=== PATIENT | female | born 1945 | race Caucasian/White ===

== ENCOUNTER 2020-02-29 10:33 | Outpatient (CLI) | payer MEDICARE, SELFPAY ==
--- NOTE | ~2020-02-29 | XR_ITS ---
EXAMINATION: XR knee RT min 4V DATE: 02/29/2020 11:02 INDICATION: Right knee injury. TECHNIQUE: 4 views of right knee were obtained. COMPARISON: None. FINDINGS: Bone alignment is normal. No fracture. There is severe tricompartmental osteoarthritis. The re is a moderate-sized knee joint effusion. A 10 mm focus of ossification posterior to the knee joint may be a loose body in a Bay's cyst. IMPRESSION: 1. Severe right knee osteoarthritis. 2. Moderate-sized right knee joint effusion. 3. Ossification posterior to the knee joint that may be a loose body in a Bay's cyst. Reviewed, dictated and finalized at location A. IMPRESSION: 1. Severe right knee osteoarthritis. 2. Moderate-sized right knee joint effusion. 3. Ossification posterior to the knee joint that may be a loose body in a Bay 's cyst.
== END 2020-02-29 10:34 | disposition home or self-care (01) ==
PROVIDERS: PCP Family Medicine; Visit Provider Physician Assistant
DX: S89.91XA Unspecified injury of right lower leg, initial encounter (principal); G89.29 Other chronic pain; M17.11 Unilateral primary osteoarthritis, right knee; X58.XXXA Exposure to other specified factors, initial encounter; M25.461 Effusion, right knee
CPT/HCPCS: 73564

== ENCOUNTER 2020-06-27 08:08 | Outpatient (RCR) | payer MEDICARE, SELFPAY ==
[2020-05-14 11:59] VITALS: BMI 42.0
== END 2020-07-30 09:51 | disposition home or self-care (01) ==
LOC: ANHWOC 08:08
PROVIDERS: PCP Family Medicine; Visit Provider Family Medicine
DX: E11.621 Type 2 diabetes mellitus with foot ulcer (principal); L97.529 Non-pressure chronic ulcer of other part of left foot with unspecified severity
CPT/HCPCS: 99212; G0463

== ENCOUNTER 2020-09-10 10:23 | Outpatient (RCR) | payer MEDICARE, SELFPAY ==
[2020-09-10 14:41] VITALS: BMI 42.0
== END 2020-11-28 12:41 | disposition home or self-care (01) ==
LOC: ANHWOC 10:23
PROVIDERS: PCP Family Medicine; Visit Provider Family Medicine
DX: E11.621 Type 2 diabetes mellitus with foot ulcer (principal); L97.521 Non-pressure chronic ulcer of other part of left foot limited to breakdown of skin
CPT/HCPCS: 99212; G0463

== ENCOUNTER → 2023-06-29 10:46 | Outpatient (CLI) | payer MEDICARE, SELFPAY ==
--- NOTE | ~2023-06-29 | XR_ITS ---
EXAMINATION: XR chest 2V 06/29/2023 11:06 INDICATION: Hoarseness. Reflux. PROCEDURE: 2 view chest COMPARISON: No prior studies for comparison. FINDINGS: The lungs are clear. The cardiomediastinal silhouette is within normal limits. There are no pleural effusions. There is no pneumothorax suspected. IMPRESSION: 1: NO ACUTE CARDIOPULMONARY DISEASE. Reviewed, dictated and finalized at location B.
== END ==
PROVIDERS: PCP Otolaryngology; Visit Provider Otolaryngology
DX: R49.0 Dysphonia (principal); J38.00 Paralysis of vocal cords and larynx, unspecified; T17.310A Gastric contents in larynx causing asphyxiation, initial encounter
CPT/HCPCS: 71046

== ENCOUNTER 2023-09-15 12:32 | Emergency (ER) | payer MEDICARE, SELFPAY ==
[2023-09-15 12:36] VITALS: BP 119/66; PULSE 86; RESP 16; TEMP 36.3; O2SAT 100
--- NOTE | 2023-09-15 14:18 | ED.SKABFB ---
HPI - Skin/Abscess/Foreign Bdy General Chief complaint: Skin/Abscess/Foreign Body Stated complaint: lump on vagina Time Seen by Provider: 09/15/23 14:08 History of Present Illness HPI narrative: Pt presents with tender swollen lump on left labia of vagina for two weeks. Pt says it is getting gradually worse. [facility]. Pt says has had some bloody drainage but no purulent drainage. Pt denies trauma or fever. Pt is on apixaban. Related Data Home Medications Medication Instructions Recorded Confirmed silver sulfadiazine 1 % topical 1 applic topical DAILY 08/24/19 03/05/23 cream (Silvadene) Allergies Allergy/AdvReac Type Severity Reaction Status Date / Time No Known Allergies Allergy Verified 09/15/23 12:40 Review of Systems Review of Systems: All systems reviewed & are unremarkable except as noted in HPI and below PMFSH Past Medical History Medical History (Updated 09/15/23 @ 15:15 by Leodan Reed III, DO) Acute bronchitis Acute CHF (09/29/22) 10/01/2022 chest x-ray with pulmonary vascular congestion and pleural effusion. CT angio of the chest with contrast was negative for pulmonary embolism with bilateral pleural effusions and nonspecific alveolar and interstitial lung changes suggesting pulmonary edema. Left heart is poorly enhanced in the ascending aorta possibly due to cardiac dysfunction. Calcification with in the LAD noted. Echo on 10/02/2022 with ejection fraction 55-60% with mild mitral regurgitation and trivial tricuspid regurgitation. stress Lexiscan study on 10/03/2022 revealed no apparent reversible ischemia with normal left ventricular systolic function. Acute non-recurrent maxillary sinusitis At high risk for falls Bilateral impacted cerumen Body mass index (BMI) 45.0-49.9, adult (02/15/19) Body mass index (BMI) of 40.1 to 44.9 in adult Breast cancer screening Chronic pain Chronic pain of right knee Diabetic ulcer of toe associated with type 2 diabetes mellitus (~06/2022) superficial ulceration extensor surface right 2nd toe Diabetic ulcer of toe of left foot associated with type 2 diabetes mellitus Diarrhea Grieving (~08/2021) 48-year-old son Hoarseness of voice Morbid obesity with BMI of 40.0-44.9, adult Non-pressure chronic ulcer of other part of left foot limited to breakdown of skin Osteoarthritis of right knee Renal insufficiency GFR 57 on 06/11/2021. GFR 56 on 08/22/2022. GFR 38 on 10/23/2022. BUN 18, creatinine 1.23 with GFR 46 on 03/02/2023. Screening for diabetic retinopathy (04/30/21) no diabetic retinopathy on 04/30/2021. mild diabetic retinopathy on the right 08/07/2023. UTI (urinary tract infection) Family History Family History Father Acute myocardial infarction, Onset Age: 50 Mother Family history of malignant neoplasm, Onset Age: 82 Social History Social History Social History: Caffeine-coffe/soda Smoking status: Never smoker Alcohol intake: never Substance use: never Substance use type: does not use Lack of Transportation: No Lack of Food: Never True Current Housing: I Have Housing Concerned About Future Housing: No Difficulty Paying Gas/Electric Bills: No Difficulty Paying for Meds: No Currently Unemployed: No Education: Bachelor's Degree Difficulty w/ Childcare or Family Care: No Living arrangements: with family Gender identity (if verbalized by the patient): Female Sexual Orientation (if Verbalized by the Patient): Straight or Heterosexual Exam Const: General: healthy appearing, no acute distress and alert Nutritional Appearance: well nourished Orientation/consciousness: patient oriented x3 Limitations: no limitations GI: GI Palp: Yes Soft to palpation Auscultation: normal bowel sounds : Other: abscess lower left labia Skin
[2023-09-15] MEDS: LIDOCAINE HCL 1% LOCAL INJ 10 ML VIAL (14:29)
[2023-09-15 14:52] VITALS: BP 121/73; PULSE 72; RESP 17; O2SAT 99
[2023-09-15 15:27] VITALS: BP 118/76; PULSE 68; RESP 16; O2SAT 100
== END 2023-09-15 15:30 | disposition home or self-care (01) ==
PROVIDERS: Emergency Provider Emergency Medicine; PCP Family Medicine
DX: N90.7 Vulvar cyst (principal); I50.9 Heart failure, unspecified; E11.9 Type 2 diabetes mellitus without complications; M19.90 Unspecified osteoarthritis, unspecified site; N28.9 Disorder of kidney and ureter, unspecified; Z87.440 Personal history of urinary (tract) infections; Z79.4 Long term (current) use of insulin
CPT/HCPCS: 56405; 99283

== ENCOUNTER 2024-06-08 08:42 | Outpatient (RCR) | payer MEDICARE, SELFPAY ==
[2024-04-01 10:49] VITALS: BMI 44.3
== END 2024-06-30 23:59 | disposition home or self-care (01) ==
LOC: ANHWOC 08:42
PROVIDERS: PCP Family Medicine; Visit Provider Family Medicine
DX: E08.621 Diabetes mellitus due to underlying condition with foot ulcer (principal); L97.529 Non-pressure chronic ulcer of other part of left foot with unspecified severity
CPT/HCPCS: 29581; 99213; 99214; A9270; G0463

== ENCOUNTER 2024-08-01 07:28 | Outpatient (RCR) | payer MEDICARE, SELFPAY ==
[2024-07-01 00:05] VITALS: BMI 44.3
--- NOTE | 2024-07-11 08:50 | VASCRN ---
Order received for: After review of the chart and the patient assessment, patient is not a candidate for the following reason(s): Provider notified:
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
== END 2024-09-26 08:46 | disposition home or self-care (01) ==
LOC: ANHWOC 07:28
PROVIDERS: PCP Family Medicine; Visit Provider Family Medicine
DX: L97.529 Non-pressure chronic ulcer of other part of left foot with unspecified severity (principal); E08.621 Diabetes mellitus due to underlying condition with foot ulcer
CPT/HCPCS: 29581; 99213; 99214; A9270; G0463

== ENCOUNTER 2025-03-14 07:24 | Emergency (ER) | payer MEDICARE, SELFPAY ==
[2025-03-14] VITALS (12 sets, daily range): BP systolic 176–196; BP diastolic 72–98; PULSE 61–88; RESP 11–20; TEMP 36.3; O2SAT 98–100
--- NOTE | ~2025-03-14 | XR_ITS ---
XR chest 2V 03/14/2025 09:00 Indication: Weakness Procedure: 2 view chest Comparison: 06/29/2023 Findings: Cardiomegaly. No focal air space disease, pulmonary edema, pleural effusion or suspected pn eumothorax. Impression: 1: No acute cardiopulmonary disease. 2: Cardiomegaly. Reviewed, dictated and finalized at location A. Impression: 1: No acute cardiopulmonary disease. 2: Cardiomegaly.
--- NOTE | ~2025-03-14 | CT_ITS ---
CT of the Abdomen and Pelvis: Indication: Abdominal pain Technique: 2.5 mm axial scans were obtained through the abdomen and pelvis following intravenous adm inistration of 100 cc of Omnipaque 350. Dose reduction technique was used on this scan by utilizing a utomated exposure control and iterative reconstruction technique. The dose-length product (DLP) was 1 568.82 mGy-cm. Findings: Scans through the lung bases demonstrate small bilateral pleural effusions. Probable diffuse hepatic steatosis. Cholecystectomy clips are present. The spleen, pancreas, adrenals and kidneys are within normal limits. No evidence of aortic aneurysm. No lymphadenopathy. No bowel obstruction or bowel wall thickening. There is no evidence to suggest acute appendicitis. Images through the pelvis were performed. Urinary bladder unremarkable. Small calcified fibroids are present. No ascites. There is extensive degenerative spondylosis of the spine with posterior fusion f rom L3 through L5. Impression: Small bilateral pleural effusions. Diffuse hepatic steatosis. Reviewed, dictated and finalized at [facility]. Impression: Small bilateral pleural effusions. Diffuse hepatic steatosis.
--- OUTSIDE RECORDS SUMMARY | 2025-03-14 07:27 | XMS_ITS | Clinical Summary ---
Author Organization [facility] Address [address] [place] [address] Care Team Providers Care Nocturnist Physician Name Role Phone Jasiel Person MD Primary Care Provider [phone] Allergies No known active allergies Medications LEVEMIR FLEXTOUCH U-100 INSULN 100 unit/mL (3 mL) insulin pen INJECT 60 UNITS QAM 11 8 Active NOVOFINE PLUS 32 gauge x 1/6 needle USE WITH INSULIN QID 11 8 Active levothyroxine (SYNTHROID) 175 mcg tablet Take 1 tablet (175 mcg total) by mouth burlap bag sewer before breakfast Active atorvastatin (LIPITOR) 40 mg tablet Take 1 tablet (40 mg total) by mouth daily Active gabapentin (NEURONTIN) 800 mg tablet Take 1 tablet (800 mg total) by mouth 3 (three) times a day Active esomeprazole DR (NexIUM) 40 mg capsule Take 1 capsule (40 mg total) by mouth daily before breakfast Active polyethylene glycol 3350 (MIRALAX ORAL) Take by mouth A ctive HYDROcodone-aceta minophen (NORCO) 10-325 mg per tablet Take 1 tablet by mouth every 6 (six) hours as needed Active apixaban (ELIQUIS) 5 mg tablet Take 2 tablets (10 mg total) by mouth daily Active furosemide (LASIX) 40 mg tablet Take 1 tablet (40 mg total) by mouth daily Active potassium chloride ER (KLOR-CON) 10 mEq CR tablet Take 1 tablet/capsule (10 mEq total) by mouth daily 30 tablet 11 3 Active sacubitriL-valsar contreras (Entresto) 24-26 mg tabletIndications :chronic heart failure Take 1 tablet by mouth 2 (two) times a day 28 tablet 3 Active Jardiance 25 mg tablet Take 1 tablet (25 mg total) by mouth every morning 3 Active metoprolol XL (TOPROL-XL) 100 mg 24 hr tablet Take 1.5 tablets (150 mg total) by mouth daily 45 tablet 11 4 Active flecainide (TAMBOCOR) 50 mg tabletIndications :Paroxysmal Atrial Fibrillation Take 1 tablet (50 mg total) by mouth 2 (two) times a day 60 tablet 11 4 Active Active Problems Problem Noted Date Diagnosed Date Medication side effects 12/08/2023 Paroxysmal atrial fibrillation 09/15/2023 Chronic anticoagulation 09/15/2023 Weakness of voice 06/18/2023 Coronary artery calcification seen on CT scan Chronic heart failure with preserved ejection fr action 02/17/2023 Morbid obesity with BMI of 40.0-44.9, adult 11/2022 Mixed diabetic hyperlipidemi a associated with type 2 diabetes mellitus 02/17/2023 Hypertension associated with diabetes 02/17/2023 Left asymmetrical SNHL 03/18/2019 Assessment & Plan (03/18/2019 12:40 PM CDT): MRI open at [facility] Oral steroids called into [facility] Recheck hearing test in 6 weeks Carotid doppler Centralized Scheduling: Dizziness and giddiness 03/18/2019 Assessment & Plan (03/18/2019 12:43 PM CDT): MRI open at [facility] Oral steroids called into [facility] Recheck hearing test in 6 weeks Carotid doppler Centralized Scheduling: If no improvement in 6 weeks, consider Katie-Hallpike versus CTA Hx of colonic polyps 07/06/2018 Overview (07/06/2018): Added automatically from request for surgery [id number] Immunizations Immunization Administration Dates Next Due Tdap 06/12/2022 Surgical History Surgery Date Site/Laterality Comments THYROIDECTOMY APPENDECTOMY TONSILLECTOMY CHOLECYSTECTOMY REPLACEMENT TOTAL KNEE Left BACK SURGERY TUBAL LIGATION COLONOSCOPY 08/05/2016 Medical History Medical History Date Comments Colon polyp Hypertension Hyperlipidemia Type 2 diabetes mellitus (HCC) Hypothyroidism Thyroid cancer (HCC) GERD (gastroesophageal reflux disease) CHF (congestive heart failure) (HCC) Family History Medical History Relation Name Comments Alcohol abuse Father Heart disease Father Back Pain Mother Cancer Mother Relation Name Status Comments Father Mother Social History Tobacco Use Types Packs/Day Years Used Date Smoking Tobacco: Never Smokeless Tobacco: Never Tobacco Cessation:Counseling Given: Not Answered Alcohol Use Standard Drinks/Week Comments Not Currently 0 (1 standard drink = 0.6 oz pur e alcohol) Personal Safety Answer Date Recorded Getting School Help Needed Not on file 09/29 Comments Unknown Sex and Gender Information Value Date Recorded Sex Assigned at Not on file 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 Gender Identity Not on file Sexual Orientation Not on file Obstetrics History Last Filed Vital Signs Vital Sign Reading Time Taken Comments Blood Pressure 105/56 02/09/2024 12:14 PM CDT Pulse 105 02/08/2024 1:30 PM CDT Temperature 36.7 C (98.1 F) 09/15/2023 11:48 AM CAR RENTAL AGENCY MANAGER Respiratory Rate 16 01/26/2024 11:36 AM CDT Oxygen Saturation 98% 02/08/2024 1:30 PM CDT Inhaled Oxygen Concentration - - Weight 122.5 kg (270 lb) 01/26/2024 11:36 AM CDT Height 167.6 cm (5' 6) 01/26/2024 11:36 AM CDT Body Mass Index 43.58 01/26/2024 11:36 AM CDT Plan of Treatment Health Maintenance Due Date Last Done Comments Albumin Creatinine Ratio, Urine 1945 Depression Screening 1945 Fall Risk Assessment 1945 Hemoglobin A1C 1945 Hepatitis C Screening 1945 Osteoporosis Screening-Bone Density Scan 1945 Dilated Eye Exam 1945 Foot Exam 1945 Hepatitis B Screening 1965 Pneumococcal vaccine 65+ (1 of 2 - PCV) 1966 Zoster Vaccine (1 of 2) 1997 Well Visit 65+ 2012 eGFR 04/14/2024 04/14/2023 Lipid Panel 06/18/2024 06/18/2023, 02/16, 02/17/2023 Covid-19 Vaccine (5 - 2023-2 5 season) 2024 03/27/2022, 08/04/2021, 01/06/2021, Additional history exists Influenza Vaccine (Season Ended) 2025 08/04/20 DTaP/Tdap/Td Vaccine (2 - Td or Tdap) 06/12/2032 06/12/2022 Colon Cancer Screening-CT Colonography Discontinued 08/12/2018, 08/05/2016, 08/05/2016, Additional history exists Colon Cancer Screening-Colonoscopy Discontinued 08/12/2018, 08/05/2016, 08/05/2016, Additional history exists Colon Cancer Screening-DNA Stool Discontinued 08/12/2018, 08/05/2016, 08/05/2016, Additional history exists Colon Cancer Screening-FIT Discontinued 08/12, 08/05/2016, 08/05/2016, Additional history exists Colon Cancer Screening-FOBT Discontinued 07/20, 08/05/2016, 08/05/2016, Additional history exists Colon Cancer Screening-Sigmoidoscopy Discontinued 08/12/2018, 08/05/2016, 08/05/2016, Additional history exists Colorectal Cancer Screening Discontinued Procedures Procedure Name Priority Date/Time Associated Diagnosis Comments POCT LIPID PANEL Routine 06/18/2023 12:3 5 PM CDT Mixed diabetic hyperlipidemia associated with type 2 diabetes mellitus (HCC) BASIC METABOLIC PANEL Routine 04/14/2023 7:39 AM CDT Chronic heart failure with preserved ejection fraction (HCC) COLONOSCOPY 08/12/2018 10:17 AM CDT from Last 3 Months or Most Recently Relevant to Health Maintenance Results * POCT lipid panel (06/18/2023 12:35 PM CDT) Cholesterol, POC 171 mg/dL Comment:GLU = 183 HDL, POC 21 mg/dL Triglycerides, POC 295 mg/dL LDL Cholesterol POC 90 mg/dL Chol/HDL Ratio, POC 4.3 Non-HDL Cholesterol, POC 149 mg/dL Cholesterol Total, POC 171 mg/dL Capillary blood 06/18/2023 1 2:35 PM CDT us Aldo Muse MD POINT OF CARE TEST ORDER GENTRY Final Result * (ABNORMAL) Basic metabolic panel (04/14/2023 7:39 AM CDT) Glucose 159(H) 65 - 99 mg/dL [facility] Comment: Fasting reference interval For someone without known diabetes, a glucose value >125 mg/dL indicates that they may have diabetes and this should be confirmed with a follow-up test. BUN 16 7 - 25 mg/dL [facility] Creatinine 1.11(H) 0.60 - 1.00 mg/dL [facility] eGFR 52(L) > OR = 60 mL/min/1.7 3m2 [facility] Comment: The eGFR is based on the CKD-EPI 2020 equation. To calculate the new eGFR from a previous Creatinine or Cystatin C result, go to https://www.kidney.org/professionals/ kdoqi/gfr%5Fcalculator BUN/creat ratio 14 6 - 22 (calc) [facility] Sodium 141 135 - 146 mmol/L [facility] Potassium, pl 4.3 3.5 - 5.3 mmol/L [facility] Chloride 105 98 - 110 mmol/L [facility] CO2 27 20 - 32 mmol/L [facility] Calcium 10.0 8.6 - 10.4 mg/dL [facility] Blood 04/14/2023 7:39 AM CDT 04/14/2023 7:39 AM CDT Narrative [facility] - 04/15/2023 3:01 AM CDT FASTING:YES FASTING: YES Radha Lester [employer]OUND [employer] LAB BLOOD ORDERABLES Ana l Result [facility] [id number] [place] [id number] * COLONOSCOPY (08/12/2018 10:17 AM CDT) Anatomical Region Laterality Modality Other Narrative Procedure Note Angel Guido MD - 08/12/2018 10:17 AM CDT [facility] Patient Name: Nona Sessions Procedure Date: 08/12/2018 10:17AM Date of : 1945 Admit Type: Outpatient Age: 72 Gender: Female Attending MD: Angel Guido M.D. Room: [facility] ENDOSCOPY ROOM 1 Note Status: Finalized Procedure: Colonoscopy Indications: High risk colon cancer surveillance: Personalhistory of colonic polyps, Last colonoscopy: July 2016 Referring MD: Jasiel Person MD Providers: Angel Guido M.D. Impression: - Hemorrhoids found on perianal exam. - Two 5 to 7 mm polyps in the descending colon andin the transverse colon, removed with a hot biopsy forceps. Resected and retrieved. Recommendation: - Discharge patient to home. - Resume previous diet. - Continue present medications. - Await pathology results. - Repeat colonoscopy in 5 years for surveillance. - Return to primary care physician as previously scheduled. Medicines: Propofol per Anesthesia Complications: No immediate complications. Estimated Blood Loss: Estimated blood loss: none. Procedure: The benefits, risks and alternatives of theprocedure and sedation were discussed and informed consent was obtained. All questions were answered. Please referto the signed informed consent document in the medical record. The scope was passed under direct vision.The Colonoscope [id number] was introducedthrough the anus and advanced to the the cecum, identifiedby appendiceal orifice and ileocecal valve. The colonoscopy was performed without difficulty. The patient tolerated the procedure well. The quality of the bowel preparation was good. Findings: Hemorrhoids were found on perianal exam. Two sessile polyps were found in the descending colon and transverse colon. The polyps were 5 to 7 mm in size. These polyps were removedwith a hot biopsy forceps. Resection and retrieval were complete. Verification of patient identification for the specimen was done bythe physician and nurse using the patient's name and date.Estimated blood loss was minimal. The exam was otherwise normal throughout the examined colon. Electronically signed by Angel Guido M.D. Angel Guido M.D. 08/12/2018 11:11:19 AM Number of Addenda: 0 Note Initiated On: 08/12/2018 10:17 AM Procedure Code(s): --- Professional --- 15933, Colonoscopy, flexible; with removal of tumor(s), polyp(s), or other lesion(s) by hot biopsy forceps Diagnosis Code(s): --- Professional --- D12.3, Benign neoplasm of transverse colon (hepatic flexure orsplenic flexure) D12.4, Benign neoplasm of descending colon K64.9, Unspecified hemorrhoids Z86.010, Personal history of colonic polyps CPT copyright 2017 [employer]. All rights reserved. The codes documented in this report are preliminary and upon inpatient coder reviewmay be revised to meet current compliance requirements. Recognized by the [employer] for promoting quality in endoscopy us Angel Guido MD ENDOSCOPY PROCEDURES Final Re sult from Last 3 Months or Most Recently Relevant to Health Maintenance Insurance [facility] MEDICARE T MEDICARE AET MEDICARE Advance Directives For more information, please contact: [phone] * Full Code (Latest Code Status on File) Date Activated Date Inactivated Comments 08/12/2018 8:57 AM 08/12/2018 1:55 PM * Full Code Date Activated Date Inactivated Comments 08/12/2018 8:57 AM 08/12/2018 8:57 AM Care Teams Nocturnist Physician Relationship Specialty Start Date End Date Jasiel Person MD [facility] [address] [address] PCP - General Family Medicine 07/02/18
--- OUTSIDE RECORDS SUMMARY | 2025-03-14 07:27 | XMS_ITS | Referral Summary ---
Author Organization [facility] Address [address] [place] [address] Care Team Providers Care Shot Peen Operator Name Role Phone Jasiel Person MD Primary Care Provider [phone] Allergies No known active allergies Medications LEVEMIR FLEXTOUCH U-100 INSULN 100 unit/mL (3 mL) insulin pen INJECT 60 UNITS QAM 11 8 Active NOVOFINE PLUS 32 gauge x 1/6 needle USE WITH INSULIN QID 11 8 Active levothyroxine (SYNTHROID) 175 mcg tablet Take 1 tablet (175 mcg total) by mouth rewriter before breakfast Active atorvastatin (LIPITOR) 40 mg [...] (03/18/2019 12:40 PM CDT): MRI open at [facility] Oral steroids called into [facility] Recheck hearing test in 6 weeks Carotid doppler Centralized Scheduling: Dizziness and giddiness 03/18/2019 Assessment & Plan (03/18/2019 12:43 PM CDT): MRI open at [facility] Oral steroids called into 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 Gender Identity Not on file Sexual Orientation Not on file Last Filed Vital Signs Vital Sign Reading Time Taken Comments Blood Pressure 105/56 02/09/2024 12:14 PM CDT Pulse 105 02/08/2024 1:30 PM CDT Temperature 36.7 C (98.1 F) 09/15/2023 11:48 AM VASCULAR NURSE Respiratory Rate 16 01/26/2024 11:36 AM CDT Oxygen Saturation 98% 02/08/2024 1:30 PM CDT Inhaled Oxygen Concentration - - Weight 122.5 kg (270 lb) 01/26/2024 11:36 AM CDT Height 167.6 cm (5' 6) 01/26/2024 11:36 AM CDT Body Mass Index 43.58 01/26/2024 11:36 AM CDT Plan of Treatment Not on file Procedures Procedure Name Priority Date/Time Associated Diagnosis [...] 04/15/2023 3:01 AM CDT FASTING:YES FASTING: YES us Radha Lester NP LAB BLOOD ORDERABLES Ana plummer Result [facility] [address] [id number] * COLONOSCOPY (08/12/2018 10:17 AM CDT) Anatomical Region Laterality Modality Other Narrative Procedure Note Angel Guido MD - 08/12/2018 10:[address] [facility] Patient Name: Nona Sessions Procedure Date: 08/12/2018 10:17AM Date of : 1945 Admit Type: Outpatient Age: 72 Gender: Female Attending MD: Angel Guido M.D. Room: [facility] ENDOSCOPY ROOM 1 Note Status: Finalized Procedure: [...] scope was passed under direct vision.The Colonoscope [id number] was introducedthrough the anus and advanced to [...] 10:17 AM Procedure Code(s): --- Professional --- 38117, Colonoscopy, flexible; with removal of tumor(s), polyp(s), or other lesion(s) by hot biopsy forceps Diagnosis Code(s): --- Professional --- D12.3, Benign neoplasm of transverse colon (hepatic flexure orsplenic flexure) D12.4, Benign neoplasm of descending colon K64.9, Unspecified hemorrhoids Z86.010, Personal history of colonic polyps CPT copyright 2017 [employer]. All rights reserved. The codes documented in this report are preliminary and upon physician coder reviewmay be revised to meet current compliance requirements. Recognized by the [employer] for promoting quality in endoscopy Angel Guido MD ENDOSCOPY PROCEDURES Final Re sult from Last 3 Months or Most Recently Relevant to Health Maintenance Insurance T MEDICARE T MEDICARE T MEDICARE Advance Directives For more information, please contact: [phone] * Full Code (Latest Code Status on File) Date Activated Date Inactivated Comments 08/12/2018 8:57 AM 08/12/2018 1:55 PM * Full Code Date Activated Date Inactivated Comments 08/12/2018 8:57 AM 08/12/2018 8:57 AM Care Teams Shot Peen Operator Relationship Specialty Start Date End Date Jasiel Person MD [address] [address] PCP - General Family Medicine 07/02/18
--- OUTSIDE RECORDS SUMMARY | 2025-03-14 07:27 | XMS_ITS | Continuity of Care Document ---
Author Organization [facility] Address [address] [place] [address] [place] [address] Phone Care Team Providers Care Loss Prevention Supervisor Name Role Phone Anthony Murphy MD Unavailable Unavailable Procedures Procedure Date Office/outpatient Visit, Est Eye Exam, New Patient Advance Directives Directive Yes / No Effective Date File Name No Information Encounters Encounter Description Practice Location Reason(s) For Visit Diagnoses Date Provider Providers Copied on Encounter Office/outpat ient Visit, Est [facility], [address] [place] [address] [address], [place], [place], [id number], tel:[phone] [address] Herbert AVILEZ Professional No Information [address] [facility] [place] [id number], . tel:[phone] [id number] [facility], [address] [place] [address] [address], [place], [place], [id number], tel:[phone] [address] Selby RAGHAV Professional No Information [address], [facility] [place], [place], [id number], . tel:[phone] Family History Family Member Type Diagnosis Age At Onset No Information Payers Payer name Insurance type Covered republican ID Authoriza tion(s) No Information Social History Type Description Quantity Date Captured Comments Sex Female Smoking Status No Information Chief Complaint And Reason For Visit No Information Reason For Referral Reason For Referral No Information History Of Present Illness Encounter Date Complaint History Of Prese nt Illness No Information Functional Status Date Functional Assessmen t No Information Instructions Date Instruction Additional Infor mation No Information Assessments Type Assessment Date No Information Patient Care Teams Name Effective Dates (start - stop) Status Members No Information
--- NOTE | 2025-03-14 07:33 | ECG_ITS ---
Test Date: 2025-03-14 07:39:02 Measurements Intervals Royal Rate: 65 P: 50 DC: 256 QRS: -78 QRSD: 124 T: 4 QT: 443 QTc: 462 Interpretive Statements SINUS RHYTHM WITH FIRST DEGREE AV BLOCK WITH OCCASIONAL VENTRICULAR PREMATURE COMPLEXES LEFT ANTERIOR FASCICULAR BLOCK [QRS AXIS <= -45, QR IN I, RS IN II] POSSIBLE ANTERIOR MYOCARDIAL INFARCTION , PROBABLY OLD [30 ms Q WAVE IN V3/V4, OR R < 0.2 mV IN V4] No previous ECG available for comparison Electronically Signed On 03-14-2025 14:06:17 CDT by Matti Miller M.D.
--- NOTE | 2025-03-14 07:51 | ED.GENADULT ---
HPI - General Adult General Chief complaint: Nausea/Vomiting/Diarrhea Stated complaint: vomiting Time Seen by Provider: 03/14/25 07:37 History of Present Illness HPI narrative: Patient 79-year-old female who presents emergency department with chief complaint of nausea and abdominal discomfort. Patient reports that about 2 weeks ago she was placed on iron by her primary care provider after she was more anemic. Patient does report that she is on blood thinners and reports that since then she has been feeling nauseated and reports she has discomfort throughout her abdomen. The patient reports that she has had no bright red blood in her stools reports that in the past she has had endoscopy that showed that she had a ulcer but did not have any bleeding at that time. Related Data Home Medications ?Medication ?Instructions ?Recorded ?Confirmed ?Last Taken ?Type metoprolol succinate 100 mg 100 mg PO DAILY 09/24/23 02/21/25 Unknown History tablet,extended release 24 hr amiodarone 200 mg tablet 200 mg PO DAILY 07/20/24 02/21/25 Unknown History spironolactone 25 mg tablet 25 mg PO DAILY 07/20/24 02/21/25 Unknown History Allergies Allergy/AdvReac Type Severity Reaction Status Date / Time No Known Allergies Allergy Verified 03/14/25 07:50 Review of Systems Review of Systems: A 10 system review of systems was completed on the patient and is negative except for what is stated in the HPI. Nursing and ancillary documentation was reviewed. [facility] Past Medical History Medical History Chronic acquired lymphedema treated with sequential pneumatic compression device 2 hours daily lower extremities Nausea and vomiting Renal insufficiency GFR 57 on 06/11/2021. GFR 56 on 08/22/2022. GFR 38 on 10/23/2022. BUN 18, creatinine 1.23 with GFR 46 on 03/02/2023. BUN 18 with creatinine 1.03 with GFR 57 on 09/22/2023. BUN 19, creatinine 1.43 with GFR 31 on 03/09/2024. BUN 15, creatinine 1.12 with GFR 51 on 07/18/2024. Screening for diabetic retinopathy (04/30/21) no diabetic retinopathy on 04/30/2021. mild diabetic retinopathy on the right 08/07/2023. Diabetic ulcer of toe of left foot associated with diabetes mellitus due to underlying condition left great toe, 3rd toe Acute CHF (09/29/22) 10/01/2022 chest x-ray with pulmonary vascular congestion and pleural effusion. CT angio of the chest with contrast was negative for pulmonary embolism with bilateral pleural effusions and nonspecific alveolar and interstitial lung changes suggesting pulmonary edema. Left heart is poorly enhanced in the ascending aorta possibly due to cardiac dysfunction. Calcification with in the LAD noted. Echo on 10/02/2022 with ejection fraction 55-60% with mild mitral regurgitation and trivial tricuspid regurgitation. stress Lexiscan study on 10/03/2022 revealed no apparent reversible ischemia with normal left ventricular systolic function. Chronic kidney disease (CKD) stage G3b/A1, moderately decreased glomerular filtration rate (GFR) between 30-44 mL/min/1.73 square meter and albuminuria creatinine ratio less than 30 mg/g GFR 57 on 06/11/2021. GFR 56 on 08/22/2022. GFR 38 on 10/23/2022. BUN 18, creatinine 1.23 with GFR 46 on 03/02/2023. BUN 18 with creatinine 1.03 with GFR 57 on 09/22/2023. BUN 19, creatinine 1.43 with GFR 31 on 03/09/2024. BUN 15, creatinine 1.12 with GFR 51 on 07/18/2024. BUN 20, creatinine 1.35 with GFR 40 on 02/17/2025. Polyp of colon (~03/11/24) 3 sessile polyps , tubular adenoma, less than 7 mm in the ascending colon on 03/11/2024. No follow-up needed. Gastric ulcer (~02/2024) EGD on 03/11/2024 with gastric ulcer nonbleeding. Iron deficiency anemia, unspecified (~03/09/24) hemoglobin 6.6, iron 43 with 10% saturation and ferritin 7 with vitamin B12 768, folic acid 8.0 on 03/09/2024. Hemoglobin 9.0 on 07/18/2024. hemoglobin 6.4 with iron 13 with 3% saturation and ferritin 4 on 02/17/2025. Diabetic retinopathy of right eye (08/07/23) mild retinopathy right eye 08/07/2023. Diastolic CHF with preserved left ventricular function, NYHA class 2 Echo with ejection fraction 52% with moderate diastolic dysfunction and [id number] tricuspid regurgitation, atrial fibrillation. Paroxysmal atrial fibrillation UTI (urinary tract infection) Hoarseness of voice Diarrhea Acute bronchitis At high risk for falls Diabetic ulcer of toe associated with type 2 diabetes mellitus (~06/2022) superficial ulceration extensor surface right 2nd toe Grieving (~08/2021) 48-year-old son Morbid obesity with BMI of 40.0-44.9, adult Acute non-recurrent maxillary sinusitis Breast cancer screening Body mass index (BMI) of 40.1 to 44.9 in adult Chronic pain Bilateral impacted cerumen Osteoarthritis of right knee Chronic pain of right knee Body mass index (BMI) 45.0-49.9, adult (02/15/19) Diabetic ulcer of toe of left foot associated with type 2 diabetes mellitus Non-pressure chronic ulcer of other part of left foot limited to breakdown of skin Surgical History Surgical History H/O cardiac radiofrequency ablation Family History Family History Father Acute myocardial infarction, Onset Age: 50 Mother Family history of malignant neoplasm, Onset Age: 82 Social History Social History Social History: Caffeine-coffe/soda Smoking status: Never smoker Alcohol intake: never Substance use: never Substance use type: does not use Lack of Transportation: No Lack of Food: Never True Current Housing: I Have Housing Concerned About Future Housing: No Difficulty Paying Gas/Electric Bills: No Difficulty Paying for Meds: No Currently Unemployed: No Education: Bachelor's Degree Difficulty w/ Childcare or Family Care: No Living arrangements: with family Gender identity (if verbalized by the patient): Female Sexual Orientation (if Verbalized by the Patient): Straight or Heterosexual Exam Narrative: GENERAL: Well-appearing, well-nourished, and in no acute distress. HEAD: Normocephalic, atraumatic. EYES: PERRLA and EOMI. ENT: Nares clear, no rhinorrhea or epistaxis. Mucous membranes moist. NECK: Supple. CHEST: Clear to auscultation. No respiratory distress. HEART: Regular rate and rhythm. No murmur heard. Normal peripheral pulses. ABDOMEN: Soft, nontender, nondistended, normal active bowel sounds. EXTREMITIES: Normal range of motion. No edema. SKIN: Warm, dry, no rash. NEURO: No focal deficits. Alert and oriented x3. PSYCH: Normal mood and affect. Course Vital Signs Vital signs: Vital Signs Temperature 36.3 C L 03/14/25 07:34 Pulse Rate 67 03/14/25 07:34 Respiratory Rate 18 03/14/25 07:34 Blood Pressure 195/86 H 03/14/25 07:34 Pulse Oximetry 100 03/14/25 07:34 Oxygen Delivery Room Air 03/14/25 07:34 Temperature 36.3 C L 03/14/25 07:34 Pulse Rate 69 03/14/25 11:16 Respiratory Rate 15 03/14/25 11:16 Blood Pressure 191/93 H 03/14/25 11:16 Pulse Oximetry 98 03/14/25 08:31 Oxygen Delivery Room Air 03/14/25 07:34 Medical Decision Making [facility] Narrative Medical decision making narrative: Diagnosis includes intra-abdominal infection, bowel obstruction, UTI Laboratory studies showed a white count of 6.2 electrolytes showed a creatinine of 1.32 CO2 was 31 liver enzymes are normal troponin was negative urinalysis showed 3+ glucose 1+ protein 6-10 red blood cells negative leukocyte esterase negative wbc's CT scan the abdomen pelvis showed no acute abnormality Vital Signs Vital Signs: Vital Signs Temperature 36.3 C L 03/14/25 07:34 Pulse Rate 67 03/14/25 07:34 Respiratory Rate 18 03/14/25 07:34 Blood Pressure 195/86 H 03/14/25 07:34 Pulse Oximetry 100 03/14/25 07:34 Oxygen Delivery Room Air 03/14/25 07:34 Temperature 36.3 C L 03/14/25 07:34 Pulse Rate 69 03/14/25 11:16 Respiratory Rate 15 03/14/25 11:16 Blood Pressure 191/93 H 03/14/25 11:16 Pulse Oximetry 98 03/14/25 08:31 Oxygen Delivery Room Air 03/14/25 07:34 Lab Data 03/14/25 07:53 03/14/25 07:53 Labs: Lab Results 03/14/25 03/14/25 03/14/25 Range/Units 07:53 07:53 07:53 WBC 6.2 (4.5-10.0) K/mm3 RBC 4.73 (4.2-5.4) M/mm3 Hgb 9.4 L (12.0-15.0) g/dL Hct 38.1 (37.0-47.0) % MCV 80.5 (80-100) fl MCH 19.9 L (26-34) pg MCHC 24.7 L (32-36) g/dl RDW TNP Plt Count 323 (150-375) k/mm3 MPV 8.9 (7.4-10.4) fl Immature Gran % (Auto) 0.5 (0-0.5) % Neut % (Auto) 79.2 H (45.5-73.1) % Lymph % (Auto) 13.0 L (18.3-44.2) % [place] % (Auto) 5.5 (2.6-8.5) % Eos % (Auto) 1.0 (0-4.4) % Baso % (Auto) 0.8 (0.2-1.2) % Lymph # (Auto) 0.80 L (0.9-3.2) K/mm3 [place] # (Auto) 0.3 (0.1-0.6) K/mm3 Eos # (Auto) 0.1 (0-0.3) K/mm3 Baso # (Auto) 0.1 (0.0-0.1) K/mm3 Abs Immat Gran (auto) 0.03 (0.00-0.031) K/mm3 Absolute Neuts (auto) 4.9 (1.3-6.7) K/mm3 Absolute Nucleated RBC 0.000 (0.0-0.012) K/mm3 Band Neutrophils % Not Reportable Nucleated RBC % 0.0 (0.0-0.2) % Platelet Estimate Adequate (Adequate) Hypochromasia 2+ Anisocytosis 2+ Tear Drop Cells 1+ Ovalocytes 1+ Schistocytes None seen Sodium 138 (137-145) mmol/L Potassium 3.8 (3.4-5.0) mmol/L Chloride 97 L (98-107) mmol/L Carbon Dioxide 31 H (22-30) mmol/L Anion Gap 10 (4-12) mmol/L BUN 15 (7-17) mg/dL Creatinine 1.32 H (0.7-1.0) mg/dL Estim Creat Clear Calc 44 ml/min Estimated GFR 39 L (59 - ) Glucose 109 (65-110) mg/dL Calcium 9.7 (8.4-10.2) mg/dL Magnesium 2.0 Cancelled (1.6-2.3) mg/dL Total Bilirubin 1.2 (0.2-1.3) mg/dL AST 35 (14-36) U/L ALT 13 (6-35) U/L Alkaline Phosphatase 68 (38-126) U/L Troponin I < 0.012 Cancelled (0.000-0.034) ng/mL Total Protein 8.0 (6.3-8.2) g/dL Albumin 4.3 (3.5-5.1) g/dL Lipase 53 (23-300) U/L Urine Color (Yellow) Urine Appearance (Clear) Urine pH (5.0-9.0) Ur Specific [place] (1.001-1.035) Urine Protein (Negative) mg/dL Urine Glucose (UA) (Negative) mg/dL Urine Ketones (Negative) mg/dL Ur Blood (Man) (Negative) Urine Nitrate (Negative) Urine Bilirubin (Negative) Urine Urobilinogen (<2.0) mg/dL Leukocyte Esterase Rfl (Negative) YANG/UL Urine RBC (0-2) /hpf Urine WBC (0-3) /hpf Ur Squamous Epith Cells (Few) /hpf Urine Bacteria /hpf Urine Casts 03/14/25 03/14/25 Range/Units 07:53 10:31 WBC (4.5-10.0) K/mm3 RBC (4.2-5.4) M/mm3 Hgb (12.0-15.0) g/dL Hct (37.0-47.0) % MCV (80-100) fl MCH (26-34) pg MCHC (32-36) g/dl RDW Plt Count (150-375) k/mm3 MPV (7.4-10.4) fl Immature Gran % (Auto) (0-0.5) % Neut % (Auto) (45.5-73.1) % Lymph % (Auto) (18.3-44.2) % [place] % (Auto) (2.6-8.5) % Eos % (Auto) (0-4.4) % Baso % (Auto) (0.2-1.2) % Lymph # (Auto) (0.9-3.2) K/mm3 [place] # (Auto) (0.1-0.6) K/mm3 Eos # (Auto) (0-0.3) K/mm3 Baso # (Auto) (0.0-0.1) K/mm3 Abs Immat Gran (auto) (0.00-0.031) K/mm3 Absolute Neuts (auto) (1.3-6.7) K/mm3 Absolute Nucleated RBC (0.0-0.012) K/mm3 Band Neutrophils % Nucleated RBC % (0.0-0.2) % Platelet Estimate (Adequate) Hypochromasia Anisocytosis Tear Drop Cells Ovalocytes Schistocytes Sodium (137-145) mmol/L Potassium (3.4-5.0) mmol/L Chloride (98-107) mmol/L Carbon Dioxide (22-30) mmol/L Anion Gap (4-12) mmol/L BUN (7-17) mg/dL Creatinine (0.7-1.0) mg/dL Estim Creat Clear Calc ml/min Estimated GFR (59 - ) Glucose (65-110) mg/dL Calcium (8.4-10.2) mg/dL Magnesium (1.6-2.3) mg/dL Total Bilirubin (0.2-1.3) mg/dL AST (14-36) U/L ALT (6-35) U/L Alkaline Phosphatase (38-126) U/L Troponin I (0.000-0.034) ng/mL Total Protein (6.3-8.2) g/dL Albumin (3.5-5.1) g/dL Lipase Cancelled (23-300) U/L Urine Color Yellow (Yellow) Urine Appearance Clear (Clear) Urine pH 8.0 (5.0-9.0) Ur Specific [place] 1.031 (1.001-1.035) Urine Protein 1+ H (Negative) mg/dL Urine Glucose (UA) 3+ H (Negative) mg/dL Urine Ketones Negative (Negative) mg/dL Ur Blood (Man) Trace (Negative) Urine Nitrate Negative (Negative) Urine Bilirubin Negative (Negative) Urine Urobilinogen 1.0 (<2.0) mg/dL Leukocyte Esterase Rfl Negative (Negative) YANG/UL Urine RBC 6-10 H (0-2) /hpf Urine WBC 0-5 (0-3) /hpf Ur Squamous Epith Cells None seen (Few) /hpf Urine Bacteria None seen /hpf Urine Casts 0-2 Discharge Plan Discharge Clinical Impression: Nausea Patient Disposition: Home Condition: Stable Instructions: Antibiotic Form, Acute Nausea and Vomiting (ED) Patient Language: [place] Korean Prescriptions: New ondansetron 4 mg tablet,disintegrating 4 mg PO Q8H PRN (Reason: nausea and vomiting) Qty: 10 0RF No Action metoprolol succinate 100 mg tablet extended release 24 hr 100 mg PO DAILY Patient Comments: prescribed by Cardiology spironolactone 25 mg tablet 25 mg PO DAILY amiodarone 200 mg tablet 200 mg PO DAILY levothyroxine [Synthroid] 200 mcg tablet 200 mcg PO . q.a.m. Qty: 90 3RF ferrous sulfate 325 mg (65 mg iron) tablet,delayed release (DR/EC) 325 mg PO DAILY Qty: 90 3RF Rx Instructions: take with supper ondansetron HCl 4 mg tablet 4 mg PO ONCE PRN (Reason: nausea and vomiting) Qty: 30 5RF (DME) pen needle, diabetic [BD Marisol 2nd Gen Pen Needle] 32 gauge x 5/32 needle See Rx Instructions .ROUTE .MEDSUPPLY Qty: 100 6RF Rx Instructions: As directed to test blood sugar BID insulin glargine [Lantus Solostar U-100 Insulin] 100 unit/mL (3 mL) insulin pen 50 unit subcut BID Qty: 75 3RF esomeprazole magnesium 40 mg capsule,delayed release(DR/EC) 40 mg PO DAILY Qty: 90 3RF potassium chloride 10 mEq capsule, extended release 10 meq PO DAILY Qty: 90 3RF Eliquis 5 mg tablet 5 mg PO BID Qty: 60 11RF Jardiance 25 mg tablet 25 mg PO QAM Qty: 90 3RF atorvastatin 40 mg tablet 40 mg PO DAILY Qty: 90 3RF gabapentin 800 mg tablet 800 mg PO TID Qty: 90 11RF furosemide 40 mg tablet 40 mg PO QAM Qty: 30 11RF Rx Instructions: started in hospital hydrocodone-acetaminophen 10-325 mg tablet 1 tablet PO Q6H PRN (Reason: pain) Qty: 120 0RF Follow-up/Referrals: Jasiel Person MD [Primary Care Provider] - Time of Disposition: 12:10
--- OUTSIDE RECORDS SUMMARY | 2025-03-14 07:56 | XMS_ITS | Referral Summary ---
Author Organization [facility] Address [address] [place] [address] Care Team Providers Care Overlock Sleeve Setter Name Role Phone Jasiel Person MD Primary Care Provider [phone] Allergies No known active allergies Medications LEVEMIR FLEXTOUCH U-100 INSULN 100 unit/mL (3 mL) insulin pen INJECT 60 UNITS QAM 11 8 Active NOVOFINE PLUS 32 gauge x 1/6 needle USE WITH INSULIN QID 11 8 Active levothyroxine (SYNTHROID) 175 mcg tablet Take 1 tablet (175 mcg total) by mouth wind technician before breakfast Active atorvastatin (LIPITOR) 40 mg [...] (03/18/2019 12:40 PM CDT): MRI open at [facility] Oral steroids called into [facility] Recheck hearing test in 6 weeks Carotid doppler Centralized Scheduling: Dizziness and giddiness 03/18/2019 Assessment & Plan (03/18/2019 12:43 PM CDT): MRI open at [facility] Oral steroids called into [facility] Recheck hearing test in 6 weeks Carotid doppler Centralized Scheduling: If no improvement in 6 weeks, consider Katie-Hallpike versus CTA Hx of colonic polyps 07/06/2018 Overview (07/06/2018): Added automatically from request for surgery [id number] Immunizations Immunization Administration Dates Next Due Tdap [...] on file Legal Sex Female 7:55 PM 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 Gender Identity Not on file Sexual Orientation Not on file Last Filed Vital Signs Vital Sign Reading Time Taken Comments Blood Pressure 105/56 02/09/2024 12:14 PM CDT Pulse 105 02/08/2024 1:30 PM CDT Temperature 36.7 C (98.1 F) 09/15/2023 11:48 AM 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 Respiratory Rate 16 01/26/2024 11:36 AM CDT [...] BLOOD ORDERABLES Ana plummer Result [facility] [address] [address] [id number] * COLONOSCOPY (08/12/2018 10:17 AM CDT) Anatomical Region Laterality Modality Other Narrative Procedure Note Angel Guido MD - 08/12/2018 10:17 AM CDT [facility] Patient Name: Nona Sessions Procedure Date: 08/12/2018 10:17AM Date of : 1945 Admit Type: Outpatient Age: 72 Gender: Female Attending MD: Angel Guido M.D. Room: [facility] ENDOSCOPY ROOM 1 Note Status: Finalized Procedure: [...] scope was passed under direct vision.The Colonoscope [id number] was introducedthrough the anus and advanced to [...] 10:17 AM Procedure Code(s): --- Professional --- 08374, Colonoscopy, flexible; with removal of tumor(s), polyp(s), or other lesion(s) by hot biopsy forceps Diagnosis Code(s): --- Professional --- D12.3, Benign neoplasm of transverse colon (hepatic flexure orsplenic flexure) D12.4, Benign neoplasm of descending colon K64.9, Unspecified hemorrhoids Z86.010, Personal history of colonic polyps CPT copyright 2017 [employer]. All rights reserved. The codes documented in this report are preliminary and upon support worker reviewmay be revised to meet current compliance requirements. Recognized by the [place] [employer] for promoting quality in endoscopy Angel Guido MD ENDOSCOPY PROCEDURES Final Re sult from Last 3 Months or Most Recently Relevant to Health Maintenance Insurance T MEDICARE T MEDICARE T MEDICARE Advance Directives For more information, please contact: [phone] * Full Code (Latest Code Status on File) Date Activated Date Inactivated Comments 08/12/2018 8:57 AM 08/12/2018 1:55 PM * Full Code Date Activated Date Inactivated Comments 08/12/2018 8:57 AM 08/12/2018 8:57 AM Care Teams Overlock Sleeve Setter Relationship Specialty Start Date End Date Jasiel Person MD [address] [address] PCP - General Family Medicine 07/02/18
--- OUTSIDE RECORDS SUMMARY | 2025-03-14 07:56 | XMS_ITS | Clinical Summary ---
Author Organization [facility] Address [address] [place] [address] Care Team Providers Care Outdoor Fitness Trainer Name Role Phone Jasiel Person MD Primary Care Provider [phone] Allergies No known active allergies Medications LEVEMIR FLEXTOUCH U-100 INSULN 100 unit/mL (3 mL) insulin pen INJECT 60 UNITS QAM 11 8 Active NOVOFINE PLUS 32 gauge x 1/6 needle USE WITH INSULIN QID 11 8 Active levothyroxine (SYNTHROID) 175 mcg tablet Take 1 tablet (175 mcg total) by mouth pigment presser before breakfast Active atorvastatin (LIPITOR) 40 mg [...] (03/18/2019 12:40 PM CDT): MRI open at [facility] Oral steroids called into [facility] Recheck hearing test in 6 weeks Carotid doppler Centralized Scheduling: Dizziness and giddiness 03/18/2019 Assessment & Plan (03/18/2019 12:43 PM CDT): MRI open at [facility] Oral steroids called into [facility] Recheck hearing test in 6 weeks Carotid doppler Centralized Scheduling: If no improvement in 6 weeks, consider Katie-Hallpike versus CTA Hx of colonic polyps 07/06/2018 Overview (07/06/2018): Added automatically from request for surgery [id number] Immunizations Immunization Administration Dates Next Due Tdap [...] on file Legal Sex Female 7:55 PM 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 Gender Identity Not on file Sexual Orientation Not on file Obstetrics History Last Filed Vital Signs Vital Sign Reading Time Taken Comments Blood Pressure 105/56 02/09/2024 12:14 PM CDT Pulse 105 02/08/2024 1:30 PM CDT Temperature 36.7 C (98.1 F) 09/15/2023 11:48 AM 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 Respiratory Rate 16 01/26/2024 11:36 AM CDT [...] AM CDT FASTING:YES FASTING: YES Radha Lester [facility] BLOOD ORDERABLES Ana l Result [facility] [address] [address] [place] [address] * COLONOSCOPY (08/12/2018 10:17 AM CDT) Anatomical Region Laterality Modality Other Narrative Procedure Note Angel Guido MD - 08/12/2018 10:17 AM CDT [facility] Patient Name: Nona Sessions Procedure Date: 08/12/2018 10:17AM Date of : 1945 Admit Type: Outpatient Age: 72 Gender: Female Attending MD: Angel Guido M.D. Room: [facility] ENDOSCOPY ROOM 1 Note Status: Finalized Procedure: [...] scope was passed under direct vision.The Colonoscope [id number] was introducedthrough the anus and advanced to [...] 10:17 AM Procedure Code(s): --- Professional --- 40036, Colonoscopy, flexible; with removal of tumor(s), polyp(s), or other lesion(s) by hot biopsy forceps Diagnosis Code(s): --- Professional --- D12.3, Benign neoplasm of transverse colon (hepatic flexure orsplenic flexure) D12.4, Benign neoplasm of descending colon K64.9, Unspecified hemorrhoids Z86.010, Personal history of colonic polyps CPT copyright 2017 [employer]. All rights reserved. The codes documented in this report are preliminary and upon clerk supervisor reviewmay be revised to meet current compliance requirements. Recognized by the [employer] for promoting quality in endoscopy us Angel Guido MD ENDOSCOPY PROCEDURES Final Re sult from Last 3 Months or Most Recently Relevant to Health Maintenance Insurance [facility] MEDICARE T MEDICARE AET MEDICARE Advance Directives For more information, please contact: [phone] * Full Code (Latest Code Status on File) Date Activated Date Inactivated Comments 08/12/2018 8:57 AM 08/12/2018 1:55 PM * Full Code Date Activated Date Inactivated Comments 08/12/2018 8:57 AM 08/12/2018 8:57 AM Care Teams Outdoor Fitness Trainer Relationship Specialty Start Date End Date Jasiel Person MD [facility] [address] [address] PCP - General Family Medicine 07/02/18
--- OUTSIDE RECORDS SUMMARY | 2025-03-14 07:56 | XMS_ITS | Continuity of Care Document ---
Author Organization [facility] Address [address] [place] [address] [place] [address] Phone Care Team Providers Care Fur Remodeler Name Role Phone Anthony Murphy MD Unavailable Unavailable Procedures Procedure Date Office/outpatient Visit, Est Eye Exam, New Patient Advance Directives Directive Yes / No Effective Date File Name No Information Encounters Encounter Description Practice Location Reason(s) For Visit Diagnoses Date Provider Providers Copied on Encounter Office/outpat ient Visit, Est [facility], [address] [place] [address] [address], [place], [place], [id number], tel:[phone] [address] AVILEZ Professional No Information [address] [facility] [place], [id number], . tel:[phone] [id number] [facility], [address] [place] [address] [address], [place], [place], [id number], tel:[phone] [address] [place] RAGHAV Professional No Information [address], [facility] [place], [id number], . tel:[phone] Family History Family Member Type Diagnosis Age At Onset No Information Payers Payer name Insurance type Covered libertarian ID Authoriza tion(s) No Information Social History [...]
[2025-03-14] MEDS: SODIUM CHLORIDE 0.9% IV 500 ML 999 ML IV CONT (08:03)
[2025-03-14] MEDS: ONDANSETRON INJ 4 MG/2 ML VIAL IV PUSH ×2 (08:03→11:23)
[2025-03-14 08:07] LABS: Basophils Absolute Auto 0.1 K/mm3 (0.0-0.1); Basophils Percent Auto 0.8 % (0.2-1.2); Eosinophils Absolute Auto 0.1 K/mm3 (0-0.3); Hematocrit 38.1 % (37.0-47.0); Hemoglobin 9.4 g/dL (12.0-15.0); Immature Granulocyte Absolute 0.03 K/mm3 (0.00-0.031); Immature Granulocyte Percent A 0.5 % (0-0.5); Mean Corpuscular HGB Conc 24.7 g/dl (32-36); Mean Corpuscular Hemoglobin 19.9 pg (26-34); Mean Corpuscular Volume 80.5 fl (80-100); Mean Platelet Volume 8.9 fl (7.4-10.4); Monocytes Absolute Auto 0.3 K/mm3 (0.1-0.6); Monocytes Percent Auto 5.5 % (2.6-8.5); Neutrophils Absolute Auto 4.9 K/mm3 (1.3-6.7); Neutrophils Percent Auto 79.2 % (45.5-73.1); Platelet Count Result 323 k/mm3 (150-375); Red Blood Count 4.73 M/mm3 (4.2-5.4); White Blood Count 6.2 K/mm3 (4.5-10.0)
[2025-03-14 08:13] LABS: Alanine Aminotransferase 13 U/L (6-35); Albumin Level 4.3 g/dL (3.5-5.1); Alkaline Phosphatase 68 U/L (38-126); Anion Gap 10 mmol/L (4-12); Aspartate Amino Transferase 35 U/L (14-36); Bilirubin,Total 1.2 mg/dL (0.2-1.3); Blood Urea Nitrogen 15 mg/dL (7-17); Calcium 9.7 mg/dL (8.4-10.2); Carbon Dioxide 31 mmol/L (22-30); Chloride 97 mmol/L (98-107); Estimated CRCL calculation 44 ml/min; Estimated Glomerular Filt Rate 39; Glucose 109 mg/dL (65-110); Lipase 53 U/L (23-300); Potassium 3.8 mmol/L (3.4-5.0); Sodium 138 mmol/L (137-145)
[2025-03-14 08:24] LABS: Troponin I < 0.012 ng/mL (0.000-0.034)
[2025-03-14 09:08] LABS: Anisocytosis 2+; Hypochromasia 2+; Ovalocytes 1+; Platelet Estimate Adequate (Adequate); Tear Drop Cells 1+
[2025-03-14 09:09] LABS: Schistocytes None Seen
--- NOTE | 2025-03-14 10:07 | PC.NURSE ---
attemtped to use a bedside toliet to obtain a urine sample. pt stood up and felt too dizzy to stand
[2025-03-14 10:46] LABS: Add Urine Microscopic? YES; Appearance Urine Clear (Clear); Bacteria Urine None Seen /hpf; Bilirubin Urine Negative (Negative); Blood Urine Trace (Negative); Color Urine Yellow (Yellow); Glucose Urine UA 3+ mg/dL (Negative); Ketones Urine Negative (Negative); Leukocyte Esterase Ur Negative LEU/UL (Negative); Nitrate Urine Negative (Negative); Non Pathogenic Casts 0-2; Protein Urine 1+ mg/dL (Negative); Specific Grav Ur 1.031 (1.001-1.035); Squamous Epithelial Cell Urine None Seen /hpf (Few); WBC Urine 0-5 /hpf (0-3)
== END 2025-03-14 12:32 | disposition home or self-care (01) ==
PROVIDERS: Emergency Provider Emergency Medicine; PCP Family Medicine
DX: R11.0 Nausea (principal); I48.0 Paroxysmal atrial fibrillation; I50.30 Unspecified diastolic (congestive) heart failure; I89.0 Lymphedema, not elsewhere classified; E11.22 Type 2 diabetes mellitus with diabetic chronic kidney disease; N18.32 Chronic kidney disease, stage 3b; E66.01 Morbid (severe) obesity due to excess calories; Z68.42 Body mass index [BMI] 45.0-49.9, adult; M17.11 Unilateral primary osteoarthritis, right knee; Z87.440 Personal history of urinary (tract) infections; Z79.4 Long term (current) use of insulin; Z79.01 Long term (current) use of anticoagulants; Z79.84 Long term (current) use of oral hypoglycemic drugs; Z79.899 Other long term (current) drug therapy; D64.9 Anemia, unspecified; I44.0 Atrioventricular block, first degree; I44.4 Left anterior fascicular block; R94.31 Abnormal electrocardiogram [ECG] [EKG]
CPT/HCPCS: 36415; 71046; 74177; 80053; 81001; 83690; 83735; 84484; 85025; 93005; 96374; 96376; 99284; J2405; J7040; Q9967

== ENCOUNTER 2025-05-24 11:41 | Emergency (ER) | payer MEDICARE, SELFPAY ==
--- NOTE | ~2025-05-24 | XR_ITS ---
XR foot RT min 3V 05/24/2025 14:12 Indication: Right heel blister. Neuropathy. Procedure: 3 views right foot Comparison: No prior studies for comparison. Findings: There is polyarticular osteoarthritis of the right foot and ankle. There are prominent dege nerative calcaneal enthesophytes. No acute fracture or traumatic malalignment. Impression: 1: No acute fracture. Reviewed, dictated and finalized at location A. Impression: 1: No acute fracture.
[2025-05-24 11:44] VITALS: BP 138/52; PULSE 66; RESP 16; TEMP 36.6; O2SAT 96
--- OUTSIDE RECORDS SUMMARY | 2025-05-24 12:17 | XMS_ITS | Clinical Summary ---
Author Organization [facility] Address [address] [place] [address] Care Team Providers Care Binder Lockstitch Name Role Phone Jasiel Person MD Primary Care Provider [phone] Allergies No known active allergies Medications LEVEMIR FLEXTOUCH U-100 INSULN 100 unit/mL (3 mL) insulin pen INJECT 60 UNITS QAM 11 8 Active NOVOFINE PLUS 32 gauge x 1/6 needle USE WITH INSULIN QID 11 8 Active levothyroxine (SYNTHROID) 175 mcg tablet Take 1 tablet (175 mcg total) by mouth class a regional drivers before breakfast Active atorvastatin (LIPITOR) 40 mg [...] (03/18/2019 12:40 PM CDT): MRI open at [facility] Oral steroids called into [facility] Recheck hearing test in 6 weeks Carotid doppler Centralized Scheduling: Dizziness and giddiness 03/18/2019 Assessment & Plan (03/18/2019 12:43 PM CDT): MRI open at [facility] Oral steroids called into [facility] Recheck hearing test in 6 weeks Carotid doppler Centralized Scheduling: If no improvement in 6 weeks, consider Reynolds-Hallpike versus CTA Hx of colonic polyps 07/06/2018 Overview (07/06/2018): Added automatically from request for surgery [id number] Immunizations Immunization Administration Dates Next Due Tdap 06/12/2022 Surgical History Surgery Date Site/Laterality Comments THYROIDECTOMY APPENDECTOMY TONSILLECTOMY CHOLECYSTECTOMY REPLACEMENT TOTAL KNEE Left BACK SURGERY TUBAL LIGATION COLONOSCOPY 08/05/2016 Medical History Medical History Date Comments Colon polyp Hypertension Hyperlipidemia Type 2 diabetes mellitus Hypothyroidism Thyroid cancer (HCC) GERD (gastroesophageal reflux [...] on file Legal 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 Gender Identity Not on file Sexual Orientation Not on file Obstetrics History Last Filed Vital Signs Vital Sign Reading Time Taken Comments Blood Pressure 105/56 02/09/2024 12:14 PM CDT Pulse 105 02/08/2024 1:30 PM CDT Temperature 36.7 C (98.1 F) 09/15/2023 11:48 AM POWER PLANT OPERATIONS MANAGER Respiratory Rate 16 01/26/2024 11:36 AM [...] eGFR 04/14/2024 04/14/2023 Lipid Panel 06/18/2024 06/18/2023, 0502/2023, 02/17/2023 Covid-19 Vaccine (5 - 2023-2 5 season) 2024 03/27/2022, 08/04/2021, 01/06/2021, Additional history exists Influenza Vaccine (#1) 2025 08/04/2021 DTaP/Tdap/Td Vaccine (2 - Td or Tdap) [...] Capillary blood 06/18/2023 1 2:35 PM CDT Aldo Muse MD POINT OF CARE TEST [...] AM CDT FASTING:YES FASTING: YES Radha Lester GRAPHICS INTERN LAB BLOOD ORDERABLES Ana l Result [facility] [id number] [id number] * COLONOSCOPY (08/12/2018 10:17 AM CDT) Anatomical Region Laterality Modality Other Narrative Procedure Note Angel Guido MD - 08/12/2018 10:17 AM CDT [facility] Patient Name: Nona Sessions Procedure Date: 08/12/2018 10:17AM Date of : 1945 Admit Type: Outpatient Age: 72 Gender: Female Attending MD: Angel Guido M.D. Room: [facility] ENDOSCOPY ROOM 1 Note Status: [...] scope was passed under direct vision.The Colonoscope [id number] was introducedthrough the anus and advanced to [...] 10:17 AM Procedure Code(s): --- Professional --- 81408, Colonoscopy, flexible; with removal of tumor(s), polyp(s), or other lesion(s) by hot biopsy forceps Diagnosis Code(s): --- Professional --- D12.3, Benign neoplasm of transverse colon (hepatic flexure orsplenic flexure) D12.4, Benign neoplasm of descending colon K64.9, Unspecified hemorrhoids Z86.010, Personal history of colonic polyps CPT copyright 2017 [employer]. All rights reserved. The codes documented in this report are preliminary and upon grinder carbon plant reviewmay be revised to meet current compliance requirements. Recognized by the [employer] for promoting quality in endoscopy Angel Guido MD ENDOSCOPY PROCEDURES Final Re sult from Last 3 Months or Most Recently Relevant to Health Maintenance Insurance AETNA MEDICARE AET MEDICARE AETNA MEDICARE Advance Directives For more information, please contact: [phone] * Full Code (Latest Code Status on File) Date Activated Date Inactivated Comments 08/12/2018 8:57 AM 08/12/2018 1:55 PM * Full Code Date Activated Date Inactivated Comments 08/12/2018 8:57 AM 08/12/2018 8:57 AM Care Teams Binder Lockstitch Relationship Specialty Start Date End Date Jasiel Person MD [address] [place] [id number] PCP - General Family Medicine 07/02/18
--- NOTE | 2025-05-24 13:53 | ED_ITS ---
HPI - General Adult General Chief complaint: Wound/Laceration Stated complaint: wound to right heel Time Seen by Provider: 05/24/25 13:32 History of Present Illness HPI narrative: This is a 79-year-old female with peripheral neuropathy and chronic venous stasis ulcers presenting for a heel wound. Patient noticed 4 days ago that she was developing a blood blister right heel. She had been wearing an old pair of tennis shoes around. She cannot feel her feet very well and is unclear if it was rubbing or what exactly happened. She does not have any systemic signs of illness such as fevers chills nausea vomiting diarrhea and feels well overall. The patient sees the wound care clinic frequently and instructed her to come to the ED. Related Data Home Medications ?Medication ?Instructions ?Recorded ?Confirmed ?Last Taken ?Type metoprolol succinate 100 mg 100 mg PO DAILY 09/24/23 02/21/25 Unknown History tablet,extended release 24 hr amiodarone 200 mg tablet 200 mg PO DAILY 07/20/24 02/21/25 Unknown History spironolactone 25 mg tablet 25 mg PO DAILY 07/20/24 02/21/25 Unknown History Allergies Allergy/AdvReac Type Severity Reaction Status Date / Time No Known Allergies Allergy Verified 05/24/25 12:40 [facility] Past Medical History Medical History BARRIOS (nonalcoholic steatohepatitis) Diffuse fatty liver changes on CT abdomen 03/14/2025. Chronic acquired lymphedema treated with sequential pneumatic compression device 2 hours daily lower extremities Nausea and vomiting Renal insufficiency GFR 57 on 06/11/2021. GFR 56 on 08/22/2022. GFR 38 on 10/23/2022. BUN 18, creatinine 1.23 with GFR 46 on 03/02/2023. BUN 18 with creatinine 1.03 with GFR 57 on 09/22/2023. BUN 19, creatinine 1.43 with GFR 31 on 03/09/2024. BUN 15, creatinine 1.12 with GFR 51 on 07/18/2024. Screening for diabetic retinopathy (04/30/21) no diabetic retinopathy on 04/30/2021. mild diabetic retinopathy on the right 08/07/2023. Diabetic ulcer of toe of left foot associated with diabetes mellitus due to underlying condition left great toe, 3rd toe Acute CHF (09/29/22) 10/01/2022 chest x-ray with pulmonary vascular congestion and pleural effusion. CT angio of the chest with contrast was negative for pulmonary embolism with bilateral pleural effusions and nonspecific alveolar and interstitial lung changes suggesting pulmonary edema. Left heart is poorly enhanced in the ascending aorta possibly due to cardiac dysfunction. Calcifi cation with in the LAD noted. Echo on 10/02/2022 with ejection fraction 55- 60% with mild mitral regurgitation and trivial tricuspid regurgitation. stress Lexiscan study on 10/03/2022 revealed no apparent reversible ischemia with normal left ventricular systolic function. Chronic kidney disease (CKD) stage G3b/A1, moderately decreased glomerular filtration rate (GFR) between 30-44 mL/min/1.73 square meter and albuminuria creatinine ratio less than 30 mg/g GFR 57 on 06/11/2021. GFR 56 on 08/22/2022. GFR 38 on 10/23/2022. BUN 18, creatinine 1.23 with GFR 46 on 03/02/2023. BUN 18 with creatinine 1.03 with GFR 57 on 09/22/2023. BUN 19, creatinine 1.43 with GFR 31 on 03/09/2024. BUN 15, creatinine 1.12 with GFR 51 on 07/18/2024. BUN 20, creatinine 1.35 with GFR 40 on 02/17/2025. Polyp of colon (~03/11/24) 3 sessile polyps , tubular adenoma, less than 7 mm in the ascending colon on 03/11/2024. No follow-up needed. Gastric ulcer (~02/2024) EGD on 03/11/2024 with gastric ulcer nonbleeding. Iron deficiency anemia, unspecified (~03/09/24) hemoglobin 6.6, iron 43 with 10% saturation and ferritin 7 with vitamin B12 768, folic acid 8.0 on 03/09/2024. Hemoglobin 9.0 on 07/18/2024. hemoglobin 6.4 with iron 13 with 3% saturation and ferritin 4 on 02/17/2025. Hemoglobin 9.5, iron 112 with 30% saturation on 03/30/2025. Diabetic retinopathy of right eye (08/07/23) mild retinopathy right eye 08/07/2023. Diastolic CHF with preserved left ventricular function, NYHA class 2 Echo 5/ 23/24 with ejection fraction 52% with moderate diastolic dysfunction and [id number] tricuspid regurgitation, atrial fibrillation. Paroxysmal atrial fibrillation UTI (urinary tract infection) Hoarseness of voice Diarrhea Acute bronchitis At high risk for falls Diabetic ulcer of toe associated with type 2 diabetes mellitus (~06/2022) superficial ulceration extensor surface right 2nd toe Grieving (~08/2021) 48-year-old son Morbid obesity with BMI of 40.0-44.9, adult Acute non-recurrent maxillary sinusitis Breast cancer screening Body mass index (BMI) of 40.1 to 44.9 in adult Chronic pain Bilateral impacted cerumen Osteoarthritis of right knee Chronic pain of right knee Body mass index (BMI) 45.0-49.9, adult (02/15/19) Diabetic ulcer of toe of left foot associated with type 2 diabetes mellitus Non-pressure chronic ulcer of other part of left foot limited to breakdown of skin Surgical History Surgical History H/O cardiac radiofrequency ablation Family History Family History Father Acute myocardial infarction, Onset Age: 50 Mother Family history of malignant neoplasm, Onset Age: 82 Social History Social History Social History: Caffeine-coffe/soda Smoking status: Never smoker Alcohol intake: never Substance use: never Substance use type: does not use Lack of Transportation: No Lack of Food: Never True Current Housing: I Have Housing Concerned About Future Housing: No Difficulty Paying Gas/Electric Bills: No Difficulty Paying for Meds: No Currently Unemployed: No Education: Bachelor's Degree Difficulty w/ Childcare or Family Care: No Living arrangements: with family Gender identity (if verbalized by the patient): Female Sexual Orientation (if Verbalized by the Patient): Straight or Heterosexual Exam Narrative: APPEARANCE: No apparent distress. Head: atraumatic. EYES: EOMI, NOSE: Atraumatic NECK: Trachea midline RESPIRATORY: No increased rate of breathing CARDIOVASCULAR: RRR, ABDOMINAL: Non-distended MUSCULOSKELETAl: No obvious deformities NEURO: Alert. Moving 4/4 extremities SKIN:: Large blood blister the patient's heel with minimal surrounding erythema. No significant cellulitic changes of the lower leg. PSYCHIATRIC: Normal affect Course Vital Signs Vital signs: Vital Signs Temperature 98 F 05/24/25 11:44 Pulse Rate 66 05/24/25 11:44 Respiratory Rate 16 05/24/25 11:44 Blood Pressure 138/52 L 05/24/25 11:44 Pulse Oximetry 96 05/24/25 11:44 Oxygen Delivery Room Air 05/24/25 11:44 Temperature 98 F 05/24/25 11:44 Pulse Rate 66 05/24/25 11:44 Respiratory Rate 16 05/24/25 11:44 Blood Pressure 138/52 L 05/24/25 11:44 Pulse Oximetry 96 05/24/25 11:44 Oxygen Delivery Room Air 05/24/25 11:44 Medical Decision Making MDM Narrative Medical decision making narrative: -Course: 79-year-old female with peripheral neuropathy presenting with blood blister to her heel. No other is symptoms. Wound care evaluated the patient bedside and deep roof the blister. After the group today appears to be a traumatic blister with bleeding due to her blood thinner use. No evidence of infection. No involvement of the deeper tissues of the foot. They have dressed the wound the patient will follow-up with the Wound Care Clinic. -DDX includes but is not limited to: Traumatic blister, infection Vital Signs Vital Signs: Vital Signs Temperature 98 F 05/24/25 11:44 Pulse Rate 66 05/24/25 11:44 Respiratory Rate 16 05/24/25 11:44 Blood Pressure 138/52 L 05/24/25 11:44 Pulse Oximetry 96 05/24/25 11:44 Oxygen Delivery Room Air 05/24/25 11:44 Temperature 98 F 05/24/25 11:44 Pulse Rate 66 05/24/25 11:44 Respiratory Rate 16 05/24/25 11:44 Blood Pressure 138/52 L 05/24/25 11:44 Pulse Oximetry 96 05/24/25 11:44 Oxygen Delivery Room Air 05/24/25 11:44 Discharge Plan Discharge Clinical Impression: Traumatic blister Patient Disposition: Home Condition: Stable Instructions: Antibiotic Form, Acute Wounds (DC) Additional Instructions: You were seen emergency depart for a blood pressure. Please follow-up at the wound care clinic. Return to ED if you develop signs of infection. Patient Language: Swedish Prescriptions: No Action metoprolol succinate 100 mg tablet extended release 24 hr 100 mg PO DAILY Patient Comments: prescribed by Cardiology spironolactone 25 mg tablet 25 mg PO DAILY amiodarone 200 mg tablet 200 mg PO DAILY levothyroxine [Synthroid] 200 mcg tablet 200 mcg PO . q.a.m. Qty: 90 3RF ferrous sulfate 325 mg (65 mg iron) tablet,delayed release (DR/EC) 325 mg PO DAILY Qty: 90 3RF Rx Instructions: take with supper ondansetron HCl 4 mg tablet 4 mg PO ONCE PRN (Reason: nausea and vomiting) Qty: 30 5RF ondansetron 4 mg tablet,disintegrating 4 mg PO Q8H PRN (Reason: nausea and vomiting) Qty: 10 0RF potassium chloride 10 mEq capsule, extended release 10 meq PO DAILY Qty: 90 3RF Eliquis 5 mg tablet 5 mg PO BID Qty: 60 11RF Jardiance 25 mg tablet 25 mg PO QAM Qty: 90 3RF atorvastatin 40 mg tablet 40 mg PO DAILY Qty: 90 3RF gabapentin 800 mg tablet 800 mg PO TID Qty: 90 11RF furosemide 40 mg tablet 40 mg PO QAM Qty: 30 11RF Rx Instructions: started in hospital esomeprazole magnesium 40 mg capsule,delayed release(DR/EC) 40 mg PO DAILY Qty: 90 3RF insulin glargine [Lantus Solostar U-100 Insulin] 100 unit/mL (3 mL) insulin pen 50 unit subcut BID Qty: 75 3RF (DME) pen needle, diabetic 32 gauge x 5/32 needle See Rx Instructions .ROUTE .MEDSUPPLY Qty: 100 6RF Rx Instructions: As directed to test blood sugar BID hydrocodone-acetaminophen 10-325 mg tablet 1 tablet PO Q6H PRN (Reason: pain) Qty: 120 0RF Follow-up/Referrals: Jasiel Person MD [Primary Care Provider] -
[2025-05-24 14:52] VITALS: BP 146/80; PULSE 60; RESP 15; O2SAT 97
--- NOTE | 2025-05-25 08:57 | ECG_ITS ---
Test Date: 2025-05-24 13:23:31 Measurements Intervals [place] Rate: 91 P: -60 NV: 161 QRS: 16 QRSD: 122 T: 72 QT: 372 QTc: 458 Interpretive Statements SINUS RHYTHM WITH FREQUENT SUPRAVENTRICULAR PREMATURE COMPLEXES INCOMPLETE LEFT BUNDLE BRANCH BLOCK DELAYED PRECORDIAL R/S TRANSITION NONSPECIFIC ST & T-WAVE ABNORMALITY- HIGHLATERAL LEADS ABNORMAL ECG Compared to ECG 03/14/2025 07:39:02 NO SIGNIFICANT CHANGE Electronically Signed On 05-25-2025 10:06:45 CDT by Zachariah Rincon D.O.
== END 2025-05-24 14:53 | disposition home or self-care (01) ==
PROVIDERS: Emergency Provider Emergency Medicine; PCP Family Medicine
DX: S90.821A Blister (nonthermal), right foot, initial encounter (principal); I48.0 Paroxysmal atrial fibrillation; I89.0 Lymphedema, not elsewhere classified; I50.30 Unspecified diastolic (congestive) heart failure; E11.22 Type 2 diabetes mellitus with diabetic chronic kidney disease; E11.319 Type 2 diabetes mellitus with unspecified diabetic retinopathy without macular edema; N18.32 Chronic kidney disease, stage 3b; E66.01 Morbid (severe) obesity due to excess calories; Z68.42 Body mass index [BMI] 45.0-49.9, adult; D50.9 Iron deficiency anemia, unspecified; M17.11 Unilateral primary osteoarthritis, right knee; K75.81 Nonalcoholic steatohepatitis (NASH); Z87.440 Personal history of urinary (tract) infections; Z86.0100 Personal history of colon polyps, unspecified; Z79.899 Other long term (current) drug therapy; Z79.4 Long term (current) use of insulin; Z79.01 Long term (current) use of anticoagulants; I49.1 Atrial premature depolarization; I44.7 Left bundle-branch block, unspecified; R94.31 Abnormal electrocardiogram [ECG] [EKG]; X58.XXXA Exposure to other specified factors, initial encounter
CPT/HCPCS: 73630; 93005; 99283

== ENCOUNTER 2025-05-31 07:12 | Outpatient (RCR) | payer MEDICARE, SELFPAY ==
--- NOTE | 2025-05-26 08:55 | WNDPHOTO ---
PHOTO ONLY - See Nursing Notes and/ or assessments for documentation.
[2025-05-26 09:05] VITALS: BMI 45.4
--- NOTE | 2025-06-14 06:59 | PCWOUND ---
WOCN NOTE Patient cancelled appointment, she is going to Dr. Sotelo for wound care.
== END 2025-08-14 12:56 | disposition home or self-care (01) ==
LOC: ANHWOC 07:12
PROVIDERS: PCP Family Medicine; Visit Provider Family Medicine
DX: S90.821D Blister (nonthermal), right foot, subsequent encounter (principal)
CPT/HCPCS: 99213; G0463

== ENCOUNTER 2025-07-11 08:38 | Outpatient (CLI) | payer MEDICARE, SELFPAY ==
--- NOTE | ~2025-07-11 | US_ITS ---
US art doppler w press LE BI INDICATION: Peripheral arterial disease TECHNIQUE: Segmental pressures and plethysmographic and Doppler waveforms of the brachial and lower extremity arteries were obtained. COMPARISON: None. FINDINGS: Right and left brachial artery pressures of 139 mm Hg and 141 mm Hg, respectively, are concordant (normal difference <= 30 mmHg). The right ankle-brachial index (FIDEL) is 0.87 (normal >= 0.9-1.0). The right great toe-brachial index (TBI) is 0.7 (normal >= 0.60). The left FIDEL could not be performed due to inability to occlude the vessels. The left TBI is 0.57. IMPRESSION: 1. Mildly decreased right ankle-brachial index consistent with peripheral arterial disease. 2: Pressures could not be obtained at the left ankle due to inability to occlude the vessels. Decreased left toe brachial index consistent with peripheral arterial disease. Reviewed, dictated and finalized at location O. IMPRESSION: 1. Mildly decreased right ankle-brachial index consistent with peripheral arter ial disease. 2: Pressures could not be obtained at the left ankle due to inability to occlud e the vessels. Decreased left toe brachial index consistent with peripheral art erial disease.
--- OUTSIDE RECORDS SUMMARY | 2025-07-11 09:02 | XMS_ITS | Clinical Summary ---
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 Active atorvastatin (LIPITOR) 40 mg [...] (03/18/2019 12:40 PM CDT): MRI open at [facility] Oral steroids called into [facility] Recheck hearing test in 6 weeks Carotid doppler Centralized Scheduling: Dizziness and giddiness 03/18/2019 Assessment & Plan (03/18/2019 12:43 PM CDT): MRI open at [facility] Oral steroids called into [facility] Recheck hearing test in 6 weeks Carotid doppler Centralized Scheduling: If no improvement in 6 weeks, consider Katie-Hallpike versus CTA Hx of colonic polyps 07/06/2018 Overview (07/06/2018): Added automatically from request for surgery [id number] Immunizations Immunization Administration Dates Next Due Tdap [...] on file Legal Sex Female 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 Gender Identity Not on file Sexual Orientation Not on file Obstetrics History Last Filed Vital Signs Vital Sign Reading Time Taken Comments Blood Pressure 105/56 02/09/2024 12:14 PM CDT Pulse 105 02/08/2024 1:30 PM CDT Temperature 36.7 C (98.1 F) 09/15/2023 11:48 AM HOST HOSTESS Respiratory Rate 16 01/26/2024 11:36 AM CDT [...] Panel 06/18/2024 06/18/2023, 0502/2023, 02/17/2023 Covid-19 Vaccine (2024-2 6 season) 2025 03/27/2022, 08/04/2021, 01/06/2021, Additional history exists Influenza [...] AM CDT FASTING:YES FASTING: YES Radha Lester BONE CHAR KILN OPERATOR LAB BLOOD ORDERABLES Ana l Result [facility] [id number] [id number] * COLONOSCOPY (08/12/2018 10:17 AM CDT) Anatomical Region Laterality Modality Other Narrative Procedure Note Angel Guido MD - 08/12/2018 10:17 AM CDT [facility] Patient Name: Nona Sessions Procedure Date: 08/12/2018 10:17AM Date of : 1945 Admit Type: Outpatient Age: 72 Gender: Female Attending MD: Angel Guido M.D. Room: [facility] ENDOSCOPY ROOM 1 Note Status: Finalized Procedure: [...] scope was passed under direct vision.The Colonoscope [id number] was introducedthrough the anus and advanced to [...] 10:17 AM Procedure Code(s): --- Professional --- 32983, Colonoscopy, flexible; with removal of tumor(s), polyp(s), or other lesion(s) by hot biopsy forceps Diagnosis Code(s): --- Professional --- D12.3, Benign neoplasm of transverse colon (hepatic flexure orsplenic flexure) D12.4, Benign neoplasm of descending colon K64.9, Unspecified hemorrhoids Z86.010, Personal history of colonic polyps CPT copyright 2017 [employer]. All rights reserved. The codes documented in this report are preliminary and upon storage consultant reviewmay be revised to meet current compliance requirements. Recognized by the [employer] for promoting quality in endoscopy Angel Guido MD ENDOSCOPY PROCEDURES Final Re sult from Last 3 Months or Most Recently Relevant to Health Maintenance Insurance AETNA MEDICARE AET MEDICARE AETNA MEDICARE Advance Directives For more information, please contact: [phone] * Full Code (Latest Code Status on File) Date Activated Date Inactivated Comments 08/12/2018 8:57 AM 08/12/2018 1:55 PM * Full Code Date Activated Date Inactivated Comments 08/12/2018 8:57 AM 08/12/2018 8:57 AM Care Teams Supervisor Cook House Relationship Specialty Start Date End Date Jasiel Person MD [address] [place] [id number] PCP - General Family Medicine 07/02/18
== END 2025-07-11 08:39 | disposition home or self-care (01) ==
PROVIDERS: PCP Family Medicine; Visit Provider Podiatrist Foot & Ankle Surgery
DX: I73.9 Peripheral vascular disease, unspecified (principal)
CPT/HCPCS: 93923

== ENCOUNTER 2025-09-16 12:52 | Inpatient (IN) | payer MEDICARE, SELFPAY ==
[2025-09-16] VITALS (15 sets, daily range): BP systolic 91–164; BP diastolic 49–90; PULSE 73–98; RESP 12–20; TEMP 36.7–36.8; O2SAT 92–97; BMI 43.7
--- NOTE | ~2025-09-16 | XR_ITS ---
EXAMINATION: XR chest 1V portable COMPARISON: No comparisons available. HISTORY: History of CHF FINDINGS: Mild pulmonary venous congestion. No pneumothorax. Mild cardiomegaly. Mediastinal and hilar contours are within normal limits. Bony thorax no acute abnormality. Miscellaneous: None Impression: Mild CHF. Reviewed, dictated and finalized at location P. [employer] MANAGER Impression: Mild CHF.
--- NOTE | ~2025-09-16 | XR_ITS ---
EXAMINATION: XR chest 1V portable 09/22/2025 13:55 INDICATION: CHF PROCEDURE: AP portable chest COMPARISON: 09/16/2025 FINDINGS: The lungs are clear. The cardiomediastinal silhouette is within normal limits. There are no pleural effusions. There is no pneumothorax suspected. IMPRESSION: 1: NO ACUTE CARDIOPULMONARY DISEASE. Reviewed, dictated and finalized at location I. [employer]
--- NOTE | 2025-09-16 12:54 | ECG_ITS ---
Test Date: 2025-09-16 13:16:01 Measurements Intervals [place] Rate: 75 P: 96 VA: 255 QRS: -65 QRSD: 116 T: -18 QT: 438 QTc: 491 Interpretive Statements SINUS RHYTHM WITH FIRST DEGREE AV BLOCK INCOMPLETE LEFT BUNDLE BRANCH BLOCK ABNORMAL ECG Compared to ECG 05/24/2025 13:23:31 First degree AV block now present Electronically Signed On 09-17-2025 09:13:38 CONTACT LENS FITTER by Kashif Aguilar M.D.
--- NOTE | 2025-09-16 12:54 | ED.GENADULT ---
HPI - General Adult General Chief complaint: Weakness Stated complaint: weakness Time Seen by Provider: 09/16/25 12:53 Source: patient and family Mode of arrival: wheelchair History of Present Illness HPI narrative: 29-year-old with a history of hypertension, diabetes here with complaints of generalized weakness for the past 3 days. Patient states that she has been sleeping a lot the, unable to walk. She denies any fever or chills. No history of headache or chest pain. No nausea or vomiting or diarrhea. Onset (ago): day(s) (3) Severity: moderate Relieving factors: none Exacerbating factors: none Related Data Home Medications ?Medication ?Instructions ?Recorded ?Confirmed ?Last Taken ?Type metoprolol succinate 100 mg 100 mg PO DAILY 09/24/23 05/26/25 05/26/25 History tablet,extended release 24 hr amiodarone 200 mg tablet 200 mg PO DAILY 07/20/24 05/26/25 05/26/25 History spironolactone 25 mg tablet 25 mg PO DAILY 07/20/24 05/26/25 05/26/25 History Allergies Allergy/AdvReac Type Severity Reaction Status Date / Time No Known Allergies Allergy Verified 05/26/25 09:24 Review of Systems Review of Systems: All systems reviewed & are unremarkable except as noted in HPI and below Constitutional: Constitutional: Reports no additional constitutional complaints Eyes: Eyes: Reports no additional eye complaints ENT: Reports system reviewed and no additional complaints, except as documented Cardiovascular: Cardiovascular: Reports no additional cardiovascular complaints Respiratory: Respiratory: Reports no additional respiratory complaints Gastrointestinal: Gastrointestinal: Reports no additional gastrointestinal complaints Musculoskeletal: Musculoskeletal: Reports no additional musculoskeletal complaints Neurologic: Reports system reviewed and no additional complaints, except as documented [facility] Past Medical History Medical History Peripheral arterial disease (~07/11/25) mildly decreased FIDEL right lower extremity 07/11/2025. FIDEL 0.87. Diabetic foot ulcer associated with type 2 diabetes mellitus (~04/2025) right heel medial aspect ulcer Cellulitis BARRIOS (nonalcoholic steatohepatitis) Diffuse fatty liver changes on CT abdomen 03/14/2025. Chronic acquired lymphedema treated with sequential pneumatic compression device 2 hours daily lower extremities Nausea and vomiting Renal insufficiency GFR 57 on 06/11/2021. GFR 56 on 08/22/2022. GFR 38 on 10/23/2022. BUN 18, creatinine 1.23 with GFR 46 on 03/02/2023. BUN 18 with creatinine 1.03 with GFR 57 on 09/22/2023. BUN 19, creatinine 1.43 with GFR 31 on 03/09/2024. BUN 15, creatinine 1.12 with GFR 51 on 07/18/2024. Screening for diabetic retinopathy (04/30/21) no diabetic retinopathy on 04/30/2021. mild diabetic retinopathy on the right 08/07/2023. Diabetic ulcer of toe of left foot associated with diabetes mellitus due to underlying condition left great toe, 3rd toe Acute CHF (09/29/22) 10/01/2022 chest x-ray with pulmonary vascular congestion and pleural effusion. CT angio of the chest with contrast was negative for pulmonary embolism with bilateral pleural effusions and nonspecific alveolar and interstitial lung changes suggesting pulmonary edema. Left heart is poorly enhanced in the ascending aorta possibly due to cardiac dysfunction. Calcification with in the LAD noted. Echo on 10/02/2022 with ejection fraction 55-60% with mild mitral regurgitation and trivial tricuspid regurgitation. stress Lexiscan study on 10/03/2022 revealed no apparent reversible ischemia with normal left ventricular systolic function. Chronic kidney disease (CKD) stage G3b/A1, moderately decreased glomerular filtration rate (GFR) between 30-44 mL/min/1.73 square meter and albuminuria creatinine ratio less than 30 mg/g GFR 57 on 06/11/2021. GFR 56 on 08/22/2022. GFR 38 on 10/23/2022. BUN 18, creatinine 1.23 with GFR 46 on 03/02/2023. BUN 18 with creatinine 1.03 with GFR 57 on 09/22/2023. BUN 19, creatinine 1.43 with GFR 31 on 03/09/2024. BUN 15, creatinine 1.12 with GFR 51 on 07/18/2024. BUN 20, creatinine 1.35 with GFR 40 on 02/17/2025. Polyp of colon (~03/11/24) 3 sessile polyps , tubular adenoma, less than 7 mm in the ascending colon on 03/11/2024. No follow-up needed. Gastric ulcer (~02/2024) EGD on 03/11/2024 with gastric ulcer nonbleeding. Iron deficiency anemia, unspecified (~03/09/24) hemoglobin 6.6, iron 43 with 10% saturation and ferritin 7 with vitamin B12 768, folic acid 8.0 on 03/09/2024. Hemoglobin 9.0 on 07/18/2024. hemoglobin 6.4 with iron 13 with 3% saturation and ferritin 4 on 02/17/2025. Hemoglobin 9.5, iron 112 with 30% saturation on 03/30/2025. Diabetic retinopathy of right eye (08/07/23) mild retinopathy right eye 08/07/2023. Diastolic CHF with preserved left ventricular function, NYHA class 2 Echo with ejection fraction 52% with moderate diastolic dysfunction and [id number] tricuspid regurgitation, atrial fibrillation. Paroxysmal atrial fibrillation UTI (urinary tract infection) Hoarseness of voice Diarrhea Acute bronchitis At high risk for falls Diabetic ulcer of toe associated with type 2 diabetes mellitus (~06/2022) superficial ulceration extensor surface right 2nd toe Grieving (~08/2021) 48-year-old son Morbid obesity with BMI of 40.0-44.9, adult Acute non-recurrent maxillary sinusitis Breast cancer screening Body mass index (BMI) of 40.1 to 44.9 in adult Chronic pain Bilateral impacted cerumen Osteoarthritis of right knee Chronic pain of right knee Body mass index (BMI) 45.0-49.9, adult (02/15/19) Diabetic ulcer of toe of left foot associated with type 2 diabetes mellitus Non-pressure chronic ulcer of other part of left foot limited to breakdown of skin Surgical History Surgical History H/O cardiac radiofrequency ablation Family History Family History Father Acute myocardial infarction, Onset Age: 50 Mother Family history of malignant neoplasm, Onset Age: 82 Social History Social History Social History: Caffeine-coffe/soda Smoking status: Never smoker Alcohol intake: never Substance use: never Substance use type: does not use Lack of Transportation: No Lack of Food: Never True Current Housing: I Have Housing Concerned About Future Housing: No Difficulty Paying Gas/Electric Bills: No Difficulty Paying for Meds: No Currently Unemployed: No Education: Bachelor's Degree Difficulty w/ Childcare or Family Care: No Living arrangements: with family Gender identity (if verbalized by the patient): Female Sexual Orientation (if Verbalized by the Patient): Straight or Heterosexual Exam Narrative: My GENERAL: Well-appearing, well-nourished, and in no acute distress. HEAD: Normocephalic, atraumatic. EYES: PERRLA and EOMI. ENT: Nares clear, no rhinorrhea or epistaxis. Mucous membranes moist. NECK: Supple. CHEST: Clear to auscultation. No respiratory distress. HEART: Regular rate and rhythm. No murmur heard. Normal peripheral pulses. ABDOMEN: Soft, nontender, nondistended, normal active bowel sounds. EXTREMITIES: Normal range of motion. No edema. SKIN: Warm, dry, no rash. NEURO: No focal deficits. Alert and oriented x3. PSYCH: Normal mood and affect. Course Course Emergency Course: His patient upon arrival was hypertensive after L of fluid her blood pressure is now 146/63. I did notify her and about her lab work. She still feels weak wants to be admitted. Notified her about the diagnosis will start antibiotic for a urinary tract infection. Discussed with the hospitalist will accept the patient. Medical Decision Making Medical Records Medical records reviewed: Yes I reviewed the external patient's medical records. Lab Data Lab results reviewed: Yes I reviewed the patient's lab results. Labs: l ECG Data EKG #1: ECG completion date: 09/16/25 ECG completion time: 13:16 EKG Interpretation: normal rate (75), sinus rhythm, no ectopy and non-specific ST changes Discharge Plan Discharge Clinical Impression: Weakness, Acute UTI Patient Disposition: Still a Patient Condition: Stable Patient Language: Khmer Prescriptions: No Action metoprolol succinate 100 mg tablet extended release 24 hr 100 mg PO DAILY Patient Comments: prescribed by Cardiology spironolactone 25 mg tablet 25 mg PO DAILY amiodarone 200 mg tablet 200 mg PO DAILY levothyroxine [Synthroid] 200 mcg tablet 200 mcg PO . q.a.m. Qty: 90 3RF ferrous sulfate 325 mg (65 mg iron) tablet,delayed release (DR/EC) 325 mg PO DAILY Qty: 90 3RF Rx Instructions: take with supper ondansetron HCl 4 mg tablet 4 mg PO ONCE PRN (Reason: nausea and vomiting) Qty: 30 5RF ondansetron 4 mg tablet,disintegrating 4 mg PO Q8H PRN (Reason: nausea and vomiting) Qty: 10 0RF Eliquis 5 mg tablet 5 mg PO BID Qty: 60 11RF Jardiance 25 mg tablet 25 mg PO QAM Qty: 90 3RF atorvastatin 40 mg tablet 40 mg PO DAILY Qty: 90 3RF gabapentin 800 mg tablet 800 mg PO TID Qty: 90 11RF furosemide 40 mg tablet 40 mg PO QAM Qty: 30 11RF Rx Instructions: started in hospital esomeprazole magnesium 40 mg capsule,delayed release(DR/EC) 40 mg PO DAILY Qty: 90 3RF insulin glargine [Lantus Solostar U-100 Insulin] 100 unit/mL (3 mL) insulin pen 50 unit subcut BID Qty: 75 3RF (DME) pen needle, diabetic 32 gauge x 5/32 needle See Rx Instructions .ROUTE .MEDSUPPLY Qty: 100 6RF Rx Instructions: As directed to test blood sugar BID doxycycline hyclate 100 mg tablet 100 mg PO BID Qty: 20 0RF potassium chloride 10 mEq capsule, extended release 10 meq PO DAILY Qty: 90 3RF hydrocodone-acetaminophen 10-325 mg tablet 1 tablet PO Q6H PRN (Reason: pain) Qty: 120 0RF Follow-up/Referrals: Jasiel Person MD [Primary Care Provider, Family Practice] Time of Disposition: 15:30
--- NOTE | 2025-09-16 13:19 | PC.NURSE ---
patient arrived with a sore to her buttocks; patient confirms that this has been there and the patient's stated that she has been treating this at home.
[2025-09-16 13:22] LABS: Hematocrit 35.1 % (37.0-47.0); Hemoglobin 11.3 g/dL (12.0-15.0); Immature Granulocyte Percent A 0.7 % (0-0.5); Lymphocytes Absolute Auto 1.06 K/mm3 (0.9-3.2); Mean Corpuscular HGB Conc 32.2 g/dl (32-36); Mean Corpuscular Hemoglobin 29.4 pg (26-34); Mean Corpuscular Volume 91.2 fl (80-100); Nucleated Red Blood Cells Absolute Auto 0.000 K/mm3 (0.0-0.012); Nucleated Red Blood Cells Perc 0.0 % (0.0-0.2); Platelet Count Result 224 k/mm3 (150-375); Red Blood Count 3.85 M/mm3 (4.2-5.4); White Blood Count 8.4 K/mm3 (4.5-10.0)
[2025-09-16 13:38] LABS: Alanine Aminotransferase 18 U/L (6-35); Albumin Level 3.6 g/dL (3.5-5.1); Alkaline Phosphatase 80 U/L (38-126); Anion Gap 8 mmol/L (4-12); Aspartate Amino Transferase 28 U/L (14-36); Bilirubin,Total 0.7 mg/dL (0.2-1.3); Blood Urea Nitrogen 37 mg/dL (7-17); Calcium 10.1 mg/dL (8.4-10.2); Carbon Dioxide 24 mmol/L (22-30); Chloride 99 mmol/L (98-107); Estimated CRCL calculation 27 ml/min; Estimated Glomerular Filt Rate 22; Glucose 253 mg/dL (65-110); Potassium 4.3 mmol/L (3.4-5.0); Sodium 131 mmol/L (137-145); Total Protein 7.2 g/dL (6.3-8.2)
[2025-09-16] MEDS: SODIUM CHLORIDE 0.9% IV 1,000 ML 999 ML IV CONT (13:44)
[2025-09-16 13:53] LABS: Add Urine Microscopic? YES; Appearance Urine Clear (Clear); Broad Cast Urine Present; Glucose Urine UA 3+ mg/dL (Negative); Leukocyte Esterase Ur Negative LEU/UL (Negative); Need Manual Microscopic Reviewed; Nitrate Urine Negative (Negative); Non Pathogenic Casts >20; Specific Grav Ur 1.025 (1.001-1.035)
--- NOTE | 2025-09-16 15:04 | P.HP_ITS ---
H&P: HPI History of Present Illness Date/Time: 09/16/25 15:04 Chief Complaint: Weakness Narrative: 79-year-old female past medical history of CHF, diabetes, Barrios, CKD, atrial fibrillation, and chronic pain presents the hospital with generalized weakness. She states that she has felt unwell for the last 2 days. Patient does complains of severe fatigue at bedside. She is unable to describe what is wrong. She states that she has not eaten in the last 2 days good she does not feel where all. Patient denies falls. Patient denies fevers chills nausea or vomiting. Lab work shows normal white count, hemoglobin of 11.3 which is higher than baseline, sodium of 131, creatinine of 2.14, with baseline being around 1.35, glucose 159, lactic acid 2.3, UA shows negative nitrates, 6-10 rbc's, 21-50 wbc's 4+ bacteria negative for leukocyte esterase no squamous cells found. Blood and urine cultures pending, patient has been started on Rocephin is being admitted for UTI. Review of Systems Review of Systems: 12 systems were reviewed and are negativ e except for as per HPI. [facility] Past Medical History Medical History Peripheral arterial disease (~07/11/25) mildly decreased FIDEL right lower extremity 07/11/2025. FIDEL 0.87. Diabetic foot ulcer associated with type 2 diabetes mellitus (~04/2025) right heel medial aspect ulcer Cellulitis BARRIOS (nonalcoholic steatohepatitis) Diffuse fatty liver changes on CT abdomen 03/14/2025. Chronic acquired lymphedema treated with sequential pneumatic compression device 2 hours daily lower extremities Nausea and vomiting Renal insufficiency GFR 57 on 06/11/2021. GFR 56 on 08/22/2022. GFR 38 on 10/23/2022. BUN 18, creatinine 1.23 with GFR 46 on 03/02/2023. BUN 18 with creatinine 1.03 with GFR 57 on 09/22/2023. BUN 19, creatinine 1.43 with GFR 31 on 03/09/2024. BUN 15, creatinine 1.12 with GFR 51 on 07/18/2024. Screening for diabetic retinopathy (04/30/21) no diabetic retinopathy on 04/30/2021. mild diabetic retinopathy on the right 08/07/2023. Diabetic ulcer of toe of left foot associated with diabetes mellitus due to underlying condition left great toe, 3rd toe Acute CHF (09/29/22) 10/01/2022 chest x-ray with pulmonary vascular congestion and pleural effusion. CT angio of the chest with contrast was negative for pulmonary embolism with bilateral pleural effusions and nonspecific alveolar and i nterstitial lung changes suggesting pulmonary edema. Left heart is poorly enhanced in the ascending aorta possibly due to cardiac dysfunction. Calcification with in the LAD noted. Echo on 10/02/2022 with ejection fraction 55-60% with mild mitral regurgitation and trivial tricuspid regurgitation. stress Lexiscan study on 10/03/2022 revealed no apparent reversible ischemia with normal left ventricular systolic function. Chronic kidney disease (CKD) stage G3b/A1, moderately decreased glomerular filtration rate (GFR) between 30-44 mL/min/1.73 square meter and albuminuria creatinine ratio less than 30 mg/g GFR 57 on 06/11/2021. GFR 56 on 08/22/2022. GFR 38 on 10/23/2022. BUN 18, creatinine 1.23 with GFR 46 on 03/02/2023. BUN 18 with creatinine 1.03 with GFR 57 on 09/22/2023. BUN 19, creatinine 1.43 with GFR 31 on 03/09/2024. BUN 15, creatinine 1.12 with GFR 51 on 07/18/2024. BUN 20, creatinine 1.35 with GFR 40 on 02/17/2025. Polyp of colon (~03/11/24) 3 sessile polyps , tubular adenoma, less than 7 mm in the ascending colon on 03/11/2024. No follow-up needed. Gastric ulcer (~02/2024) EGD on 03/11/2024 with gastric ulcer nonbleeding. Iron deficiency anemia, unspecified (~03/09/24) hemoglobin 6.6, iron 43 with 10% saturation and ferritin 7 with vitamin B12 768, folic acid 8.0 on 03/09/2024. Hemoglobin 9.0 on 07/18/2024. hemoglobin 6.4 with iron 13 with 3% saturation and ferritin 4 on 02/17/2025. Hemoglobin 9.5, iron 112 with 30% saturation on 03/30/2025. Diabetic retinopathy of right eye (08/07/23) mild retinopathy right eye 08/07/2023. Diastolic CHF with preserved left ventricular function, NYHA class 2 Echo with ejection fraction 52% with moderate diastolic dysfunction and [id number] tricuspid regurgitation, atrial fibrillation. Paroxysmal atrial fibrillation UTI (urinary tract infection) Hoarseness of voice Diarrhea Acute bronchitis At high risk for falls Diabetic ulcer of toe associated with type 2 diabetes mellitus (~06/2022) superficial ulceration extensor surface right 2nd toe Grieving (~08/2021) 48-year-old son Morbid obesity with BMI of 40.0-44.9, adult Acute non-recurrent maxillary sinusitis Breast cancer screening Body mass index (BMI) of 40.1 to 44.9 in adult Chronic pain Bilateral impacted cerumen Osteoarthritis of right knee Chronic pain of right knee Body mass index (BMI) 45.0-49.9, adult (02/15/19) Diabetic ulcer of toe of left foot associated with type 2 diabetes mellitus Non-pressure chronic ulcer of other part of left foot limited to breakdown of skin Surgical History Surgical History H/O cardiac radiofrequency ablation Family History Family History Father Acute myocardial infarction, Onset Age: 50 Mother Family history of malignant neoplasm, Onset Age: 82 Social History Social History Social History: Caffeine-coffe/soda Smoking status: Never smoker Alcohol intake: never Substance use: never Substance use type: does not use Lack of Transportation: No Lack of Food: Never True Current Housing: I Have Housing Concerned About Future Housing: No Difficulty Paying Gas/Electric Bills: No Difficulty Paying for Meds: No Currently Unemployed: No Education: Bachelor's Degree Difficulty w/ Childcare or Family Care: No Living arrangements: with family Gender identity (if verbalized by the patient): Female Sexual Orientation (if Verbalized by the Patient): Straight or Heterosexual Spiritual care concerns: No Meds Home Medications and Allergies Home Medications ?Medication ?Instructions ?Recorded ?Confirmed ?Type amiodarone 200 mg tablet 200 mg PO DAILY 07/20/24 History spironolactone 25 mg tablet 25 mg PO DAILY 07/20/24 History apixaban 5 mg tablet (Eliquis) 5 mg PO BID #60 tabs 09/16/25 Rx empagliflozin 25 mg tablet 25 mg PO QAM #90 tabs 11/3009/16/25 Rx (Jardiance) atorvastatin 40 mg tablet 40 mg PO DAILY #90 tabs 11/2009/16/25 Rx gabapentin 800 mg tablet 800 mg PO TID #90 tabs 12/2309/16/25 Rx furosemide 40 mg tablet 40 mg PO QAM #30 tabs 09/16/25 Rx Synthroid 200 mcg tablet 200 mcg PO . q.a.m. #90 tabs 02/21/25 09/16/25 Rx (levothyroxine) ferrous sulfate 325 mg (65 mg 325 mg PO DAILY #90 tabs 02/21/25 09/16/25 Rx iron) tablet,delayed release ondansetron HCl 4 mg tablet 4 mg PO ONCE PRN nausea an d 02/21/25 09/16/25 Rx vomiting #30 tabs ondansetron 4 mg disintegrating 4 mg PO Q8H PRN nausea and 03/14/25 09/16/25 Rx tablet vomiting #10 tabs esomeprazole magnesium 40 mg 40 mg PO DAILY #90 caps 0 04/04/25 09/16/25 Rx capsule,delayed release insulin glargine 100 unit/mL (3 50 unit (0.5 mL) subcu t BID #75 mL 04/06/25 09/16/25 Rx mL) subcutaneous pen (Lantus Solostar U-100 Insulin) pen needle, diabetic 32 gauge x #100 ea 04/17/2509/16 Rx 5/32 doxycycline hyclate 100 mg tablet 100 mg PO BID #20 ta bs 06/12/25 09/16/25 Rx potassium chloride 10 mEq 10 meq PO DAILY #90 caps 04/1209/16/25 Rx capsule,extended release hydrocodone 10 mg-acetaminophen 1 tablet PO Q6H PRN pa in #120 tabs 09/08/25 09/16/25 Rx 325 mg tablet carvedilol 12.5 mg tablet 12.5 mg PO Q12H 09/16/25 History collagenase clostridium histo. 250 1 applic topical DA ROSIO diabetic 09/16/25 09/16/25 History unit/gram topical ointment (Santyl) ulcer doxycycline hyclate 100 mg capsule 100 mg PO Q12H 08/2009/16/25 History losartan 25 mg tablet 25 mg PO DAILY 09/16/2508/20 History Allergies Allergy/AdvReac Type Severity Reaction Status Date / Time No Known Allergies Allergy Verified 09/16/25 17:59 Vital Signs Vital Signs - 24 hr 09/16/25 12:51 09/16/25 13:19 09/16/25 13:31 Temperature 98.0 F Pulse Rate 80 73 74 Respiratory Rate 20 12 15 Blood Pressure 116/81 91/50 L 92/50 L Pulse Oximetry 96 94 95 Oxygen Delivery Room Air 09/16/25 13:46 09/16/25 14:01 09/16/25 14:15 Temperature Pulse Rate 81 91 91 Respiratory Rate 17 20 13 Blood Pressure 116/82 157/74 H Pulse Oximetry 93 97 95 Oxygen Delivery 09/16/25 14:16 09/16/25 14:30 09/16/25 14:31 Temperature Pulse Rate 92 94 93 Respiratory Rate 20 19 18 Blood Pressure 164/90 H 144/84 H Pulse Oximetry 96 94 95 Oxygen Delivery 09/16/25 14:46 Temperature Pulse Rate 94 Respiratory Rate 20 Blood Pressure 146/63 H Pulse Oximetry 92 Oxygen Delivery Exam Narrative: General: Looks unwell, no acute distress HEENT: normocephalic, atraumatic. Mucous membranes moist. EOMI, PERRLA, bilateral sclera anicteric, no conjunctival injection. Neck supple without JVD, lymphadenopathy, or bruit. Respiratory: clear bilaterally. No rales/rhonic/wheezes. Cardiovascular: Regular rate and rhythm, normal S1-S2. No murmurs, rubs, or clicks. PMI is nondisplaced, capillary refill less than 3 second. Abdomen: Soft, round, no pulsatile masses, nondistended and nontender. No rebound, no guarding. Bowel sounds present to all four quadrants. No high pitch or tinkling sounds, resonant to percussion. Extremities: No cyanosis, clubbing, or edema present. Pulses are palpable 2/2. Active ROM to all four extremities. Neuro: Alert and orientated x 4. PERRLA. Cranial nerves 2-12 intact without focal deficit. Skin: Warm, dry, and intact, without rash, erythema, or lesion. Psych: pleasant, cooperative, normal speech, normal affect, no hallucinations, no dysarthia H&P: Results Labs Labs: Short CBC 09/16/25 Range/Units 13:10 WBC 8.4 (4.5-10.0) K/mm3 Hgb 11.3 L (12.0-15.0) g/dL Hct 35.1 L (37.0-47.0) % Plt Count 224 (150-375) k/mm3 BMP 09/16/25 13:10 Sodium 131 L Potassium 4.3 Chloride 99 Carbon Dioxide 24 BUN 37 H D Creatinine 2.14 H Glucose 253 H Calcium 10.1 Liver Function 09/16/25 Range/Units 13:10 Total Bilirubin 0.7 (0.2-1.3) mg/dL AST 28 (14-36) U/L ALT 18 (6-35) U/L Alkaline Phosphatase 80 (38-126) U/L Albumin 3.6 (3.5-5.1) g/dL Urine 09/16/25 Range/Units 13:12 Urine Color Yellow (Yellow) Urine Appearance Clear (Clear) Urine pH 7.5 (5.0-9.0) Ur Specific [place] 1.025 (1.001-1.035) Urine Protein 1+ H (Negative) mg/dL Urine Glucose (UA) 3+ H (Negative) mg/dL Assessment and Plan Assessment and plan (1) UTI (urinary tract infection): Code(s): N39.0 - Urinary tract infection, site not specified Status: Acute Assessment and Plan: IV Rocephin Culture and sensitivity pending IVF (2) Weakness: Code(s): R53.1 - Weakness Status: Acute Assessment and Plan: Weakness versus deconditioning versus other PT OT eval (3) Diastolic CHF with preserved left ventricular function, NYHA class 2: Code(s): I50.30 - Unspecified diastolic (congestive) heart failure Status: Acute Assessment and Plan: Patient appears to be dehydrated Gentle IV hydration Monitor for fluid overload Holding home Lasix (4) Paroxysmal atrial fibrillation: Code(s): I48.0 - Paroxysmal atrial fibrillation Status: Acute Assessment and Plan: Continue Coreg and amiodarone Continue Eliquis (5) Controlled type 2 diabetes mellitus with hyperglycemia, with long-term current use of insulin: Code(s): E11.65 - Type 2 diabetes mellitus with hyperglycemia; Z79.4 - MCC (current) use of insulin Status: Acute Assessment and Plan: Diabetic diet Patient takes 60 units of Lantus b.i.d., pharmacy to reduced by 20% adjust as needed SSI (6) BARRIOS (nonalcoholic steatohepatitis): Code(s): K75.81 - Nonalcoholic steatohepatitis (BARRIOS) Status: Acute Assessment and Plan: Patient states that a few months ago she did have to have blood transfusions if she had a GI bleed No complaints at this time (7) Essential (primary) hypertension: Code(s): I10 - Essential (primary) hypertension Status: Acute Assessment and Plan: Holding antihypertensives due to soft blood pressures Quality VTE Prophylaxis VTE prophylaxis: mechanical ordered and pharmacologic ordered Hospitalist MIPS Advance Care Plan I have confirmed that the patient's Advanced Care Plan is present, code status is documented, or surrogate decision maker is listed in patient medical record.: Yes Medication Reconciliation I have utilized all available resources to obtain, update and review the patients current medications (includes all prescriptions, OTC, herbals, cannabis, and nutritional supplements).: Yes
[2025-09-16] MEDS: cefTRIAXone 1 GM in SODIUM CHLORIDE 0.9% IV 50 ML 100 ML IVPB (15:19)
--- NOTE | 2025-09-16 16:21 | WPCEDHO ---
ED Hand Off Checklist All vitals saved:Y IV Site documented:Y All med administrations documented:Y Triage Note Triage Note brought in per [facility] with c/o 09/16/25 12:51 weakness and fatigue since . BG 301. Fall yesterday with no injuries. O2 95% RA. Allergies No Known Allergies Allergy (Verified 05/26/25 09:24) Family History (Last Reviewed 09/16/25 @ 15:24 by Elpidio Kumar MD) Father Acute myocardial infarction Mother Family history of malignant neoplasm Administered/Completed Medications Discontinued Medications Sodium Chloride (Normal Saline Iv) 1,000 mls @ 999 mls/hr IV CONT .Q1H1M STA Stop: 09/16/25 14:35 Last Infusion: 09/16/25 14:30 Dose: Infused Documented By: [facility] Admin: 09/16/25 13:44 Dose: 999 mls/hr Documented By: [facility] Ceftriaxone Sodium 1 gm/ (Sodium Chloride) 50 mls @ 100 mls/hr IVPB ONCE STA Stop: 09/16/25 15:06 Last Infusion: 09/16/25 15:50 Dose: Infused Documented By: P Admin: 09/16/25 15:19 Dose: 100 mls/hr Documented By: [facility] Notes 09/16/25 13:19 Nurse Note by Sia Covarrubias patient arrived with a sore to her buttocks; patient confirms that this has been there and the patient's stated that she has been treating this at home. Initialized on 09/16/25 13:19 - END OF NOTE Interventions/Assessments IV / Saline Lock, Insert Start: 09/16/25 12:38 Freq: Status: Active Protocol: Document 09/16/25 13:07 [facility] (Rec: 09/16/25 13:07 [facility] [id number]) IV Assessment Peripheral Access Left Forearm IV Catheter Access Initiated IV Insertion Date 09/16/25 IV Insertion Time 13:07 Catheter Gauge 18 IV Insertion 1 Attempts Ultrasound Used for No Placement IV Site Assessment WNL IV Care and WNL Maintenance PA: Cardiovascular Assessment Start: 09/16/25 12:38 Freq: Status: Complete Protocol: Document 09/16/25 13:05 P (Rec: 09/16/25 13:06 [facility] [id number]) Cardiovascular Assessment Cardiovascular Lightheadedness Symptoms Skin Description Normal Color PA: Neurological Assessment Start: 09/16/25 12:38 Freq: Status: Complete Protocol: Document 09/16/25 13:05 [facility] (Rec: 09/16/25 13:06 [facility] [id number]) Neurological Assessment Level of Alert Consciousness Arousable to Verbal Orientation Oriented to Person,Oriented to Place,Oriented to Time Neurological Dizziness Symptoms [place] Coma Scale Eyes Open Verbal Oriented and Alert Motor Follows Commands [place] Coma Total 15 Score Last Vital Signs Temperature 98.0 F 09/16/25 12:51 Pulse Rate 93 09/16/25 16:01 Respiratory Rate 17 09/16/25 16:01 Pulse Oximetry 93 09/16/25 16:01 Blood Pressure 107/58 L 09/16/25 16:01 Blood Pressure Mean 69 09/16/25 16:01 Oxygen Delivery Room Air 09/16/25 12:51 Weight 123 kg 09/16/25 12:51 Last Result - Abnormals Only RBC 3.85 M/mm3 (4.2-5.4) L 09/16/25 13:10 Hgb 11.3 g/dL (12.0-15.0) L 09/16/25 13:10 Hct 35.1 % (37.0-47.0) L 09/16/25 13:10 Immature Gran % (Auto) 0.7 % (0-0.5) H 09/16/25 13:10 Neut % (Auto) 75.9 % (45.5-73.1) H 09/16/25 13:10 Lymph % (Auto) 12.6 % (18.3-44.2) L 09/16/25 13:10 [place] % (Auto) 10.6 % (2.6-8.5) H 09/16/25 13:10 [place] # (Auto) 0.9 K/mm3 (0.1-0.6) H 09/16/25 13:10 Abs Immat Gran (auto) 0.06 K/mm3 (0.00-0.031) H 09/16/25 13:10 Sodium 131 mmol/L (137-145) L 09/16/25 13:10 BUN 37 mg/dL (7-17) H D 09/16/25 13:10 Creatinine 2.14 mg/dL (0.7-1.0) H 09/16/25 13:10 Estimated GFR 22 (59-) L 09/16/25 13:10 Glucose 253 mg/dL (65-110) H 09/16/25 13:10 POC Capillary Glucose 259 mg/dl (65-105) H 09/16/25 13:12 Lactic Acid 2.1 mmol/L (0.7-2.0) H 09/16/25 15:33 Urine Protein 1+ mg/dL (Negative) H 09/16/25 13:12 Urine Glucose (UA) 3+ mg/dL (Negative) H 09/16/25 13:12 Urine RBC 6-10 /hpf (0-2) H 09/16/25 13:12 Urine WBC 21-50 /hpf (0-3) H 09/16/25 13:12 Urine Bacteria 4+ /hpf H 09/16/25 13:12 Most Recent Suicide Severity Rating Suicide Severity Rating NO RISK INDICATED 09/16/25 12:51
--- NOTE | 2025-09-16 17:05 | ADMGEN ---
This patient, Nona Estrella, was admitted to Medical Room 346-. Patient/family oriented to hospital policies and general routines including ID bracelet, bed and alarms, visiting hours, pain management, procedures, bathroom and other care routines, personal items, smoking policy, room service/diet, and visiting hours. Information on how to activate the Rapid Response Team has been discussed. Patient/Family are encouraged to report perceived risks to care and to ask questions if they do not understand what they are told or what they should do.
[2025-09-16] MEDS: SODIUM CHLORIDE 0.9% IV 1,000 ML 125 ML IV CONT (18:09)
[2025-09-16] MEDS: INSULIN ASPART (*BKC) 100 UNITS/ML SUB-Q (18:23)
--- NOTE | 2025-09-17 01:25 | PC.NURSE ---
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 Bladder scanned pt retaining 307, straight cath and post void 50mL.
[2025-09-17] MEDS: SODIUM CHLORIDE 0.9% IV 1,000 ML 125 ML IV CONT (04:33)
[2025-09-17 05:24] VITALS: BP 130/53; PULSE 77; RESP 18; TEMP 36.6; O2SAT 92
[2025-09-17 05:44] LABS: Hematocrit 32.4 % (37.0-47.0); Hemoglobin 10.2 g/dL (12.0-15.0); Immature Granulocyte Percent A 0.4 % (0-0.5); Lymphocytes Absolute Auto 0.67 K/mm3 (0.9-3.2); Mean Corpuscular HGB Conc 31.5 g/dl (32-36); Mean Corpuscular Hemoglobin 29.4 pg (26-34); Mean Corpuscular Volume 93.4 fl (80-100); Nucleated Red Blood Cells Absolute Auto 0.000 K/mm3 (0.0-0.012); Nucleated Red Blood Cells Perc 0.0 % (0.0-0.2); Platelet Count Result 207 k/mm3 (150-375); Red Blood Count 3.47 M/mm3 (4.2-5.4); White Blood Count 9.0 K/mm3 (4.5-10.0)
[2025-09-17 06:02] LABS: Anion Gap 4 mmol/L (4-12); Blood Urea Nitrogen 40 mg/dL (7-17); Calcium 9.3 mg/dL (8.4-10.2); Carbon Dioxide 25 mmol/L (22-30); Chloride 103 mmol/L (98-107); Estimated CRCL calculation 31 ml/min; Estimated Glomerular Filt Rate 27; Glucose 170 mg/dL (65-110); Potassium 4.0 mmol/L (3.4-5.0); Sodium 132 mmol/L (137-145)
[2025-09-17] MEDS: LEVOTHYROXINE SODIUM 100 MCG TABLET 200 MCG PO (06:08)
--- NOTE | 2025-09-17 08:27 | P.PNIM_ITS ---
Progress Note: A&P Assessment and Plan (1) UTI (urinary tract infection): Code(s): N39.0 - Urinary tract infection, site not specified Status: Acute Assessment and Plan: IV Rocephin Culture and sensitivity pending IVF follow urine culture (2) Weakness: Code(s): R53.1 - Weakness Status: Acute Assessment and Plan: Weakness versus deconditioning versus other PT OT eval pt is fall/bleeding risk-continue fall precautions (3) Diastolic CHF with preserved left ventricular function, NYHA class 2: Code(s): I50.30 - Unspecified diastolic (congestive) heart failure Status: Acute Assessment and Plan: Patient appears to be dehydrated Gentle IV hydration Monitor for fluid overload Holding home Lasix gentle hydration today and possibly will resume spironolactone tomorrow cr/bun improving-monitor daily labs (4) Paroxysmal atrial fibrillation: Code(s): I48.0 - Paroxysmal atrial fibrillation Status: Acute Assessment and Plan: Continue Coreg and amiodarone Continue Eliquis (5) Controlled type 2 diabetes mellitus with hyperglycemia, with long-term current use of insulin: Code(s): E11.65 - Type 2 diabetes mellitus with hyperglycemia; Z79.4 - snf (current) use of insulin Status: Acute Assessment and Plan: Diabetic diet Patient takes 60 units of Lantus b.i.d., pharmacy to reduced by 20% adjust as needed SSI bs reviewed BS 170 this am -on low dose correction, lantus 40 units bid -monitor closely to avoid hypoglycemia (6) BARRIOS (nonalcoholic steatohepatitis): Code(s): K75.81 - Nonalcoholic steatohepatitis (BARRIOS) Status: Acute Assessment and Plan: Patient states that a few months ago she did have to have blood transfusions if she had a GI bleed No complaints at this time (7) Essential (primary) hypertension: Code(s): I10 - Essential (primary) hypertension Status: Acute Assessment and Plan: Holding antihypertensives due to soft blood pressures at home on losartan 25 mg, spironolactone 25 mg, coreg 12.5 mg bid holding losartan and spironolactone for now Plan decreased appetite- will add nutritional supplements Time Spent With Patient Time with patient: 25 - 35 minutes Subjective Date/time seen: 09/17/25 08:27 Interval history: 79-year-old female past medical history of CHF, diabetes, Barrios, CKD, atrial fibrillation, and chronic pain presents the hospital with generalized weakness. She states that she has felt unwell for the last 2 days. Patient does complains of severe fatigue at bedside. She is unable to describe what is wrong. She states that she has not eaten in the last 2 days good she does not feel where all. Patient denies falls. Patient denies fevers chills nausea or vomiting. Lab work shows normal white count, hemoglobin of 11.3 which is higher than baseline, sodium of 131, creatinine of 2.14, with baseline being around 1.35, glucose 159, lactic acid 2.3, UA shows negative nitrates, 6-10 rbc's, 21-50 wbc's 4+ bacteria negative for leukocyte esterase no squamous cells found. Blood and urine cultures pending, patient has been started on Rocephin is being admitted for UTI. Pt is seen and examined. Receiving Rocephin for UTI, PT/OT eval pending. She is up in a chair, at the bedside- both updates on plan of care. Review of Systems Review of Systems: 12 systems were reviewed and are negativ e except for as per HPI. Exam Narrative: General: Looks unwell, no acute distress, up in a chair HEENT: normocephalic, atraumatic. Mucous membranes moist. EOMI, PERRLA, bilateral sclera anicteric, no conjunctival injection. Neck supple without JVD, lymphadenopathy, or bruit. Respiratory: clear bilaterally. No rales/rhonic/wheezes. Cardiovascular: Regular rate and rhythm, normal S1-S2. No murmurs, rubs, or clicks. PMI is nondisplaced, capillary refill less than 3 second. Abdomen: Soft, round, no pulsatile masses, nondistended and nontender. No rebound, no guarding. Bowel sounds present to all four quadrants. No high pitch or tinkling sounds, resonant to percussion. Extremities: No cyanosis, clubbing, or edema present. Pulses are palpable 2/2. Active ROM to all four extremities. Neuro: Alert and orientated x 4. PERRLA. Cranial nerves 2-12 intact without focal deficit. Skin: Warm, dry, and intact, without rash, erythema, or lesion. Psych: pleasant, cooperative, normal speech, normal affect, no hallucinations, no dysarthia Const: General: comfortable Objective Data Vital Signs Vital Signs: Vital Signs - 24 hr 09/16/25 12:51 09/16/25 13:19 09/16/25 13:31 Temperature 98.0 F Pulse Rate 80 73 74 Respiratory Rate 20 12 15 Blood Pressure 116/81 91/50 L 92/50 L Pulse Oximetry 96 94 95 Oxygen Delivery Room Air 09/16/25 13:46 09/16/25 14:01 09/16/25 14:15 Temperature Pulse Rate 81 91 91 Respiratory Rate 17 20 13 Blood Pressure 116/82 157/74 H Pulse Oximetry 93 97 95 Oxygen Delivery 09/16/25 14:16 09/16/25 14:30 09/16/25 14:31 Temperature Pulse Rate 92 94 93 Respiratory Rate 20 19 18 Blood Pressure 164/90 H 144/84 H Pulse Oximetry 96 94 95 Oxygen Delivery 09/16/25 14:46 09/16/25 15:16 09/16/25 16:01 Temperature Pulse Rate 94 98 93 Respiratory Rate 20 20 17 Blood Pressure 146/63 H 115/62 107/58 L Pulse Oximetry 92 93 93 Oxygen Delivery 09/16/25 20:12 09/16/25 20:22 09/16/25 20:22 Temperature 98.2 F Pulse Rate 73 73 Respiratory Rate 18 Blood Pressure 104/49 L Pulse Oximetry 95 Oxygen Delivery Room Air 09/16/25 20:54 09/17/25 05:24 Temperature 97.8 F Pulse Rate 77 Respiratory Rate 18 Blood Pressure 130/53 L Pulse Oximetry 92 92 Oxygen Delivery Room Air Intake/Output Intake/Output: Intake & Output 09/14/25 09/15/25 09/16/25 09/17/25 23:59 23:59 23:59 23:59 Intake Total 1050 1250 Output Total 250 750 Balance 800 500 Meds/Results Medications: Active Medications Generic Name Dose Route Start Last Admin Trade Name Freq PRN Reason Stop Dose Admin Acetaminophen 650 mg 09/16/25 15:08 Acetaminophen 325 Mg Tablet PO Q4H PRN Mild Pain (1-3) or Fever Hydrocodone Bitart/Acetaminophen 1 tab 09/16/25 18:24 Hydrocodone/Acetaminophen (*Crx) 10-325 Mg Tablet PO Q6H PRN Pain Rated 6 or Greater Amiodarone HCl 200 mg 09/17/25 09:00 Amiodarone Hcl 200 Mg Tablet PO DAILY [facility] Apixaban 5 mg 09/17/25 09:00 Apixaban 5 Mg Tablet PO BID [facility] Atorvastatin Calcium 40 mg 09/17/25 09:00 Atorvastatin 40 Mg Tablet PO DAILY [facility] Carvedilol 12.5 mg 09/16/25 21:00 09/16/25 20:22 Carvedilol 12.5 Mg Tablet PO 12.5 mg Q12HR [facility] Administration Collagenase 1 applic 09/17/25 09:00 Collagenase Oint 30 Gm Tube TOPICAL DAILY [facility] Dextrose 12.5 gm 09/16/25 18:26 Dextrose 50% 25 Gm/50 Ml Syringe IV PUSH PRN PRN Hypoglycemia Protocol Docusate Sodium 100 mg 09/16/25 15:08 Docusate Sodium 100 Mg Capsule PO BID PRN Constipation Gabapentin 800 mg 09/17/25 09:00 Gabapentin 400 Mg Capsule PO TID [facility] Glucagon 1 mg 09/16/25 18:26 Glucagon For Inj 1 Mg Vial IM PRN PRN Hypoglycemia Protocol Glucose 15 gm 09/16/25 18:26 Glucose Oral Gel 15 Gm Of Glucse In 37.5 Gm Tube PO PRN PRN Hypoglycemia Protocol Ceftriaxone Sodium 1 gm/ 50 mls @ 100 mls/hr 09/17/25 16:00 Sodium Chloride IVPB Q24H [facility] Sodium Chloride 1,000 mls @ 75 mls/hr 09/16/25 15:35 09/17/25 04:33 Normal Saline Iv IV CONT 125 mls/hr .[id number] [facility] Administration Dextrose 1,000 mls @ 100 mls/hr 09/16/25 18:26 Dextrose 5% 1,000 Ml IVPB PRN PRN Hypoglycemia Protocol Insulin Aspart 2 - 5 units 09/16/25 18:00 09/17/25 06:12 Insulin Aspart (*Bkc) 100 Units/Ml SUB-Q Not Given Q6HR [facility] Protocol Insulin Glargine 40 units 09/17/25 09:00 Insulin Glargine (*Bkc) 100 Units/Ml SUB-Q BID [facility] Levothyroxine Sodium 200 mcg 09/17/25 06:30 09/17/25 06:08 Levothyroxine Sodium 100 Mcg Tablet PO 200 mcg DAILY@0630 [facility] Administration Ondansetron HCl 4 mg 09/16/25 15:31 Ondansetron Inj 4 Mg/2 Ml Vial IV PUSH Q4H PRN Nausea Pantoprazole Sodium 40 mg 09/17/25 09:00 Pantoprazole 40 Mg Tablet PO Q12HR [facility] Radiology Results: ITS Impressions Chest X-Ray 09/16/25 15:28 Impression: Mild CHF. Labs Labs: Laboratory Results - last 24 hr 09/16/25 09/16/25 09/16/25 13:10 13:12 13:46 WBC 8.4 RBC 3.85 L Hgb 11.3 L Hct 35.1 L MCV 91.2 MCH 29.4 MCHC 32.2 RDW 12.9 Plt Count 224 MPV 9.2 Immature Gran % (Auto) 0.7 H Neut % (Auto) 75.9 H Lymph % (Auto) 12.6 L [place] % (Auto) 10.6 H Eos % (Auto) 0.0 Baso % (Auto) 0.2 Lymph # (Auto) 1.06 [place] # (Auto) 0.9 H Eos # (Auto) 0.0 Baso # (Auto) 0.0 Abs Immat Gran (auto) 0.06 H Absolute Neuts (auto) 6.4 Absolute Nucleated RBC 0.000 Nucleated RBC % 0.0 Sodium 131 L Potassium 4.3 Chloride 99 Carbon Dioxide 24 Anion Gap 8 BUN 37 H D Creatinine 2.14 H Estim Creat Clear Calc 27 Estimated GFR 22 L Glucose 253 H POC Capillary Glucose 259 H Lactic Acid Cancelled Calcium 10.1 Total Bilirubin 0.7 AST 28 ALT 18 Alkaline Phosphatase 80 Total Protein 7.2 Albumin 3.6 Urine Color Yellow Urine Appearance Clear Urine pH 7.5 Ur Specific [place] 1.025 Urine Protein 1+ H Urine Glucose (UA) 3+ H Urine Ketones Negative Ur Blood (Man) Negative Urine Nitrate Negative Urine Bilirubin Negative Urine Urobilinogen 1.0 Add Ur Microanalysis Reviewed Leukocyte Esterase Rfl Negative Urine RBC 6-10 H Urine WBC 21-50 H Ur Squamous Epith Cells None seen Urine Bacteria 4+ H Urine Casts >20 Hyaline Casts Present Broad Casts Present 09/16/25 09/16/25 09/16/25 13:46 15:33 16:22 WBC RBC Hgb Hct MCV MCH MCHC RDW Plt Count MPV Immature Gran % (Auto) Neut % (Auto) Lymph % (Auto) [place] % (Auto) Eos % (Auto) Baso % (Auto) Lymph # (Auto) [place] # (Auto) Eos # (Auto) Baso # (Auto) Abs Immat Gran (auto) Absolute Neuts (auto) Absolute Nucleated RBC Nucleated RBC % Sodium Potassium Chloride Carbon Dioxide Anion Gap BUN Creatinine Estim Creat Clear Calc Estimated GFR Glucose POC Capillary Glucose 239 H Lactic Acid 2.3 H 2.1 H Calcium Total Bilirubin AST ALT Alkaline Phosphatase Total Protein Albumin Urine Color Urine Appearance Urine pH Ur Specific [place] Urine Protein Urine Glucose (UA) Urine Ketones Ur Blood (Man) Urine Nitrate Urine Bilirubin Urine Urobilinogen Add Ur Microanalysis Leukocyte Esterase Rfl Urine RBC Urine WBC Ur Squamous Epith Cells Urine Bacteria Urine Casts Hyaline Casts Broad Casts 09/16/25 09/16/25 09/17/25 18:19 23:59 05:21 WBC 9.0 RBC 3.47 L Hgb 10.2 L Hct 32.4 L MCV 93.4 MCH 29.4 MCHC 31.5 L RDW 12.7 Plt Count 207 MPV 9.7 Immature Gran % (Auto) 0.4 Neut % (Auto) 81.9 H Lymph % (Auto) 7.4 L [place] % (Auto) 10.2 H Eos % (Auto) 0.0 Baso % (Auto) 0.1 L Lymph # (Auto) 0.67 L [place] # (Auto) 0.9 H Eos # (Auto) 0.0 Baso # (Auto) 0.0 Abs Immat Gran (auto) 0.04 H Absolute Neuts (auto) 7.4 H Absolute Nucleated RBC 0.000 Nucleated RBC % 0.0 Sodium 132 L Potassium 4.0 Chloride 103 Carbon Dioxide 25 Anion Gap 4 BUN 40 H Creatinine 1.84 H Estim Creat Clear Calc 31 Estimated GFR 27 L Glucose 170 H POC Capillary Glucose 226 H 193 H Lactic Acid Calcium 9.3 Total Bilirubin AST ALT Alkaline Phosphatase Total Protein Albumin Urine Color Urine Appearance Urine pH Ur Specific [place] Urine Protein Urine Glucose (UA) Urine Ketones Ur Blood (Man) Urine Nitrate Urine Bilirubin Urine Urobilinogen Add Ur Microanalysis Leukocyte Esterase Rfl Urine RBC Urine WBC Ur Squamous Epith Cells Urine Bacteria Urine Casts Hyaline Casts Broad Casts 09/17/25 06:07 WBC RBC Hgb Hct MCV MCH MCHC RDW Plt Count MPV Immature Gran % (Auto) Neut % (Auto) Lymph % (Auto) [place] % (Auto) Eos % (Auto) Baso % (Auto) Lymph # (Auto) [place] # (Auto) Eos # (Auto) Baso # (Auto) Abs Immat Gran (auto) Absolute Neuts (auto) Absolute Nucleated RBC Nucleated RBC % Sodium Potassium Chloride Carbon Dioxide Anion Gap BUN Creatinine Estim Creat Clear Calc Estimated GFR Glucose POC Capillary Glucose 147 H Lactic Acid Calcium Total Bilirubin AST ALT Alkaline Phosphatase Total Protein Albumin Urine Color Urine Appearance Urine pH Ur Specific [place] Urine Protein Urine Glucose (UA) Urine Ketones Ur Blood (Man) Urine Nitrate Urine Bilirubin Urine Urobilinogen Add Ur Microanalysis Leukocyte Esterase Rfl Urine RBC Urine WBC Ur Squamous Epith Cells Urine Bacteria Urine Casts Hyaline Casts Broad Casts Quality VTE Prophylaxis VTE prophylaxis: mechanical ordered and pharmacologic ordered
[2025-09-17 08:35] VITALS: PULSE 83
[2025-09-17] MEDS: APIXABAN 5 MG TABLET PO ×2 (08:35→17:48)
[2025-09-17] MEDS: ATORVASTATIN 40 MG TABLET PO (08:35)
[2025-09-17] MEDS: PANTOPRAZOLE 40 MG TABLET PO ×2 (08:35→22:03)
[2025-09-17 08:36] VITALS: PULSE 83
[2025-09-17] MEDS: AMIODARONE HCL 200 MG TABLET PO (08:36)
[2025-09-17] MEDS: GABAPENTIN 400 MG CAPSULE 800 MG PO ×3 (08:36→17:48)
[2025-09-17] MEDS: INSULIN GLARGINE (*BKC) 100 UNITS/ML 40 UNITS SUB-Q ×2 (08:38→18:01)
[2025-09-17] MEDS: COLLAGENASE OINT 30 GM TUBE 1 APPLIC TOPICAL (08:38)
[2025-09-17 08:47] VITALS: O2SAT 92
--- NOTE | 2025-09-17 10:36 | PCPTNOTE ---
attempted PT eval, pt working with OT and pt is too fatigued at the time to participate, will follow later
[2025-09-17 14:00] VITALS: BP 126/57; PULSE 68; RESP 18; TEMP 35.7; O2SAT 97
[2025-09-17] MEDS: cefTRIAXone 1 GM in SODIUM CHLORIDE 0.9% IV 50 ML 100 ML IVPB (16:47)
[2025-09-17 21:08] VITALS: BP 129/46; PULSE 65; RESP 16; TEMP 36.4; O2SAT 99
[2025-09-18] MEDS: ONDANSETRON INJ 4 MG/2 ML VIAL IV PUSH (01:26)
[2025-09-18] MEDS: ACETAMINOPHEN 325 MG TABLET 650 MG PO ×2 (01:27→20:52)
[2025-09-18] MEDS: LEVOTHYROXINE SODIUM 100 MCG TABLET 200 MCG PO (05:48)
[2025-09-18 06:00] VITALS: BP 123/52; PULSE 62; RESP 18; TEMP 36.5; O2SAT 96
[2025-09-18 06:03] LABS: Hematocrit 29.7 % (37.0-47.0); Hemoglobin 9.6 g/dL (12.0-15.0); Mean Corpuscular HGB Conc 32.3 g/dl (32-36); Mean Corpuscular Hemoglobin 29.0 pg (26-34); Mean Corpuscular Volume 89.7 fl (80-100); Platelet Count Result 206 k/mm3 (150-375); Red Blood Count 3.31 M/mm3 (4.2-5.4); White Blood Count 7.3 K/mm3 (4.5-10.0)
[2025-09-18 06:39] LABS: Alanine Aminotransferase 13 U/L (6-35); Albumin Level 3.0 g/dL (3.5-5.1); Alkaline Phosphatase 76 U/L (38-126); Anion Gap 4 mmol/L (4-12); Aspartate Amino Transferase 26 U/L (14-36); Bilirubin,Total 0.5 mg/dL (0.2-1.3); Blood Urea Nitrogen 34 mg/dL (7-17); Calcium 9.2 mg/dL (8.4-10.2); Carbon Dioxide 25 mmol/L (22-30); Chloride 104 mmol/L (98-107); Estimated CRCL calculation 42 ml/min; Estimated Glomerular Filt Rate 38; Glucose 103 mg/dL (65-110); Potassium 3.7 mmol/L (3.4-5.0); Sodium 133 mmol/L (137-145); Total Protein 6.4 g/dL (6.3-8.2)
[2025-09-18 09:35] VITALS: PULSE 96; O2SAT 96
[2025-09-18] MEDS: APIXABAN 5 MG TABLET PO ×2 (09:35→17:30)
[2025-09-18] MEDS: PANTOPRAZOLE 40 MG TABLET PO ×2 (09:35→20:52)
[2025-09-18] MEDS: GABAPENTIN 400 MG CAPSULE 800 MG PO ×3 (09:35→17:30)
[2025-09-18] MEDS: ATORVASTATIN 40 MG TABLET PO (09:35)
[2025-09-18 09:37] VITALS: PULSE 96
[2025-09-18] MEDS: COLLAGENASE OINT 30 GM TUBE 1 APPLIC TOPICAL (09:37)
[2025-09-18] MEDS: AMIODARONE HCL 200 MG TABLET PO (09:37)
[2025-09-18] MEDS: INSULIN GLARGINE (*BKC) 100 UNITS/ML 40 UNITS SUB-Q ×2 (09:38→17:31)
--- NOTE | 2025-09-18 13:20 | PM.IMPN2 ---
Subjective Date/time seen: 09/18/25 13:20 Interval history: Patient complaining of little bit of dizziness and nausea. She did not have any the symptoms yesterday. She had the symptoms prior to going to bed today. She says they are worsened by standing up and bending to the chair. Differential includes worsening infection verses hypotension. Her blood cultures did come back with growth. Likely symptoms due to her current infection. Continue IV antibiotics. If she continues to worsen or develops fever consider antibiotic with broader coverage. Exam Narrative: GENERAL: Comfortable, no acute distress HENMT: moist mucous membranes EYES: EOM intact b/l RESPIRATORY: clear to auscultation, no increased respiratory effort CARDIO: Regular rate and rhythm SKIN/EXTREMITIES: no rashes, no edema, no redness or tenderness : Urine output with thick yellow urine. Objective Data Vital Signs Vital Signs: Vital Signs - 24 hr 09/17/25 14:00 09/17/25 14:18 09/17/25 20:00 Temperature 96.3 F L Pulse Rate 68 Respiratory Rate 18 Blood Pressure 126/57 L Pulse Oximetry 97 Oxygen Delivery Room Air Room Air 09/17/25 21:08 09/18/25 06:00 09/18/25 09:35 Temperature 97.5 F L 97.7 F Pulse Rate 65 62 96 Respiratory Rate 16 18 Blood Pressure 129/46 L 123/52 L Pulse Oximetry 99 96 Oxygen Delivery 09/18/25 09:37 Temperature Pulse Rate 96 Respiratory Rate Blood Pressure Pulse Oximetry Oxygen Delivery Intake/Output Intake/Output: Intake & Output 09/15/25 09/16/25 09/17/25 09/18/25 23:59 23:59 23:59 23:59 Intake Total 1050 1970 240 Output Total 250 750 800 Balance 800 1220 -560 Meds/Results Medications: Active Medications Generic Name Dose Route Start Last Admin Trade Name Freq PRN Reason Stop Dose Admin Acetaminophen 650 mg 09/16/25 15:08 09/18/25 01:27 Acetaminophen 325 Mg Tablet PO 650 mg Q4H PRN Administration Mild Pain (1-3) or Fever Hydrocodone Bitart/Acetaminophen 1 tab 09/16/25 18:24 Hydrocodone/Acetaminophen (*Crx) 10-325 Mg Tablet PO Q6H PRN Pain Rated 6 or Greater Amiodarone HCl 200 mg 09/17/25 09:00 09/18/25 09:37 Amiodarone Hcl 200 Mg Tablet PO 200 mg DAILY KENYON Administration Apixaban 5 mg 09/17/25 09:00 09/18/25 09:35 Apixaban 5 Mg Tablet PO 5 mg BID KENYON Administration Atorvastatin Calcium 40 mg 09/17/25 09:00 09/18/25 09:35 Atorvastatin 40 Mg Tablet PO 40 mg DAILY KENYON Administration Carvedilol 12.5 mg 09/16/25 21:00 09/18/25 09:35 Carvedilol 12.5 Mg Tablet PO 12.5 mg Q12HR KENYON Administration Collagenase 1 applic 09/17/25 09:00 09/18/25 09:37 Collagenase Oint 30 Gm Tube TOPICAL 1 applic DAILY KENYON Administration Dextrose 12.5 gm 09/16/25 18:26 Dextrose 50% 25 Gm/50 Ml Syringe IV PUSH PRN PRN Hypoglycemia Protocol Docusate Sodium 100 mg 09/16/25 15:08 Docusate Sodium 100 Mg Capsule PO BID PRN Constipation Gabapentin 800 mg 09/17/25 09:00 09/18/25 12:27 Gabapentin 400 Mg Capsule PO 800 mg TID KENYON Administration Glucagon 1 mg 09/16/25 18:26 Glucagon For Inj 1 Mg Vial IM PRN PRN Hypoglycemia Protocol Glucose 15 gm 09/16/25 18:26 Glucose Oral Gel 15 Gm Of Glucse In 37.5 Gm Tube PO PRN PRN Hypoglycemia Protocol Ceftriaxone Sodium 1 gm/ 50 mls @ 100 mls/hr 09/17/25 16:00 09/17/25 16:47 Sodium Chloride IVPB 100 mls/hr Q24H KENYON Administration Dextrose 1,000 mls @ 100 mls/hr 09/16/25 18:26 Dextrose 5% 1,000 Ml IVPB PRN PRN Hypoglycemia Protocol Insulin Aspart 2 - 5 units 09/17/25 17:00 09/18/25 11:59 Insulin Aspart (*Bkc) 100 Units/Ml SUB-Q Not Given TIDWM [facility] Protocol Insulin Glargine 40 units 09/17/25 09:00 09/18/25 09:38 Insulin Glargine (*Bkc) 100 Units/Ml SUB-Q 40 units BID KENYON Administration Levothyroxine Sodium 200 mcg 09/17/25 06:30 09/18/25 05:48 Levothyroxine Sodium 100 Mcg Tablet PO 200 mcg DAILY@0630 KENYON Administration Ondansetron HCl 4 mg 09/16/25 15:31 09/18/25 01:26 Ondansetron Inj 4 Mg/2 Ml Vial IV PUSH 4 mg Q4H PRN Administration Nausea Pantoprazole Sodium 40 mg 09/17/25 09:00 09/18/25 09:35 Pantoprazole 40 Mg Tablet PO 40 mg Q12HR KENYON Administration Radiology Results: ITS Impressions Chest X-Ray 09/16/25 15:28 Impression: Mild CHF. Labs Labs: Laboratory Results - last 24 hr 09/17/25 09/17/25 09/18/25 16:45 19:40 05:35 WBC 7.3 RBC 3.31 L Hgb 9.6 L Hct 29.7 L MCV 89.7 MCH 29.0 MCHC 32.3 RDW 12.3 Plt Count 206 MPV 9.6 Sodium 133 L Potassium 3.7 Chloride 104 Carbon Dioxide 25 Anion Gap 4 BUN 34 H Creatinine 1.35 H Estim Creat Clear Calc 42 Estimated GFR 38 L Glucose 103 POC Capillary Glucose 187 H 216 H Calcium 9.2 Total Bilirubin 0.5 AST 26 ALT 13 Alkaline Phosphatase 76 Total Protein 6.4 Albumin 3.0 L 09/18/25 09/18/25 07:47 11:38 WBC RBC Hgb Hct MCV MCH MCHC RDW Plt Count MPV Sodium Potassium Chloride Carbon Dioxide Anion Gap BUN Creatinine Estim Creat Clear Calc Estimated GFR Glucose POC Capillary Glucose 93 137 H Calcium Total Bilirubin AST ALT Alkaline Phosphatase Total Protein Albumin Assessment and Plan Assessment and Plan (1) UTI (urinary tract infection): Code(s): N39.0 - Urinary tract infection, site not specified Status: Acute Assessment and Plan: -IV Rocephin -Urine culture and sensitivity pending -Blood culture growing gram negative bacilli (2) Weakness: Code(s): R53.1 - Weakness Status: Acute Assessment and Plan: -Weakness versus deconditioning versus other -PT OT evaluation -Pt is fall/bleeding risk-continue fall precautions (3) Diastolic CHF with preserved left ventricular function, NYHA class 2: Code(s): I50.30 - Unspecified diastolic (congestive) heart failure Status: Acute Assessment and Plan: -Patient appears to be dehydrated -Gentle IV hydration for 24 hours, then discontinue -Holding home Lasix -gentle hydration and possibly will resume spironolactone tomorrow -cr/bun improving-monitor daily labs (4) Paroxysmal atrial fibrillation: Code(s): I48.0 - Paroxysmal atrial fibrillation Status: Acute Assessment and Plan: -Continue Coreg and amiodarone -Continue Eliquis (5) Controlled type 2 diabetes mellitus with hyperglycemia, with long-term current use of insulin: Code(s): E11.65 - Type 2 diabetes mellitus with hyperglycemia; Z79.4 - alf (current) use of insulin Status: Acute Assessment and Plan: -Diabetic diet -Patient takes 60 units of Lantus b.i.d., pharmacy to reduced by 20% adjust as needed -SSI -bs reviewed -BS 170 this am -on low dose correction, lantus 40 units bid -monitor closely to avoid hypoglycemia (6) BARRIOS (nonalcoholic steatohepatitis): Code(s): K75.81 - Nonalcoholic steatohepatitis (BARRIOS) Status: Acute Assessment and Plan: -Patient states that a few months ago she did have to have blood transfusions if she had a GI bleed -No complaints at this time (7) Essential (primary) hypertension: Code(s): I10 - Essential (primary) hypertension Status: Acute Assessment and Plan: -Holding antihypertensives due to soft blood pressures -at home on losartan 25 mg, spironolactone 25 mg, coreg 12.5 mg bid -holding losartan and spironolactone for now
[2025-09-18] MEDS: cefTRIAXone 2 GM in SODIUM CHLORIDE 0.9% IV 100 ML 200 ML IVPB (14:14)
[2025-09-18 15:25] VITALS: BP 122/82; PULSE 62; RESP 17; TEMP 36.4; O2SAT 98
[2025-09-18 21:12] VITALS: BP 149/63; PULSE 76; RESP 16; TEMP 36.1; O2SAT 98
[2025-09-18] MEDS: HYDROcodone/acetaminophen (*CRX) 10-325 MG TABLET 1 TAB PO (23:42)
[2025-09-19 04:27] VITALS: BP 124/49; PULSE 68; RESP 18; TEMP 36.2; O2SAT 95
[2025-09-19 05:22] LABS: Hematocrit 29.4 % (37.0-47.0); Hemoglobin 9.5 g/dL (12.0-15.0); Mean Corpuscular HGB Conc 32.3 g/dl (32-36); Mean Corpuscular Hemoglobin 29.2 pg (26-34); Mean Corpuscular Volume 90.5 fl (80-100); Platelet Count Result 205 k/mm3 (150-375); Red Blood Count 3.25 M/mm3 (4.2-5.4); White Blood Count 6.6 K/mm3 (4.5-10.0)
[2025-09-19 05:49] LABS: Alanine Aminotransferase 13 U/L (6-35); Albumin Level 3.0 g/dL (3.5-5.1); Alkaline Phosphatase 73 U/L (38-126); Anion Gap 1 mmol/L (4-12); Aspartate Amino Transferase 21 U/L (14-36); Bilirubin,Total 0.4 mg/dL (0.2-1.3); Blood Urea Nitrogen 27 mg/dL (7-17); Calcium 8.9 mg/dL (8.4-10.2); Carbon Dioxide 27 mmol/L (22-30); Chloride 104 mmol/L (98-107); Estimated CRCL calculation 45 ml/min; Estimated Glomerular Filt Rate 41; Glucose 101 mg/dL (65-110); Potassium 3.7 mmol/L (3.4-5.0); Sodium 132 mmol/L (137-145); Total Protein 6.3 g/dL (6.3-8.2)
[2025-09-19] MEDS: LEVOTHYROXINE SODIUM 100 MCG TABLET 200 MCG PO (06:11)
--- NOTE | 2025-09-19 08:07 | P.PN_ITS ---
Progress Note: A&P Assessment and Plan (1) Bacteremia: Code(s): R78.81 - Bacteremia Status: Acute Assessment and Plan: Blood culture obtained on 09/16: ecoli with sensitivities pending Likely related to UTI, urine culture pending Started on Rocephin 09/17, dose increased to 2 g q24h on 09/18 for bacteremia coverage (2) UTI (urinary tract infection): Code(s): N39.0 - Urinary tract infection, site not specified Status: Acute Assessment and Plan: - UA: 1+ protein, 3+ glucose, 6-10 RBC, 21-50 WBC, 4+ bacteria - UC obtained on 09/16: pending - No previous micro to be reviewed - started on Rocephin 09/17, dose increased to 2 g q24h on 09/18 for bacteremia coverage (3) Weakness: Code(s): R53.1 - Weakness Status: Acute Assessment and Plan: Weakness versus deconditioning versus other -PT OT evaluation, recommending SNF placement. Care coordination following. -Pt is fall/bleeding risk-continue fall precautions (4) Paroxysmal atrial fibrillation: Code(s): I48.0 - Paroxysmal atrial fibrillation Status: Acute Assessment and Plan: Currently in sinus rhythm -Continue Coreg 12.5 mg q12h and amiodarone 200mg daily -Continue Eliquis (5) Diastolic CHF with preserved left ventricular function, NYHA class 2: Code(s): I50.30 - Unspecified diastolic (congestive) heart failure Status: Acute Assessment and Plan: -Patient appeared to be dehydrated on admission, has since been rehydrated -Holding home Lasix and spironolactone, resume as appropriate -cr/bun improving-monitor daily labs (6) Essential (primary) hypertension: Code(s): I10 - Essential (primary) hypertension Status: Acute Assessment and Plan: Patient was having soft blood pressures on admission - Continue coreg 12.5 mg bid and losartan 25 mg daily, currently holding spironolactone (resume as appropriate) - Blood pressures reviewed and remain stable, continue to monitor (7) Controlled type 2 diabetes mellitus with hyperglycemia, with long-term current use of insulin: Code(s): E11.65 - Type 2 diabetes mellitus with hyperglycemia; 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 Continue to monitor. (8) BARRIOS (nonalcoholic steatohepatitis): Code(s): K75.81 - Nonalcoholic steatohepatitis (BARRIOS) Status: Acute Assessment and Plan: -Patient states that a few months ago she did have to have blood transfusions if she had a GI bleed -No complaints at this time Time Spent With Patient Time with patient: 25 - 35 minutes Subjective Date/time seen: 09/19/25 08:07 Interval history: 79-year-old female past medical history of CHF, diabetes, Barrios, CKD, atrial fibrillation, and chronic pain presents the hospital with generalized weakness. Patient is pleasant sitting up comfortably in her chair with at bedside. She continues to endorse dysuria but otherwise has no complaints denying chest pain, palpitations, shortness of breath, nausea/vomiting and abdominal pain. All questions and concerns answered during assessment. Review of Systems Review of Systems: All systems reviewed & are unremarkable except as noted in HPI and below Exam Narrative: AF HR 68 RR 18 SpO2 95 BP 124/49 General: female in no acute respiratory distress who is nontoxic appearing, sitting up in chair HEENT: Normocephalic. Atraumatic. Extraocular movement intact. Sclera clear and anicteric.No facial asymmetry. Chest: Lungs are clear to auscultation bilaterally. No wheezes or crackles. CV: Heart was regular rate and rhythm. Abd: Abdomen was soft. Nontender. Nondistended. Positive bowel sounds. Neuro: Patient is alert and oriented x4. Speech is clear. Objective Data Vital Signs Vital Signs: Vital Signs - 24 hr 09/18/25 09:35 09/18/25 09:35 09/18/25 09:37 Temperature Pulse Rate 96 96 Respiratory Rate Blood Pressure Pulse Oximetry 96 Oxygen Delivery Room Air 09/18/25 15:25 09/18/25 20:00 09/18/25 21:12 Temperature 97.5 F L 97.0 F L Pulse Rate 62 76 Respiratory Rate 17 16 Blood Pressure 122/82 149/63 H Pulse Oximetry 98 98 Oxygen Delivery Room Air 09/19/25 04:27 Temperature 97.2 F L Pulse Rate 68 Respiratory Rate 18 Blood Pressure 124/49 L Pulse Oximetry 95 Oxygen Delivery Intake/Output Intake/Output: Intake & Output 09/16/25 09/17/25 09/18/25 09/19/25 23:59 23:59 23:59 23:59 Intake Total 1050 1970 1070 400 Output Total 297 351 1154 600 Balance 800 1220 -480 -200 Meds/Results Medications: Active Medications Generic Name Dose Route Start Last Admin Trade Name Freq PRN Reason Stop Dose Admin Acetaminophen 650 mg 09/16/25 15:08 09/18/25 20:52 Acetaminophen 325 Mg Tablet PO 650 mg Q4H PRN Administration Mild Pain (1-3) or Fever Hydrocodone Bitart/Acetaminophen 1 tab 09/16/25 18:24 09/18/25 23:42 Hydrocodone/Acetaminophen (*Crx) 10-325 Mg Tablet PO 1 tab Q6H PRN Administration Pain Rated 6 or Greater Amiodarone HCl 200 mg 09/17/25 09:00 09/18/25 09:37 Amiodarone Hcl 200 Mg Tablet PO 200 mg DAILY KENYON Administration Apixaban 5 mg 09/17/25 09:00 09/18/25 17:30 Apixaban 5 Mg Tablet PO 5 mg BID KENYON Administration Atorvastatin Calcium 40 mg 09/17/25 09:00 09/18/25 09:35 Atorvastatin 40 Mg Tablet PO 40 mg DAILY KENYON Administration Carvedilol 12.5 mg 09/16/25 21:00 09/18/25 20:52 Carvedilol 12.5 Mg Tablet PO 12.5 mg Q12HR KENYON Administration Collagenase 1 applic 09/17/25 09:00 09/18/25 09:37 Collagenase Oint 30 Gm Tube TOPICAL 1 applic DAILY KENYON Administration Dextrose 12.5 gm 09/16/25 18:26 Dextrose 50% 25 Gm/50 Ml Syringe IV PUSH PRN PRN Hypoglycemia Protocol Docusate Sodium 100 mg 09/16/25 15:08 Docusate Sodium 100 Mg Capsule PO BID PRN Constipation Gabapentin 800 mg 09/17/25 09:00 09/18/25 17:30 Gabapentin 400 Mg Capsule PO 800 mg TID KENYON Administration Glucagon 1 mg 09/16/25 18:26 Glucagon For Inj 1 Mg Vial IM PRN PRN Hypoglycemia Protocol Glucose 15 gm 09/16/25 18:26 Glucose Oral Gel 15 Gm Of Glucse In 37.5 Gm Tube PO PRN PRN Hypoglycemia Protocol Dextrose 1,000 mls @ 100 mls/hr 09/16/25 18:26 Dextrose 5% 1,000 Ml IVPB PRN PRN Hypoglycemia Protocol Ceftriaxone Sodium 2 gm/ 100 mls @ 200 mls/hr 09/18/25 14:00 09/18/25 14:14 Sodium Chloride IVPB 200 mls/hr Q24H KENYON Administration Insulin Aspart 2 - 5 units 09/17/25 17:00 09/18/25 17:29 Insulin Aspart (*Bkc) 100 Units/Ml SUB-Q Not Given TIDWM [facility] Protocol Insulin Glargine 40 units 09/17/25 09:00 09/18/25 17:31 Insulin Glargine (*Bkc) 100 Units/Ml SUB-Q 40 units BID KENYON Administration Levothyroxine Sodium 200 mcg 09/17/25 06:30 09/19/25 06:11 Levothyroxine Sodium 100 Mcg Tablet PO 200 mcg DAILY@0630 KENYON Administration Ondansetron HCl 4 mg 09/16/25 15:31 09/18/25 01:26 Ondansetron Inj 4 Mg/2 Ml Vial IV PUSH 4 mg Q4H PRN Administration Nausea IF NPO Ondansetron HCl 4 mg 09/18/25 13:36 Ondansetron Hcl Odt 4 Mg Tablet PO Q8H PRN Nausea And Vomiting Pantoprazole Sodium 40 mg 09/17/25 09:00 09/18/25 20:52 Pantoprazole 40 Mg Tablet PO 40 mg Q12HR KENYON Administration Radiology Results: ITS Impressions Chest X-Ray 09/16/25 15:28 Impression: Mild CHF. Labs Labs: Laboratory Results - last 24 hr 09/18/25 09/18/25 09/18/25 11:38 17:16 21:10 WBC RBC Hgb Hct MCV MCH MCHC RDW Plt Count MPV Sodium Potassium Chloride Carbon Dioxide Anion Gap BUN Creatinine Estim Creat Clear Calc Estimated GFR Glucose POC Capillary Glucose 137 H 140 H 219 H Calcium Total Bilirubin AST ALT Alkaline Phosphatase Total Protein Albumin 09/19/25 09/19/25 05:03 07:48 WBC 6.6 RBC 3.25 L Hgb 9.5 L Hct 29.4 L MCV 90.5 MCH 29.2 MCHC 32.3 RDW 12.4 Plt Count 205 MPV 9.5 Sodium 132 L Potassium 3.7 Chloride 104 Carbon Dioxide 27 Anion Gap 1 L BUN 27 H Creatinine 1.26 H Estim Creat Clear Calc 45 Estimated GFR 41 L Glucose 101 POC Capillary Glucose 83 Calcium 8.9 Total Bilirubin 0.4 AST 21 ALT 13 Alkaline Phosphatase 73 Total Protein 6.3 Albumin 3.0 L Quality VTE Prophylaxis VTE prophylaxis: mechanical ordered and pharmacologic ordered
[2025-09-19 09:37] VITALS: PULSE 72
[2025-09-19] MEDS: AMIODARONE HCL 200 MG TABLET PO (09:37)
[2025-09-19] MEDS: GABAPENTIN 400 MG CAPSULE 800 MG PO ×3 (09:37→17:51)
[2025-09-19 09:38] VITALS: PULSE 72
[2025-09-19] MEDS: PANTOPRAZOLE 40 MG TABLET PO ×2 (09:38→22:08)
[2025-09-19] MEDS: ATORVASTATIN 40 MG TABLET PO (09:38)
[2025-09-19] MEDS: APIXABAN 5 MG TABLET PO ×2 (09:38→17:51)
[2025-09-19] MEDS: COLLAGENASE OINT 30 GM TUBE 1 APPLIC TOPICAL (09:39)
[2025-09-19 09:40] VITALS: O2SAT 95
[2025-09-19] MEDS: INSULIN GLARGINE (*BKC) 100 UNITS/ML 40 UNITS SUB-Q ×2 (09:40→17:52)
[2025-09-19 13:38] VITALS: BMI 43.7
[2025-09-19] MEDS: cefTRIAXone 2 GM in SODIUM CHLORIDE 0.9% IV 100 ML 200 ML IVPB (13:46)
[2025-09-19 14:00] VITALS: BP 139/87; PULSE 70; RESP 12; TEMP 36.1; O2SAT 96
[2025-09-19 21:07] VITALS: BP 115/58; PULSE 59; RESP 14; TEMP 36.1; O2SAT 98
[2025-09-19] MEDS: HYDROcodone/acetaminophen (*CRX) 10-325 MG TABLET 1 TAB PO (22:08)
[2025-09-20 04:56] VITALS: BP 130/58; PULSE 68; RESP 16; TEMP 36.6; O2SAT 94
[2025-09-20] MEDS: LEVOTHYROXINE SODIUM 100 MCG TABLET 200 MCG PO (05:32)
[2025-09-20] MEDS: PANTOPRAZOLE 40 MG TABLET PO ×2 (09:09→21:01)
[2025-09-20] MEDS: GABAPENTIN 400 MG CAPSULE 800 MG PO ×3 (09:09→17:33)
[2025-09-20 09:10] VITALS: PULSE 67
[2025-09-20] MEDS: ATORVASTATIN 40 MG TABLET PO (09:10)
[2025-09-20] MEDS: APIXABAN 5 MG TABLET PO ×2 (09:10→17:33)
[2025-09-20] MEDS: AMIODARONE HCL 200 MG TABLET PO (09:10)
[2025-09-20] MEDS: LOSARTAN POTASSIUM 25 MG TABLET PO (09:10)
[2025-09-20] MEDS: INSULIN GLARGINE (*BKC) 100 UNITS/ML 40 UNITS SUB-Q ×2 (12:32→17:41)
[2025-09-20 14:00] VITALS: BP 141/49; PULSE 60; RESP 18; TEMP 36.5; O2SAT 99
--- NOTE | 2025-09-20 14:27 | P.PNIM_ITS ---
Assessment and Plan Assessment and Plan (1) Bacteremia: Code(s): R78.81 - Bacteremia Status: Acute Assessment and Plan: Blood culture obtained on 09/16: ecoli with sensitivities pending Likely related to UTI, urine culture pending Started on Rocephin 09/17, dose increased to 2 g q24h on 09/18 for bacteremia coverage continue for now urine sensitivities pending (2) UTI (urinary tract infection): Code(s): N39.0 - Urinary tract infection, site not specified Status: Acute Assessment and Plan: - UA: 1+ protein, 3+ glucose, 6-10 RBC, 21-50 WBC, 4+ bacteria - UC obtained on 09/16: pending - No previous micro to be reviewed - started on Rocephin 09/17, dose increased to 2 g q24h on 09/18 for bacteremia coverage urine culture sensitivities pending- once available, will downgrade to po and anticiptae discharge (3) Weakness: Code(s): R53.1 - Weakness Status: Acute Assessment and Plan: Weakness versus deconditioning versus other -PT OT evaluation, recommending SNF placement. Care coordination following. -Pt is fall/bleeding risk-continue fall precautions (4) Paroxysmal atrial fibrillation: Code(s): I48.0 - Paroxysmal atrial fibrillation Status: Acute Assessment and Plan: Currently in sinus rhythm -Continue Coreg 12.5 mg q12h and amiodarone 200mg daily -Continue Eliquis - pt is fall/bleeding risk (5) Diastolic CHF with preserved left ventricular function, NYHA class 2: Code(s): I50.30 - Unspecified diastolic (congestive) heart failure Status: Acute Assessment and Plan: -Patient appeared to be dehydrated on admission, has since been rehydrated -Holding home Lasix and spironolactone, resume as appropriate -cr/bun improving-monitor daily labs (6) Essential (primary) hypertension: Code(s): I10 - Essential (primary) hypertension Status: Acute Assessment and Plan: Patient was having soft blood pressures on admission - Continue coreg 12.5 mg bid and losartan 25 mg daily, currently holding spironolactone (resume as appropriate) - Blood pressures reviewed and remain stable, continue to monitor (7) Controlled type 2 diabetes mellitus with hyperglycemia, with long-term current use of insulin: Code(s): E11.65 - Type 2 diabetes mellitus with hyperglycemia; 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 Continue to monitor. (8) BARRIOS (nonalcoholic steatohepatitis): Code(s): K75.81 - Nonalcoholic steatohepatitis (BARRIOS) Status: Acute Assessment and Plan: -Patient states that a few months ago she did have to have blood transfusions if she had a GI bleed -No complaints at this time Medical Record Review I have reviewed the following patient records and this information was taken into consideration when formulating the assessment and plan.: previous labs and previous hospitalizations Time Spent With Patient Time with patient: 25 - 35 minutes Subjective Date/time seen: 09/20/25 1000 Interval history: 79-year-old female past medical history of CHF, diabetes, Barrios, CKD, atrial fibrillation, and chronic pain presents the hospital with generalized weakness. Patient is pleasant sitting up comfortably in her chair with at bedside. She continues to endorse dysuria but otherwise has no complaints denying chest pain, palpitations, shortness of breath, nausea/vomiting and abdominal pain. All questions and concerns answered during assessment. 09/20- pt is seen and examined. She is doing better today, swelling better to ble. working with pt/ot Review of Systems Review of Systems: 12 systems were reviewed and are negativ e except for as per HPI. All systems reviewed & are unremarkable except as noted in HPI and below Exam Narrative: General: female in no acute respiratory distress who is nontoxic appearing, sitting up in chair HEENT: Normocephalic. Atraumatic. Extraocular movement intact. Sclera clear and anicteric.No facial asymmetry. Chest: Lungs are clear to auscultation bilaterally. No wheezes or crackles. CV: Heart was regular rate and rhythm. Abd: Abdomen was soft. Nontender. Nondistended. Positive bowel sounds. Neuro: Patient is alert and oriented x4. Speech is clear. Const: General: comfortable Objective Data Vital Signs Vital Signs: Vital Signs - 24 hr 09/19/25 20:00 09/19/25 21:07 09/20/25 04:56 Temperature 97.0 F L 97.8 F Pulse Rate 59 L 68 Respiratory Rate 14 16 Blood Pressure 115/58 L 130/58 L Pulse Oximetry 98 94 Oxygen Delivery Room Air 09/20/25 08:00 09/20/25 09:10 09/20/25 09:10 Temperature Pulse Rate 67 67 Respiratory Rate Blood Pressure Pulse Oximetry Oxygen Delivery Room Air Intake/Output Intake/Output: Intake & Output 09/17/25 09/18/25 09/19/25 09/20/25 23:59 23:59 23:59 23:59 Intake Total 1970 1170 1120 430 Output Total 750 1550 1025 925 Balance 1220 -380 95 -495 Meds/Results Medications: Active Medications Generic Name Dose Route Start Last Admin Trade Name Freq PRN Reason Stop Dose Admin Acetaminophen 650 mg 09/16/25 15:08 09/18/25 20:52 Acetaminophen 325 Mg Tablet PO 650 mg Q4H PRN Administration Mild Pain (1-3) or Fever Hydrocodone Bitart/Acetaminophen 1 tab 09/16/25 18:24 09/19/25 22:08 Hydrocodone/Acetaminophen (*Crx) 10-325 Mg Tablet PO 1 tab Q6H PRN Administration Pain Rated 6 or Greater Amiodarone HCl 200 mg 09/17/25 09:00 09/20/25 09:10 Amiodarone Hcl 200 Mg Tablet PO 200 mg DAILY KENYON Administration Amoxicillin/Clavulanate Potassium 1 tablet 09/20/25 14:00 09/20/25 14:10 Amoxicillin/Clavulanate K 875-125 Mg Tab PO 09/24/25 22:01 1 tablet Q8HR KENYON Administration Apixaban 5 mg 09/17/25 09:00 09/20/25 09:10 Apixaban 5 Mg Tablet PO 5 mg BID KENYON Administration Atorvastatin Calcium 40 mg 09/17/25 09:00 09/20/25 09:10 Atorvastatin 40 Mg Tablet PO 40 mg DAILY KENYON Administration Carvedilol 12.5 mg 09/16/25 21:00 09/20/25 09:10 Carvedilol 12.5 Mg Tablet PO 12.5 mg Q12HR KENYON Administration Collagenase 1 applic 09/17/25 09:00 09/19/25 09:39 Collagenase Oint 30 Gm Tube TOPICAL 1 applic DAILY KENYON Administration Dextrose 12.5 gm 09/16/25 18:26 Dextrose 50% 25 Gm/50 Ml Syringe IV PUSH PRN PRN Hypoglycemia Protocol Docusate Sodium 100 mg 09/16/25 15:08 Docusate Sodium 100 Mg Capsule PO BID PRN Constipation Gabapentin 800 mg 09/17/25 09:00 09/20/25 12:32 Gabapentin 400 Mg Capsule PO 800 mg TID KENYON Administration Glucagon 1 mg 09/16/25 18:26 Glucagon For Inj 1 Mg Vial IM PRN PRN Hypoglycemia Protocol Glucose 15 gm 09/16/25 18:26 Glucose Oral Gel 15 Gm Of Glucse In 37.5 Gm Tube PO PRN PRN Hypoglycemia Protocol Dextrose 1,000 mls @ 100 mls/hr 09/16/25 18:26 Dextrose 5% 1,000 Ml IVPB PRN PRN Hypoglycemia Protocol Insulin Aspart 2 - 5 units 09/17/25 17:00 09/20/25 11:41 Insulin Aspart (*Bkc) 100 Units/Ml SUB-Q Not Given TIDWM [facility] Protocol Insulin Glargine 40 units 09/17/25 09:00 09/20/25 12:32 Insulin Glargine (*Bkc) 100 Units/Ml SUB-Q 40 units BID KENYON Administration Levothyroxine Sodium 200 mcg 09/17/25 06:30 09/20/25 05:32 Levothyroxine Sodium 100 Mcg Tablet PO 200 mcg DAILY@0630 KENYON Administration Losartan Potassium 25 mg 09/20/25 09:00 09/20/25 09:10 Losartan Potassium 25 Mg Tablet PO 25 mg DAILY KENYON Administration Ondansetron HCl 4 mg 09/16/25 15:31 09/18/25 01:26 Ondansetron Inj 4 Mg/2 Ml Vial IV PUSH 4 mg Q4H PRN Administration Nausea IF NPO Ondansetron HCl 4 mg 09/18/25 13:36 Ondansetron Hcl Odt 4 Mg Tablet PO Q8H PRN Nausea And Vomiting Pantoprazole Sodium 40 mg 09/17/25 09:00 09/20/25 09:09 Pantoprazole 40 Mg Tablet PO 40 mg Q12HR KENYON Administration Radiology Results: ITS Impressions Chest X-Ray 09/16/25 15:28 Impression: Mild CHF. Labs Labs: Laboratory Results - last 24 hr 09/19/25 09/19/25 09/20/25 16:38 21:06 07:15 POC Capillary Glucose 102 147 H 67 09/20/25 09/20/25 08:16 11:33 POC Capillary Glucose 87 130 H Quality VTE Prophylaxis VTE prophylaxis: mechanical ordered and pharmacologic ordered
[2025-09-20] MEDS: COLLAGENASE OINT 30 GM TUBE 1 APPLIC TOPICAL (17:42)
[2025-09-20 20:44] VITALS: BP 138/59; PULSE 57; RESP 17; TEMP 36.5; O2SAT 98
[2025-09-20 21:01] VITALS: PULSE 68
[2025-09-20] MEDS: HYDROcodone/acetaminophen (*CRX) 10-325 MG TABLET 1 TAB PO (23:25)
[2025-09-21 05:05] VITALS: BP 132/53; PULSE 64; RESP 12; TEMP 36.3; O2SAT 93
[2025-09-21] MEDS: LEVOTHYROXINE SODIUM 100 MCG TABLET 200 MCG PO (05:46)
[2025-09-21] MEDS: LOSARTAN POTASSIUM 25 MG TABLET PO (08:51)
[2025-09-21] MEDS: APIXABAN 5 MG TABLET PO ×2 (08:51→16:07)
[2025-09-21] MEDS: GABAPENTIN 400 MG CAPSULE 800 MG PO ×3 (08:51→16:07)
[2025-09-21] MEDS: PANTOPRAZOLE 40 MG TABLET PO ×2 (08:51→21:04)
[2025-09-21] MEDS: ATORVASTATIN 40 MG TABLET PO (08:51)
[2025-09-21 08:52] VITALS: PULSE 73
[2025-09-21] MEDS: AMIODARONE HCL 200 MG TABLET PO (08:52)
--- NOTE | 2025-09-21 09:44 | PM.DS ---
DS: Admitting Diagnosis Discharge Date 09/21 Admitting Diagnosis weakness, UTI DS: Summary Hospital Course Hospital Course: 79-year-old female past medical history of CHF, diabetes, Ashley, CKD, atrial fibrillation, and chronic pain presents the hospital with generalized weakness. Time Spent with Patient Time attestation: Total time spent providing and/or coordinating discharge services: DS: Data Data Completed and Pending Labs on day of discharge: Labs from last 24 hours 09/21/25 09/21/25 09/20/25 08:26 07:24 20:53 POC Capillary Glucose 95 66 144 H 09/20/25 09/20/25 16:06 11:33 POC Capillary Glucose 122 H 130 H Preliminary micro results at discharge 09/16/25 13:12 - Preliminary Urine Catheterized Discharge Plan Discharge Consulting providers: Manuela Baez Discharge Instructions: Care Coordination: Patient to have [facility] for PT/OT eval and treat, and longterm. Their phone number is [phone], if you have any questions. They will contact you to schedule their visits. Patient Instructions: Apixaban (By mouth) Patient Language: [place] Leone[place] Discharge Medications: No Action spironolactone 25 mg tablet 25 mg PO DAILY amiodarone 200 mg tablet 200 mg PO DAILY levothyroxine [Synthroid] 200 mcg tablet 200 mcg PO . q.a.m. Qty: 90 3RF ferrous sulfate 325 mg (65 mg iron) tablet,delayed release (DR/EC) 325 mg PO DAILY Qty: 90 3RF Rx Instructions: take with supper ondansetron HCl 4 mg tablet 4 mg PO ONCE PRN (Reason: nausea and vomiting) Qty: 30 5RF ondansetron 4 mg tablet,disintegrating 4 mg PO Q8H PRN (Reason: nausea and vomiting) Qty: 10 0RF carvedilol 12.5 mg tablet 12.5 mg PO Q12H Santyl 250 unit/gram ointment 1 applic TOPICAL DAILY Patient Comments: apply to heel of right foot doxycycline hyclate 100 mg capsule 100 mg PO Q12H losartan 25 mg tablet 25 mg PO DAILY Eliquis 5 mg tablet 5 mg PO BID Qty: 60 11RF Jardiance 25 mg tablet 25 mg PO QAM Qty: 90 3RF atorvastatin 40 mg tablet 40 mg PO DAILY Qty: 90 3RF gabapentin 800 mg tablet 800 mg PO TID Qty: 90 11RF furosemide 40 mg tablet 40 mg PO QAM Qty: 30 11RF Rx Instructions: started in hospital esomeprazole magnesium 40 mg capsule,delayed release(DR/EC) 40 mg PO DAILY Qty: 90 3RF insulin glargine [Lantus Solostar U-100 Insulin] 100 unit/mL (3 mL) insulin pen 50 unit subcut BID Qty: 75 3RF (DME) pen needle, diabetic 32 gauge x 5/32 needle See Rx Instructions .ROUTE .MEDSUPPLY Qty: 100 6RF Rx Instructions: As directed to test blood sugar BID doxycycline hyclate 100 mg tablet 100 mg PO BID Qty: 20 0RF potassium chloride 10 mEq capsule, extended release 10 meq PO DAILY Qty: 90 3RF hydrocodone-acetaminophen 10-325 mg tablet 1 tablet PO Q6H PRN (Reason: pain) Qty: 120 0RF Date of admission: 09/17/25 13:17 Primary Care Provider: Jasiel Person Admitting Provider: Anatoly Marion Oca Attending physician on admission: Anatoly Marion Oca Condition: Stable
--- NOTE | 2025-09-21 11:23 | PM.IMPN2 ---
Assessment and Plan Assessment and Plan (1) Bacteremia: Code(s): R78.81 - Bacteremia Status: Acute Assessment and Plan: Blood culture obtained on 09/16: ecoli with sensitivities pending Likely related to UTI, urine culture pending Started on Rocephin 09/17, dose increased to 2 g q24h on 09/18 for bacteremia coverage continue for now downgraded to augmentin - last day09/24 pm dose (2) UTI (urinary tract infection): Code(s): N39.0 - Urinary tract infection, site not specified Status: Acute Assessment and Plan: - UA: 1+ protein, 3+ glucose, 6-10 RBC, 21-50 WBC, 4+ bacteria - UC obtained on 09/16: pending - No previous micro to be reviewed - started on Rocephin 09/17, dose increased to 2 g q24h on 09/18 for bacteremia coverage urine culture sensitivities pending- once available, will downgrade to po and anticipate discharge downgraded to augmentin 09/20- last day09/24 pm dose (3) Weakness: Code(s): R53.1 - Weakness Status: Acute Assessment and Plan: Weakness versus deconditioning versus other -PT OT evaluation, recommending SNF placement. Care coordination following. -Pt is fall/bleeding risk-continue fall precautions (4) Paroxysmal atrial fibrillation: Code(s): I48.0 - Paroxysmal atrial fibrillation Status: Acute Assessment and Plan: Currently in sinus rhythm -Continue Coreg 12.5 mg q12h and amiodarone 200mg daily -Continue Eliquis - pt is fall/bleeding risk (5) Diastolic CHF with preserved left ventricular function, NYHA class 2: Code(s): I50.30 - Unspecified diastolic (congestive) heart failure Status: Acute Assessment and Plan: -Patient appeared to be dehydrated on admission, has since been rehydrated -Holding home Lasix and spironolactone, resume as appropriate -cr/bun improving-monitor daily labs (6) Essential (primary) hypertension: Code(s): I10 - Essential (primary) hypertension Status: Acute Assessment and Plan: Patient was having soft blood pressures on admission - Continue coreg 12.5 mg bid and losartan 25 mg daily, currently holding spironolactone (resume as appropriate) - Blood pressures reviewed and remain stable, continue to monitor (7) Controlled type 2 diabetes mellitus with hyperglycemia, with long-term current use of insulin: Code(s): E11.65 - Type 2 diabetes mellitus with hyperglycemia; 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 Continue to monitor. (8) BARRIOS (nonalcoholic steatohepatitis): Code(s): K75.81 - Nonalcoholic steatohepatitis (BARRIOS) Status: Acute Assessment and Plan: -Patient states that a few months ago she did have to have blood transfusions if she had a GI bleed -No complaints at this time Time Spent With Patient Time with patient: 25 - 35 minutes Subjective Date/time seen: 09/21/25 11:23 Interval history: 79-year-old female past medical history of CHF, diabetes, Barrios, CKD, atrial fibrillation, and chronic pain presents the hospital with generalized weakness. Patient is pleasant sitting up comfortably in her chair with at bedside. She continues to endorse dysuria but otherwise has no complaints denying chest pain, palpitations, shortness of breath, nausea/vomiting and abdominal pain. All questions and concerns answered during assessment. 09/20- pt is seen and examined. She is doing better today, swelling better to ble. 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 She is doing well otherwise. no worsening of leg swelling, no chest pain Review of Systems Review of Systems: 12 systems were reviewed and are negative except for as per HPI. All systems reviewed & are unremarkable except as noted in HPI and below Exam Narrative: General: female in no acute respiratory distress who is nontoxic appearing, sitting up in chair HEENT: Normocephalic. Atraumatic. Extraocular movement intact. Sclera clear and anicteric.No facial asymmetry. Chest: Lungs are clear to auscultation bilaterally. No wheezes or crackles. CV: Heart was regular rate and rhythm. Abd: Abdomen was soft. Nontender. Nondistended. Positive bowel sounds. Neuro: Patient is alert and oriented x4. Speech is clear. Const: General: comfortable Objective Data Vital Signs Vital Signs: Vital Signs - 24 hr 09/20/25 14:00 09/20/25 20:44 09/20/25 21:01 Temperature 97.7 F 97.7 F Pulse Rate 60 57 L 68 Respiratory Rate 18 17 Blood Pressure 141/49 H 138/59 L Pulse Oximetry 99 98 Oxygen Delivery 09/21/25 05:05 09/21/25 08:00 09/21/25 08:52 Temperature 97.4 F L Pulse Rate 64 73 Respiratory Rate 12 Blood Pressure 132/53 L Pulse Oximetry 93 Oxygen Delivery Room Air 09/21/25 08:52 Temperature Pulse Rate 73 Respiratory Rate Blood Pressure Pulse Oximetry Oxygen Delivery Intake/Output Intake/Output: Intake & Output 09/18/25 09/19/25 09/20/25 09/21/25 23:59 23:59 23:59 23:59 Intake Total 1170 1120 1220 240 Output Total 1550 1025 926 200 Balance -380 95 294 40 Meds/Results Medications: Active Medications Generic Name Dose Route Start Last Admin Trade Name Freq PRN Reason Stop Dose Admin Acetaminophen 650 mg 09/16/25 15:08 09/18/25 20:52 Acetaminophen 325 Mg Tablet PO 650 mg Q4H PRN Administration Mild Pain (1-3) or Fever Hydrocodone Bitart/Acetaminophen 1 tab 09/16/25 18:24 09/20/25 23:25 Hydrocodone/Acetaminophen (*Crx) 10-325 Mg Tablet PO 1 tab Q6H PRN Administration Pain Rated 6 or Greater Amiodarone HCl 200 mg 09/17/25 09:00 09/21/25 08:52 Amiodarone Hcl 200 Mg Tablet PO 200 mg DAILY KENYON Administration Amoxicillin/Clavulanate Potassium 1 tablet 09/20/25 14:00 09/21/25 05:45 Amoxicillin/Clavulanate K 875-125 Mg Tab PO 09/24/25 22:01 1 tablet Q8HR KENYON Administration Apixaban 5 mg 09/17/25 09:00 09/21/25 08:51 Apixaban 5 Mg Tablet PO 5 mg BID KENYON Administration Atorvastatin Calcium 40 mg 09/17/25 09:00 09/21/25 08:51 Atorvastatin 40 Mg Tablet PO 40 mg DAILY KENYON Administration Carvedilol 12.5 mg 09/16/25 21:00 09/21/25 08:52 Carvedilol 12.5 Mg Tablet PO 12.5 mg Q12HR KENYON Administration Collagenase 1 applic 09/17/25 09:00 09/20/25 17:42 Collagenase Oint 30 Gm Tube TOPICAL 1 applic DAILY KENYON Administration Dextrose 12.5 gm 09/16/25 18:26 Dextrose 50% 25 Gm/50 Ml Syringe IV PUSH PRN PRN Hypoglycemia Protocol Docusate Sodium 100 mg 09/16/25 15:08 Docusate Sodium 100 Mg Capsule PO BID PRN Constipation Gabapentin 800 mg 09/17/25 09:00 09/21/25 08:51 Gabapentin 400 Mg Capsule PO 800 mg TID KENYON Administration Glucagon 1 mg 09/16/25 18:26 Glucagon For Inj 1 Mg Vial IM PRN PRN Hypoglycemia Protocol Glucose 15 gm 09/16/25 18:26 Glucose Oral Gel 15 Gm Of Glucse In 37.5 Gm Tube PO PRN PRN Hypoglycemia Protocol Dextrose 1,000 mls @ 100 mls/hr 09/16/25 18:26 Dextrose 5% 1,000 Ml IVPB PRN PRN Hypoglycemia Protocol Insulin Aspart 2 - 5 units 09/17/25 17:00 09/21/25 11:09 Insulin Aspart (*Bkc) 100 Units/Ml SUB-Q Not Given TIDWM [facility] Protocol Insulin Glargine 40 units 09/17/25 09:00 09/20/25 17:41 Insulin Glargine (*Bkc) 100 Units/Ml SUB-Q 40 units BID KENYON Administration Levothyroxine Sodium 200 mcg 09/17/25 06:30 09/21/25 05:46 Levothyroxine Sodium 100 Mcg Tablet PO 200 mcg DAILY@0630 KENYON Administration Losartan Potassium 25 mg 09/20/25 09:00 09/21/25 08:51 Losartan Potassium 25 Mg Tablet PO 25 mg DAILY KENYON Administration Ondansetron HCl 4 mg 09/16/25 15:31 09/18/25 01:26 Ondansetron Inj 4 Mg/2 Ml Vial IV PUSH 4 mg Q4H PRN Administration Nausea IF NPO Ondansetron HCl 4 mg 09/18/25 13:36 Ondansetron Hcl Odt 4 Mg Tablet PO Q8H PRN Nausea And Vomiting Pantoprazole Sodium 40 mg 09/17/25 09:00 09/21/25 08:51 Pantoprazole 40 Mg Tablet PO 40 mg Q12HR KENYON Administration Radiology Results: ITS Impressions Chest X-Ray 09/16/25 15:28 Impression: Mild CHF. Labs Labs: Laboratory Results - last 24 hr 09/20/25 09/20/25 09/20/25 11:33 16:06 20:53 POC Capillary Glucose 130 H 122 H 144 H 09/21/25 09/21/25 07:24 08:26 POC Capillary Glucose 66 95 Quality VTE Prophylaxis VTE prophylaxis: mechanical ordered and pharmacologic ordered
[2025-09-21 12:02] VITALS: BP 114/54
[2025-09-21] MEDS: COLLAGENASE OINT 30 GM TUBE 1 APPLIC TOPICAL (13:23)
[2025-09-21 13:51] VITALS: BP 144/48; PULSE 71; RESP 16; TEMP 36.3; O2SAT 95
[2025-09-21 21:05] VITALS: PULSE 59
[2025-09-21 22:00] VITALS: BP 115/56; PULSE 59; RESP 16; TEMP 36.5; O2SAT 94
[2025-09-22] MEDS: LEVOTHYROXINE SODIUM 100 MCG TABLET 200 MCG PO (05:14)
[2025-09-22 06:00] VITALS: BP 120/48; PULSE 53; RESP 18; TEMP 36.6; O2SAT 94
[2025-09-22 07:25] LABS: Hematocrit 29.2 % (37.0-47.0); Hemoglobin 9.5 g/dL (12.0-15.0); Mean Corpuscular HGB Conc 32.5 g/dl (32-36); Mean Corpuscular Hemoglobin 29.2 pg (26-34); Mean Corpuscular Volume 89.8 fl (80-100); Platelet Count Result 251 k/mm3 (150-375); Red Blood Count 3.25 M/mm3 (4.2-5.4); White Blood Count 9.2 K/mm3 (4.5-10.0)
[2025-09-22 07:47] LABS: Anion Gap 1 mmol/L (4-12); Blood Urea Nitrogen 29 mg/dL (7-17); Calcium 9.0 mg/dL (8.4-10.2); Carbon Dioxide 25 mmol/L (22-30); Chloride 102 mmol/L (98-107); Estimated CRCL calculation 45 ml/min; Estimated Glomerular Filt Rate 42; Glucose 82 mg/dL (65-110); Potassium 3.7 mmol/L (3.4-5.0); Sodium 128 mmol/L (137-145)
--- NOTE | 2025-09-22 08:02 | PM.IMPN2 ---
Assessment and Plan Assessment and Plan (1) Bacteremia: Code(s): R78.81 - Bacteremia Status: Acute Assessment and Plan: Blood culture obtained on 09/16: ecoli with sensitivities pending Likely related to UTI, urine culture pending Started on Rocephin 09/17, dose increased to 2 g q24h on 09/18 for bacteremia coverage continue for now downgraded to augmentin - last day09/24 pm dose (2) UTI (urinary tract infection): Code(s): N39.0 - Urinary tract infection, site not specified Status: Acute Assessment and Plan: - UA: 1+ protein, 3+ glucose, 6-10 RBC, 21-50 WBC, 4+ bacteria - UC obtained on 09/16: pending - No previous micro to be reviewed - started on Rocephin 09/17, dose increased to 2 g q24h on 09/18 for bacteremia coverage urine culture sensitivities pending- once available, will downgrade to po and anticipate discharge downgraded to augmentin 09/20- last day09/24 pm dose (3) Weakness: Code(s): R53.1 - Weakness Status: Acute Assessment and Plan: Weakness versus deconditioning versus other -PT OT evaluation, recommending SNF placement. Care coordination following. -Pt is fall/bleeding risk-continue fall precautions 09/22 last night felt a bit more weak. a bit better this am. care coordination working on placement (4) Paroxysmal atrial fibrillation: Code(s): I48.0 - Paroxysmal atrial fibrillation Status: Acute Assessment and Plan: Currently in sinus rhythm -Continue Coreg 12.5 mg q12h and amiodarone 200mg daily -Continue Eliquis - pt is fall/bleeding risk (5) Diastolic CHF with preserved left ventricular function, NYHA class 2: Code(s): I50.30 - Unspecified diastolic (congestive) heart failure Status: Acute Assessment and Plan: -Patient appeared to be dehydrated on admission, has since been rehydrated -Holding home Lasix and spironolactone, resume as appropriate -cr/bun improving-monitor daily labs 09/22- will restart lasix monitor i/o (6) Essential (primary) hypertension: Code(s): I10 - Essential (primary) hypertension Status: Acute Assessment and Plan: Patient was having soft blood pressures on admission - Continue coreg 12.5 mg bid and losartan 25 mg daily, currently holding spironolactone (resume as appropriate) - Blood pressures reviewed and remain stable, continue to monitor (7) Controlled type 2 diabetes mellitus with hyperglycemia, with long-term current use of insulin: Code(s): E11.65 - Type 2 diabetes mellitus with hyperglycemia; Z79.4 - residential (current) use of insulin Status: Acute Assessment and Plan: - hypoglycemia protocol - POC blood glucose ACHS - home medication - lantus 50 units BID and jardiance 25 mg daily - correct regimen ordered - lantus 40 units BID and low dose TIDWM and HS - A1C7.3 on 02/17/25 Glucose well controlled on the current regimen. Continue to monitor. (8) BARRIOS (nonalcoholic steatohepatitis): Code(s): K75.81 - Nonalcoholic steatohepatitis (BARRIOS) Status: Acute Assessment and Plan: -Patient states that a few months ago she did have to have blood transfusions if she had a GI bleed -No complaints at this time (9) Hyponatremia: Code(s): E87.1 - Hypo-osmolality and hyponatremia Status: Acute Assessment and Plan: na 128 today will add urine osmo and urine sodium and order nephrology consult Medical Record Review I have reviewed the following patient records and this information was taken into consideration when formulating the assessment and plan.: previous labs and previous hospitalizations Time Spent With Patient Time with patient: Greater than 35 minutes Subjective Date/time seen: 09/22/25 08:02 Interval history: 79-year-old female past medical history of CHF, diabetes, Barrios, CKD, atrial fibrillation, and chronic pain presents the hospital with generalized weakness. Patient is pleasant sitting up comfortably in her chair with at bedside. She continues to endorse dysuria but otherwise has no complaints denying chest pain, palpitations, shortness of breath, nausea/vomiting and abdominal pain. All questions and concerns answered during assessment. 09/20- pt is seen and examined. She is doing better today, swelling better to ble. 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 She is doing well otherwise. no worsening of leg swelling, no chest pain 09/22 last night, felt a bit weak and bs was on a lower side. Decreased lantus yesterday. Today feeling better. BLE swelling is about the same, not worse, no chest pain, no sob. Review of Systems Review of Systems: 12 systems were reviewed and are negative except for as per HPI. All systems reviewed & are unremarkable except as noted in HPI and below Exam Narrative: General: female in no acute respiratory distress who is nontoxic appearing, resting in bed HEENT: Normocephalic. Atraumatic. Extraocular movement intact. Sclera clear and anicteric.No facial asymmetry. Chest: Lungs are clear to auscultation bilaterally. No wheezes or crackles. CV: Heart was regular rate and rhythm. Abd: Abdomen was soft. Nontender. Nondistended. Positive bowel sounds. Neuro: Patient is alert and oriented x4. Speech is clear. Const: General: comfortable Objective Data Vital Signs Vital Signs: Vital Signs - 24 hr 09/21/25 08:52 09/21/25 08:52 09/21/25 12:02 Temperature Pulse Rate 73 73 Respiratory Rate Blood Pressure 114/54 L Pulse Oximetry 09/21/25 13:51 09/21/25 21:05 09/21/25 22:00 Temperature 97.4 F L 97.7 F Pulse Rate 71 59 L 59 L Respiratory Rate 16 16 Blood Pressure 144/48 H 115/56 L Pulse Oximetry 95 94 09/22/25 06:00 Temperature 97.8 F Pulse Rate 53 L Respiratory Rate 18 Blood Pressure 120/48 L Pulse Oximetry 94 Intake/Output Intake/Output: Intake & Output 09/19/25 09/20/25 09/21/25 09/22/25 23:59 23:59 23:59 23:59 Intake Total 1120 1220 500 260 Output Total 1025 797 939 3913 Balance 95 294 100 -1440 Meds/Results Medications: Active Medications Generic Name Dose Route Start Last Admin Trade Name Freq PRN Reason Stop Dose Admin Acetaminophen 650 mg 09/16/25 15:08 09/18/25 20:52 Acetaminophen 325 Mg Tablet PO 650 mg Q4H PRN Administration Mild Pain (1-3) or Fever Hydrocodone Bitart/Acetaminophen 1 tab 09/16/25 18:24 09/20/25 23:25 Hydrocodone/Acetaminophen (*Crx) 10-325 Mg Tablet PO 1 tab Q6H PRN Administration Pain Rated 6 or Greater Amiodarone HCl 200 mg 09/17/25 09:00 09/21/25 08:52 Amiodarone Hcl 200 Mg Tablet PO 200 mg DAILY KENYON Administration Amoxicillin/Clavulanate Potassium 1 tablet 09/20/25 14:00 09/22/25 05:15 Amoxicillin/Clavulanate K 875-125 Mg Tab PO 09/24/25 22:01 1 tablet Q8HR KENYON Administration Apixaban 5 mg 09/17/25 09:00 09/21/25 16:07 Apixaban 5 Mg Tablet PO 5 mg BID KENYON Administration Atorvastatin Calcium 40 mg 09/17/25 09:00 09/21/25 08:51 Atorvastatin 40 Mg Tablet PO 40 mg DAILY KENYON Administration Carvedilol 12.5 mg 09/16/25 21:00 09/21/25 21:05 Carvedilol 12.5 Mg Tablet PO 12.5 mg Q12HR KENYON Administration Collagenase 1 applic 09/17/25 09:00 09/21/25 13:23 Collagenase Oint 30 Gm Tube TOPICAL 1 applic DAILY KENYON Administration Dextrose 12.5 gm 09/16/25 18:26 Dextrose 50% 25 Gm/50 Ml Syringe IV PUSH PRN PRN Hypoglycemia Protocol Docusate Sodium 100 mg 09/16/25 15:08 Docusate Sodium 100 Mg Capsule PO BID PRN Constipation Gabapentin 800 mg 09/17/25 09:00 09/21/25 16:07 Gabapentin 400 Mg Capsule PO 800 mg TID KENYON Administration Glucagon 1 mg 09/16/25 18:26 Glucagon For Inj 1 Mg Vial IM PRN PRN Hypoglycemia Protocol Glucose 15 gm 09/16/25 18:26 Glucose Oral Gel 15 Gm Of Glucse In 37.5 Gm Tube PO PRN PRN Hypoglycemia Protocol Dextrose 1,000 mls @ 100 mls/hr 09/16/25 18:26 Dextrose 5% 1,000 Ml IVPB PRN PRN Hypoglycemia Protocol Insulin Aspart 2 - 5 units 09/17/25 17:00 09/21/25 16:50 Insulin Aspart (*Bkc) 100 Units/Ml SUB-Q Not Given TIDWM KENYON Protocol Insulin Glargine 30 units 09/21/25 17:00 09/21/25 18:19 Insulin Glargine (*Bkc) 100 Units/Ml SUB-Q Not Given BID [facility] Levothyroxine Sodium 200 mcg 09/17/25 06:30 09/22/25 05:14 Levothyroxine Sodium 100 Mcg Tablet PO 200 mcg DAILY@0630 KENYON Administration Losartan Potassium 25 mg 09/20/25 09:00 09/21/25 08:51 Losartan Potassium 25 Mg Tablet PO 25 mg DAILY KENYON Administration Ondansetron HCl 4 mg 09/16/25 15:31 09/18/25 01:26 Ondansetron Inj 4 Mg/2 Ml Vial IV PUSH 4 mg Q4H PRN Administration Nausea IF NPO Ondansetron HCl 4 mg 09/18/25 13:36 Ondansetron Hcl Odt 4 Mg Tablet PO Q8H PRN Nausea And Vomiting Pantoprazole Sodium 40 mg 09/17/25 09:00 09/21/25 21:04 Pantoprazole 40 Mg Tablet PO 40 mg Q12HR KENYON Administration Radiology Results: ITS Impressions Chest X-Ray 09/16/25 15:28 Impression: Mild CHF. Labs Labs: Laboratory Results - last 24 hr 09/21/25 09/21/25 09/21/25 08:26 11:59 13:21 WBC RBC Hgb Hct MCV MCH MCHC RDW Plt Count MPV Sodium Potassium Chloride Carbon Dioxide Anion Gap BUN Creatinine Estim Creat Clear Calc Estimated GFR Glucose POC Capillary Glucose 95 142 H 133 H Calcium 09/21/25 09/21/25 09/22/25 16:08 20:41 07:13 WBC RBC Hgb Hct MCV MCH MCHC RDW Plt Count MPV Sodium Potassium Chloride Carbon Dioxide Anion Gap BUN Creatinine Estim Creat Clear Calc Estimated GFR Glucose POC Capillary Glucose 105 158 H 88 Calcium 09/22/25 07:16 WBC 9.2 RBC 3.25 L Hgb 9.5 L Hct 29.2 L MCV 89.8 MCH 29.2 MCHC 32.5 RDW 12.7 Plt Count 251 MPV 9.0 Sodium 128 L Potassium 3.7 Chloride 102 Carbon Dioxide 25 Anion Gap 1 L BUN 29 H Creatinine 1.25 H Estim Creat Clear Calc 45 Estimated GFR 42 L Glucose 82 POC Capillary Glucose Calcium 9.0 Quality VTE Prophylaxis VTE prophylaxis: mechanical ordered and pharmacologic ordered
[2025-09-22] MEDS: LOSARTAN POTASSIUM 25 MG TABLET PO (09:45)
[2025-09-22] MEDS: ATORVASTATIN 40 MG TABLET PO (09:46)
[2025-09-22] MEDS: GABAPENTIN 400 MG CAPSULE 800 MG PO ×3 (09:47→17:27)
[2025-09-22] MEDS: APIXABAN 5 MG TABLET PO ×2 (09:47→17:27)
[2025-09-22] MEDS: PANTOPRAZOLE 40 MG TABLET PO ×2 (09:47→21:49)
[2025-09-22 10:01] VITALS: BP 108/42
[2025-09-22 10:08] VITALS: PULSE 64
[2025-09-22] MEDS: AMIODARONE HCL 200 MG TABLET PO (10:08)
--- NOTE | 2025-09-22 13:00 | PM.CNNEP ---
History of Present Illness Reason for Consult Consult date: 09/22/25 Reason for consult: hyponatremia Chief Complaint Chief complaint: Weakness, UTI PMFSH Past Medical History Medical History Peripheral arterial disease (~07/11/25) mildly decreased FIDEL right lower extremity 07/11/2025. FIDEL 0.87. Diabetic foot ulcer associated with type 2 diabetes mellitus (~04/2025) right heel medial aspect ulcer Cellulitis BARRIOS (nonalcoholic steatohepatitis) Diffuse fatty liver changes on CT abdomen 03/14/2025. Chronic acquired lymphedema treated with sequential pneumatic compression device 2 hours daily lower extremities Nausea and vomiting Renal insufficiency GFR 57 on 06/11/2021. GFR 56 on 08/22/2022. GFR 38 on 10/23/2022. BUN 18, creatinine 1.23 with GFR 46 on 03/02/2023. BUN 18 with creatinine 1.03 with GFR 57 on 09/22/2023. BUN 19, creatinine 1.43 with GFR 31 on 03/09/2024. BUN 15, creatinine 1.12 with GFR 51 on 07/18/2024. Screening for diabetic retinopathy (04/30/21) no diabetic retinopathy on 04/30/2021. mild diabetic retinopathy on the right 08/07/2023. Diabetic ulcer of toe of left foot associated with diabetes mellitus due to underlying condition left great toe, 3rd toe Acute CHF (09/29/22) 10/01/2022 chest x-ray with pulmonary vascular congestion and pleural effusion. CT angio of the chest with contrast was negative for pulmonary embolism with bilateral pleural effusions and nonspecific alveolar and interstitial lung changes suggesting pulmonary edema. Left heart is poorly enhanced in the ascending aorta possibly due to cardiac dysfunction. Calcification with in the LAD noted. Echo on 10/02/2022 with ejection fraction 55-60% with mild mitral regurgitation and trivial tricuspid regurgitation. stress Lexiscan study on 10/03/2022 revealed no apparent reversible ischemia with normal left ventricular systolic function. Chronic kidney disease (CKD) stage G3b/A1, moderately decreased glomerular filtration rate (GFR) between 30-44 mL/min/1.73 square meter and albuminuria creatinine ratio less than 30 mg/g GFR 57 on 06/11/2021. GFR 56 on 08/22/2022. GFR 38 on 10/23/2022. BUN 18, creatinine 1.23 with GFR 46 on 03/02/2023. BUN 18 with creatinine 1.03 with GFR 57 on 09/22/2023. BUN 19, creatinine 1.43 with GFR 31 on 03/09/2024. BUN 15, creatinine 1.12 with GFR 51 on 07/18/2024. BUN 20, creatinine 1.35 with GFR 40 on 02/17/2025. Polyp of colon (~03/11/24) 3 sessile polyps , tubular adenoma, less than 7 mm in the ascending colon on 03/11/2024. No follow-up needed. Gastric ulcer (~02/2024) EGD on 03/11/2024 with gastric ulcer nonbleeding. Iron deficiency anemia, unspecified (~03/09/24) hemoglobin 6.6, iron 43 with 10% saturation and ferritin 7 with vitamin B12 768, folic acid 8.0 on 03/09/2024. Hemoglobin 9.0 on 07/18/2024. hemoglobin 6.4 with iron 13 with 3% saturation and ferritin 4 on 02/17/2025. Hemoglobin 9.5, iron 112 with 30% saturation on 03/30/2025. Diabetic retinopathy of right eye (08/07/23) mild retinopathy right eye 08/07/2023. Diastolic CHF with preserved left ventricular function, NYHA class 2 Echo with ejection fraction 52% with moderate diastolic dysfunction and [id number] tricuspid regurgitation, atrial fibrillation. Paroxysmal atrial fibrillation UTI (urinary tract infection) Hoarseness of voice Diarrhea Acute bronchitis At high risk for falls Diabetic ulcer of toe associated with type 2 diabetes mellitus (~06/2022) superficial ulceration extensor surface right 2nd toe Grieving (~08/2021) 48-year-old son Morbid obesity with BMI of 40.0-44.9, adult Acute non-recurrent maxillary sinusitis Breast cancer screening Body mass index (BMI) of 40.1 to 44.9 in adult Chronic pain Bilateral impacted cerumen Osteoarthritis of right knee Chronic pain of right knee Body mass index (BMI) 45.0-49.9, adult (02/15/19) Diabetic ulcer of toe of left foot associated with type 2 diabetes mellitus Non-pressure chronic ulcer of other part of left foot limited to breakdown of skin Surgical History Surgical History H/O cardiac radiofrequency ablation Family History Family History Father Acute myocardial infarction, Onset Age: 50 Mother Family history of malignant neoplasm, Onset Age: 82 Social History Social History Social History: Caffeine-coffe/soda Smoking status: Never smoker Alcohol intake: never Substance use: never Substance use type: does not use Lack of Transportation: No Lack of Food: Never True Current Housing: I Have Housing Concerned About Future Housing: No Difficulty Paying Gas/Electric Bills: No Difficulty Paying for Meds: No Currently Unemployed: No Education: Bachelor's Degree Difficulty w/ Childcare or Family Care: No Living arrangements: with family Gender identity (if verbalized by the patient): Female Sexual Orientation (if Verbalized by the Patient): Straight or Heterosexual Spiritual care concerns: No Meds Home Medications and Allergies Home Medications ?Medication ?Instructions ?Recorded ?Confirmed ?Type amiodarone 200 mg tablet 200 mg PO DAILY 07/20/24 09/16/25 History spironolactone 25 mg tablet 25 mg PO DAILY 07/20/24 09/16/25 History apixaban 5 mg tablet (Eliquis) 5 mg PO BID #60 tabs 10/21/24 09/16/25 Rx empagliflozin 25 mg tablet 25 mg PO QAM #90 tabs 11/30/24 09/16/25 Rx (Jardiance) atorvastatin 40 mg tablet 40 mg PO DAILY #90 tabs 12/12/24 09/16/25 Rx gabapentin 800 mg tablet 800 mg PO TID #90 tabs 12/23/24 09/16/25 Rx furosemide 40 mg tablet 40 mg PO QAM #30 tabs 02/09/25 09/16/25 Rx Synthroid 200 mcg tablet 200 mcg PO . q.a.m. #90 tabs 02/21/25 09/16/25 Rx (levothyroxine) ferrous sulfate 325 mg (65 mg 325 mg PO DAILY #90 tabs 02/21/25 09/16/25 Rx iron) tablet,delayed release ondansetron HCl 4 mg tablet 4 mg PO ONCE PRN nausea and 02/21/25 09/16/25 Rx vomiting #30 tabs ondansetron 4 mg disintegrating 4 mg PO Q8H PRN nausea and 03/14/25 09/16/25 Rx tablet vomiting #10 tabs esomeprazole magnesium 40 mg 40 mg PO DAILY #90 caps 04/04/25 09/16/25 Rx capsule,delayed release insulin glargine 100 unit/mL (3 50 unit (0.5 mL) subcut BID #75 mL 04/06/25 09/16/25 Rx mL) subcutaneous pen (Lantus Solostar U-100 Insulin) pen needle, diabetic 32 gauge x #100 ea 04/17/25 09/16/25 Rx /32 doxycycline hyclate 100 mg tablet 100 mg PO BID #20 tabs 06/12/25 09/16/25 Rx potassium chloride 10 mEq 10 meq PO DAILY #90 caps 07/24/25 09/16/25 Rx capsule,extended release hydrocodone 10 mg-acetaminophen 1 tablet PO Q6H PRN pain #120 tabs 09/08/25 09/16/25 Rx 325 mg tablet carvedilol 12.5 mg tablet 12.5 mg PO Q12H 09/16/25 09/16/25 History collagenase clostridium histo. 250 1 applic topical DAILY diabetic 09/16/25 09/16/25 History unit/gram topical ointment (Santyl) ulcer doxycycline hyclate 100 mg capsule 100 mg PO Q12H 09/16/25 09/16/25 History losartan 25 mg tablet 25 mg PO DAILY 09/16/25 09/16/25 History Allergies Allergy/AdvReac Type Severity Reaction Status Date / Time No Known Allergies Allergy Verified 09/16/25 17:59 Vital Signs Vital Signs Temp Pulse Resp BP Pulse Ox O2 Del Method 09/22/25 13:00 97.0 F L 59 L 14 138/59 L 94 09/22/25 10:08 64 09/22/25 10:08 64 09/22/25 10:01 108/42 L 09/22/25 08:00 Room Air 09/22/25 06:00 97.8 F 53 L 18 120/48 L 94 09/21/25 22:00 97.7 F 59 L 16 115/56 L 94 09/21/25 21:05 59 L Results Lab Results 09/22/25 07:16 09/22/25 15:59 Lab results: Most recent lab results Calcium 9.0 mg/dL (8.4-10.2) 09/22/25 07:16 Urine Creatinine 56.6 mg/dL 09/22/25 13:14
[2025-09-22 13:35] VITALS: BP 138/59; PULSE 59; RESP 14; TEMP 36.1; O2SAT 94
[2025-09-22 14:38] LABS: Total Protein Urine Random 14 mg/dL; Ur Ttl Prot Creatinine Ratio 0.25 mg/mg (0-0.20)
[2025-09-22 14:41] LABS: Urea Random Urine 350 MG/DL
[2025-09-22 16:22] LABS: Sodium 129 mmol/L (137-145)
[2025-09-22 17:19] LABS: Thyroid Stimulating Hormone Reflex 0.122 uIU/mL (0.465-4.68)
[2025-09-22] MEDS: TAMSULOSIN HCL 0.4 MG CAPSULE PO (17:27)
[2025-09-22] MEDS: COLLAGENASE OINT 30 GM TUBE 1 APPLIC TOPICAL (17:27)
[2025-09-22] MEDS: INSULIN GLARGINE (*BKC) 100 UNITS/ML 30 UNITS SUB-Q (17:28)
[2025-09-22 19:50] LABS: Free T4 Free Thyroxine Reflex 2.60 ng/dL (0.78-2.19)
[2025-09-22 20:29] VITALS: BP 125/43; PULSE 58; RESP 16; TEMP 36.5; O2SAT 97
[2025-09-22 21:53] VITALS: PULSE 58
[2025-09-22] MEDS: HYDROcodone/acetaminophen (*CRX) 10-325 MG TABLET 1 TAB PO (21:54)
[2025-09-23 05:14] VITALS: BP 117/47; PULSE 62; RESP 15; TEMP 35.9; O2SAT 99
[2025-09-23] MEDS: ACETAMINOPHEN 325 MG TABLET 650 MG PO (05:27)
[2025-09-23] MEDS: LEVOTHYROXINE SODIUM 100 MCG TABLET 200 MCG PO (05:30)
[2025-09-23 08:11] LABS: Hematocrit 28.1 % (37.0-47.0); Hemoglobin 9.1 g/dL (12.0-15.0); Immature Granulocyte Percent A 3.8 % (0-0.5); Lymphocytes Absolute Auto 1.11 K/mm3 (0.9-3.2); Mean Corpuscular HGB Conc 32.4 g/dl (32-36); Mean Corpuscular Hemoglobin 29.3 pg (26-34); Mean Corpuscular Volume 90.4 fl (80-100); Nucleated Red Blood Cells Absolute Auto 0.000 K/mm3 (0.0-0.012); Nucleated Red Blood Cells Perc 0.0 % (0.0-0.2); Platelet Count Result 295 k/mm3 (150-375); Red Blood Count 3.11 M/mm3 (4.2-5.4); White Blood Count 8.2 K/mm3 (4.5-10.0)
[2025-09-23 08:24] LABS: Albumin Level 2.8 g/dL (3.5-5.1); Anion Gap 3 mmol/L (4-12); Blood Urea Nitrogen 23 mg/dL (7-17); Calcium 8.9 mg/dL (8.4-10.2); Carbon Dioxide 23 mmol/L (22-30); Chloride 104 mmol/L (98-107); Estimated CRCL calculation 52 ml/min; Estimated Glomerular Filt Rate 50; Glucose 136 mg/dL (65-110); Potassium 3.9 mmol/L (3.4-5.0); Sodium 130 mmol/L (137-145)
[2025-09-23 09:03] VITALS: PULSE 64
[2025-09-23] MEDS: TAMSULOSIN HCL 0.4 MG CAPSULE PO (09:03)
[2025-09-23] MEDS: GABAPENTIN 400 MG CAPSULE 800 MG PO ×3 (09:03→16:49)
[2025-09-23] MEDS: ATORVASTATIN 40 MG TABLET PO (09:03)
[2025-09-23] MEDS: APIXABAN 5 MG TABLET PO ×2 (09:03→16:49)
[2025-09-23] MEDS: AMIODARONE HCL 200 MG TABLET PO (09:03)
[2025-09-23] MEDS: PANTOPRAZOLE 40 MG TABLET PO ×2 (09:03→21:12)
[2025-09-23] MEDS: LOSARTAN POTASSIUM 25 MG TABLET PO (09:04)
[2025-09-23] MEDS: FUROSEMIDE 40 MG TABLET PO (09:04)
[2025-09-23] MEDS: COLLAGENASE OINT 30 GM TUBE 1 APPLIC TOPICAL (09:04)
[2025-09-23] MEDS: INSULIN GLARGINE (*BKC) 100 UNITS/ML 30 UNITS SUB-Q ×2 (09:04→17:27)
--- NOTE | 2025-09-23 10:27 | P.PNNP_ITS ---
Subjective Date/time seen: 09/23/25 10:27 Interval history: Follow-up for acute hyponatremia. Objective Data Vital Signs Vital Signs: Vital Signs Temp Pulse Resp BP Pulse Ox O2 Del Method 09/23/25 10:03 97.9 F 58 L 16 142/61 H 93 09/23/25 08:00 Room Air 09/23/25 05:14 96.7 F L 62 15 117/47 L 99 09/22/25 21:53 58 L 09/22/25 20:29 97.7 F 58 L 16 125/43 L 97 Intake/Output Intake/Output: Intake & Output 09/20/25 09/21/25 09/22/25 09/23/25 23:59 23:59 23:59 23:59 Intake Total 1220 037 554 0729 Output Total 349 363 1789 1050 Balance 294 100 -1820 1090 Meds/Results Medications: Active Medications Generic Name Dose Route Start Last Admin Trade Name Freq PRN Reason Stop Dose Admin Acetaminophen 650 mg 09/16/25 15:08 09/23/25 05:27 Acetaminophen 325 Mg Tablet PO 650 mg Q4H PRN Administration Mild Pain (1-3) or Fever Hydrocodone Bitart/Acetaminophen 1 tab 09/16/25 18:24 09/22/25 21:54 Hydrocodone/Acetaminophen (*Crx) 10-325 Mg Tablet PO 1 tab Q6H PRN Administration Pain Rated 6 or Greater Amiodarone HCl 200 mg 09/17/25 09:00 09/23/25 09:03 Amiodarone Hcl 200 Mg Tablet PO 200 mg DAILY KENYON Administration Amoxicillin/Clavulanate Potassium 1 tablet 09/20/25 14:00 09/23/25 13:03 Amoxicillin/Clavulanate K 875-125 Mg Tab PO 09/24/25 22:01 1 tablet Q8HR KENYON Administration Apixaban 5 mg 09/17/25 09:00 09/23/25 16:49 Apixaban 5 Mg Tablet PO 5 mg BID KENYON Administration Atorvastatin Calcium 40 mg 09/17/25 09:00 09/23/25 09:03 Atorvastatin 40 Mg Tablet PO 40 mg DAILY KENYON Administration Carvedilol 12.5 mg 09/16/25 21:00 09/23/25 09:03 Carvedilol 12.5 Mg Tablet PO 12.5 mg Q12HR KENYON Administration Collagenase 1 applic 09/17/25 09:00 09/23/25 09:04 Collagenase Oint 30 Gm Tube TOPICAL 1 applic DAILY KENYON Administration Dextrose 12.5 gm 09/16/25 18:26 Dextrose 50% 25 Gm/50 Ml Syringe IV PUSH PRN PRN Hypoglycemia Protocol Docusate Sodium 100 mg 09/16/25 15:08 Docusate Sodium 100 Mg Capsule PO BID PRN Constipation Furosemide 40 mg 09/22/25 09:00 09/23/25 09:04 Furosemide 40 Mg Tablet PO 40 mg QAM KENYON Administration Gabapentin 800 mg 09/17/25 09:00 09/23/25 16:49 Gabapentin 400 Mg Capsule PO 800 mg TID KENYON Administration Glucagon 1 mg 09/16/25 18:26 Glucagon For Inj 1 Mg Vial IM PRN PRN Hypoglycemia Protocol Glucose 15 gm 09/16/25 18:26 Glucose Oral Gel 15 Gm Of Glucse In 37.5 Gm Tube PO PRN PRN Hypoglycemia Protocol Dextrose 1,000 mls @ 100 mls/hr 09/16/25 18:26 Dextrose 5% 1,000 Ml IVPB PRN PRN Hypoglycemia Protocol Insulin Aspart 2 - 5 units 09/17/25 17:00 09/23/25 17:05 Insulin Aspart (*Bkc) 100 Units/Ml SUB-Q Not Given TIDWM [facility] Protocol Insulin Glargine 30 units 09/21/25 17:00 09/23/25 17:27 Insulin Glargine (*Bkc) 100 Units/Ml SUB-Q 30 units BID KENYON Administration Levothyroxine Sodium 200 mcg 09/17/25 06:30 09/23/25 05:30 Levothyroxine Sodium 100 Mcg Tablet PO 200 mcg DAILY@0630 KENYON Administration Losartan Potassium 25 mg 09/20/25 09:00 09/23/25 09:04 Losartan Potassium 25 Mg Tablet PO 25 mg DAILY KENYON Administration Ondansetron HCl 4 mg 09/16/25 15:31 09/18/25 01:26 Ondansetron Inj 4 Mg/2 Ml Vial IV PUSH 4 mg Q4H PRN Administration Nausea IF NPO Ondansetron HCl 4 mg 09/18/25 13:36 Ondansetron Hcl Odt 4 Mg Tablet PO Q8H PRN Nausea And Vomiting Pantoprazole Sodium 40 mg 09/17/25 09:00 09/23/25 09:03 Pantoprazole 40 Mg Tablet PO 40 mg Q12HR KENYON Administration Tamsulosin HCl 0.4 mg 09/22/25 14:30 09/23/25 09:03 Tamsulosin Hcl 0.4 Mg Capsule PO 10/06/25 14:29 0.4 mg QAM KENYON Administration Radiology Results: ITS Impressions Chest X-Ray 09/22/25 14:11 IMPRESSION: 1: NO ACUTE CARDIOPULMONARY DISEASE. Labs Labs: Laboratory Tests 09/23/25 07:30 09/23/25 07:30 Calcium 8.9 Phosphorus 2.9 Albumin 2.8 L
--- NOTE | 2025-09-23 12:24 | PM.IMPN2 ---
Assessment and Plan Assessment and Plan (1) Bacteremia: Code(s): R78.81 - Bacteremia Status: Acute Assessment and Plan: Blood culture obtained on 09/16: ecoli with sensitivities pending Likely related to UTI, urine culture pending Started on Rocephin 09/17, dose increased to 2 g q24h on 09/18 for bacteremia coverage continue for now downgraded to augmentin - last day09/24 pm dose (2) UTI (urinary tract infection): Code(s): N39.0 - Urinary tract infection, site not specified Status: Acute Assessment and Plan: - UA: 1+ protein, 3+ glucose, 6-10 RBC, 21-50 WBC, 4+ bacteria - UC obtained on 09/16: pending - No previous micro to be reviewed - started on Rocephin 09/17, dose increased to 2 g q24h on 09/18 for bacteremia coverage urine culture sensitivities pending- once available, will downgrade to po and anticipate discharge downgraded to augmentin 09/20- last day09/24 pm dose (3) Weakness: Code(s): R53.1 - Weakness Status: Acute Assessment and Plan: Weakness versus deconditioning versus other -PT OT evaluation, recommending SNF placement. Care coordination following. -Pt is fall/bleeding risk-continue fall precautions 09/22 last night felt a bit more weak. a bit better this am. care coordination working on placement --------- doing much better today (4) Paroxysmal atrial fibrillation: Code(s): I48.0 - Paroxysmal atrial fibrillation Status: Acute Assessment and Plan: Currently in sinus rhythm -Continue Coreg 12.5 mg q12h and amiodarone 200mg daily -Continue Eliquis - pt is fall/bleeding risk (5) Diastolic CHF with preserved left ventricular function, NYHA class 2: Code(s): I50.30 - Unspecified diastolic (congestive) heart failure Status: Acute Assessment and Plan: -Patient appeared to be dehydrated on admission, has since been rehydrated -Holding home Lasix and spironolactone, resume as appropriate -cr/bun improving-monitor daily labs 09/22- will restart lasix monitor i/o still BLE edema but stable, lasix restarted as kideny function better and na improved (6) Essential (primary) hypertension: Code(s): I10 - Essential (primary) hypertension Status: Acute Assessment and Plan: Patient was having soft blood pressures on admission - Continue coreg 12.5 mg bid and losartan 25 mg daily, currently holding spironolactone (resume as appropriate) - Blood pressures reviewed and remain stable, continue to monitor (7) Controlled type 2 diabetes mellitus with hyperglycemia, with long-term current use of insulin: Code(s): E11.65 - Type 2 diabetes mellitus with hyperglycemia; Z79.4 - intermediate accountant (current) use of insulin Status: Acute Assessment and Plan: - hypoglycemia protocol - POC blood glucose ACHS - home medication - lantus 50 units BID and jardiance 25 mg daily - correct regimen ordered - lantus 40 units BID and low dose TIDWM and HS - A1C7.3 on 02/17/25 Glucose well controlled on the current regimen. Continue to monitor. (8) BARRIOS (nonalcoholic steatohepatitis): Code(s): K75.81 - Nonalcoholic steatohepatitis (BARRIOS) Status: Acute Assessment and Plan: -Patient states that a few months ago she did have to have blood transfusions if she had a GI bleed -No complaints at this time (9) Hyponatremia: Code(s): E87.1 - Hypo-osmolality and hyponatremia Status: Acute Assessment and Plan: na 128 today will add urine osmo and urine sodium and order nephrology consult Medical Record Review I have reviewed the following patient records and this information was taken into consideration when formulating the assessment and plan.: previous labs Time Spent With Patient Time with patient: 25 - 35 minutes Subjective Date/time seen: 09/23/25 12:24 Interval history: 79-year-old female past medical history of CHF, diabetes, Barrios, CKD, atrial fibrillation, and chronic pain presents the hospital with generalized weakness. Patient is pleasant sitting up comfortably in her chair with at bedside. She continues to endorse dysuria but otherwise has no complaints denying chest pain, palpitations, shortness of breath, nausea/vomiting and abdominal pain. All questions and concerns answered during assessment. 09/20- pt is seen and examined. She is doing better today, swelling better to ble. 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 She is doing well otherwise. no worsening of leg swelling, no chest pain 09/22 last night, felt a bit weak and bs was on a lower side. Decreased lantus yesterday. Today feeling better. BLE swelling is about the same, not worse, no chest pain, no sob. 09/23 pt is feeling a lot better. Na is improved. Care coordination following for discharge needs, pt is ready to go but auth is still pending. Review of Systems Review of Systems: 12 systems were reviewed and are negative except for as per HPI. All systems reviewed & are unremarkable except as noted in HPI and below Exam Narrative: General: female in no acute respiratory distress who is nontoxic appearing, up in a chair HEENT: Normocephalic. Atraumatic. Extraocular movement intact. Sclera clear and anicteric.No facial asymmetry. Chest: Lungs are clear to auscultation bilaterally. No wheezes or crackles. CV: Heart was regular rate and rhythm. Abd: Abdomen was soft. Nontender. Nondistended. Positive bowel sounds. Neuro: Patient is alert and oriented x4. Speech is clear. Const: General: comfortable Objective Data Vital Signs Vital Signs: Vital Signs - 24 hr 09/22/25 13:35 09/22/25 20:29 09/22/25 21:53 Temperature 97.0 F L 97.7 F Pulse Rate 59 L 58 L 58 L Respiratory Rate 14 16 Blood Pressure 138/59 L 125/43 L Pulse Oximetry 94 97 Oxygen Delivery 09/23/25 05:14 09/23/25 08:00 09/23/25 09:03 Temperature 96.7 F L Pulse Rate 62 64 Respiratory Rate 15 Blood Pressure 117/47 L Pulse Oximetry 99 Oxygen Delivery Room Air 09/23/25 09:03 Temperature Pulse Rate 64 Respiratory Rate Blood Pressure Pulse Oximetry Oxygen Delivery Intake/Output Intake/Output: Intake & Output 09/20/25 09/21/25 09/22/25 09/23/25 23:59 23:59 23:59 23:59 Intake Total 1220 500 830 540 Output Total 315 839 1418 750 Balance 294 100 -5060 -210 Meds/Results Medications: Active Medications Generic Name Dose Route Start Last Admin Trade Name Freq PRN Reason Stop Dose Admin Acetaminophen 650 mg 09/16/25 15:08 09/23/25 05:27 Acetaminophen 325 Mg Tablet PO 650 mg Q4H PRN Administration Mild Pain (1-3) or Fever Hydrocodone Bitart/Acetaminophen 1 tab 09/16/25 18:24 09/22/25 21:54 Hydrocodone/Acetaminophen (*Crx) 10-325 Mg Tablet PO 1 tab Q6H PRN Administration Pain Rated 6 or Greater Amiodarone HCl 200 mg 09/17/25 09:00 09/23/25 09:03 Amiodarone Hcl 200 Mg Tablet PO 200 mg DAILY KENYON Administration Amoxicillin/Clavulanate Potassium 1 tablet 09/20/25 14:00 09/23/25 05:28 Amoxicillin/Clavulanate K 875-125 Mg Tab PO 09/24/25 22:01 1 tablet Q8HR KENYON Administration Apixaban 5 mg 09/17/25 09:00 09/23/25 09:03 Apixaban 5 Mg Tablet PO 5 mg BID KENYON Administration Atorvastatin Calcium 40 mg 09/17/25 09:00 09/23/25 09:03 Atorvastatin 40 Mg Tablet PO 40 mg DAILY KENYON Administration Carvedilol 12.5 mg 09/16/25 21:00 09/23/25 09:03 Carvedilol 12.5 Mg Tablet PO 12.5 mg Q12HR KENYON Administration Collagenase 1 applic 09/17/25 09:00 09/23/25 09:04 Collagenase Oint 30 Gm Tube TOPICAL 1 applic DAILY KENYON Administration Dextrose 12.5 gm 09/16/25 18:26 Dextrose 50% 25 Gm/50 Ml Syringe IV PUSH PRN PRN Hypoglycemia Protocol Docusate Sodium 100 mg 09/16/25 15:08 Docusate Sodium 100 Mg Capsule PO BID PRN Constipation Furosemide 40 mg 09/22/25 09:00 09/23/25 09:04 Furosemide 40 Mg Tablet PO 40 mg QAM KENYON Administration Gabapentin 800 mg 09/17/25 09:00 09/23/25 09:03 Gabapentin 400 Mg Capsule PO 800 mg TID KENYON Administration Glucagon 1 mg 09/16/25 18:26 Glucagon For Inj 1 Mg Vial IM PRN PRN Hypoglycemia Protocol Glucose 15 gm 09/16/25 18:26 Glucose Oral Gel 15 Gm Of Glucse In 37.5 Gm Tube PO PRN PRN Hypoglycemia Protocol Dextrose 1,000 mls @ 100 mls/hr 09/16/25 18:26 Dextrose 5% 1,000 Ml IVPB PRN PRN Hypoglycemia Protocol Insulin Aspart 2 - 5 units 09/17/25 17:00 09/23/25 08:13 Insulin Aspart (*Bkc) 100 Units/Ml SUB-Q Not Given TIDWM KENYON Protocol Insulin Glargine 30 units 09/21/25 17:00 09/23/25 09:04 Insulin Glargine (*Bkc) 100 Units/Ml SUB-Q 30 units BID KENYON Administration Levothyroxine Sodium 200 mcg 09/17/25 06:30 09/23/25 05:30 Levothyroxine Sodium 100 Mcg Tablet PO 200 mcg DAILY@0630 KENYON Administration Losartan Potassium 25 mg 09/20/25 09:00 09/23/25 09:04 Losartan Potassium 25 Mg Tablet PO 25 mg DAILY KENYON Administration Ondansetron HCl 4 mg 09/16/25 15:31 09/18/25 01:26 Ondansetron Inj 4 Mg/2 Ml Vial IV PUSH 4 mg Q4H PRN Administration Nausea IF NPO Ondansetron HCl 4 mg 09/18/25 13:36 Ondansetron Hcl Odt 4 Mg Tablet PO Q8H PRN Nausea And Vomiting Pantoprazole Sodium 40 mg 09/17/25 09:00 09/23/25 09:03 Pantoprazole 40 Mg Tablet PO 40 mg Q12HR KENYON Administration Tamsulosin HCl 0.4 mg 09/22/25 14:30 09/23/25 09:03 Tamsulosin Hcl 0.4 Mg Capsule PO 10/06/25 14:29 0.4 mg QAM KENYON Administration Radiology Results: ITS Impressions Chest X-Ray 09/22/25 14:11 IMPRESSION: 1: NO ACUTE CARDIOPULMONARY DISEASE. Labs Labs: Laboratory Results - last 24 hr 09/22/25 09/22/25 09/22/25 13:14 15:59 17:05 WBC RBC Hgb Hct MCV MCH MCHC RDW Plt Count MPV Immature Gran % (Auto) Neut % (Auto) Lymph % (Auto) [place] % (Auto) Eos % (Auto) Baso % (Auto) Lymph # (Auto) [place] # (Auto) Eos # (Auto) Baso # (Auto) Abs Immat Gran (auto) Absolute Neuts (auto) Absolute Nucleated RBC Nucleated RBC % Sodium 129 L Potassium Chloride Carbon Dioxide Anion Gap BUN Creatinine Estim Creat Clear Calc Estimated GFR Glucose POC Capillary Glucose 178 H Calcium Phosphorus Albumin TSH (Reflex) 0.122 L Free T4 2.60 H Random Cortisol 8.53 U Random Total Protein 14 Ur Random Sodium 9 Ur Random Urea 350 Urine Creatinine 56.6 Protein/Creat Ratio 2 0.25 H 09/22/25 09/23/25 09/23/25 21:08 07:22 07:30 WBC 8.2 RBC 3.11 L Hgb 9.1 L Hct 28.1 L MCV 90.4 MCH 29.3 MCHC 32.4 RDW 12.8 Plt Count 295 MPV 9.1 Immature Gran % (Auto) 3.8 H Neut % (Auto) 70.7 Lymph % (Auto) 13.6 L [place] % (Auto) 9.7 H Eos % (Auto) 1.8 Baso % (Auto) 0.4 Lymph # (Auto) 1.11 [place] # (Auto) 0.8 H Eos # (Auto) 0.2 Baso # (Auto) 0.0 Abs Immat Gran (auto) 0.31 H Absolute Neuts (auto) 5.8 Absolute Nucleated RBC 0.000 Nucleated RBC % 0.0 Sodium 130 L Potassium 3.9 Chloride 104 Carbon Dioxide 23 Anion Gap 3 L BUN 23 H Creatinine 1.07 H Estim Creat Clear Calc 52 Estimated GFR 50 L Glucose 136 H POC Capillary Glucose 214 H 157 H Calcium 8.9 Phosphorus 2.9 Albumin 2.8 L TSH (Reflex) Free T4 Random Cortisol U Random Total Protein Ur Random Sodium Ur Random Urea Urine Creatinine Protein/Creat Ratio 2 09/23/25 11:35 WBC RBC Hgb Hct MCV MCH MCHC RDW Plt Count MPV Immature Gran % (Auto) Neut % (Auto) Lymph % (Auto) [place] % (Auto) Eos % (Auto) Baso % (Auto) Lymph # (Auto) [place] # (Auto) Eos # (Auto) Baso # (Auto) Abs Immat Gran (auto) Absolute Neuts (auto) Absolute Nucleated RBC Nucleated RBC % Sodium Potassium Chloride Carbon Dioxide Anion Gap BUN Creatinine Estim Creat Clear Calc Estimated GFR Glucose POC Capillary Glucose 151 H Calcium Phosphorus Albumin TSH (Reflex) Free T4 Random Cortisol U Random Total Protein Ur Random Sodium Ur Random Urea Urine Creatinine Protein/Creat Ratio 2 Quality VTE Prophylaxis VTE prophylaxis: mechanical ordered and pharmacologic ordered
[2025-09-23 13:33] VITALS: BP 142/61; PULSE 58; RESP 16; TEMP 36.6; O2SAT 93
[2025-09-23 21:12] VITALS: PULSE 61
[2025-09-23 21:56] VITALS: BP 117/63; PULSE 60; RESP 16; TEMP 36.5; O2SAT 100
[2025-09-24] MEDS: LEVOTHYROXINE SODIUM 100 MCG TABLET 200 MCG PO (05:30)
[2025-09-24 06:00] VITALS: BP 131/51; PULSE 70; RESP 18; TEMP 37.1; O2SAT 99
[2025-09-24 08:42] LABS: Hematocrit 32.0 % (37.0-47.0); Hemoglobin 10.2 g/dL (12.0-15.0); Mean Corpuscular HGB Conc 31.9 g/dl (32-36); Mean Corpuscular Hemoglobin 28.8 pg (26-34); Mean Corpuscular Volume 90.4 fl (80-100); Platelet Count Result 338 k/mm3 (150-375); Red Blood Count 3.54 M/mm3 (4.2-5.4); White Blood Count 8.7 K/mm3 (4.5-10.0)
[2025-09-24 09:06] LABS: Anion Gap 5 mmol/L (4-12); Blood Urea Nitrogen 20 mg/dL (7-17); Calcium 9.4 mg/dL (8.4-10.2); Carbon Dioxide 23 mmol/L (22-30); Chloride 104 mmol/L (98-107); Estimated CRCL calculation 47 ml/min; Estimated Glomerular Filt Rate 44; Glucose 79 mg/dL (65-110); Potassium 4.3 mmol/L (3.4-5.0); Sodium 132 mmol/L (137-145)
[2025-09-24] MEDS: APIXABAN 5 MG TABLET PO ×2 (09:12→17:25)
[2025-09-24] MEDS: LOSARTAN POTASSIUM 25 MG TABLET PO (09:12)
[2025-09-24 09:13] VITALS: PULSE 72
[2025-09-24] MEDS: PANTOPRAZOLE 40 MG TABLET PO ×2 (09:13→21:37)
[2025-09-24] MEDS: AMIODARONE HCL 200 MG TABLET PO (09:13)
[2025-09-24] MEDS: ATORVASTATIN 40 MG TABLET PO (09:13)
[2025-09-24] MEDS: GABAPENTIN 400 MG CAPSULE 800 MG PO ×3 (09:13→17:24)
[2025-09-24] MEDS: TAMSULOSIN HCL 0.4 MG CAPSULE PO (09:13)
[2025-09-24] MEDS: FUROSEMIDE 40 MG TABLET PO (09:13)
[2025-09-24] MEDS: INSULIN GLARGINE (*BKC) 100 UNITS/ML 10 UNITS SUB-Q (09:46)
[2025-09-24] MEDS: COLLAGENASE OINT 30 GM TUBE 1 APPLIC TOPICAL (09:48)
[2025-09-24] MEDS: NEOMYCIN/POLYMYXIN/BACITRACIN OINTMENT 15 GM TUBE 1 APPLIC TOPICAL (11:21)
[2025-09-24 14:00] VITALS: BP 110/60; PULSE 60; RESP 14; TEMP 36.9; O2SAT 92
--- NOTE | 2025-09-24 15:23 | PM.PNNEP ---
Subjective Date/time seen: 09/24/25 15:00 Objective Data Vital Signs Vital Signs: Vital Signs Temp Pulse Resp BP Pulse Ox O2 Del Method 09/24/25 09:13 Room Air 09/24/25 09:13 72 09/24/25 06:00 98.8 F 70 18 131/51 L 99 09/23/25 21:56 97.7 F 60 16 117/63 100 09/23/25 21:12 61 Intake/Output Intake/Output: Intake & Output 09/21/25 09/22/25 09/23/25 09/24/25 23:59 23:59 23:59 23:59 Intake Total 184 844 5747 360 Output Total 400 2650 1050 450 Balance 100 -1820 1330 -90 Meds/Results Medications: Active Medications Generic Name Dose Route Start Last Admin Trade Name Freq PRN Reason Stop Dose Admin Acetaminophen 650 mg 09/16/25 15:08 09/23/25 05:27 Acetaminophen 325 Mg Tablet PO 650 mg Q4H PRN Administration Mild Pain (1-3) or Fever Hydrocodone Bitart/Acetaminophen 1 tab 09/16/25 18:24 09/22/25 21:54 Hydrocodone/Acetaminophen (*Crx) 10-325 Mg Tablet PO 1 tab Q6H PRN Administration Pain Rated 6 or Greater Amiodarone HCl 200 mg 09/17/25 09:00 09/24/25 09:13 Amiodarone Hcl 200 Mg Tablet PO 200 mg DAILY KENYON Administration Amoxicillin/Clavulanate Potassium 1 tablet 09/20/25 14:00 09/24/25 13:40 Amoxicillin/Clavulanate K 875-125 Mg Tab PO 09/24/25 22:01 1 tablet Q8HR KENYON Administration Apixaban 5 mg 09/17/25 09:00 09/24/25 09:12 Apixaban 5 Mg Tablet PO 5 mg BID KENYON Administration Atorvastatin Calcium 40 mg 09/17/25 09:00 09/24/25 09:13 Atorvastatin 40 Mg Tablet PO 40 mg DAILY KENYON Administration Carvedilol 12.5 mg 09/16/25 21:00 09/24/25 09:14 Carvedilol 12.5 Mg Tablet PO 12.5 mg Q12HR KENYON Administration Collagenase 1 applic 09/17/25 09:00 09/24/25 09:48 Collagenase Oint 30 Gm Tube TOPICAL 1 applic DAILY KENYON Administration Dextrose 12.5 gm 09/16/25 18:26 Dextrose 50% 25 Gm/50 Ml Syringe IV PUSH PRN PRN Hypoglycemia Protocol Docusate Sodium 100 mg 09/16/25 15:08 Docusate Sodium 100 Mg Capsule PO BID PRN Constipation Furosemide 40 mg 09/22/25 09:00 12 09:13 Furosemide 40 Mg Tablet PO 40 mg QAM KENYON Administration Gabapentin 800 mg 09/17/25 09:00 09/24/25 13:40 Gabapentin 400 Mg Capsule PO 800 mg TID KENYON Administration Glucagon 1 mg 09/16/25 18:26 Glucagon For Inj 1 Mg Vial IM PRN PRN Hypoglycemia Protocol Glucose 15 gm 09/16/25 18:26 Glucose Oral Gel 15 Gm Of Glucse In 37.5 Gm Tube PO PRN PRN Hypoglycemia Protocol Dextrose 1,000 mls @ 100 mls/hr 09/16/25 18:26 Dextrose 5% 1,000 Ml IVPB PRN PRN Hypoglycemia Protocol Insulin Aspart 2 - 5 units 09/17/25 17:00 09/24/25 13:20 Insulin Aspart (*Bkc) 100 Units/Ml SUB-Q Not Given TIDWM [facility] Protocol Insulin Glargine 25 units 09/24/25 21:00 Insulin Glargine (*Bkc) 100 Units/Ml SUB-Q Q12HR [facility] Levothyroxine Sodium 200 mcg 09/17/25 06:30 09/24/25 05:30 Levothyroxine Sodium 100 Mcg Tablet PO 200 mcg DAILY@0630 KENYON Administration Losartan Potassium 25 mg 09/20/25 09:00 09/24/25 09:12 Losartan Potassium 25 Mg Tablet PO 25 mg DAILY KENYON Administration Neomycin/Polymyxin/Bacitracin 1 applic 09/24/25 09:00 09/24/25 11:21 Neomycin/Polymyxin/Bacitracin Ointment 15 Gm Tube TOPICAL 1 applic QAM KENYON Administration Ondansetron HCl 4 mg 09/16/25 15:31 09/18/25 01:26 Ondansetron Inj 4 Mg/2 Ml Vial IV PUSH 4 mg Q4H PRN Administration Nausea IF NPO Ondansetron HCl 4 mg 09/18/25 13:36 Ondansetron Hcl Odt 4 Mg Tablet PO Q8H PRN Nausea And Vomiting Pantoprazole Sodium 40 mg 09/17/25 09:00 09/24/25 09:13 Pantoprazole 40 Mg Tablet PO 40 mg Q12HR KEN[facility]ON Administration Tamsulosin HCl 0.4 mg 09/22/25 14:30 09/24/25 09:13 Tamsulosin Hcl 0.4 Mg Capsule PO 10/06/25 14:29 0.4 mg QAM KENYON Administration Radiology Results: ITS Impressions Chest X-Ray 09/22/25 14:11 IMPRESSION: 1: NO ACUTE CARDIOPULMONARY DISEASE. Labs Labs: Laboratory Tests 09/24/25 08:38 09/24/25 08:38 Calcium 9.4
--- NOTE | 2025-09-24 15:48 | P.PNIM_ITS ---
Assessment and Plan Assessment and Plan (1) Bacteremia: Code(s): R78.81 - Bacteremia Status: Acute Assessment and Plan: Blood culture obtained on 09/16: ecoli with sensitivities pending Likely related to UTI, urine culture pending Started on Rocephin 09/17, dose increased to 2 g q24h on 09/18 for bacteremia coverage continue for now downgraded to augmentin - last day09/24 pm dose completed course of antibiotics (2) UTI (urinary tract infection): Code(s): N39.0 - Urinary tract infection, site not specified Status: Acute Assessment and Plan: - UA: 1+ protein, 3+ glucose, 6-10 RBC, 21-50 WBC, 4+ bacteria - UC obtained on 09/16: pending - No previous micro to be reviewed - started on Rocephin 09/17, dose increased to 2 g q24h on 09/18 for bacteremia coverage urine culture sensitivities pending- once available, will downgrade to po and anticipate discharge downgraded to augmentin 09/20- last day09/24 pm dose completed (3) Weakness: Code(s): R53.1 - Weakness Status: Acute Assessment and Plan: Weakness versus deconditioning versus other -PT OT evaluation, recommending SNF placement. Care coordination following. -Pt is fall/bleeding risk-continue fall precautions 09/22 last night felt a bit more weak. a bit better this am. care coordination working on placement --------- doing much better today (4) Paroxysmal atrial fibrillation: Code(s): I48.0 - Paroxysmal atrial fibrillation Status: Acute Assessment and Plan: Currently in sinus rhythm -Continue Coreg 12.5 mg q12h and amiodarone 200mg daily -Continue Eliquis - pt is fall/bleeding risk (5) Diastolic CHF with preserved left ventricular function, NYHA class 2: Code(s): I50.30 - Unspecified diastolic (congestive) heart failure Status: Acute Assessment and Plan: -Patient appeared to be dehydrated on admission, has since been rehydrated -Holding home Lasix and spironolactone, resume as appropriate -cr/bun improving-monitor daily labs 09/22- will restart lasix monitor i/o still BLE edema but stable, lasix restarted as kideny function better and na improved (6) Essential (primary) hypertension: Code(s): I10 - Essential (primary) hypertension Status: Acute Assessment and Plan: Patient was having soft blood pressures on admission - Continue coreg 12.5 mg bid and losartan 25 mg daily, currently holding spironolactone (resume as appropriate) - Blood pressures reviewed and remain stable, continue to monitor (7) Controlled type 2 diabetes mellitus with hyperglycemia, with long-term current use of insulin: Code(s): E11.65 - Type 2 diabetes mellitus with hyperglycemia; Z79.4 - intermediate card tender (current) use of insulin Status: Acute Assessment and Plan: - hypoglycemia protocol - POC blood glucose ACHS - home medication - lantus 50 units BID and jardiance 25 mg daily - correct regimen ordered - lantus 40 units BID and low dose TIDWM and HS - A1C7.3 on 02/17/25 Glucose well controlled on the current regimen. Continue to monitor. (8) BARRIOS (nonalcoholic steatohepatitis): Code(s): K75.81 - Nonalcoholic steatohepatitis (BARRIOS) Status: Acute Assessment and Plan: -Patient states that a few months ago she did have to have blood transfusions if she had a GI bleed -No complaints at this time (9) Hyponatremia: Code(s): E87.1 - Hypo-osmolality and hyponatremia Status: Acute Assessment and Plan: na 128 today will add urine osmo and urine sodium and order nephrology consult Medical Record Review I have reviewed the following patient records and this information was taken into consideration when formulating the assessment and plan.: previous labs Time Spent With Patient Time with patient: 25 - 35 minutes Subjective Date/time seen: 09/24/25 15:48 Interval history: pt was seen and examined. she is doing well, legs still a bit swollen but better overall. Care coordination is following for placement. at a bedside, both updated on plan of care. Review of Systems Review of Systems: 12 systems were reviewed and are negativ e except for as per HPI. All systems reviewed & are unremarkable except as noted in HPI and below Exam Narrative: General: female in no acute respiratory distress who is nontoxic appearing, up in a chair HEENT: Normocephalic. Atraumatic. Extraocular movement intact. Sclera clear and anicteric.No facial asymmetry. Chest: Lungs are clear to auscultation bilaterally. No wheezes or crackles. CV: Heart was regular rate and rhythm. Abd: Abdomen was soft. Nontender. Nondistended. Positive bowel sounds. Neuro: Patient is alert and oriented x4. Speech is clear. Const: General: comfortable Objective Data Vital Signs Vital Signs: Vital Signs - 24 hr 09/23/25 21:12 09/23/25 21:56 09/24/25 06:00 Temperature 97.7 F 98.8 F Pulse Rate 61 60 70 Respiratory Rate 16 18 Blood Pressure 117/63 131/51 L Pulse Oximetry 100 99 Oxygen Delivery 09/24/25 09:13 09/24/25 09:13 09/24/25 14:00 Temperature 98.4 F Pulse Rate 72 60 Respiratory Rate 14 Blood Pressure 110/60 Pulse Oximetry 92 Oxygen Delivery Room Air Intake/Output Intake/Output: Intake & Output 09/21/25 09/22/25 09/23/25 09/24/25 23:59 23:59 23:59 23:59 Intake Total 091 696 7720 360 Output Total 400 2650 1050 450 Balance 100 -1820 1330 -90 Meds/Results Medications: Active Medications Generic Name Dose Route Start Last Admin Trade Name Freq PRN Reason Stop Dose Admin Acetaminophen 650 mg 09/16/25 15:08 09/23/25 05:27 Acetaminophen 325 Mg Tablet PO 650 mg Q4H PRN Administration Mild Pain (1-3) or Fever Hydrocodone Bitart/Acetaminophen 1 tab 09/16/25 18:24 09/22/25 21:54 Hydrocodone/Acetaminophen (*Crx) 10-325 Mg Tablet PO 1 tab Q6H PRN Administration Pain Rated 6 or Greater Amiodarone HCl 200 mg 09/17/25 09:00 09/24/25 09:13 Amiodarone Hcl 200 Mg Tablet PO 200 mg DAILY KENYON Administration Amoxicillin/Clavulanate Potassium 1 tablet 09/20/25 14:00 09/24/25 13:40 Amoxicillin/Clavulanate K 875-125 Mg Tab PO 09/24/25 22:01 1 tablet Q8HR KEN[facility]ON Administration Apixaban 5 mg 09/17/25 09:00 09/24/25 09:12 Apixaban 5 Mg Tablet PO 5 mg BID KENYON Administration Atorvastatin Calcium 40 mg 09/17/25 09:00 09/24/25 09:13 Atorvastatin 40 Mg Tablet PO 40 mg DAILY KENYON Administration Carvedilol 12.5 mg 09/16/25 21:00 09/24/25 09:14 Carvedilol 12.5 Mg Tablet PO 12.5 mg Q12HR K[facility]ON Administration Collagenase 1 applic 09/17/25 09:00 09/24/25 09:48 Collagenase Oint 30 Gm Tube TOPICAL 1 applic DAILY KENYON Administration Dextrose 12.5 gm 09/16/25 18:26 Dextrose 50% 25 Gm/50 Ml Syringe IV PUSH PRN PRN Hypoglycemia Protocol Docusate Sodium 100 mg 09/16/25 15:08 Docusate Sodium 100 Mg Capsule PO BID PRN Constipation Furosemide 40 mg 09/22/25 09:00 09/24/25 09:13 Furosemide 40 Mg Tablet PO 40 mg QAM KENYON Administration Gabapentin 800 mg 09/17/25 09:00 09/24/25 13:40 Gabapentin 400 Mg Capsule PO 800 mg TID KENYON Administration Glucagon 1 mg 09/16/25 18:26 Glucagon For Inj 1 Mg Vial IM PRN PRN Hypoglycemia Protocol Glucose 15 gm 09/16/25 18:26 Glucose Oral Gel 15 Gm Of Glucse In 37.5 Gm Tube PO PRN PRN Hypoglycemia Protocol Dextrose 1,000 mls @ 100 mls/hr 09/16/25 18:26 Dextrose 5% 1,000 Ml IVPB PRN PRN Hypoglycemia Protocol Insulin Aspart 2 - 5 units 09/17/25 17:00 09/24/25 13:20 Insulin Aspart (*Bkc) 100 Units/Ml SUB-Q Not Given TIDWM [facility] Protocol Insulin Glargine 25 units 09/24/25 21:00 Insulin Glargine (*Bkc) 100 Units/Ml SUB-Q Q12HR [facility] Levothyroxine Sodium 200 mcg 09/17/25 06:30 09/24/25 05:30 Levothyroxine Sodium 100 Mcg Tablet PO 200 mcg DAILY@0630 KENYON Administration Losartan Potassium 25 mg 09/20/25 09:00 09/24/25 09:12 Losartan Potassium 25 Mg Tablet PO 25 mg DAILY KENYON Administration Neomycin/Polymyxin/Bacitracin 1 applic 09/24/25 09:00 09/24/25 11:21 Neomycin/Polymyxin/Bacitracin Ointment 15 Gm Tube TOPICAL 1 applic QAM KENYON Administration Ondansetron HCl 4 mg 09/16/25 15:31 09/18/25 01:26 Ondansetron Inj 4 Mg/2 Ml Vial IV PUSH 4 mg Q4H PRN Administration Nausea IF NPO Ondansetron HCl 4 mg 09/18/25 13:36 Ondansetron Hcl Odt 4 Mg Tablet PO Q8H PRN Nausea And Vomiting Pantoprazole Sodium 40 mg 09/17/25 09:00 09/24/25 09:13 Pantoprazole 40 Mg Tablet PO 40 mg Q12HR [facility]EN[facility]ON Administration Tamsulosin HCl 0.4 mg 09/22/25 14:30 09/24/25 09:13 Tamsulosin Hcl 0.4 Mg Capsule PO 10/06/25 14:29 0.4 mg QAM KENYON Administration Radiology Results: ITS Impressions Chest X-Ray 09/22/25 14:11 IMPRESSION: 1: NO ACUTE CARDIOPULMONARY DISEASE. Labs Labs: Laboratory Results - last 24 hr 09/23/25 09/23/25 09/24/25 16:54 20:02 07:57 WBC RBC Hgb Hct MCV MCH MCHC RDW Plt Count MPV Sodium Potassium Chloride Carbon Dioxide Anion Gap BUN Creatinine Estim Creat Clear Calc Estimated GFR Glucose POC Capillary Glucose 132 H 178 H 79 Calcium 09/24/25 09/24/25 08:38 11:51 WBC 8.7 RBC 3.54 L Hgb 10.2 L Hct 32.0 L MCV 90.4 MCH 28.8 MCHC 31.9 L RDW 12.8 Plt Count 338 MPV 8.6 Sodium 132 L Potassium 4.3 Chloride 104 Carbon Dioxide 23 Anion Gap 5 BUN 20 H Creatinine 1.20 H Estim Creat Clear Calc 47 Estimated GFR 44 L Glucose 79 POC Capillary Glucose 165 H Calcium 9.4 Quality VTE Prophylaxis VTE prophylaxis: mechanical ordered and pharmacologic ordered
[2025-09-24 21:38] VITALS: PULSE 60
[2025-09-24] MEDS: INSULIN GLARGINE (*BKC) 100 UNITS/ML 25 UNITS SUB-Q (21:38)
[2025-09-24 22:00] VITALS: BP 125/51; PULSE 57; RESP 18; TEMP 36.1; O2SAT 98
[2025-09-25 00:07] LABS: Osmolality, Urine 220 mOsmol/kg (.)
[2025-09-25] MEDS: HYDROcodone/acetaminophen (*CRX) 10-325 MG TABLET 1 TAB PO (02:56)
[2025-09-25] MEDS: LEVOTHYROXINE SODIUM 100 MCG TABLET 200 MCG PO (05:35)
[2025-09-25 06:00] VITALS: BP 129/81; PULSE 101; RESP 16; TEMP 36.7; O2SAT 93
[2025-09-25 06:14] LABS: Hematocrit 28.5 % (37.0-47.0); Hemoglobin 9.0 g/dL (12.0-15.0); Mean Corpuscular HGB Conc 31.6 g/dl (32-36); Mean Corpuscular Hemoglobin 29.1 pg (26-34); Mean Corpuscular Volume 92.2 fl (80-100); Platelet Count Result 284 k/mm3 (150-375); Red Blood Count 3.09 M/mm3 (4.2-5.4); White Blood Count 7.7 K/mm3 (4.5-10.0)
[2025-09-25 07:18] LABS: Anion Gap 4 mmol/L (4-12); Blood Urea Nitrogen 22 mg/dL (7-17); Calcium 8.8 mg/dL (8.4-10.2); Carbon Dioxide 24 mmol/L (22-30); Chloride 104 mmol/L (98-107); Estimated CRCL calculation 46 ml/min; Estimated Glomerular Filt Rate 42; Glucose 72 mg/dL (65-110); Potassium 4.1 mmol/L (3.4-5.0); Sodium 132 mmol/L (137-145)
--- NOTE | 2025-09-25 07:25 | PCWOUND ---
WOCN NOTE Received referral to see right heel wound from 09/24/25. Patient is being followed by Dr. Corina Sotelo DPM for the wound. Wound care not to be involved.
[2025-09-25 08:53] VITALS: PULSE 63
[2025-09-25] MEDS: ATORVASTATIN 40 MG TABLET PO (08:53)
[2025-09-25] MEDS: LOSARTAN POTASSIUM 25 MG TABLET PO (08:53)
[2025-09-25 08:54] VITALS: PULSE 64
[2025-09-25] MEDS: TAMSULOSIN HCL 0.4 MG CAPSULE PO (08:54)
[2025-09-25] MEDS: AMIODARONE HCL 200 MG TABLET PO (08:54)
[2025-09-25] MEDS: GABAPENTIN 400 MG CAPSULE 800 MG PO ×3 (08:54→16:30)
[2025-09-25] MEDS: APIXABAN 5 MG TABLET PO ×2 (08:54→16:30)
[2025-09-25] MEDS: PANTOPRAZOLE 40 MG TABLET PO ×2 (08:54→20:55)
[2025-09-25] MEDS: FUROSEMIDE 40 MG TABLET PO (08:54)
[2025-09-25] MEDS: COLLAGENASE OINT 30 GM TUBE 1 APPLIC TOPICAL (08:56)
[2025-09-25] MEDS: NEOMYCIN/POLYMYXIN/BACITRACIN OINTMENT 15 GM TUBE 1 APPLIC TOPICAL (08:57)
[2025-09-25] MEDS: INSULIN GLARGINE (*BKC) 100 UNITS/ML 25 UNITS SUB-Q ×2 (09:20→21:03)
[2025-09-25 12:08] LABS: Albumin 2.3 g/dL (2.9-4.4); Alpha-1-Globulin 0.4 g/dL (0.0-0.4); Alpha-2-Globulin 1.1 g/dL (0.4-1.0); Gamma Globulin 1.0 g/dL (0.4-1.8)
--- NOTE | 2025-09-25 13:04 | PCNFU ---
Nutrition Follow-Up Complete: Increased protein energy needs related to wound healing as evidenced by deep tissue injury to sacrum Goal:Intakes >75% Pt meeting goal. continue with same goal Pt current nutrition is Diabetic, 1800ml Fluid restriction. RAUL BID. Nutrition recommendation: continue with current plan of care Last recorded weight is 123 kg. Bowel Motility: +BM 09/24 Labs Reviewed: Hgb:9.0, HCT:28.5, Na:132, GFR:42, BUN:22, Cr:1.2 Meds Noted: eliquis, protonix, novolog, lantus, lasix Skin: DTPI to sacrum Additional Notes: Pt continues on a diabetic diet, 1800ml fluid restriction. Intake 50-100%. RAUL in place BID for wounds. Agree with orders. Monitoring intakes, weights, labs, supplement tolerance, plan of care Follow up in 7 days
[2025-09-25 14:00] VITALS: BP 118/52; PULSE 62; RESP 14; TEMP 36.6; O2SAT 96
--- NOTE | 2025-09-25 14:33 | P.PNIM_ITS ---
Assessment and Plan Assessment and Plan (1) Bacteremia: Code(s): R78.81 - Bacteremia Status: Acute Assessment and Plan: Blood culture obtained on 09/16: ecoli with sensitivities pending Likely related to UTI, urine culture pending Started on Rocephin 09/17, dose increased to 2 g q24h on 09/18 for bacteremia coverage continue for now downgraded to augmentin - last day09/24 pm dose completed course of antibiotics (2) UTI (urinary tract infection): Code(s): N39.0 - Urinary tract infection, site not specified Status: Acute Assessment and Plan: - UA: 1+ protein, 3+ glucose, 6-10 RBC, 21-50 WBC, 4+ bacteria - UC obtained on 09/16: pending - No previous micro to be reviewed - started on Rocephin 09/17, dose increased to 2 g q24h on 09/18 for bacteremia coverage urine culture sensitivities pending- once available, will downgrade to po and anticipate discharge downgraded to augmentin 09/20- last day09/24 pm dose completed (3) Weakness: Code(s): R53.1 - Weakness Status: Acute Assessment and Plan: Weakness versus deconditioning versus other -PT OT evaluation, recommending SNF placement. Care coordination following. -Pt is fall/bleeding risk-continue fall precautions 09/22 last night felt a bit more weak. a bit better this am. care coordination working on placement --------- doing much better today (4) Paroxysmal atrial fibrillation: Code(s): I48.0 - Paroxysmal atrial fibrillation Status: Acute Assessment and Plan: Currently in sinus rhythm -Continue Coreg 12.5 mg q12h and amiodarone 200mg daily -Continue Eliquis - pt is fall/bleeding risk (5) Diastolic CHF with preserved left ventricular function, NYHA class 2: Code(s): I50.30 - Unspecified diastolic (congestive) heart failure Status: Acute Assessment and Plan: -Patient appeared to be dehydrated on admission, has since been rehydrated -Holding home Lasix and spironolactone, resume as appropriate -cr/bun improving-monitor daily labs 09/22- will restart lasix monitor i/o still BLE edema but stable, lasix restarted as kideny function better and na improved (6) Essential (primary) hypertension: Code(s): I10 - Essential (primary) hypertension Status: Acute Assessment and Plan: Patient was having soft blood pressures on admission - Continue coreg 12.5 mg bid and losartan 25 mg daily, currently holding spironolactone (resume as appropriate) - Blood pressures reviewed and remain stable, continue to monitor (7) Controlled type 2 diabetes mellitus with hyperglycemia, with long-term current use of insulin: Code(s): E11.65 - Type 2 diabetes mellitus with hyperglycemia; Z79.4 - terminal block assembler (current) use of insulin Status: Acute Assessment and Plan: - hypoglycemia protocol - POC blood glucose ACHS - home medication - lantus 50 units BID and jardiance 25 mg daily - correct regimen ordered - lantus 40 units BID and low dose TIDWM and HS - A1C7.3 on 02/17/25 Glucose well controlled on the current regimen. Continue to monitor. (8) BARRIOS (nonalcoholic steatohepatitis): Code(s): K75.81 - Nonalcoholic steatohepatitis (BARRIOS) Status: Acute Assessment and Plan: -Patient states that a few months ago she did have to have blood transfusions if she had a GI bleed -No complaints at this time (9) Hyponatremia: Code(s): E87.1 - Hypo-osmolality and hyponatremia Status: Acute Assessment and Plan: na 128 today will add urine osmo and urine sodium and order nephrology consult Plan The only thing keeping her int hospital is acceptance to snf. Subjective Date/time seen: 09/25/25 14:33 Interval history: pt was seen and examined. she is doing well, legs still a bit swollen worse to the rt but better overall. Care coordination is following for placement. at a bedside, both updated on plan of care. wound is re assessed and no changes- stable. Review of Systems Review of Systems: 12 systems were reviewed and are negativ e except for as per HPI. All systems reviewed & are unremarkable except as noted in HPI and below Exam Narrative: General: female in no acute respiratory distress who is nontoxic appearing, up in a chair HEENT: Normocephalic. Atraumatic. Extraocular movement intact. Sclera clear and anicteric.No facial asymmetry. Chest: Lungs are clear to auscultation bilaterally. No wheezes or crackles. CV: Heart was regular rate and rhythm. Abd: Abdomen was soft. Nontender. Nondistended. Positive bowel sounds. Neuro: Patient is alert and oriented x4. Speech is clear. Const: General: comfortable Objective Data Vital Signs Vital Signs: Vital Signs - 24 hr 09/24/25 21:30 09/24/25 21:38 09/24/25 22:00 Temperature 97.0 F L Pulse Rate 60 57 L Respiratory Rate 18 Blood Pressure 125/51 L Pulse Oximetry 98 Oxygen Delivery Room Air 09/25/25 06:00 09/25/25 08:00 09/25/25 08:53 Temperature 98.0 F Pulse Rate 101 H 63 Respiratory Rate 16 Blood Pressure 129/81 Pulse Oximetry 93 Oxygen Delivery Room Air 09/25/25 08:54 Temperature Pulse Rate 64 Respiratory Rate Blood Pressure Pulse Oximetry Oxygen Delivery Intake/Output Intake/Output: Intake & Output 09/22/25 09/23/25 09/24/25 09/25/25 23:59 23:59 23:59 23:59 Intake Total 830 2380 860 1100 Output Total 2650 3499 395 4422 Balance -1820 1330 110 -200 Meds/Results Medications: Active Medications Generic Name Dose Route Start Last Admin Trade Name Freq PRN Reason Stop Dose Admin Acetaminophen 650 mg 09/16/25 15:08 09/23/25 05:27 Acetaminophen 325 Mg Tablet PO 650 mg Q4H PRN Administration Mild Pain (1-3) or Fever Hydrocodone Bitart/Acetaminophen 1 tab 09/16/25 18:24 09/25/25 02:56 Hydrocodone/Acetaminophen (*Crx) 10-325 Mg Tablet PO 1 tab Q6H PRN Administration Pain Rated 6 or Greater Amiodarone HCl 200 mg 09/17/25 09:00 09/25/25 08:54 Amiodarone Hcl 200 Mg Tablet PO 200 mg DAILY KENYON Administration Apixaban 5 mg 09/17/25 09:00 09/25/25 08:54 Apixaban 5 Mg Tablet PO 5 mg BID KENYON Administration Atorvastatin Calcium 40 mg 09/17/25 09:00 09/25/25 08:53 Atorvastatin 40 Mg Tablet PO 40 mg DAILY KENYON Administration Carvedilol 12.5 mg 09/16/25 21:00 09/25/25 08:53 Carvedilol 12.5 Mg Tablet PO 12.5 mg Q12HR KEN[facility]ON Administration Collagenase 1 applic 09/17/25 09:00 09/25/25 08:56 Collagenase Oint 30 Gm Tube TOPICAL 1 applic DAILY KENYON Administration Dextrose 12.5 gm 09/16/25 18:26 Dextrose 50% 25 Gm/50 Ml Syringe IV PUSH PRN PRN Hypoglycemia Protocol Docusate Sodium 100 mg 09/16/25 15:08 Docusate Sodium 100 Mg Capsule PO BID PRN Constipation Furosemide 40 mg 09/22/25 09:00 09/25/25 08:54 Furosemide 40 Mg Tablet PO 40 mg QAM KENYON Administration Gabapentin 800 mg 09/17/25 09:00 09/25/25 12:52 Gabapentin 400 Mg Capsule PO 800 mg TID KENYON Administration Glucagon 1 mg 09/16/25 18:26 Glucagon For Inj 1 Mg Vial IM PRN PRN Hypoglycemia Protocol Glucose 15 gm 09/16/25 18:26 Glucose Oral Gel 15 Gm Of Glucse In 37.5 Gm Tube PO PRN PRN Hypoglycemia Protocol Dextrose 1,000 mls @ 100 mls/hr 09/16/25 18:26 Dextrose 5% 1,000 Ml IVPB PRN PRN Hypoglycemia Protocol Insulin Aspart 2 - 5 units 09/17/25 17:00 09/25/25 12:34 Insulin Aspart (*Bkc) 100 Units/Ml SUB-Q Not Given TIDWM [facility] Protocol Insulin Glargine 25 units 09/24/25 21:00 09/25/25 09:20 Insulin Glargine (*Bkc) 100 Units/Ml SUB-Q 25 units Q12HR [facility] Administration Levothyroxine Sodium 200 mcg 09/17/25 06:30 09/25/25 05:35 Levothyroxine Sodium 100 Mcg Tablet PO 200 mcg DAILY@0630 KENYON Administration Losartan Potassium 25 mg 09/20/25 09:00 09/25/25 08:53 Losartan Potassium 25 Mg Tablet PO 25 mg DAILY KENYON Administration Neomycin/Polymyxin/Bacitracin 1 applic 09/24/25 09:00 09/25/25 08:57 Neomycin/Polymyxin/Bacitracin Ointment 15 Gm Tube TOPICAL 1 applic QAM KENYON Administration Ondansetron HCl 4 mg 09/16/25 15:31 09/18/25 01:26 Ondansetron Inj 4 Mg/2 Ml Vial IV PUSH 4 mg Q4H PRN Administration Nausea IF NPO Ondansetron HCl 4 mg 09/18/25 13:36 Ondansetron Hcl Odt 4 Mg Tablet PO Q8H PRN Nausea And Vomiting Pantoprazole Sodium 40 mg 09/17/25 09:00 09/25/25 08:54 Pantoprazole 40 Mg Tablet PO 40 mg Q12HR [facility]ON Administration Tamsulosin HCl 0.4 mg 09/22/25 14:30 09/25/25 08:54 Tamsulosin Hcl 0.4 Mg Capsule PO 10/06/25 14:29 0.4 mg QAM KENYON Administration Radiology Results: ITS Impressions Chest X-Ray 09/22/25 14:11 IMPRESSION: 1: NO ACUTE CARDIOPULMONARY DISEASE. Labs Labs: Laboratory Results - last 24 hr 09/22/25 09/22/25 09/24/25 13:14 15:59 16:59 WBC RBC Hgb Hct MCV MCH MCHC RDW Plt Count MPV Sodium Potassium Chloride Carbon Dioxide Anion Gap BUN Creatinine Estim Creat Clear Calc Estimated GFR Glucose POC Capillary Glucose 129 H Calcium Total Protein (PEP) 5.7 L Albumin (PEP) 2.3 L Globulin (PEP) 3.4 Albumin/Globulin Ratio 0.7 Tmjqf-0-Bwyjezmeo 0.4 Hcthi-2-Pycuxbzih 1.1 H Beta Globulins 0.9 Gamma Globulins 1.0 PEP Comment Comment Urine Osmolality 220 Pr Electrophoresis MSpike Not observed 09/24/25 09/25/25 09/25/25 21:28 05:44 07:51 WBC 7.7 RBC 3.09 L Hgb 9.0 L Hct 28.5 L MCV 92.2 MCH 29.1 MCHC 31.6 L RDW 12.8 Plt Count 284 MPV 8.7 Sodium 132 L Potassium 4.1 Chloride 104 Carbon Dioxide 24 Anion Gap 4 BUN 22 H Creatinine 1.23 H Estim Creat Clear Calc 46 Estimated GFR 42 L Glucose 72 POC Capillary Glucose 144 H 77 Calcium 8.8 Total Protein (PEP) Albumin (PEP) Globulin (PEP) Albumin/Globulin Ratio Mcpzh-7-Aeyupcfjd Qzbbn-8-Gopsyavcc Beta Globulins Gamma Globulins PEP Comment Urine Osmolality Pr Electrophoresis MSpike 09/25/25 09/25/25 09:19 12:12 WBC RBC Hgb Hct MCV MCH MCHC RDW Plt Count MPV Sodium Potassium Chloride Carbon Dioxide Anion Gap BUN Creatinine Estim Creat Clear Calc Estimated GFR Glucose POC Capillary Glucose 130 H 103 Calcium Total Protein (PEP) Albumin (PEP) Globulin (PEP) Albumin/Globulin Ratio Bcqfj-1-Coiqmwtst Pouvt-8-Bhtabzvru Beta Globulins Gamma Globulins PEP Comment Urine Osmolality Pr Electrophoresis MSpike Quality VTE Prophylaxis VTE prophylaxis: mechanical ordered and pharmacologic ordered
[2025-09-25 20:07] LABS: Osmolality, Serum 283 mOsmol/kg (280-301)
[2025-09-25 20:55] VITALS: PULSE 58
[2025-09-25 22:00] VITALS: BP 104/62; PULSE 61; RESP 16; TEMP 36.2; O2SAT 98
[2025-09-26 06:00] VITALS: BP 130/54; PULSE 60; RESP 18; TEMP 36.1; O2SAT 98
[2025-09-26] MEDS: LEVOTHYROXINE SODIUM 100 MCG TABLET 200 MCG PO (06:24)
[2025-09-26 06:56] LABS: Anion Gap 3 mmol/L (4-12); Blood Urea Nitrogen 22 mg/dL (7-17); Calcium 9.3 mg/dL (8.4-10.2); Carbon Dioxide 26 mmol/L (22-30); Chloride 103 mmol/L (98-107); Estimated CRCL calculation 46 ml/min; Estimated Glomerular Filt Rate 42; Glucose 106 mg/dL (65-110); Potassium 4.5 mmol/L (3.4-5.0); Sodium 132 mmol/L (137-145)
[2025-09-26] MEDS: ATORVASTATIN 40 MG TABLET PO (08:34)
[2025-09-26] MEDS: TAMSULOSIN HCL 0.4 MG CAPSULE PO (08:34)
[2025-09-26] MEDS: GABAPENTIN 400 MG CAPSULE 800 MG PO ×3 (08:34→16:56)
[2025-09-26] MEDS: APIXABAN 5 MG TABLET PO ×2 (08:34→16:56)
[2025-09-26] MEDS: LOSARTAN POTASSIUM 25 MG TABLET PO (08:35)
[2025-09-26] MEDS: PANTOPRAZOLE 40 MG TABLET PO (08:35)
[2025-09-26 08:36] VITALS: PULSE 61
[2025-09-26] MEDS: COLLAGENASE OINT 30 GM TUBE 1 APPLIC TOPICAL (08:36)
[2025-09-26 08:37] VITALS: PULSE 61
[2025-09-26] MEDS: AMIODARONE HCL 200 MG TABLET PO (08:37)
[2025-09-26] MEDS: FUROSEMIDE 40 MG TABLET PO (08:37)
[2025-09-26] MEDS: NEOMYCIN/POLYMYXIN/BACITRACIN OINTMENT 15 GM TUBE 1 APPLIC TOPICAL (08:48)
[2025-09-26] MEDS: INSULIN GLARGINE (*BKC) 100 UNITS/ML 25 UNITS SUB-Q (08:48)
[2025-09-26 14:00] VITALS: BP 111/51; PULSE 58; RESP 18; TEMP 36.6; O2SAT 95
[2025-09-26 15:09] LABS: Albumin, U 23.5 % (.); Alpha-1-Globulin, U 3.8 % (.); Alpha-2-Globulin, U 12.8 % (.); Beta Globulin, U 24.3 % (.); Gamma Globulin, U 35.6 % (.)
--- NOTE | 2025-09-26 15:58 | PM.DS ---
DS: Admitting Diagnosis Discharge Date 09/26 Admitting Diagnosis uti DS: Discharge Diagnosis Discharge Diagnosis (1) Bacteremia: Code(s): R78.81 - Bacteremia Status: Acute (2) UTI (urinary tract infection): Code(s): N39.0 - Urinary tract infection, site not specified Status: Acute (3) Weakness: Code(s): R53.1 - Weakness Status: Acute (4) Paroxysmal atrial fibrillation: Code(s): I48.0 - Paroxysmal atrial fibrillation Status: Acute (5) Diastolic CHF with preserved left ventricular function, NYHA class 2: Code(s): I50.30 - Unspecified diastolic (congestive) heart failure Status: Acute (6) Essential (primary) hypertension: Code(s): I10 - Essential (primary) hypertension Status: Acute (7) Controlled type 2 diabetes mellitus with hyperglycemia, with long-term current use of insulin: Code(s): E11.65 - Type 2 diabetes mellitus with hyperglycemia; Z79.4 - senior living (current) use of insulin Status: Acute (8) ASHLEY (nonalcoholic steatohepatitis): Code(s): K75.81 - Nonalcoholic steatohepatitis (ASHLEY) Status: Acute (9) Hyponatremia: Code(s): E87.1 - Hypo-osmolality and hyponatremia Status: Acute DS: Summary Hospital Course Hospital Course: 79-year-old female past medical history of CHF, diabetes, Ashley, CKD, atrial fibrillation, and chronic pain presents the hospital with generalized weakness. Pt spend quite a bit of days in the hospital as her mobility was quite bad and the plan was for her to go to SNF but her insurance paperwork was not approved for quite some time and now she feels like she should be able to go home with home health. At some point during the stay, her NA drop to 129 and nephrology was consulted. Her Na stabilized and kidney function improved. # bacteremia Blood culture obtained on 09/16: ecoli with sensitivities pending Likely related to UTI, urine culture pending Started on Rocephin 09/17, dose increased to 2 g q24h on 09/18 for bacteremia coverage continue for now downgraded to augmentin - last day09/24 pm dose Completed #UTI (urinary tract infection): - UA: 1+ protein, 3+ glucose, 6-10 RBC, 21-50 WBC, 4+ bacteria - UC obtained on 09/16: pending - No previous micro to be reviewed - started on Rocephin 09/17, dose increased to 2 g q24h on 09/18 for bacteremia coverage urine culture sensitivities pending- once available, will downgrade to po and anticipate discharge downgraded to augmentin 09/20- last day09/24 pm dose completed # Paroxysmal atrial fibrillation: Currently in sinus rhythm -Continue Coreg 12.5 mg q12h and amiodarone 200mg daily -Continue Eliquis - pt is fall/bleeding risk # Diastolic CHF with preserved left ventricular function, NYHA class 2: -Patient appeared to be dehydrated on admission, has since been rehydrated -Holding home Lasix and spironolactone, resume as appropriate -cr/bun improving-monitor daily labs 09/22- will restart lasix resume at home # Essential (primary) hypertension: Patient was having soft blood pressures on admission - Continue coreg 12.5 mg bid and losartan 25 mg daily, currently holding spironolactone (resume as appropriate) - Blood pressures reviewed and remain stable, continue to monitor # Controlled type 2 diabetes mellitus with hyperglycemia, with long-term current use of insulin: - hypoglycemia protocol - POC blood glucose ACHS - home medication - lantus 50 units BID and jardiance 25 mg daily - correct regimen ordered - lantus 40 units BID and low dose TIDWM and HS - A1C7.3 on 02/17/25 Glucose well controlled on the current regimen. Continue to monitor. There were could of reading around 70's so lantus dose was adjusted. discharge regimen: pt is to take 25 units of lantus bid, jardiance 25 mg. She wants to discuss semaglutide with her PCP and i think it is a great idea. # ASHLEY (nonalcoholic steatohepatitis): -Patient states that a few months ago she did have to have blood transfusions if she had a GI bleed -No complaints at this time Status at Discharge Functional status at discharge: uses cane/walker Time Spent with Patient Time attestation: Total time spent providing and/or coordinating discharge services: Time spent: Greater than 30 minutes Exam Narrative: General: female in no acute respiratory distress who is nontoxic appearing, up in a chair HEENT: Normocephalic. Atraumatic. Extraocular movement intact. Sclera clear and anicteric.No facial asymmetry. Chest: Lungs are clear to auscultation bilaterally. No wheezes or crackles. CV: Heart was regular rate and rhythm. Abd: Abdomen was soft. Nontender. Nondistended. Positive bowel sounds. Neuro: Patient is alert and oriented x4. Speech is clear. Const: General: comfortable DS: Data Data Completed and Pending Labs on day of discharge: Labs from last 24 hours 09/26/25 09/26/25 09/26/25 11:43 07:32 06:25 Sodium 132 L Potassium 4.5 Chloride 103 Carbon Dioxide 26 Anion Gap 3 L BUN 22 H Creatinine 1.23 H Estim Creat Clear Calc 46 Estimated GFR 42 L Glucose 106 POC Capillary Glucose 155 H 91 Serum Osmolality Calcium 9.3 Urine Total Protein Urine Albumin (PEP) U Izaaj-8-Ksztjgzv U Szweu-7-Kfzwhgnz U Beta Globulin U Gamma Globulin U Random M-Hollis (%) Urine PEP Note 09/25/25 09/25/25 09/22/25 21:01 16:52 15:59 Sodium Potassium Chloride Carbon Dioxide Anion Gap BUN Creatinine Estim Creat Clear Calc Estimated GFR Glucose POC Capillary Glucose 150 H 147 H Serum Osmolality 283 Calcium Urine Total Protein Urine Albumin (PEP) U Vmger-0-Ivjiioym U Rgpsi-4-Hmeuedfp U Beta Globulin U Gamma Globulin U Random M-Hollis (%) Urine PEP Note 09/22/25 13:14 Sodium Potassium Chloride Carbon Dioxide Anion Gap BUN Creatinine Estim Creat Clear Calc Estimated GFR Glucose POC Capillary Glucose Serum Osmolality Calcium Urine Total Protein 6.4 Urine Albumin (PEP) 23.5 U Qjoao-3-Mbupuqji 3.8 U Eikjv-0-Adwgslzy 12.8 U Beta Globulin 24.3 U Gamma Globulin 35.6 U Random M-Hollis (%) Not observed Urine PEP Note Comment Discharge Plan Discharge Attending physician on discharge: Clementine Ash Consulting providers: Manuela Baez; Levon Strange Discharging Clinician: Tara Fountain Patient Disposition: Home with Home Health Service Activity: february shower Diet: diabetic Discharge Instructions: You were admitted for uti and weakness. You completed a treatment with antibiotics. PT/OT worked with you and initially, the goal was for you to go to rehab but due to insurance issues, you were not approved. Since you feel stronger and think you would do fin at home with home health, care coordination helped us set it up. As for your diabetes: please continue 25 units of lantus twice a day, am and pm. Monitor your blood sugars in am- your goal is 80-130. If you consistently on a lower side, please let your PCP know as the dose may need to be decreased. Let PCP know if blood sugars are elevated as well. Discuss GLP-1 (like ozempic) with your pcp Please return to ER if you have any chest pain, shortness of breath, and/or any other symptoms. of note, there is Potassium on your medication list- as well as spironolactone. Spironolactone is a potassium sparing diuretic, so your level of potassium in blood can be too kalen. As of right now, it is right in the middle, so good. Please make sure you follow up with you PCP for lab recheck. Care Coordination: Patient to have [facility] for PT/OT eval and treat, and snf. Their phone number is [phone], if you have any questions. They will contact you to schedule their visits. Patient Instructions: Antibiotic Form, Apixaban (By mouth) Patient Language: Welsh Stand Alone Forms: General Discharge Information Follow-up/Referrals: Jasiel Person MD [Primary Care Provider, [facility]] - 2 Weeks Discharge Medications: Continued spironolactone 25 mg tablet 25 mg PO DAILY amiodarone 200 mg tablet 200 mg PO DAILY levothyroxine [Synthroid] 200 mcg tablet 200 mcg PO . q.a.m. Qty: 90 3RF ferrous sulfate 325 mg (65 mg iron) tablet,delayed release (DR/EC) 325 mg PO DAILY Qty: 90 3RF Rx Instructions: take with supper ondansetron HCl 4 mg tablet 4 mg PO ONCE PRN (Reason: nausea and vomiting) Qty: 30 5RF ondansetron 4 mg tablet,disintegrating 4 mg PO Q8H PRN (Reason: nausea and vomiting) Qty: 10 0RF carvedilol 12.5 mg tablet 12.5 mg PO Q12H Santyl 250 unit/gram ointment 1 applic TOPICAL DAILY Patient Comments: apply to heel of right foot losartan 25 mg tablet 25 mg PO DAILY Eliquis 5 mg tablet 5 mg PO BID Qty: 60 11RF Jardiance 25 mg tablet 25 mg PO QAM Qty: 90 3RF atorvastatin 40 mg tablet 40 mg PO DAILY Qty: 90 3RF gabapentin 800 mg tablet 800 mg PO TID Qty: 90 11RF furosemide 40 mg tablet 40 mg PO QAM Qty: 30 11RF Rx Instructions: started in hospital esomeprazole magnesium 40 mg capsule,delayed release(DR/EC) 40 mg PO DAILY Qty: 90 3RF (DME) pen needle, diabetic 32 gauge x /32 needle See Rx Instructions .ROUTE .MEDSUPPLY Qty: 100 6RF Rx Instructions: As directed to test blood sugar BID potassium chloride 10 mEq capsule, extended release 10 meq PO DAILY Qty: 90 3RF hydrocodone-acetaminophen 10-325 mg tablet 1 tablet PO Q6H PRN (Reason: pain) Qty: 120 0RF Changed insulin glargine [Lantus Solostar U-100 Insulin] 100 unit/mL (3 mL) insulin pen 25 unit subcut BID Qty: 75 3RF Discontinued doxycycline hyclate 100 mg capsule 100 mg PO Q12H doxycycline hyclate 100 mg tablet 100 mg PO BID Qty: 20 0RF Other Ambulatory Orders: Comprehensive Metabolic Panel (Routine) Timeframe: 1 Week Location: Determined by Patient Ordered By: Tara Fountain Date of admission: 09/17/25 13:17 Primary Care Provider: Jasiel Person Admitting Provider: Anatoly Marion Oca Attending physician on admission: Anatoly Marion Oca Condition: Stable Quality VTE Prophylaxis VTE prophylaxis: mechanical ordered and pharmacologic ordered Hospitalist MIPS Heart Failure (Exclusion) Patient has history of Heart Transplant or Left Ventricular Assistive Device?: No IF YES, STOP HERE Heart Failure (Qualifier) Patient has current or prior documentation of LVEF less than or equal to 40%, or mod/servere depressed LVSF?: No IF NO, STOP HERE
== END 2025-09-26 18:15 | disposition home health service (06) | DRG 690 ==
LOC: ANHED 15:30 → ANH3MED 16:21
PROVIDERS: Internal Medicine Critical Care Medicine; Internal Medicine Nephrology; Nurse Practitioner Gerontology; Admitting Provider Student in an Organized Health Care Education/Training Program; Emergency Provider Family Medicine; PCP Family Medicine; Visit Provider Nurse Practitioner
DX: N39.0 Urinary tract infection, site not specified (principal); R78.81 Bacteremia; E87.1 Hypo-osmolality and hyponatremia; I13.0 Hypertensive heart and chronic kidney disease with heart failure and stage 1 through stage 4 chronic kidney disease, or unspecified chronic kidney disease; I50.32 Chronic diastolic (congestive) heart failure; B96.20 Unspecified Escherichia coli [E. coli] as the cause of diseases classified elsewhere; N18.9 Chronic kidney disease, unspecified; E11.22 Type 2 diabetes mellitus with diabetic chronic kidney disease; I48.0 Paroxysmal atrial fibrillation; K75.81 Nonalcoholic steatohepatitis (NASH); E11.65 Type 2 diabetes mellitus with hyperglycemia; E86.0 Dehydration; E11.319 Type 2 diabetes mellitus with unspecified diabetic retinopathy without macular edema; E66.01 Morbid (severe) obesity due to excess calories; I89.0 Lymphedema, not elsewhere classified; I73.9 Peripheral vascular disease, unspecified; Z79.4 Long term (current) use of insulin
CPT/HCPCS: 36415; 71045; 80048; 80053; 80069; 81001; 82533; 82570; 82948; 83605; 83930; 83935; 84155; 84156; 84165; 84166; 84295; 84300; 84439; 84443; 84540; 85025; 85027; 87040; 87086; 87186; 93005; 96361; 96365; 96376; 97110; 97162; 97166; 97530; 97535; 99285; A9270; G0378; J0696; J1815; J2405; J7030

== ENCOUNTER 2025-10-03 10:51 | Outpatient (NON) | payer MEDICARE, SELFPAY ==
[2025-10-03 12:01] LABS: Alanine Aminotransferase 8 U/L (6-35); Albumin Level 3.0 g/dL (3.5-5.1); Alkaline Phosphatase 89 U/L (38-126); Anion Gap 3 mmol/L (4-12); Aspartate Amino Transferase 14 U/L (14-36); Bilirubin,Total 0.5 mg/dL (0.2-1.3); Blood Urea Nitrogen 18 mg/dL (7-17); Calcium 9.2 mg/dL (8.4-10.2); Carbon Dioxide 30 mmol/L (22-30); Chloride 104 mmol/L (98-107); Estimated Glomerular Filt Rate 47; Glucose 89 mg/dL (65-110); Potassium 4.0 mmol/L (3.4-5.0); Sodium 137 mmol/L (137-145); Total Protein 6.6 g/dL (6.3-8.2)
--- OUTSIDE RECORDS SUMMARY | 2025-10-03 13:11 | XMS_ITS | Clinical Summary ---
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 Active atorvastatin (LIPITOR) 40 mg [...] (03/18/2019 12:40 PM CDT): MRI open at [facility] Oral steroids called into [facility] Recheck hearing test in 6 weeks Carotid doppler Centralized Scheduling: Dizziness and giddiness 03/18/2019 Assessment & Plan (03/18/2019 12:43 PM CDT): MRI open at [facility] Oral steroids called into [facility] Recheck hearing test in 6 weeks Carotid doppler Centralized Scheduling: If no improvement in 6 weeks, consider [place]-Hallpike versus CTA Hx of colonic polyps 07/06/2018 Overview (07/06/2018): Added automatically from request for surgery [id number] Encounters Date Type Department Care Team Description 09/16/2025 12:23 PM OFFSHORING MANAGER - 09/16/2025 11:59 PM OFFSHORING MANAGER Hospital Encounter [facility] BILL[facility] Emergency, Room R Discharge Disposition: Discharge to home or self care from Last 3 Months Immunizations Immunization Administration Dates Next Due Tdap [...] drink = 0.6 oz pur e alcohol) Comments Unknown Sex and Gender Information Value Date Recorded Sex Assigned at Not on file Legal Sex Female 7:55 PM OFFSHORING MANAGER Gender Identity Not on file Sexual Orientation Not on file Last Filed Vital Signs Vital Sign Reading Time Taken Comments Blood Pressure 105/56 02/09/2024 12:14 PM CDT Pulse 105 02/08/2024 1:30 PM CDT Temperature 36.7 C (98.1 F) 09/15/2023 11:48 AM OFFSHORING MANAGER Respiratory Rate 16 01/26/2024 11:36 AM [...] Panel 06/18/2024 06/18/2023, 0502/2023, 02/17/2023 Covid-19 Vaccine (2024-11 6 season) 2025 03/27/2022, 08/04/2021, 01/06/2021, Additional [...] AM CDT FASTING:YES FASTING: YES Radha Lester NP LAB BLOOD ORDERABLES Ana elian Result [facility] [address] [id number] * COLONOSCOPY (08/12/2018 10:17 AM CDT) Anatomical Region Laterality Modality Other Narrative Procedure Note Angel Guido MD - 08/12/2018 10:17 AM CDT [facility] Patient Name: Nona Estrella Procedure Date: 08/12/2018 10:17AM Date of : 1945 Admit Type: Outpatient Age: 72 Gender: Female Attending MD: Angel Guido M.D. Room: [facility] ENDOSCOPY ROOM 1 Note Status: Finalized [...] scope was passed under direct vision.The Colonoscope [id number] was introducedthrough the anus and advanced to [...] 10:17 AM Procedure Code(s): --- Professional --- 16368, Colonoscopy, flexible; with removal of tumor(s), polyp(s), or other lesion(s) by hot biopsy forceps Diagnosis Code(s): --- Professional --- D12.3, Benign neoplasm of transverse colon (hepatic flexure orsplenic flexure) D12.4, Benign neoplasm of descending colon K64.9, Unspecified hemorrhoids Z86.010, Personal history of colonic polyps CPT copyright 2017 [employer]. All rights reserved. The codes documented in this report are preliminary and upon logistics and planning manager reviewmay be revised to meet current compliance requirements. Recognized by the [employer] for promoting quality in endoscopy us Angel Guido MD ENDOSCOPY PROCEDURES Final Re sult from Last 3 Months or Most Recently Relevant to Health Maintenance Insurance T MEDICARE T MEDICARE AET MEDICARE Advance Directives For more information, please contact: [phone] * Full Code (Latest Code Status on File) Date Activated Date Inactivated Comments 08/12/2018 8:57 AM 08/12/2018 1:55 PM * Full Code Date Activated Date Inactivated Comments 08/12/2018 8:57 AM 08/12/2018 8:57 AM Care Teams Parcel Post Delivery Relationship Specialty Start Date End Date Jasiel Person MD [id number] [id number] PCP - General Family Medicine 07/02/18
== END 2025-10-03 10:52 | disposition home or self-care (01) ==
PROVIDERS: PCP Family Medicine; Visit Provider Family Medicine
DX: I10 Essential (primary) hypertension (principal); E11.65 Type 2 diabetes mellitus with hyperglycemia; Z79.4 Long term (current) use of insulin; N39.0 Urinary tract infection, site not specified; I48.0 Paroxysmal atrial fibrillation
CPT/HCPCS: 36415; 80053

== ENCOUNTER 2025-10-05 00:21 | Inpatient (IN) | payer MEDICARE, SELFPAY ==
[2025-10-05] VITALS (21 sets, daily range): BP systolic 88–146; BP diastolic 38–70; PULSE 62–93; RESP 14–22; TEMP 36.2–37.4; O2SAT 84–100; BMI 40.9
--- NOTE | ~2025-10-05 | CT_ITS ---
CT HEAD NON-CONTRAST Clinical History: falls on eliqus Comparison: None Technique: Unenhanced axial images skull base to vertex Coronal, sagittal reformats CT images acquired with automatic exposure control for dose reduction DLP: 681 mGy-cm Findings: Sulci, ventricles: Unremarkable. No intracerebral hemorrhage. No evidence acute territorial infarct. No mass effect, midline shift. Bony calvarium intact. Visualized paranasal sinuses: Clear. Mastoid air cells: Clear. IMPRESSION: 1. No acute intracranial findings. Reviewed, dictated and finalized at location R. [employer] LO[employer]ER
--- NOTE | ~2025-10-05 | XR_ITS ---
EXAMINATION: XR heel RT min 2V DATE: 10/05/2025 01:13 INDICATION: Injury TECHNIQUE: Right calcaneal x-ray were obtained. COMPARISON: None. FINDINGS: Comminuted displaced fracture through the body of the calcaneus, with possible destruction along the plantar and posterior aspects of calcaneus. Overlying soft tissue defect in the heel. IMPRESSION: 1. Comminuted mid body fracture of the calcaneus with possible erosive changes soft tissue swelling and open wound defect. Pathologic fracture and possible osteomyelitis is not excluded. Reviewed, dictated and finalized at location A. [employer] IMPRESSION: 1. Comminuted mid body fracture of the calcaneus with possible erosive changes soft tissue swelling and open wound defect. Pathologic fracture and possible os teomyelitis is not excluded.
--- NOTE | ~2025-10-05 | MR_ITS ---
EXAM/PROCEDURE: MR foot RT wo/w con HISTORY: right heel wound COMPARISON: None available. TECHNIQUE: Pre and postcontrast MRI of the right ankle and hind foot performed FINDINGS: Oblique longitudinal fracture through the mid body of the calcaneus is somewhat corticated appearance and may be subacute or chronic. The fracture extends from the plantar margin along the posterior calcaneal body and extends cephalad into the subtalar joint. The fracture fragments are approximately 1.4 cm along the plantar surface and converge to nondisplaced in the subtalar portion. Fluid fills the fracture defect. Erosive changes are present along the plantar aspect of the posterior calcaneus and there is diffuse increased T2-weighted signal throughout the posterior fragment with abnormal signal also extending into the anterior segment as well, although no clear cortical erosion seen in the anterior fragment.. Mild hyperintense T2-weighted signal in the talus adjacent to the subtalar joint but no clear cortical erosion. No drainable fluid collection or abscess seen, although fluid within the fracture line could potentially be infected.. Moderate to severe degenerative changes present in the midfoot region but no compelling erosion or osteomyelitis in the midfoot region. Mild extensive soft tissue infiltrative changes in the plantar soft tissues of the calcaneus especially posteriorly. In the ankle, small joint effusion is present. The talofibular and deltoid ligaments appear intact. The sinus tarsus fat trace amount of fluid but otherwise appears normal. The tarsal tunnel also appears normal. No acute or aggressive changes in the ankle joint itself. Moderately extensive edematous changes in the subcutaneous soft tissues about the ankle. The peroneal longus tendon appears somewhat thickened with fluid within the tendon sheath. The peroneal brevis tendon appears normal. Flexor and extensor tendons as well as visualized portion of the Achilles tendon appear normal. IMPRESSION: 1. Oblique longitudinally oriented fracture through the body of the calcaneus extending from the plantar surface into the subtalar joint with features suggesting possible subacute injury. Correlate with clinical presentation and history. 2. Extensive soft tissue changes along the posterior margin of the calcaneal body with erosive and bone marrow changes consistent with osteomyelitis. Bone marrow changes involve both the posterior and anterior calcaneal body fragments, although no clear cortical erosion in the anterior fragment is seen. Osteomyelitis is more convincingly present in the posterior calcaneal body and not as clearly present in the anterior fragment. However with bone marrow changes throughout the anterior calcaneus, osteomyelitis could be there is well. 3. Fluid within the fracture defect could be infected, though no discrete abscess is seen. Reviewed, dictated and finalized at location A. OPERATOR IMPRESSION: 1. Oblique longitudinally oriented fracture through the body of the calcaneus e xtending from the plantar surface into the subtalar joint with features suggest ing possible subacute injury. Correlate with clinical presentation and history. 2. Extensive soft tissue changes along the posterior margin of the calcaneal [place] with erosive and bone marrow changes consistent with osteomyelitis. Bone mar row changes involve both the posterior and anterior calcaneal body fragments, a lthough no clear cortical erosion in the anterior fragment is seen. Osteomyelit is is more convincingly present in the posterior calcaneal body and not as cliff rly present in the anterior fragment. However with bone marrow changes througho ut the anterior calcaneus, osteomyelitis could be there is well. 3. Fluid within the fracture defect could be infected, though no discrete absce ss is seen.
--- NOTE | ~2025-10-05 | US_ITS ---
EXAMINATION: US venous doppler [facility], 10/05/2025 14:27 NUCLEAR WASTE PROCESS OPERATOR HISTORY: Edema COMPARISON: None Technique: Smith-scale and color Doppler images were attempted of the lower saphenofemoral junction, common femoral vein,superficial femoral vein, proximal deep femoral vein, proximal deep femoral vein, popliteal vein and posterior tibial veins. Findings: Deep Venous System:Normal flow, augmentation and compressibility. No echogenic thrombus identified. Superficial Venous SystemNo superficial thrombophlebitis. Soft tissues: Soft tissues are unremarkable. Impression: Negative for DVT. Reviewed, dictated and finalized at location P. EAR WASTE PROCESS OPERATOR Impression: Negative for DVT.
--- NOTE | ~2025-10-05 | XR_ITS ---
Examination: XR chest 1V portable Clinical History: Weakness, hypoxic Comparison: 09/22/2025 Technique: Portable AP Findings: Heart size prominent. Lungs clear. No acute bony abnormality. IMPRESSION: 1. No acute cardiopulmonary findings given portable technique. Reviewed, dictated and finalized at location R. GE DOOR OPENER INSTALLER
--- NOTE | 2025-10-05 00:27 | ECG_ITS ---
Test Date: 2025-10-05 00:29:22 Measurements Intervals [place] Rate: 80 P: 0 IA: 0 QRS: -58 QRSD: 113 T: 21 QT: 402 QTc: 464 Interpretive Statements SINUS RHYTHM BORDERLINE AV CONDUCTION DELAY INCOMPLETE RIGHT BUNDLE BRANCH BLOCK LOW QRS VOLTAGE IN PRECORDIAL LEADS LEFT ANTERIOR FASCICULAR BLOCK BASELINE ARTIFACT- I, II, III, AVR, AVL, AVF, V1-V6 ABNORMAL ECG Compared to ECG 09/16/2025 13:16:01 NO SIGNIFICANT CHANGE Electronically Signed On 10-05-2025 06:18:49 CASTING TRUCKER by Zachariah Rincon D.O.
--- NOTE | 2025-10-05 00:49 | ED.WEAKNESS ---
HPI - Weakness General Chief complaint: Weakness Stated complaint: GEN WEAKNESS, FALL Time Seen by Provider: 10/05/25 00:39 History of Present Illness HPI Narrative: 79-year-old female with a past medical history including diabetes, peripheral neuropathy, chronic kidney disease, heart failure. She has a history of paroxysmal atrial fibrillation on metoprolol. Patient was recently admitted to the hospital for bacteremia requiring IV antibiotics. She was discharged home with home health care. Patient has a history of chronic wound to her right heel that has been there for months and followed with Podiatry here at [facility]. She has had multiple visits with home health care for this but over the last weeks noted that it has been bleeding more. Denies any injuries to the heel but states as she has been falling frequently and feeling weak. She was barely able to get a bed today and she slid to the ground did not strike her head. Called an ambulance for assistance in the noted that she was hypotensive, 80 systolic, hypoxic 88% on room air requiring oxygen. She does not wear oxygen at home. Patient's vital signs improved with fluid interventions and 2 L nasal cannula. Current blood pressure 122/60 after fluids by EMS. Patient is compliant with her medications and states she is not have any urinary issues, nausea, vomiting, abdominal pain, chest pain, shortness a breath, back pain, headache or vision changes. No sick contacts but was hospitalized for several days last month. Related Data Home Medications ?Medication ?Instructions ?Recorded ?Confirmed ?Last Taken ?Type amiodarone 200 mg tablet 200 mg PO DAILY 07/20/24 10/05/25 05/26/25 History spironolactone 25 mg tablet 25 mg PO DAILY 07/20/24 10/05/25 05/26/25 History carvedilol 12.5 mg tablet 12.5 mg PO Q12H 09/16/25 10/05/25 Unknown History collagenase clostridium histo. 250 1 applic topical DAILY diabetic 09/16/25 10/05/25 Unknown History unit/gram topical ointment (Santyl) ulcer losartan 25 mg tablet 25 mg PO DAILY 09/16/25 10/05/25 Unknown History insulin glargine 100 unit/mL (3 40 unit subcut DAILY 10/05/25 10/05/25 Unknown History mL) subcutaneous pen (Lantus Solostar U-100 Insulin) Allergies Allergy/AdvReac Type Severity Reaction Status Date / Time No Known Allergies Allergy Verified 10/05/25 03:37 Review of Systems Review of Systems: As reviewed above in HPI All systems reviewed & are unremarkable except as noted in HPI and below [facility] Past Medical History Medical History Peripheral arterial disease (~07/11/25) mildly decreased FIDEL right lower extremity 07/11/2025. FIDEL 0.87. Diabetic foot ulcer associated with type 2 diabetes mellitus (~04/2025) right heel medial aspect ulcer Cellulitis BARRIOS (nonalcoholic steatohepatitis) Diffuse fatty liver changes on CT abdomen 03/14/2025. Chronic acquired lymphedema treated with sequential pneumatic compression device 2 hours daily lower extremities Nausea and vomiting Renal insufficiency GFR 57 on 06/11/2021. GFR 56 on 08/22/2022. GFR 38 on 10/23/2022. BUN 18, creatinine 1.23 with GFR 46 on 03/02/2023. BUN 18 with creatinine 1.03 with GFR 57 on 09/22/2023. BUN 19, creatinine 1.43 with GFR 31 on 03/09/2024. BUN 15, creatinine 1.12 with GFR 51 on 07/18/2024. Screening for diabetic retinopathy (04/30/21) no diabetic retinopathy on 04/30/2021. mild diabetic retinopathy on the right 08/07/2023. Diabetic ulcer of toe of left foot associated with diabetes mellitus due to underlying condition left great toe, 3rd toe Acute CHF (09/29/22) 10/01/2022 chest x-ray with pulmonary vascular congestion and pleural effusion. CT angio of the chest with contrast was negative for pulmonary embolism with bilateral pleural effusions and nonspecific alveolar and interstitial lung changes suggesting pulmonary edema. Left heart is poorly enhanced in the ascending aorta possibly due to cardiac dysfunction. Calcification with in the LAD noted. Echo on 10/02/2022 with ejection fraction 55-60% with mild mitral regurgitation and trivial tricuspid regurgitation. stress Lexiscan study on 10/03/2022 revealed no apparent reversible ischemia with normal left ventricular systolic function. Chronic kidney disease (CKD) stage G3b/A1, moderately decreased glomerular filtration rate (GFR) between 30-44 mL/min/1.73 square meter and albuminuria creatinine ratio less than 30 mg/g GFR 57 on 06/11/2021. GFR 56 on 08/22/2022. GFR 38 on 10/23/2022. BUN 18, creatinine 1.23 with GFR 46 on 03/02/2023. BUN 18 with creatinine 1.03 with GFR 57 on 09/22/2023. BUN 19, creatinine 1.43 with GFR 31 on 03/09/2024. BUN 15, creatinine 1.12 with GFR 51 on 07/18/2024. BUN 20, creatinine 1.35 with GFR 40 on 02/17/2025. Polyp of colon (~03/11/24) 3 sessile polyps , tubular adenoma, less than 7 mm in the ascending colon on 03/11/2024. No follow-up needed. Gastric ulcer (~02/2024) EGD on 03/11/2024 with gastric ulcer nonbleeding. Iron deficiency anemia, unspecified (~03/09/24) hemoglobin 6.6, iron 43 with 10% saturation and ferritin 7 with vitamin B12 768, folic acid 8.0 on 03/09/2024. Hemoglobin 9.0 on 07/18/2024. hemoglobin 6.4 with iron 13 with 3% saturation and ferritin 4 on 02/17/2025. Hemoglobin 9.5, iron 112 with 30% saturation on 03/30/2025. Diabetic retinopathy of right eye (08/07/23) mild retinopathy right eye 08/07/2023. Diastolic CHF with preserved left ventricular function, NYHA class 2 Echo with ejection fraction 52% with moderate diastolic dysfunction and [id number] tricuspid regurgitation, atrial fibrillation. Paroxysmal atrial fibrillation UTI (urinary tract infection) Hoarseness of voice Diarrhea Acute bronchitis At high risk for falls Diabetic ulcer of toe associated with type 2 diabetes mellitus (~06/2022) superficial ulceration extensor surface right 2nd toe Grieving (~08/2021) 48-year-old son Morbid obesity with BMI of 40.0-44.9, adult Acute non-recurrent maxillary sinusitis Breast cancer screening Body mass index (BMI) of 40.1 to 44.9 in adult Chronic pain Bilateral impacted cerumen Osteoarthritis of right knee Chronic pain of right knee Body mass index (BMI) 45.0-49.9, adult (02/15/19) Diabetic ulcer of toe of left foot associated with type 2 diabetes mellitus Non-pressure chronic ulcer of other part of left foot limited to breakdown of skin Surgical History Surgical History (Updated 10/05/25 @ 06:09 by Shauna Saldana APRN) History of tonsillectomy and adenoidectomy H/O tubal ligation Hx of total knee arthroplasty History of appendectomy Hx of cholecystectomy H/O cataract extraction H/O cardiac radiofrequency ablation Family History Family History Father Acute myocardial infarction, Onset Age: 50 Mother Family history of malignant neoplasm, Onset Age: 82 Social History Social History (Updated 10/05/25 @ 06:10 by Shauna Saldana APRN) Social History: Caffeine-coffe/soda. The patient lives with her . She had 2 children but her son has . She does receive home health. Code status: Full code Smoking status: Never smoker Second hand tobacco smoke exposure: No Alcohol intake: never Substance use: never Substance use type: does not use Lack of Transportation: No Lack of Food: Never True Current Housing: I Have Housing Concerned About Future Housing: No Difficulty Paying Gas/Electric Bills: No Difficulty Paying for Meds: No Currently Unemployed: No Education: Bachelor's Degree Difficulty w/ Childcare or Family Care: No Living arrangements: with family Gender identity (if verbalized by the patient): Female Sexual Orientation (if Verbalized by the Patient): Straight or Heterosexual Spiritual care concerns: No Exam Narrative: GENERAL: Ill-appearing, dyspneic, and lethargic HEAD: Normocephalic, atraumatic EYES: PERRLA ENT: Nares clear, no rhinorrhea or epistaxis. Mucous membranes moist. NECK: Supple. CHEST: Coarse basilar breath sounds, visibly dyspneic but not any acute distress, able to converse. No wheezing or prolonged expiratory phase HEART: Regular rate and rhythm. No murmur heard. Warm extremities ABDOMEN: Soft, nondistended, nontender, no rigidity or guarding EXTREMITIES: Normal range of motion. 1+ edema bilaterally. She has a right heel ulcer that is black with some bleeding tissue surrounding it but no tenderness to palpation or any purulent drainage. Appears very chronic in nature with new bleeding around the margins. No surrounding cellulitis. Warm extremities. SKIN: Warm, dry, no rash. NEURO: No deficits. Alert and oriented [x3.] PSYCH: Normal Course Vital Signs Vital signs: Vital Signs Temperature 37.4 C 10/05/25 00:17 Pulse Rate 82 10/05/25 00:17 Respiratory Rate 14 10/05/25 00:17 Blood Pressure 122/60 10/05/25 00:17 Pulse Oximetry 97 10/05/25 00:17 Oxygen Delivery Nasal Cannula 10/05/25 00:17 Oxygen Flow Rate 2 10/05/25 00:17 Temperature 36.8 C 10/05/25 03:46 Pulse Rate 86 10/05/25 04:00 Respiratory Rate 16 10/05/25 04:00 Blood Pressure 132/66 10/05/25 03:46 Pulse Oximetry 96 10/05/25 04:00 Oxygen Delivery Nasal Cannula 10/05/25 04:00 Oxygen Flow Rate 2 10/05/25 04:00 MDM MDM Narrative Medical decision making narrative: 79-year-old female with a past medical history including diabetes, peripheral neuropathy, chronic kidney disease, heart failure. She has a history of paroxysmal atrial fibrillation on metoprolol. Patient was recently admitted to the hospital for bacteremia requiring IV antibiotics. She was discharged home with home health care. Patient has a history of chronic wound to her right heel that has been there for months and followed with Podiatry here at [place]. She has had multiple visits with home health care for this but over the last weeks noted that it has been bleeding more. Denies any injuries to the heel but states as she has been falling frequently and feeling weak. She was barely able to get a bed today and she slid to the ground did not strike her head. Called an ambulance for assistance in the noted that she was hypotensive, 80 systolic, hypoxic 88% on room air requiring oxygen. She does not wear oxygen at home. Patient's vital signs improved with fluid interventions and 2 L nasal cannula. Current blood pressure 122/60 after fluids by EMS. Patient is compliant with her medications and states she is not have any urinary issues, nausea, vomiting, abdominal pain, chest pain, shortness of breath, back pain, headache or vision changes. No sick contacts but was hospitalized for several days last month. Patient is ill, weak and lethargic appearing but is able to converse. She appears visibly dyspneic and requires 2 L nasal cannula to maintain oxygen saturations. She is not tachycardic. Blood pressure improved after fluid bolus by EMS. She is edematous and has a history of heart failure so we will have to be judicious with fluid resuscitation. Her diastolics are low indicating most likely volume depletion rather than vaso plegia but she was bacteremic with E coli in her blood cultures 2 weeks ago. We will be judicious with fluid boluses 1 L at a time given her CHF. Additional fluids provided. Will start her on vancomycin and cefepime empirically while workup underway with septic bundle. Lactic acid blood cultures and basic labs were obtained. Given her frequent falls on blood thinners a CT of the head was ordered as well as a chest x-ray and a heel x-ray of the right foot although it appears chronic with no acute evidence of cellulitis or overlying skin infection at this time. Patient responded well to 1 L additional fluid bolus at this time. Vital signs remained stable. Heart rate 70, 98% on 2 L nasal cannula. Blood pressure 122/60. Remains afebrile at this time. He will x-ray independently reviewed and also interpreted by radiology with calcaneal fracture with osteomyelitis suspicious for pathologic fracture secondary to the infection. Podiatry consult placed to Dr. Sotelo. CT of the head prelim read shows no intracranial hemorrhage and on my review also does not appear to have any incidental findings. Chest x-ray has no overt pneumonia, some atelectasis is seen. She is on appropriate antibiotics at this time and will be admitted to the IMU. Discussed the case with the hospitalist mid-level provider Shauna who accepted the patient to the hospital at this time. Differential Diagnosis Differential Diagnosis: Sepsis, bacteremia, osteomyelitis, calcaneal fracture, pneumonia, dehydration, kidney injury, UTI Lab Data MDM Lab Attestation statement: I personally reviewed the patient's lab results. 10/05/25 00:46 10/05/25 00:46 Labs: Lab Results 10/05/25 10/05/25 10/05/25 Range/Units 00:46 00:52 01:44 WBC 9.5 (4.5-10.0) K/mm3 RBC 3.02 L (4.2-5.4) M/mm3 Hgb 8.6 L (12.0-15.0) g/dL Hct 27.9 L (37.0-47.0) % MCV 92.4 (80-100) fl MCH 28.5 (26-34) pg MCHC 30.8 L (32-36) g/dl RDW 13.6 (11.5-14.5) % Plt Count 266 (150-375) k/mm3 MPV 8.8 (7.4-10.4) fl Immature Gran % (Auto) 0.6 H (0-0.5) % Neut % (Auto) 87.1 H (45.5-73.1) % Lymph % (Auto) 5.6 L (18.3-44.2) % [place] % (Auto) 6.3 (2.6-8.5) % Eos % (Auto) 0.1 (0-4.4) % Baso % (Auto) 0.3 (0.2-1.2) % Lymph # (Auto) 0.53 L (0.9-3.2) K/mm3 [place] # (Auto) 0.6 (0.1-0.6) K/mm3 Eos # (Auto) 0.0 (0-0.3) K/mm3 Baso # (Auto) 0.0 (0.0-0.1) K/mm3 Abs Immat Gran (auto) 0.06 H (0.00-0.031) K/mm3 Absolute Neuts (auto) 8.3 H (1.3-6.7) K/mm3 Absolute Nucleated RBC 0.000 (0.0-0.012) K/mm3 Nucleated RBC % 0.0 (0.0-0.2) % PT 25.2 H (11.1-14.7) Seconds INR 2.3 APTT 54.2 H (22.3-36.8) Seconds Sodium 133 L (137-145) mmol/L Potassium 4.2 (3.4-5.0) mmol/L Chloride 100 (98-107) mmol/L Carbon Dioxide 28 (22-30) mmol/L Anion Gap 5 (4-12) mmol/L BUN 21 H (7-17) mg/dL Creatinine 1.50 H (0.7-1.0) mg/dL Estim Creat Clear Calc 37 ml/min Estimated GFR 34 L (59 - ) Glucose 176 H (65-110) mg/dL Lactic Acid 1.1 (0.7-2.0) mmol/L Calcium 8.9 (8.4-10.2) mg/dL Total Bilirubin 0.7 (0.2-1.3) mg/dL AST 17 (14-36) U/L ALT 10 (6-35) U/L Alkaline Phosphatase 84 (38-126) U/L C-Reactive Protein 16.5 H (<1.0) mg/dL Total Protein 6.8 (6.3-8.2) g/dL Albumin 3.0 L (3.5-5.1) g/dL Urine Color Yellow (Yellow) Urine Appearance Cloudy H (Clear) Urine pH 5.5 (5.0-9.0) Ur Specific [place] 1.019 (1.001-1.035) Urine Protein Negative (Negative) mg/dL Urine Glucose (UA) 3+ H (Negative) mg/dL Urine Ketones Negative (Negative) mg/dL Ur Blood (Man) Negative (Negative) Urine Nitrate Negative (Negative) Urine Bilirubin Negative (Negative) Urine Urobilinogen 1.0 (<2.0) mg/dL Leukocyte Esterase Rfl Negative (Negative) YANG/UL Urine RBC 0-2 (0-2) /hpf Urine WBC 0-5 (0-3) /hpf Ur Squamous Epith Cells None seen (Few) /hpf Urine Bacteria None seen /hpf Urine Casts 3-5 Influenza A (RT-PCR) Negative (Negative) Influenza B (RT-PCR) Negative (Negative) RSV (RT-PCR) Negative (Negative) SARS-CoV-2 RNA (RT-PCR) Negative (Negative) Imaging Data Attestation: I personally reviewed and interpreted this imaging study as follows: My impression: 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 No acute intracranial findings. Chest X-Ray 10/05/25 06:09 IMPRESSION: 1. No acute cardiopulmonary findings given portable technique. Critical Care Time Critical Care Time Critical Care Time: Yes Time Type: Intermittent Initial evaluation, discuss w/ involved parties, attempting to gather old records: 10 minutes Documenting medical record: 15 minutes Review of results (EKG's, labs, imaging): 10 minutes Serial repeat bedside evaluation: 10 minutes Discussing case with multiple memebers of the care team and consultants: 5 minutes Total Critical Care Time: 50 Discharge Plan Discharge Clinical Impression: Osteomyelitis, Pathologic calcaneal fracture, History of bacteremia, Generalized weakness Patient Disposition: Still a Patient Condition: Stable Time of Disposition: 02:20
[2025-10-05 01:05] LABS: Hematocrit 27.9 % (37.0-47.0); Hemoglobin 8.6 g/dL (12.0-15.0); Immature Granulocyte Percent A 0.6 % (0-0.5); Lymphocytes Absolute Auto 0.53 K/mm3 (0.9-3.2); Mean Corpuscular HGB Conc 30.8 g/dl (32-36); Mean Corpuscular Hemoglobin 28.5 pg (26-34); Mean Corpuscular Volume 92.4 fl (80-100); Nucleated Red Blood Cells Absolute Auto 0.000 K/mm3 (0.0-0.012); Nucleated Red Blood Cells Perc 0.0 % (0.0-0.2); Platelet Count Result 266 k/mm3 (150-375); Red Blood Count 3.02 M/mm3 (4.2-5.4); White Blood Count 9.5 K/mm3 (4.5-10.0)
[2025-10-05 01:13] LABS: INR 2.3; Prothrombin Time 25.2 Seconds (11.1-14.7)
[2025-10-05 01:15] LABS: Alanine Aminotransferase 10 U/L (6-35); Albumin Level 3.0 g/dL (3.5-5.1); Alkaline Phosphatase 84 U/L (38-126); Anion Gap 5 mmol/L (4-12); Aspartate Amino Transferase 17 U/L (14-36); Bilirubin,Total 0.7 mg/dL (0.2-1.3); Blood Urea Nitrogen 21 mg/dL (7-17); Calcium 8.9 mg/dL (8.4-10.2); Carbon Dioxide 28 mmol/L (22-30); Chloride 100 mmol/L (98-107); Estimated CRCL calculation 37 ml/min; Estimated Glomerular Filt Rate 34; Glucose 176 mg/dL (65-110); Potassium 4.2 mmol/L (3.4-5.0); Sodium 133 mmol/L (137-145); Total Protein 6.8 g/dL (6.3-8.2)
[2025-10-05 01:17] LABS: Partial Thromboplastin Time 54.2 Seconds (22.3-36.8)
[2025-10-05] MEDS: LACTATED RINGERS 1,000 ML 999 ML IV CONT (01:17)
[2025-10-05] MEDS: CEFEPIME 2 GM in SODIUM CHLORIDE 0.9% IV 50 ML 100 ML IVPB (01:17)
--- OUTSIDE RECORDS SUMMARY | 2025-10-05 01:19 | XMS_ITS | Clinical Summary ---
Author Organization [facility] Address [address] [place] [address] Care Team Providers Care Air Carrier Maintenance Inspector Name Role Phone Jasiel Person MD Primary Care Provider [phone] Allergies No known active allergies Medications LEVEMIR FLEXTOUCH U-100 INSULN 100 unit/mL (3 mL) insulin pen INJECT 60 UNITS QAM 11 8 Active NOVOFINE PLUS 32 gauge x 1/6 needle USE WITH INSULIN QID 11 8 Active levothyroxine (SYNTHROID) 175 mcg tablet Take 1 tablet (175 mcg total) by mouth control area operator before breakfast Active atorvastatin (LIPITOR) 40 mg [...] PM CDT): MRI open at [facility] Oral steroids called into [facility] Recheck hearing test in 6 weeks Carotid doppler Centralized Scheduling: Dizziness and giddiness 03/18/2019 Assessment & Plan (03/18/2019 12:43 PM CDT): MRI open at [facility] Oral steroids called into [facility] Recheck hearing test in 6 weeks Carotid doppler Centralized Scheduling: If no improvement in 6 weeks, consider [place] versus CTA Hx of colonic polyps 07/06/2018 Overview (07/06/2018): Added automatically from request for surgery [id number] Encounters Date Type Department Care Team Description 09/16/2025 12:23 PM MANAGER AUDIO - 09/16/2025 11:59 PM MANAGER AUDIO Hospital Encounter [facility] AMBULANCE BILLING Emergency, Room R Discharge Disposition: [...] on file Legal Sex Female 7:55 PM MANAGER AUDIO Gender Identity Not on file Sexual Orientation Not on file Last Filed Vital Signs Vital Sign Reading Time Taken Comments Blood Pressure 105/56 02/09/2024 12:14 PM CDT Pulse 105 02/08/2024 1:30 PM CDT Temperature 36.7 C (98.1 F) 09/15/2023 11:48 AM MANAGER AUDIO Respiratory Rate 16 01/26/2024 11:36 AM CDT [...] BLOOD ORDERABLES Ana elian Result [facility] [id number] [address] [id number] * COLONOSCOPY (08/12/2018 10:17 AM CDT) Anatomical Region Laterality Modality Other Narrative Procedure Note Angel Guido MD - 08/12/2018 10:17 AM CDT [facility] Patient Name: Nona Estrella Procedure Date: 08/12/2018 10:17AM Date of : 1945 Admit Type: Outpatient Age: 72 Gender: Female Attending MD: Angel Guido M.D. Room: [facility] ENDOSCOPY ROOM 1 Note Status: [...] scope was passed under direct vision.The Colonoscope [id number] was introducedthrough the anus and advanced to [...] 10:17 AM Procedure Code(s): --- Professional --- 54144, Colonoscopy, flexible; with removal of tumor(s), polyp(s), or other lesion(s) by hot biopsy forceps Diagnosis Code(s): --- Professional --- D12.3, Benign neoplasm of transverse colon (hepatic flexure orsplenic flexure) D12.4, Benign neoplasm of descending colon K64.9, Unspecified hemorrhoids Z86.010, Personal history of colonic polyps CPT copyright 2017 [employer]. All rights reserved. The codes documented in this report are preliminary and upon health information coder reviewmay be revised to meet current compliance requirements. Recognized by the [employer] for promoting quality in endoscopy us Angel Guido MD ENDOSCOPY PROCEDURES Final Re sult from Last 3 Months or Most Recently Relevant to Health Maintenance Insurance T MEDICARE T MEDICARE AET MEDICARE Advance Directives For more information, please contact: [phone] * Full Code (Latest Code Status on File) Date Activated Date Inactivated Comments 08/12/2018 8:57 AM 08/12/2018 1:55 PM * Full Code Date Activated Date Inactivated Comments 08/12/2018 8:57 AM 08/12/2018 8:57 AM Care Teams Air Carrier Maintenance Inspector Relationship Specialty Start Date End Date Jasiel Person MD [address] - Financial Reconciliation[address] [address] PCP - General Family Medicine 07/02/18
[2025-10-05 01:31] LABS: CRP 16.5 mg/dL (<1.0)
[2025-10-05 01:33] LABS: Influenza A QL RT-PCR Negative (Negative); Influenza B QL RT-PCR Negative (Negative); RSV RNA, RT-PCR Negative (Negative); SARS-CoV-2 RNA PCR Negative (Negative)
[2025-10-05] MEDS: VANCOMYCIN 1,250 MG/NS 250 ML 1,250 MG/250 ML BAG 166.67 MG IVPB ×2 (01:46→04:13)
[2025-10-05 01:55] LABS: Add Urine Microscopic? YES; Appearance Urine Cloudy (Clear); Glucose Urine UA 3+ mg/dL (Negative); Leukocyte Esterase Ur Negative LEU/UL (Negative); Nitrate Urine Negative (Negative); Specific Grav Ur 1.019 (1.001-1.035)
--- NOTE | 2025-10-05 02:42 | WPCEDHO ---
ED Hand Off Checklist All vitals saved: Y IV Site documented: Y All med administrations documented: Y Triage Note Triage Note Pt arrives from home via EMS w/ c 10/05/25 00:17 /o generalized weakness, increased falls, hypoxia and increased bleeding to R heel ulcer. Bleeding noted to R heel, pt states that she is seeing wound care for it, but it just started bleeding last week. Pt hypoxic in the mid 80s and hypotensive for EMS. Pt w/ hx DM and CHF. Pt received 300mL LR from EMS with improvement in BP. Allergies No Known Allergies Allergy (Verified 09/16/25 17:59) Family History (Last Reviewed 10/05/25 @ 00:51 by Ike Wilson MD) Father Acute myocardial infarction Mother Family history of malignant neoplasm Active Medications including assessments/comments Vancomycin HCl (Vancomycin 1,250 Mg/Ns 250 Ml) 1,250 mg in 250 mls @ 166.667 mls/hr IVPB ONCE ONE Stop: 10/05/25 03:29 Last Admin: 10/05/25 01:46 Dose: 166.67 mls/hr Documented By: TRAE Infusion/Titration Document 10/05/25 01:46 TRAE (Rec: 10/05/25 01:46 TRAE [id number]) Intake IV Site Peripheral Access Left Antecubital Container Volume 250 Waste Amount 0 Dosing Infusion Rate 166.67 Increase/Decrease Started Elapsed Time Elapsed Time ( 0m minutes) Administered/Completed Medications Discontinued Medications Cefepime HCl 2 gm/ Sodium (Chloride) 50 mls @ 100 mls/hr IVPB ONCE STA Stop: 10/05/25 01:10 Last Infusion: 10/05/25 01:47 Dose: Infused Documented By: Admin: 10/05/25 01:17 Dose: 100 mls/hr Documented By: TRAE Lactated Ringer's (Lr - Lactated Ringers Iv) 1,000 mls @ 999 mls/hr IV CONT .Q1H1M STA Stop: 10/05/25 01:56 Last Admin: 10/05/25 01:17 Dose: 999 mls/hr Documented By: TRAE Interventions/Assessments IV / Saline Lock, Insert Start: 10/05/25 00:17 Freq: Status: Active Protocol: Document 10/05/25 01:45 TRAE (Rec: 10/05/25 01:45 HNK [id number]) IV Assessment Peripheral Access Left Antecubital IV Catheter Access Initiated Before Arrival Catheter Gauge 20 PA: Cardiovascular Assessment Start: 10/05/25 00:17 Freq: Status: Active Protocol: Document 10/05/25 00:17 HNK (Rec: 10/05/25 00:34 HNK [id number]) Cardiovascular Assessment Cardiovascular None Symptoms Skin Description Normal Color Heart Sounds Normal Jugular Vein None Distention PA: Neurological Assessment Start: 10/05/25 00:17 Freq: Status: Active Protocol: Document 10/05/25 00:17 HNK (Rec: 10/05/25 00:34 HNK [id number]) [place] Coma Scale Eyes Open Verbal Oriented and Alert Motor Follows Commands [place] Coma Total 15 Score Neurological Assessment Level of Alert,Awake Consciousness Arousable to Verbal Orientation Oriented to Person,Oriented to Place,Oriented to Time Neurological Weakness, General Symptoms Hallucination Type None Unable to Redirect No Behavior Behavior Cooperative Patient Able to Comprehend Comprehension Memory Description Intact Ability to Maintain Normal Balance Facial Symmetry Symmetrical Speech Pattern Clear Ability to Swallow Normal Tongue Position Midline Finger to Nose Test Normal Performance Heel to Bernal Test Normal Performance Last Vital Signs Temperature 99.3 F 10/05/25 00:17 Pulse Rate 70 10/05/25 02:41 Respiratory Rate 16 10/05/25 02:41 Pulse Oximetry 100 10/05/25 02:41 Blood Pressure 117/49 L 10/05/25 02:41 Blood Pressure Mean 71 10/05/25 02:41 Blood Pressure Position Supine 10/05/25 00:17 Oxygen Delivery Nasal Cannula 10/05/25 00:17 Oxygen Flow Rate 2 10/05/25 00:17 Weight 119 kg 10/05/25 00:17 Last Result - Abnormals Only RBC 3.02 M/mm3 (4.2-5.4) L 10/05/25 00:46 Hgb 8.6 g/dL (12.0-15.0) L 10/05/25 00:46 Hct 27.9 % (37.0-47.0) L 10/05/25 00:46 MCHC 30.8 g/dl (32-36) L 10/05/25 00:46 Immature Gran % (Auto) 0.6 % (0-0.5) H 10/05/25 00:46 Neut % (Auto) 87.1 % (45.5-73.1) H 10/05/25 00:46 Lymph % (Auto) 5.6 % (18.3-44.2) L 10/05/25 00:46 Lymph # (Auto) 0.53 K/mm3 (0.9-3.2) L 10/05/25 00:46 Abs Immat Gran (auto) 0.06 K/mm3 (0.00-0.031) H 10/05/25 00:46 Absolute Neuts (auto) 8.3 K/mm3 (1.3-6.7) H 10/05/25 00:46 PT 25.2 Seconds (11.1-14.7) H 10/05/25 00:46 APTT 54.2 Seconds (22.3-36.8) H 10/05/25 00:46 Sodium 133 mmol/L (137-145) L 10/05/25 00:46 BUN 21 mg/dL (7-17) H 10/05/25 00:46 Creatinine 1.50 mg/dL (0.7-1.0) H 10/05/25 00:46 Estimated GFR 34 (59-) L 10/05/25 00:46 Glucose 176 mg/dL (65-110) H 10/05/25 00:46 C-Reactive Protein 16.5 mg/dL (<1.0) H 10/05/25 00:46 Albumin 3.0 g/dL (3.5-5.1) L 10/05/25 00:46 Urine Appearance Cloudy (Clear) H 10/05/25 01:44 Urine Glucose (UA) 3+ mg/dL (Negative) H 10/05/25 01:44 Most Recent Suicide Severity Rating Suicide Severity Rating NO RISK INDICATED 10/05/25 00:17
--- NOTE | 2025-10-05 03:31 | ADMGEN ---
This patient, Nona Estrella, was admitted to IMU Room 206-02. Patient/family oriented to hospital policies and general routines including ID bracelet, bed and alarms, visiting hours, pain management, procedures, bathroom and other care routines, personal items, smoking policy, room service/diet, and visiting hours. Information on how to activate the Rapid Response Team has been discussed. Patient/Family are encouraged to report perceived risks to care and to ask questions if they do not understand what they are told or what they should do.
--- NOTE | 2025-10-05 05:45 | PM.IMHP2 ---
H&P: HPI History of Present Illness Date/Time: 10/05/25 05:45 Chief Complaint: Weakness Narrative: This is a 79-year-old female patient who has a history of diabetes, peripheral neuropathy, chronic kidney disease, diabetes, and heart failure. ( The patient was discharged from the hospital here on 09/26/2025 with bacteremia. She was treated with Rocephin and then transitioned to Augmentin p.o..) The patient has been receiving home health. She also has a chronic sacral ulcer as well as a chronic diabetic foot ulcer on her right heel. Podiatry has been following her progression of the diabetic foot ulcer on her heel. Today the patient called an ambulance because she had increased swelling to her right foot and increased generalized weakness. The patient was having difficulty getting out of bed and slid to the ground. She denied hitting her head. Patient was found to be hypotensive with her systolic blood pressure in the 80s. She was also hypoxic on room air with 88% O2 saturation. The patient endorses that she has been compliant with her antibiotics as well as the rest of her medication. The patient was placed on oxygen at 2 L per nasal cannula. The patient received 1 L of IV fluids for sepsis however she was only given 1 bag due to her history of CHF and her edema. Dr. Sotelo was consulted from ER. As per ER note CT of the head prelim read shows no intracranial hemorrhage and on my review also does not appear to have any incidental findings. Chest x-ray has no overt pneumonia, some atelectasis is seen. Right a foot x-ray was interpreted as calcaneal fracture with osteomyelitis suspicious for pathological fracture secondary to the infection.The patient was started on cefepime and vancomycin. Her white count is normal and her H&H is 8.6 and 27.9. The patient was reported to have bloody drainage coming from right heel. Creatinine 1.5 which is slightly above her baseline. Her baseline is somewhere between 1.07 and 1.26. Her GFR is 34 with a baseline somewhere around 41-47. BUN is 21 with a baseline somewhere between 18 and 22. Her blood sugar was noted to be 176. C reactive protein 16.5. 3+ glucose in the urine. Serology negative for influenza a, B, RSV, and COVID. The patient is being admitted to observation status on the date of service 09/25/2025 Review of Systems Constitutional: Constitutional: Reports as per HPI and Reports no additional constitutional complaints Eyes: Eyes: Reports as per HPI and Reports no additional eye complaints ENT: Reports system reviewed and no additional complaints, except as documented and Reports Normal hearing present Cardiovascular: Cardiovascular: Reports no additional cardiovascular complaints Respiratory: Respiratory: Reports as per HPI and Reports no additional respiratory complaints Gastrointestinal: Gastrointestinal: Reports as per HPI and Reports no additional gastrointestinal complaints Genitourinary: Genitourinary: Reports no additional female genitourinary complaints Musculoskeletal: Musculoskeletal: Reports no additional musculoskeletal complaints Integumentary/Breasts: Skin/Breast: Reports system reviewed and no additional complaints, except as docu Neurologic: Reports system reviewed and no additional complaints, except as documented and Reports Normal hearing present Psychiatric: Psychiatric: Reports no additional psychiatric complaints and Reports as per HPI Hematologic/Lymphatic: Hematologic/Lymphatic: Reports no additional hematologic/lymphatic complaints Allergic/Immunologic: Allergic/Immunologic: Reports no additional allergic/immunologic complaints [facility] Past Medical History Medical History Peripheral arterial disease (~07/11/25) mildly decreased FIDEL right lower extremity 07/11/2025. FIDEL 0.87. Diabetic foot ulcer associated with type 2 diabetes mellitus (~04/2025) right heel medial aspect ulcer Cellulitis BARRIOS (nonalcoholic steatohepatitis) Diffuse fatty liver changes on CT abdomen 03/14/2025. Chronic acquired lymphedema treated with sequential pneumatic compression device 2 hours daily lower extremities Nausea and vomiting Renal insufficiency GFR 57 on 06/11/2021. GFR 56 on 08/22/2022. GFR 38 on 10/23/2022. BUN 18, creatinine 1.23 with GFR 46 on 03/02/2023. BUN 18 with creatinine 1.03 with GFR 57 on 09/22/2023. BUN 19, creatinine 1.43 with GFR 31 on 03/09/2024. BUN 15, creatinine 1.12 with GFR 51 on 07/18/2024. Screening for diabetic retinopathy (04/30/21) no diabetic retinopathy on 04/30/2021. mild diabetic retinopathy on the right 08/07/2023. Diabetic ulcer of toe of left foot associated with diabetes mellitus due to underlying condition left great toe, 3rd toe Acute CHF (09/29/22) 10/01/2022 chest x-ray with pulmonary vascular congestion and pleural effusion. CT angio of the chest with contrast was negative for pulmonary embolism with bilateral pleural effusions and nonspecific alveolar and interstitial lung changes suggesting pulmonary edema. Left heart is poorly enhanced in the ascending aorta possibly due to cardiac dysfunction. Calcification with in the LAD noted. Echo on 10/02/2022 with ejection fraction 55-60% with mild mitral regurgitation and trivial tricuspid regurgitation. stress Lexiscan study on 10/03/2022 revealed no apparent reversible ischemia with normal left ventricular systolic function. Chronic kidney disease (CKD) stage G3b/A1, moderately decreased glomerular filtration rate (GFR) between 30-44 mL/min/1.73 square meter and albuminuria creatinine ratio less than 30 mg/g GFR 57 on 06/11/2021. GFR 56 on 08/22/2022. GFR 38 on 10/23/2022. BUN 18, creatinine 1.23 with GFR 46 on 03/02/2023. BUN 18 with creatinine 1.03 with GFR 57 on 09/22/2023. BUN 19, creatinine 1.43 with GFR 31 on 03/09/2024. BUN 15, creatinine 1.12 with GFR 51 on 07/18/2024. BUN 20, creatinine 1.35 with GFR 40 on 02/17/2025. Polyp of colon (~03/11/24) 3 sessile polyps , tubular adenoma, less than 7 mm in the ascending colon on 03/11/2024. No follow-up needed. Gastric ulcer (~02/2024) EGD on 03/11/2024 with gastric ulcer nonbleeding. Iron deficiency anemia, unspecified (~03/09/24) hemoglobin 6.6, iron 43 with 10% saturation and ferritin 7 with vitamin B12 768, folic acid 8.0 on 03/09/2024. Hemoglobin 9.0 on 07/18/2024. hemoglobin 6.4 with iron 13 with 3% saturation and ferritin 4 on 02/17/2025. Hemoglobin 9.5, iron 112 with 30% saturation on 03/30/2025. Diabetic retinopathy of right eye (08/07/23) mild retinopathy right eye 08/07/2023. Diastolic CHF with preserved left ventricular function, NYHA class 2 Echo with ejection fraction 52% with moderate diastolic dysfunction and [id number] tricuspid regurgitation, atrial fibrillation. Paroxysmal atrial fibrillation UTI (urinary tract infection) Hoarseness of voice Diarrhea Acute bronchitis At high risk for falls Diabetic ulcer of toe associated with type 2 diabetes mellitus (~06/2022) superficial ulceration extensor surface right 2nd toe Grieving (~08/2021) 48-year-old son Morbid obesity with BMI of 40.0-44.9, adult Acute non-recurrent maxillary sinusitis Breast cancer screening Body mass index (BMI) of 40.1 to 44.9 in adult Chronic pain Bilateral impacted cerumen Osteoarthritis of right knee Chronic pain of right knee Body mass index (BMI) 45.0-49.9, adult (02/15/19) Diabetic ulcer of toe of left foot associated with type 2 diabetes mellitus Non-pressure chronic ulcer of other part of left foot limited to breakdown of skin Surgical History Surgical History (Updated 10/05/25 @ 06:09 by Shauna Saldana APRN) History of tonsillectomy and adenoidectomy H/O tubal ligation Hx of total knee arthroplasty History of appendectomy Hx of cholecystectomy H/O cataract extraction H/O cardiac radiofrequency ablation Family History Family History Father Acute myocardial infarction, Onset Age: 50 Mother Family history of malignant neoplasm, Onset Age: 82 Social History Social History (Updated 10/05/25 @ 06:10 by Shauna Saldana APRN) Social History: Caffeine-coffe/soda. The patient lives with her . She had 2 children but her son has . She does receive home health. Code status: Full code Smoking status: Never smoker Second hand tobacco smoke exposure: No Alcohol intake: never Substance use: never Substance use type: does not use Lack of Transportation: No Lack of Food: Never True Current Housing: I Have Housing Concerned About Future Housing: No Difficulty Paying Gas/Electric Bills: No Difficulty Paying for Meds: No Currently Unemployed: No Education: Bachelor's Degree Difficulty w/ Childcare or Family Care: No Living arrangements: with family Gender identity (if verbalized by the patient): Female Sexual Orientation (if Verbalized by the Patient): Straight or Heterosexual Spiritual care concerns: No Meds Home Medications and Allergies Home Medications ?Medication ?Instructions ?Recorded ?Confirmed ?Type amiodarone 200 mg tablet 200 mg PO DAILY 07/20/24 10/05/25 History spironolactone 25 mg tablet 25 mg PO DAILY 07/20/24 10/05/25 History apixaban 5 mg tablet (Eliquis) 5 mg PO BID #60 tabs 10/21/24 10/05/25 Rx empagliflozin 25 mg tablet 25 mg PO QAM #90 tabs 11/30/24 10/05/25 Rx (Jardiance) atorvastatin 40 mg tablet 40 mg PO DAILY #90 tabs 12/12/24 10/05/25 Rx gabapentin 800 mg tablet 800 mg PO TID #90 tabs 12/23/24 10/05/25 Rx furosemide 40 mg tablet 40 mg PO QAM #30 tabs 02/09/25 10/05/25 Rx Synthroid 200 mcg tablet 200 mcg PO . q.a.m. #90 tabs 02/21/25 10/05/25 Rx (levothyroxine) ferrous sulfate 325 mg (65 mg 325 mg PO DAILY #90 tabs 02/21/25 10/05/25 Rx iron) tablet,delayed release ondansetron 4 mg disintegrating 4 mg PO Q8H PRN nausea and 03/14/25 10/05/25 Rx tablet vomiting #10 tabs esomeprazole magnesium 40 mg 40 mg PO DAILY #90 caps 04/04/25 10/05/25 Rx capsule,delayed release pen needle, diabetic 32 gauge x #100 ea 04/17/25 10/05/25 Rx /32 potassium chloride 10 mEq 10 meq PO DAILY #90 caps 07/24/25 10/05/25 Rx capsule,extended release hydrocodone 10 mg-acetaminophen 1 tablet PO Q6H PRN pain #120 tabs 09/08/25 10/05/25 Rx 325 mg tablet carvedilol 12.5 mg tablet 12.5 mg PO Q12H 09/16/25 10/05/25 History collagenase clostridium histo. 250 1 applic topical DAILY diabetic 09/16/25 10/05/25 History unit/gram topical ointment (Santyl) ulcer losartan 25 mg tablet 25 mg PO DAILY 09/16/25 10/05/25 History insulin glargine 100 unit/mL (3 40 unit subcut DAILY 12/18/25 12/18/25 History mL) subcutaneous pen (Lantus Solostar U-100 Insulin) Allergies Allergy/AdvReac Type Severity Reaction Status Date / Time No Known Allergies Allergy Verified 10/05/25 03:37 Vital Signs Vital Signs - 24 hr 10/05/25 00:17 10/05/25 02:41 10/05/25 03:46 Temperature 99.3 F 98.2 F Pulse Rate 82 70 77 Respiratory Rate 14 16 18 Blood Pressure 122/60 117/49 L 132/66 Pulse Oximetry 97 100 96 Oxygen Delivery Nasal Cannula Oxygen Flow Rate 2 10/05/25 04:00 10/05/25 04:00 Temperature Pulse Rate 76 86 Respiratory Rate 16 Blood Pressure Pulse Oximetry 96 Oxygen Delivery Nasal Cannula Oxygen Flow Rate 2 Exam Const: General: cooperative, comfortable, no acute distress, well developed, awake, Physically active, average body habitus and well nourished Nutritional Appearance: average body habitus and well nourished Orientation/consciousness: oriented to person, oriented to place, oriented to time and patient oriented x3 Limitations: no limitations HENMT: Head: normal to inspection, No palpable skull fracture present, normocephalic, atraumatic and abrasion Ears: hearing grossly normal bilaterally and external ears normal Face/Nose/Sinus: Normal external nose present, Normal nares present and No nasal polyps present Eyes: General: appearance normal, both eyes and all related structures Alignment and Position: alignment normal Periorbital: periorbital findings normal Eyelids: eyelids normal Neck: Neck: normal visual inspection and full ROM Chest: Chest palpation & inspection: normal inspection of the chest Resp: Effort & Inspection: normal respiratory effort Auscultation: clear to auscultation bilaterally Cardio: Palpation: normal PMI Rate: regular rate Rhythm: regular rhythm Heart sounds: S1 normal heart sound present GI: Inspection: normal to inspection Percussion: Yes normal to percussion Auscultation: normal bowel sounds Rectal Exam: deferred : General: Yes no CVA tenderness Back/Spine/Pelvis: Back: no CVA tenderness Cervical Spine: cervical ROM normal Skin: General skin exam: normal color Lesions: lesion noted (Entire right heel covered with eschar tissue. Bloody drainage noted. ) Rashes: no rashes Trauma: no lacerations or abrasions Hair: normal Nails: normal Other: Please see wound pictures from nursing staff. Eschar tissue covers the entire surface of the right heel. Bloody drainage noted from right heel. Unstageable sacral ulcer. Neuro: General: oriented to person, oriented to place, oriented to time and patient oriented x3 Cranial nerves: Yes Equal, round and reactive pupils present and Yes Normal hearing present Cognition (Neuro): normal cognition Speech: normal speech Extrem: General: normal to inspection Right upper extremity: normal to inspection and shoulder/upper arm Left upper extremity: normal to inspection and shoulder/upper arm Right lower extremity: normal to inspection Left lower extremity: normal to inspection Other: 2+ pitting edema right worse than the left to lower extremities. Psych: Appearance: grossly normal Mental Status: mental status grossly normal Speech and movement: Normal speech and movement present Affect: normal affect Attitude: cooperative Thought process: Normal thought process present Thought content: Yes Normal thought content present Insight: Good insight present (Psych) Judgement: Good judgement present (Psych) Results Labs Labs: Short CBC 10/05/25 Range/Units 00:46 WBC 9.5 (4.5-10.0) K/mm3 Hgb 8.6 L (12.0-15.0) g/dL Hct 27.9 L (37.0-47.0) % Plt Count 266 (150-375) k/mm3 BMP 10/05/25 00:46 Sodium 133 L Potassium 4.2 Chloride 100 Carbon Dioxide 28 BUN 21 H Creatinine 1.50 H Glucose 176 H Calcium 8.9 Liver Function 10/05/25 Range/Units 00:46 Total Bilirubin 0.7 (0.2-1.3) mg/dL AST 17 (14-36) U/L ALT 10 (6-35) U/L Alkaline Phosphatase 84 (38-126) U/L Albumin 3.0 L (3.5-5.1) g/dL Urine 10/05/25 Range/Units 01:44 Urine Color Yellow (Yellow) Urine Appearance Cloudy H (Clear) Urine pH 5.5 (5.0-9.0) Ur Specific [place] 1.019 (1.001-1.035) Urine Protein Negative (Negative) mg/dL Urine Glucose (UA) 3+ H (Negative) mg/dL Imaging CT scan - head: Radiologist's impression: ITS Impressions Head CT 10/05/25 06:07 IMPRESSION: 1. No acute intracranial findings. Chest X-Ray 10/05/25 06:09 IMPRESSION: 1. No acute cardiopulmonary findings given portable technique. Quality VTE Prophylaxis VTE prophylaxis: pharmacologic ordered Assessment and Plan Assessment and plan (1) Diabetic foot ulcer associated with type 2 diabetes mellitus: Onset Date: ~04/2025 Code(s): E11.621 - Type 2 diabetes mellitus with foot ulcer; L97.509 - Non-pressure chronic ulcer of other part of unspecified foot with unspecified severity Status: Acute Assessment and Plan: -Dr. Sotelo has been consulted for the diabetic right heel wound.(wound care was consulted for sacral ulcer.) -the patient has had this decubitus ulcer for several months. -please see nursing wound pictures. -patient has a large patch of eschar tissue to the entire right heel. She also has a sacral wound. -the patient stated that she has been using Santyl as prescribed for the diabetic foot ulcer. -she is on cefepime and vancomycin -her blood pressure is stable at 132/66 and her heart rate is less than 90. At this point she is afebrile. -check lactic (2) Diastolic CHF with preserved left ventricular function, NYHA class 2: Code(s): I50.30 - Unspecified diastolic (congestive) heart failure Status: Acute Assessment and Plan: -no recent echo seen. -continue with Coreg -continue Jardiance -I did continue with her Lasix IV for now but may consider stopping if she becomes septic. She is also on a potassium supplement from home. -continue with losartan -continue with spironolactone. -monitor electrolytes due to her medications. -patient was only given 1 L bolus of IV fluids in the emergency room. At this time I have not restarted any IV fluids. (3) Paroxysmal atrial fibrillation: Code(s): I48.0 - Paroxysmal atrial fibrillation Status: Acute Assessment and Plan: -the patient is in sinus rhythm at this time. -she has had a history of a cardiac radiofrequency ablation in the past. -continue with Coreg -continue with apixaban -continue with amiodarone if blood pressure allows. (4) Essential (primary) hypertension: Code(s): I10 - Essential (primary) hypertension Status: Acute Assessment and Plan: --currently her blood pressure is 132/66. -continue with Coreg if blood pressure allows -continue with losartan if blood pressure allows -continue with spironolactone and Lasix if blood pressure allows (5) Mixed hyperlipidemia: Code(s): E78.2 - Mixed hyperlipidemia Status: Acute Assessment and Plan: -continue with atorvastatin (6) Controlled type 2 diabetes mellitus with hyperglycemia, with long-term current use of insulin: Code(s): E11.65 - Type 2 diabetes mellitus with hyperglycemia; Z79.4 - termination clerk (current) use of insulin Status: Acute Assessment and Plan: -Accu-Cheks with a seen HS and sliding scale insulin with hypoglycemic protocol. -check A1c -pharmacy to decrease home long-acting insulin by 20%. -continue with Jardiance (7) Hypothyroidism, unspecified: Qualifiers: Hypothyroidism type: unspecified Qualified Code(s): E03.9 - Hypothyroidism, unspecified Code(s): E03.9 - Hypothyroidism, unspecified Status: Acute Assessment and Plan: -continue with Synthroid (8) Iron deficiency anemia, unspecified: Onset Date: ~03/09/24 Qualifiers: Iron deficiency anemia type: chronic blood loss Qualified Code(s): D50.0 - Iron deficiency anemia secondary to blood loss (chronic) Code(s): D50.9 - Iron deficiency anemia, unspecified Status: Acute Assessment and Plan: -her H&H is currently 8.6 and 27.9. Her past H&H was 9.0 in 28.5 on 09/25/2025. -monitor CBCs and H&H -anemia of chronic disease with a history of chronic renal failure -continue with ferrous sulfate (9) Chronic kidney disease (CKD) stage G3b/A1, moderately decreased glomerular filtration rate (GFR) between 30-44 mL/min/1.73 square meter and albuminuria creatinine ratio less than 30 mg/g: Code(s): N18.32 - Chronic kidney disease, stage 3b Status: Acute Assessment and Plan: -her creatinine is 1.5 with a baseline of 1.2 - 1.30. BUN is 21 with a baseline of 18 - 27. And GFR is 34 the baseline anywhere from 27-47. -nephrology has seen her here in the past.
[2025-10-05 07:04] LABS: Hematocrit 28.3 % (37.0-47.0); Hemoglobin 8.7 g/dL (12.0-15.0)
[2025-10-05 07:26] LABS: Hemoglobin A1C 7.0 % (<5.7)
--- NOTE | 2025-10-05 07:37 | PM.IMPN2 ---
Assessment and Plan Assessment and Plan (1) Diabetic foot ulcer associated with type 2 diabetes mellitus: Onset Date: ~04/2025 Code(s): E11.621 - Type 2 diabetes mellitus with foot ulcer; L97.509 - Non-pressure chronic ulcer of other part of unspecified foot with unspecified severity Status: Acute Assessment and Plan: -Dr. Sotelo has been consulted for the diabetic right heel wound.(wound care was consulted for sacral ulcer.) -the patient has had this decubitus ulcer for several months. -please see nursing wound pictures. -patient has a large patch of eschar tissue to the entire right heel. She also has a sacral wound. -the patient stated that she has been using Santyl as prescribed for the diabetic foot ulcer. -she is on cefepime and vancomycin -her blood pressure is stable at 132/66 and her heart rate is less than 90. At this point she is afebrile. -check lactic (2) Diastolic CHF with preserved left ventricular function, NYHA class 2: Code(s): I50.30 - Unspecified diastolic (congestive) heart failure Status: Acute Assessment and Plan: -no recent echo seen. -continue with Coreg -continue Jardiance and Lasix -hold losartan due to BAYLEE -continue with spironolactone. -monitor electrolytes due to her medications. -patient was only given 1 L bolus of IV fluids in the emergency room. At this time I have not restarted any IV fluids. (3) Paroxysmal atrial fibrillation: Code(s): I48.0 - Paroxysmal atrial fibrillation Status: Acute Assessment and Plan: -the patient is in sinus rhythm at this time. -she has had a history of a cardiac radiofrequency ablation in the past. -continue with Coreg -continue with apixaban -continue with amiodarone if blood pressure allows. (4) Essential (primary) hypertension: Code(s): I10 - Essential (primary) hypertension Status: Acute Assessment and Plan: --currently her blood pressure is 132/66. 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 -check A1c -pharmacy to decrease home long-acting insulin by 20%. -continue with Jardiance (7) Hypothyroidism, unspecified: Qualifiers: Hypothyroidism type: unspecified Qualified Code(s): E03.9 - Hypothyroidism, unspecified Code(s): E03.9 - Hypothyroidism, unspecified Status: Acute Assessment and Plan: -continue with Synthroid (8) Iron deficiency anemia, unspecified: Onset Date: ~03/09/24 Qualifiers: Iron deficiency anemia type: chronic blood loss Qualified Code(s): D50.0 - Iron deficiency anemia secondary to blood loss (chronic) Code(s): D50.9 - Iron deficiency anemia, unspecified Status: Acute Assessment and Plan: -her H&H is currently 8.6 and 27.9. Her past H&H was 9.0 in 28.5 on 09/25/2025. -monitor CBCs and H&H -anemia of chronic disease with a history of chronic renal failure -continue with ferrous sulfate (9) Chronic kidney disease (CKD) stage G3b/A1, moderately decreased glomerular filtration rate (GFR) between 30-44 mL/min/1.73 square meter and albuminuria creatinine ratio less than 30 mg/g: Code(s): N18.32 - Chronic kidney disease, stage 3b Status: Acute Assessment and Plan: -her creatinine is 1.5 with a baseline of 1.2 - 1.30. BUN is 21 with a baseline of 18 - 27. And GFR is 34 the baseline anywhere from 27-47. -nephrology has seen her here in the past. -Hold losartan and sprinolactone Subjective Date/time seen: 10/05/25 07:37 Interval history: Patient will undergo necrotic tissue debridement by the reaming machine operator for plastic. Do holding losartan due to BAYLEE. Patient has hx of HF, a.fib and DM type 2. Review of Systems Constitutional: Constitutional: Reports as per HPI and Reports no additional constitutional complaints Eyes: Eyes: Reports as per HPI and Reports no additional eye complaints ENT: Reports system reviewed and no additional complaints, except as documented and Reports Normal hearing present Cardiovascular: Cardiovascular: Reports no additional cardiovascular complaints Respiratory: Respiratory: Reports as per HPI and Reports no additional respiratory complaints Gastrointestinal: Gastrointestinal: Reports as per HPI and Reports no additional gastrointestinal complaints Genitourinary: Genitourinary: Reports no additional female genitourinary complaints Musculoskeletal: Musculoskeletal: Reports no additional musculoskeletal complaints Integumentary/Breasts: Skin/Breast: Reports system reviewed and no additional complaints, except as docu Neurologic: Reports system reviewed and no additional complaints, except as documented and Reports Normal hearing present Psychiatric: Psychiatric: Reports no additional psychiatric complaints and Reports as per HPI Hematologic/Lymphatic: Hematologic/Lymphatic: Reports no additional hematologic/lymphatic complaints Allergic/Immunologic: Allergic/Immunologic: Reports no additional allergic/immunologic complaints Exam Const: General: cooperative, comfortable, no acute distress, well developed, awake, Physically active, average body habitus and well nourished Nutritional Appearance: average body habitus and well nourished Orientation/consciousness: oriented to person, oriented to place, oriented to time and patient oriented x3 Limitations: no limitations HENMT: Head: normal to inspection, No palpable skull fracture present, normocephalic, atraumatic and abrasion Ears: hearing grossly normal bilaterally and external ears normal Face/Nose/Sinus: Normal external nose present, Normal nares present and No nasal polyps present Eyes: General: appearance normal, both eyes and all related structures Alignment and Position: alignment normal Periorbital: periorbital findings normal Eyelids: eyelids normal Pupils: Equal, round and reactive pupils present Neck: Neck: normal visual inspection and full ROM Chest: Chest palpation & inspection: normal inspection of the chest Resp: Effort & Inspection: normal respiratory effort Auscultation: clear to auscultation bilaterally Cardio: Palpation: normal PMI Rate: regular rate Rhythm: regular rhythm Heart sounds: S1 normal heart sound present GI: Inspection: normal to inspection Auscultation: normal bowel sounds Rectal Exam: deferred : General: Yes no CVA tenderness Back/Spine/Pelvis: Back: no CVA tenderness Cervical Spine: cervical ROM normal Skin: General skin exam: normal color and lesion (Entire right heel covered with eschar tissue. Bloody drainage noted. ) Lesions: lesion noted (Entire right heel covered with eschar tissue. Bloody drainage noted. ) Rashes: no rashes Trauma: no lacerations or abrasions Hair: normal Nails: normal Other: Please see wound pictures from nursing staff. Eschar tissue covers the entire surface of the right heel. Bloody drainage noted from right heel. Unstageable sacral ulcer. Neuro: General: oriented to person, oriented to place, oriented to time and patient oriented x3 Cranial nerves: Yes Equal, round and reactive pupils present and Yes Normal hearing present Cognition (Neuro): normal cognition Speech: normal speech Extrem: General: normal to inspection Right upper extremity: normal to inspection and shoulder/upper arm Left upper extremity: normal to inspection and shoulder/upper arm Right lower extremity: normal to inspection Left lower extremity: normal to inspection Other: 2+ pitting edema right worse than the left to lower extremities. Psych: Appearance: grossly normal Mental Status: mental status grossly normal Speech and movement: Normal speech and movement present Affect: normal affect Attitude: cooperative Thought process: Normal thought process present Insight: Good insight present (Psych) Judgement: Good judgement present (Psych) Objective Data Vital Signs Vital Signs: Vital Signs - 24 hr 10/05/25 00:17 10/05/25 02:41 10/05/25 03:46 Temperature 99.3 F 98.2 F Pulse Rate 82 70 77 Respiratory Rate 14 16 18 Blood Pressure 122/60 117/49 L 132/66 Pulse Oximetry 97 100 96 Oxygen Delivery Nasal Cannula Oxygen Flow Rate 2 10/05/25 04:00 10/05/25 04:00 10/05/25 06:00 Temperature Pulse Rate 76 86 79 Respiratory Rate 16 Blood Pressure Pulse Oximetry 96 Oxygen Delivery Nasal Cannula Oxygen Flow Rate 2 10/05/25 07:35 Temperature 98.4 F Pulse Rate 86 Respiratory Rate 22 H Blood Pressure 146/70 H Pulse Oximetry 99 Oxygen Delivery Oxygen Flow Rate Intake/Output Intake/Output: Intake & Output 10/02/25 10/03/25 10/04/25 10/05/25 23:59 23:59 23:59 23:59 Intake Total 1050 Output Total 500 Balance 550 Meds/Results Medications: Active Medications Generic Name Dose Route Start Last Admin Trade Name Freq PRN Reason Stop Dose Admin Acetaminophen 650 mg 10/05/25 02:15 Acetaminophen 325 Mg Tablet PO Q4H PRN Mild Pain (1-3) or Fever Hydrocodone Bitart/Acetaminophen 1 tab 10/05/25 06:21 Hydrocodone/Acetaminophen (*Crx) 10-325 Mg Tablet PO Q6H PRN Pain 7-10 Amiodarone HCl 200 mg 10/05/25 09:00 Amiodarone Hcl 200 Mg Tablet PO DAILY [facility] Apixaban 5 mg 10/05/25 09:00 Apixaban 5 Mg Tablet PO Q12HR [facility] Atorvastatin Calcium 40 mg 10/05/25 09:00 Atorvastatin 40 Mg Tablet PO DAILY [facility] Carvedilol 12.5 mg 10/05/25 09:00 Carvedilol 12.5 Mg Tablet PO Q12HR [facility] Dextrose 12.5 gm 10/05/25 06:10 Dextrose 50% 25 Gm/50 Ml Syringe IV PUSH PRN PRN Hypoglycemia Protocol Empagliflozin 25 mg 10/05/25 09:00 Empagliflozin 25 Mg Tablet PO QAM [facility] Ferrous Sulfate 325 mg 10/05/25 09:00 Ferrous Sulfate 325 Mg Tablet PO DAILY [facility] Furosemide 40 mg 10/05/25 09:00 Furosemide 40 Mg Tablet PO QAM [facility] Gabapentin 800 mg 10/05/25 09:00 Gabapentin 400 Mg Capsule PO TID [facility] Glucagon 1 mg 10/05/25 06:10 Glucagon For Inj 1 Mg Vial IM PRN PRN Hypoglycemia Protocol Glucose 15 gm 10/05/25 06:10 Glucose Oral Gel 15 Gm Of Glucse In 37.5 Gm Tube PO PRN PRN Hypoglycemia Protocol Vancomycin HCl 1,500 mg in 500 mls @ 250 mls/hr 10/06/25 14:00 Vancomycin 1,500 Mg/Ns 500 Ml IVPB Q36H [facility] Dextrose 1,000 mls @ 100 mls/hr 10/05/25 06:10 Dextrose 5% 1,000 Ml IVPB PRN PRN Hypoglycemia Protocol Cefepime HCl 1 gm/ Sodium 50 mls @ 100 mls/hr 10/05/25 12:00 Chloride IVPB Q12H [facility] Insulin Aspart 2 - 5 units 10/05/25 08:00 Insulin Aspart (*Bkc) 100 Units/Ml SUB-Q TIDWM [facility] Protocol Insulin Glargine 32 units 10/05/25 09:00 Insulin Glargine (*Bkc) 100 Units/Ml SUB-Q DAILY [facility] Levothyroxine Sodium 200 mcg 10/05/25 06:30 10/05/25 06:38 Levothyroxine Sodium 100 Mcg Tablet PO Not Given DAILY@0630 [facility] Losartan Potassium 25 mg 10/05/25 09:00 Losartan Potassium 25 Mg Tablet PO DAILY [facility] Morphine Sulfate 2 mg 10/05/25 02:15 Morphine Sulfate (*Crx) 4 Mg/Ml Inj IV PUSH Q2H PRN Pain Rated 7-10 Ondansetron HCl 4 mg 10/05/25 02:15 Ondansetron Inj 4 Mg/2 Ml Vial IV PUSH Q4H PRN Nausea Pantoprazole Sodium 40 mg 10/05/25 09:00 Pantoprazole 40 Mg Tablet PO QAM [facility] Potassium Chloride 10 meq 10/05/25 09:00 Potassium Chloride 10 Meq Er Tablet PO DAILY [facility] Spironolactone 25 mg 10/05/25 09:00 Spironolactone 25 Mg Tablet PO DAILY [facility] Radiology Results: ITS Impressions Head CT 10/05/25 06:07 IMPRESSION: 1. No acute intracranial findings. Chest X-Ray 10/05/25 06:09 IMPRESSION: 1. No acute cardiopulmonary findings given portable technique. Labs Labs: Laboratory Results - last 24 hr 10/05/25 10/05/25 10/05/25 00:46 00:52 01:44 WBC 9.5 RBC 3.02 L Hgb 8.6 L Hct 27.9 L MCV 92.4 MCH 28.5 MCHC 30.8 L RDW 13.6 Plt Count 266 MPV 8.8 Immature Gran % (Auto) 0.6 H Neut % (Auto) 87.1 H Lymph % (Auto) 5.6 L [place] % (Auto) 6.3 Eos % (Auto) 0.1 Baso % (Auto) 0.3 Lymph # (Auto) 0.53 L [place] # (Auto) 0.6 Eos # (Auto) 0.0 Baso # (Auto) 0.0 Abs Immat Gran (auto) 0.06 H Absolute Neuts (auto) 8.3 H Absolute Nucleated RBC 0.000 Nucleated RBC % 0.0 PT 25.2 H INR 2.3 APTT 54.2 H Sodium 133 L Potassium 4.2 Chloride 100 Carbon Dioxide 28 Anion Gap 5 BUN 21 H Creatinine 1.50 H Estim Creat Clear Calc 37 Estimated GFR 34 L Glucose 176 H Hemoglobin A1c Lactic Acid 1.1 Calcium 8.9 Total Bilirubin 0.7 AST 17 ALT 10 Alkaline Phosphatase 84 C-Reactive Protein 16.5 H Total Protein 6.8 Albumin 3.0 L Urine Color Yellow Urine Appearance Cloudy H Urine pH 5.5 Ur Specific [place] 1.019 Urine Protein Negative Urine Glucose (UA) 3+ H Urine Ketones Negative Ur Blood (Man) Negative Urine Nitrate Negative Urine Bilirubin Negative Urine Urobilinogen 1.0 Leukocyte Esterase Rfl Negative Urine RBC 0-2 Urine WBC 0-5 Ur Squamous Epith Cells None seen Urine Bacteria None seen Urine Casts 3-5 Influenza A (RT-PCR) Negative Influenza B (RT-PCR) Negative RSV (RT-PCR) Negative SARS-CoV-2 RNA (RT-PCR) Negative 10/05/25 06:40 WBC RBC Hgb 8.7 L Hct 28.3 L MCV MCH MCHC RDW Plt Count MPV Immature Gran % (Auto) Neut % (Auto) Lymph % (Auto) [place] % (Auto) Eos % (Auto) Baso % (Auto) Lymph # (Auto) [place] # (Auto) Eos # (Auto) Baso # (Auto) Abs Immat Gran (auto) Absolute Neuts (auto) Absolute Nucleated RBC Nucleated RBC % PT INR APTT Sodium Potassium Chloride Carbon Dioxide Anion Gap BUN Creatinine Estim Creat Clear Calc Estimated GFR Glucose Hemoglobin A1c 7.0 H Lactic Acid 0.8 Calcium Total Bilirubin AST ALT Alkaline Phosphatase C-Reactive Protein Total Protein Albumin Urine Color Urine Appearance Urine pH Ur Specific [place] Urine Protein Urine Glucose (UA) Urine Ketones Ur Blood (Man) Urine Nitrate Urine Bilirubin Urine Urobilinogen Leukocyte Esterase Rfl Urine RBC Urine WBC Ur Squamous Epith Cells Urine Bacteria Urine Casts Influenza A (RT-PCR) Influenza B (RT-PCR) RSV (RT-PCR) SARS-CoV-2 RNA (RT-PCR) Quality VTE Prophylaxis VTE prophylaxis: pharmacologic ordered Hospitalist MIPS Advance Care Plan I have confirmed that the patient's Advanced Care Plan is present, code status is documented, or surrogate decision maker is listed in patient medical record.: Yes Medication Reconciliation I have utilized all available resources to obtain, update and review the patients current medications (includes all prescriptions, OTC, herbals, cannabis, and nutritional supplements).: Yes
[2025-10-05] MEDS: GABAPENTIN 400 MG CAPSULE 800 MG PO ×3 (10:50→18:04)
[2025-10-05] MEDS: AMIODARONE HCL 200 MG TABLET PO (10:50)
[2025-10-05] MEDS: FERROUS SULFATE 325 MG TABLET PO (10:51)
[2025-10-05] MEDS: ATORVASTATIN 40 MG TABLET PO (10:51)
[2025-10-05] MEDS: APIXABAN 5 MG TABLET PO ×2 (10:51→21:02)
[2025-10-05] MEDS: PANTOPRAZOLE 40 MG TABLET PO (10:51)
[2025-10-05] MEDS: FUROSEMIDE 40 MG TABLET PO (10:52)
[2025-10-05] MEDS: EMPAGLIFLOZIN 25 MG TABLET PO (10:52)
[2025-10-05] MEDS: POTASSIUM CHLORIDE 10 MEQ ER TABLET PO (10:52)
[2025-10-05] MEDS: SPIRONOLACTONE 25 MG TABLET PO (10:53)
[2025-10-05] MEDS: INSULIN GLARGINE (*BKC) 100 UNITS/ML 32 UNITS SUB-Q (10:55)
[2025-10-05] MEDS: CEFEPIME 1 GM in SODIUM CHLORIDE 0.9% IV 50 ML 100 ML IVPB (13:00)
[2025-10-05 13:11] LABS: Hematocrit 25.4 % (37.0-47.0); Hemoglobin 7.8 g/dL (12.0-15.0)
--- NOTE | 2025-10-05 14:53 | PM.IMHP2 ---
H&P: HPI History of Present Illness Date/Time: 10/05/25 14:53 Chief Complaint: Progressing weakness swelling and drainage to the right heel. Narrative: The patient is IDDM with peripheral neuropathy was admitted through the ED at [place] with malaise and weakness with an increase in drainage and pain to the back of the right heel. The patient is established with my office and was going through outpatient wound care for a decubitus ulcer to the back of the heel that developed after a hospitalization. TBI and FIDEL recently evaluated and noted to be WNL. Xrays at [facility] evaluated recently indicated no osteolysis. She states that in the last week the drainage progressed as well as feeling sick. She relates weakness and even falling. She went to the ED and was admitted for suspected infection to the heel. Currently denies FCNV, but still feels weak. Review of Systems Constitutional: Constitutional: Reports fatigue, Reports lethargy and Reports weakness PMFSH Past Medical History Medical History (Updated 10/05/25 @ 15:21 by Nathaniel Sotelo Jr., DPMartha) Peripheral arterial disease (~07/11/25) mildly decreased FIDEL right lower extremity 07/11/2025. FIDEL 0.87. Diabetic foot ulcer associated with type 2 diabetes mellitus (~04/2025) right heel medial aspect ulcer Cellulitis BARRIOS (nonalcoholic steatohepatitis) Diffuse fatty liver changes on CT abdomen 03/14/2025. Chronic acquired lymphedema treated with sequential pneumatic compression device 2 hours daily lower extremities Nausea and vomiting Renal insufficiency GFR 57 on 06/11/2021. GFR 56 on 08/22/2022. GFR 38 on 10/23/2022. BUN 18, creatinine 1.23 with GFR 46 on 03/02/2023. BUN 18 with creatinine 1.03 with GFR 57 on 09/22/2023. BUN 19, creatinine 1.43 with GFR 31 on 03/09/2024. BUN 15, creatinine 1.12 with GFR 51 on 07/18/2024. Screening for diabetic retinopathy (04/30/21) no diabetic retinopathy on 04/30/2021. mild diabetic retinopathy on the right 08/07/2023. Diabetic ulcer of toe of left foot associated with diabetes mellitus due to underlying condition left great toe, 3rd toe Acute CHF (09/29/22) 10/01/2022 chest x-ray with pulmonary vascular congestion and pleural effusion. CT angio of the chest with contrast was negative for pulmonary embolism with bilateral pleural effusions and nonspecific alveolar and interstitial lung changes suggesting pulmonary edema. Left heart is poorly enhanced in the ascending aorta possibly due to cardiac dysfunction. Calcification with in the LAD noted. Echo on 10/02/2022 with ejection fraction 55-60% with mild mitral regurgitation and trivial tricuspid regurgitation. stress Lexiscan study on 10/03/2022 revealed no apparent reversible ischemia with normal left ventricular systolic function. Chronic kidney disease (CKD) stage G3b/A1, moderately decreased glomerular filtration rate (GFR) between 30-44 mL/min/1.73 square meter and albuminuria creatinine ratio less than 30 mg/g GFR 57 on 06/11/2021. GFR 56 on 08/22/2022. GFR 38 on 10/23/2022. BUN 18, creatinine 1.23 with GFR 46 on 03/02/2023. BUN 18 with creatinine 1.03 with GFR 57 on 09/22/2023. BUN 19, creatinine 1.43 with GFR 31 on 03/09/2024. BUN 15, creatinine 1.12 with GFR 51 on 07/18/2024. BUN 20, creatinine 1.35 with GFR 40 on 02/17/2025. Polyp of colon (~03/11/24) 3 sessile polyps , tubular adenoma, less than 7 mm in the ascending colon on 03/11/2024. No follow-up needed. Gastric ulcer (~02/2024) EGD on 03/11/2024 with gastric ulcer nonbleeding. Iron deficiency anemia, unspecified (~03/09/24) hemoglobin 6.6, iron 43 with 10% saturation and ferritin 7 with vitamin B12 768, folic acid 8.0 on 03/09/2024. Hemoglobin 9.0 on 07/18/2024. hemoglobin 6.4 with iron 13 with 3% saturation and ferritin 4 on 02/17/2025. Hemoglobin 9.5, iron 112 with 30% saturation on 03/30/2025. Diabetic retinopathy of right eye (08/07/23) mild retinopathy right eye 08/07/2023. Diastolic CHF with preserved left ventricular function, NYHA class 2 Echo with ejection fraction 52% with moderate diastolic dysfunction and [id number] tricuspid regurgitation, atrial fibrillation. Paroxysmal atrial fibrillation UTI (urinary tract infection) Hoarseness of voice Diarrhea Acute bronchitis At high risk for falls Diabetic ulcer of toe associated with type 2 diabetes mellitus (~06/2022) superficial ulceration extensor surface right 2nd toe Grieving (~08/2021) 48-year-old son Morbid obesity with BMI of 40.0-44.9, adult Acute non-recurrent maxillary sinusitis Breast cancer screening Body mass index (BMI) of 40.1 to 44.9 in adult Chronic pain Bilateral impacted cerumen Osteoarthritis of right knee Chronic pain of right knee Body mass index (BMI) 45.0-49.9, adult (02/15/19) Diabetic ulcer of toe of left foot associated with type 2 diabetes mellitus Non-pressure chronic ulcer of other part of left foot limited to breakdown of skin Surgical History Surgical History (Updated 10/05/25 @ 06:09 by Shauna Saldana APRN) History of tonsillectomy and adenoidectomy H/O tubal ligation Hx of total knee arthroplasty History of appendectomy Hx of cholecystectomy H/O cataract extraction H/O cardiac radiofrequency ablation Family History Family History Father Acute myocardial infarction, Onset Age: 50 Mother Family history of malignant neoplasm, Onset Age: 82 Social History Social History (Updated 10/05/25 @ 06:10 by Shauna Saldana APRN) Social History: Caffeine-coffe/soda. The patient lives with her . She had 2 children but her son has . She does receive home health. Code status: Full code Smoking status: Never smoker Second hand tobacco smoke exposure: No Alcohol intake: never Substance use: never Substance use type: does not use Lack of Transportation: No Lack of Food: Never True Current Housing: I Have Housing Concerned About Future Housing: No Difficulty Paying Gas/Electric Bills: No Difficulty Paying for Meds: No Currently Unemployed: No Education: Bachelor's Degree Difficulty w/ Childcare or Family Care: No Living arrangements: with family Gender identity (if verbalized by the patient): Female Sexual Orientation (if Verbalized by the Patient): Straight or Heterosexual Spiritual care concerns: No Meds Home Medications and Allergies Home Medications ?Medication ?Instructions ?Recorded ?Confirmed ?Type amiodarone 200 mg tablet 200 mg PO DAILY 07/20/24 10/05/25 History spironolactone 25 mg tablet 25 mg PO DAILY 07/20/24 10/05/25 History apixaban 5 mg tablet (Eliquis) 5 mg PO BID #60 tabs 10/21/24 10/05/25 Rx empagliflozin 25 mg tablet 25 mg PO QAM #90 tabs 11/30/24 10/05/25 Rx (Jardiance) atorvastatin 40 mg tablet 40 mg PO DAILY #90 tabs 12/12/24 10/05/25 Rx gabapentin 800 mg tablet 800 mg PO TID #90 tabs 12/23/24 10/05/25 Rx furosemide 40 mg tablet 40 mg PO QAM #30 tabs 02/09/25 10/05/25 Rx Synthroid 200 mcg tablet 200 mcg PO . q.a.m. #90 tabs 02/21/25 10/05/25 Rx (levothyroxine) ferrous sulfate 325 mg (65 mg 325 mg PO DAILY #90 tabs 02/21/25 10/05/25 Rx iron) tablet,delayed release ondansetron 4 mg disintegrating 4 mg PO Q8H PRN nausea and 03/14/25 10/05/25 Rx tablet vomiting #10 tabs esomeprazole magnesium 40 mg 40 mg PO DAILY #90 caps 04/04/25 10/05/25 Rx capsule,delayed release pen needle, diabetic 32 gauge x #100 ea 04/17/25 10/05/25 Rx /32 potassium chloride 10 mEq 10 meq PO DAILY #90 caps 07/24/25 10/05/25 Rx capsule,extended release hydrocodone 10 mg-acetaminophen 1 tablet PO Q6H PRN pain #120 tabs 09/08/25 10/05/25 Rx 325 mg tablet carvedilol 12.5 mg tablet 12.5 mg PO Q12H 09/16/25 10/05/25 History collagenase clostridium histo. 250 1 applic topical DAILY diabetic 09/16/25 10/05/25 History unit/gram topical ointment (Santyl) ulcer losartan 25 mg tablet 25 mg PO DAILY 09/16/25 10/05/25 History insulin glargine 100 unit/mL (3 40 unit subcut DAILY 10/05/25 10/05/25 History mL) subcutaneous pen (Lantus Solostar U-100 Insulin) Allergies Allergy/AdvReac Type Severity Reaction Status Date / Time No Known Allergies Allergy Verified 10/05/25 03:37 Vital Signs Vital Signs - 24 hr 10/05/25 00:17 10/05/25 02:41 10/05/25 03:46 Temperature 37.4 C 36.8 C Pulse Rate 82 70 77 Respiratory Rate 14 16 18 Blood Pressure 122/60 117/49 L 132/66 Pulse Oximetry 97 100 96 Oxygen Delivery Nasal Cannula Oxygen Flow Rate 2 10/05/25 04:00 10/05/25 04:00 10/05/25 06:00 Temperature Pulse Rate 76 86 79 Respiratory Rate 16 Blood Pressure Pulse Oximetry 96 Oxygen Delivery Nasal Cannula Oxygen Flow Rate 2 10/05/25 07:35 10/05/25 08:00 10/05/25 08:00 Temperature 36.9 C Pulse Rate 86 84 Respiratory Rate 22 H Blood Pressure 146/70 H Pulse Oximetry 99 84 L Oxygen Delivery Nasal Cannula Oxygen Flow Rate 2 10/05/25 08:25 10/05/25 10:00 10/05/25 10:51 Temperature Pulse Rate 83 87 Respiratory Rate Blood Pressure Pulse Oximetry 98 Oxygen Delivery Nasal Cannula Oxygen Flow Rate 2 10/05/25 11:53 10/05/25 12:00 Temperature 36.9 C Pulse Rate 81 Respiratory Rate 16 Blood Pressure 117/45 L Pulse Oximetry 92 84 L Oxygen Delivery Nasal Cannula Oxygen Flow Rate 2 Exam Skin: Wounds: wounds noted (Large area of boggy necrotic tissue to the posterior and inferior calcaneus) Extrem: Other: Pitting edema is noted. Foot feels warm to touch. Foot X-Ray 05/24/25 Heel X-Ray Today Knee X-Ray 02/29/20 Results Labs Labs: Short CBC 10/05/25 10/05/25 10/05/25 Range/Units 00:46 06:40 12:51 WBC 9.5 (4.5-10.0) K/mm3 Hgb 8.6 L 8.7 L 7.8 L (12.0-15.0) g/dL Hct 27.9 L 28.3 L 25.4 L (37.0-47.0) % Plt Count 266 (150-375) k/mm3 BMP 10/05/25 00:46 Sodium 133 L Potassium 4.2 Chloride 100 Carbon Dioxide 28 BUN 21 H Creatinine 1.50 H Glucose 176 H Calcium 8.9 Liver Function 10/05/25 Range/Units 00:46 Total Bilirubin 0.7 (0.2-1.3) mg/dL AST 17 (14-36) U/L ALT 10 (6-35) U/L Alkaline Phosphatase 84 (38-126) U/L Albumin 3.0 L (3.5-5.1) g/dL Urine 10/05/25 Range/Units 01:44 Urine Color Yellow (Yellow) Urine Appearance Cloudy H (Clear) Urine pH 5.5 (5.0-9.0) Ur Specific [place] 1.019 (1.001-1.035) Urine Protein Negative (Negative) mg/dL Urine Glucose (UA) 3+ H (Negative) mg/dL Assessment and Plan Assessment and plan (1) Decubitus ulcer of right heel, unstageable: Code(s): L89.610 - Pressure ulcer of right heel, unstageable Status: Acute Assessment and Plan: Xrays show pathological fracture with osteolysis-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
--- NOTE | 2025-10-05 19:14 | WPDIDCN ---
Assessment and Plan Assessment and plan (1) Decubitus ulcer of right heel, unstageable: Code(s): L89.610 - Pressure ulcer of right heel, unstageable Status: Acute Plan ASSESSMENT: 1. right heel eschar/wound with osteomyelitis 2. coccygeal wound 3. DM 4. CKD 5. heart failure, HL, PAD 6. Afib 7. hypothyroid RECOMMENDATIONS: -change abx to vanco and zosyn -f/u on wound and blood cxs -ESR, CRP -for surgery soon by podiatry -need to evaluate coccygeal wound d/w pharmacy staff Pt was seen via video telehealth consultation with the assistance of staff. Chart, data and patient info reviewed. Patient was located at [facility] while I was in my [place] office. Pt gave consent. HPI Data of Consult Date/Time: 10/05/25 19:14 Requesting Physician: Emory Wolf MD Primary Care Provider: Jasiel Person MD Consult Narrative Reason for consult: right heel osteomyelitis Narrative: Nona Estrella is a 79 year old female with pnhx/o hypothyroid, CKD, HL, heart failure, PAD, DM, Afib, here with right heel wound and osteomyelitis. Also with coccyx wound stage 3. Podiatry on consult--likely surgery soon. On vanco and cefepime. [facility] Past Medical History Medical History (Updated 10/05/25 @ 15:21 by Nathaniel Sotelo Jr., MAR) Peripheral arterial disease (~07/11/25) mildly decreased FIDEL right lower extremity 07/11/2025. FIDEL 0.87. Diabetic foot ulcer associated with type 2 diabetes mellitus (~04/2025) right heel medial aspect ulcer Cellulitis BARRIOS (nonalcoholic steatohepatitis) Diffuse fatty liver changes on CT abdomen 03/14/2025. Chronic acquired lymphedema treated with sequential pneumatic compression device 2 hours daily lower extremities Nausea and vomiting Renal insufficiency GFR 57 on 06/11/2021. GFR 56 on 08/22/2022. GFR 38 on 10/23/2022. BUN 18, creatinine 1.23 with GFR 46 on 03/02/2023. BUN 18 with creatinine 1.03 with GFR 57 on 09/22/2023. BUN 19, creatinine 1.43 with GFR 31 on 03/09/2024. BUN 15, creatinine 1.12 with GFR 51 on 07/18/2024. Screening for diabetic retinopathy (04/30/21) no diabetic retinopathy on 04/30/2021. mild diabetic retinopathy on the right 08/07/2023. Diabetic ulcer of toe of left foot associated with diabetes mellitus due to underlying condition left great toe, 3rd toe Acute CHF (09/29/22) 10/01/2022 chest x-ray with pulmonary vascular congestion and pleural effusion. CT angio of the chest with contrast was negative for pulmonary embolism with bilateral pleural effusions and nonspecific alveolar and interstitial lung changes suggesting pulmonary edema. Left heart is poorly enhanced in the ascending aorta possibly due to cardiac dysfunction. Calcification with in the LAD noted. Echo on 10/02/2022 with ejection fraction 55-60% with mild mitral regurgitation and trivial tricuspid regurgitation. stress Lexiscan study on 10/03/2022 revealed no apparent reversible ischemia with normal left ventricular systolic function. Chronic kidney disease (CKD) stage G3b/A1, moderately decreased glomerular filtration rate (GFR) between 30-44 mL/min/1.73 square meter and albuminuria creatinine ratio less than 30 mg/g GFR 57 on 06/11/2021. GFR 56 on 08/22/2022. GFR 38 on 10/23/2022. BUN 18, creatinine 1.23 with GFR 46 on 03/02/2023. BUN 18 with creatinine 1.03 with GFR 57 on 09/22/2023. BUN 19, creatinine 1.43 with GFR 31 on 03/09/2024. BUN 15, creatinine 1.12 with GFR 51 on 07/18/2024. BUN 20, creatinine 1.35 with GFR 40 on 02/17/2025. Polyp of colon (~03/11/24) 3 sessile polyps , tubular adenoma, less than 7 mm in the ascending colon on 03/11/2024. No follow-up needed. Gastric ulcer (~02/2024) EGD on 03/11/2024 with gastric ulcer nonbleeding. Iron deficiency anemia, unspecified (~03/09/24) hemoglobin 6.6, iron 43 with 10% saturation and ferritin 7 with vitamin B12 768, folic acid 8.0 on 03/09/2024. Hemoglobin 9.0 on 07/18/2024. hemoglobin 6.4 with iron 13 with 3% saturation and ferritin 4 on 02/17/2025. Hemoglobin 9.5, iron 112 with 30% saturation on 03/30/2025. Diabetic retinopathy of right eye (08/07/23) mild retinopathy right eye 08/07/2023. Diastolic CHF with preserved left ventricular function, NYHA class 2 Echo with ejection fraction 52% with moderate diastolic dysfunction and [id number] tricuspid regurgitation, atrial fibrillation. Paroxysmal atrial fibrillation UTI (urinary tract infection) Hoarseness of voice Diarrhea Acute bronchitis At high risk for falls Diabetic ulcer of toe associated with type 2 diabetes mellitus (~06/2022) superficial ulceration extensor surface right 2nd toe Grieving (~08/2021) 48-year-old son Morbid obesity with BMI of 40.0-44.9, adult Acute non-recurrent maxillary sinusitis Breast cancer screening Body mass index (BMI) of 40.1 to 44.9 in adult Chronic pain Bilateral impacted cerumen Osteoarthritis of right knee Chronic pain of right knee Body mass index (BMI) 45.0-49.9, adult (02/15/19) Diabetic ulcer of toe of left foot associated with type 2 diabetes mellitus Non-pressure chronic ulcer of other part of left foot limited to breakdown of skin Surgical History Surgical History (Updated 10/05/25 @ 06:09 by Shauna Saldana APRN) History of tonsillectomy and adenoidectomy H/O tubal ligation Hx of total knee arthroplasty History of appendectomy Hx of cholecystectomy H/O cataract extraction H/O cardiac radiofrequency ablation Family History Family History Father Acute myocardial infarction, Onset Age: 50 Mother Family history of malignant neoplasm, Onset Age: 82 Social History Social History (Updated 10/05/25 @ 06:10 by Shauna Saldana APRN) Social History: Caffeine-coffe/soda. The patient lives with her . She had 2 children but her son has . She does receive home health. Code status: Full code Smoking status: Never smoker Second hand tobacco smoke exposure: No Alcohol intake: never Substance use: never Substance use type: does not use Lack of Transportation: No Lack of Food: Never True Current Housing: I Have Housing Concerned About Future Housing: No Difficulty Paying Gas/Electric Bills: No Difficulty Paying for Meds: No Currently Unemployed: No Education: Bachelor's Degree Difficulty w/ Childcare or Family Care: No Living arrangements: with family Gender identity (if verbalized by the patient): Female Sexual Orientation (if Verbalized by the Patient): Straight or Heterosexual Spiritual care concerns: No Meds Home Medications and Allergies Home Medications ?Medication ?Instructions ?Recorded ?Confirmed ?Type amiodarone 200 mg tablet 200 mg PO DAILY 07/20/24 10/05/25 History spironolactone 25 mg tablet 25 mg PO DAILY 07/20/24 10/05/25 History apixaban 5 mg tablet (Eliquis) 5 mg PO BID #60 tabs 10/21/24 10/05/25 Rx empagliflozin 25 mg tablet 25 mg PO QAM #90 tabs 11/30/24 10/05/25 Rx (Jardiance) atorvastatin 40 mg tablet 40 mg PO DAILY #90 tabs 12/12/24 10/05/25 Rx gabapentin 800 mg tablet 800 mg PO TID #90 tabs 12/23/24 10/05/25 Rx furosemide 40 mg tablet 40 mg PO QAM #30 tabs 02/09/25 10/05/25 Rx Synthroid 200 mcg tablet 200 mcg PO . q.a.m. #90 tabs 02/21/25 10/05/25 Rx (levothyroxine) ferrous sulfate 325 mg (65 mg 325 mg PO DAILY #90 tabs 02/21/25 10/05/25 Rx iron) tablet,delayed release ondansetron 4 mg disintegrating 4 mg PO Q8H PRN nausea and 03/14/25 10/05/25 Rx tablet vomiting #10 tabs esomeprazole magnesium 40 mg 40 mg PO DAILY #90 caps 04/04/25 10/05/25 Rx capsule,delayed release pen needle, diabetic 32 gauge x #100 ea 04/17/25 10/05/25 Rx potassium chloride 10 mEq 10 meq PO DAILY #90 caps 07/24/25 10/05/25 Rx capsule,extended release hydrocodone 10 mg-acetaminophen 1 tablet PO Q6H PRN pain #120 tabs 09/08/25 10/05/25 Rx 325 mg tablet carvedilol 12.5 mg tablet 12.5 mg PO Q12H 09/16/25 10/05/25 History collagenase clostridium histo. 250 1 applic topical DAILY diabetic 09/16/25 10/05/25 History unit/gram topical ointment (Santyl) ulcer losartan 25 mg tablet 25 mg PO DAILY 09/16/25 10/05/25 History insulin glargine 100 unit/mL (3 40 unit subcut DAILY 10/05/25 10/05/25 History mL) subcutaneous pen (Lantus Solostar U-100 Insulin) Allergies Allergy/AdvReac Type Severity Reaction Status Date / Time No Known Allergies Allergy Verified 10/05/25 03:37 Vital Signs Vital Signs - 24 hr 10/05/25 00:17 10/05/25 02:41 10/05/25 03:46 Temperature 99.3 F 98.2 F Pulse Rate 82 70 77 Respiratory Rate 14 16 18 Blood Pressure 122/60 117/49 L 132/66 Pulse Oximetry 97 100 96 Oxygen Delivery Nasal Cannula Oxygen Flow Rate 2 10/05/25 04:00 10/05/25 04:00 10/05/25 06:00 Temperature Pulse Rate 76 86 79 Respiratory Rate 16 Blood Pressure Pulse Oximetry 96 Oxygen Delivery Nasal Cannula Oxygen Flow Rate 2 10/05/25 07:35 10/05/25 08:00 10/05/25 08:00 Temperature 98.4 F Pulse Rate 86 84 Respiratory Rate 22 H Blood Pressure 146/70 H Pulse Oximetry 99 84 L Oxygen Delivery Nasal Cannula Oxygen Flow Rate 2 10/05/25 08:25 10/05/25 10:00 10/05/25 10:51 Temperature Pulse Rate 83 87 Respiratory Rate Blood Pressure Pulse Oximetry 98 Oxygen Delivery Nasal Cannula Oxygen Flow Rate 2 10/05/25 11:53 10/05/25 12:00 10/05/25 14:00 Temperature 98.5 F Pulse Rate 81 71 Respiratory Rate 16 Blood Pressure 117/45 L Pulse Oximetry 92 84 L Oxygen Delivery Nasal Cannula Oxygen Flow Rate 2 10/05/25 15:55 10/05/25 16:00 10/05/25 16:00 Temperature 98.3 F Pulse Rate 73 93 69 Respiratory Rate 20 Blood Pressure 105/41 L Pulse Oximetry 96 84 L Oxygen Delivery Nasal Cannula Oxygen Flow Rate 2 10/05/25 18:00 Temperature Pulse Rate 68 Respiratory Rate Blood Pressure Pulse Oximetry Oxygen Delivery Oxygen Flow Rate Exam Narrative: NAD, non-toxic right heel with eschar--bogho, RLE edema, some bloody drainage Results Labs 10/05/25 12:51 10/05/25 00:46 Labs: Short CBC 10/05/25 10/05/25 10/05/25 Range/Units 00:46 06:40 12:51 WBC 9.5 (4.5-10.0) K/mm3 Hgb 8.6 L 8.7 L 7.8 L (12.0-15.0) g/dL Hct 27.9 L 28.3 L 25.4 L (37.0-47.0) % Plt Count 266 (150-375) k/mm3 BMP 10/05/25 00:46 Sodium 133 L Potassium 4.2 Chloride 100 Carbon Dioxide 28 BUN 21 H Creatinine 1.50 H Glucose 176 H Calcium 8.9 Liver Function 10/05/25 Range/Units 00:46 Total Bilirubin 0.7 (0.2-1.3) mg/dL AST 17 (14-36) U/L ALT 10 (6-35) U/L Alkaline Phosphatase 84 (38-126) U/L Albumin 3.0 L (3.5-5.1) g/dL Urine 10/05/25 Range/Units 01:44 Urine Color Yellow (Yellow) Urine Appearance Cloudy H (Clear) Urine pH 5.5 (5.0-9.0) Ur Specific [place] 1.019 (1.001-1.035) Urine Protein Negative (Negative) mg/dL Urine Glucose (UA) 3+ H (Negative) mg/dL
[2025-10-05 20:13] LABS: Hematocrit 24.6 % (37.0-47.0); Hemoglobin 7.5 g/dL (12.0-15.0)
[2025-10-05] MEDS: PIPERACILLIN/TAZOBACTAM SOD 3.375 GM in SODIUM CHLORIDE 0.9% IV 50 ML 100 ML IVPB (20:56)
[2025-10-06] VITALS (21 sets, daily range): BP systolic 98–146; BP diastolic 32–94; PULSE 59–84; RESP 12–20; TEMP 36.6–37.3; O2SAT 93–100
[2025-10-06 00:39] LABS: Hematocrit 24.6 % (37.0-47.0); Hemoglobin 7.6 g/dL (12.0-15.0)
[2025-10-06 04:50] LABS: Hematocrit 22.6 % (37.0-47.0); Mean Corpuscular HGB Conc 30.1 g/dl (32-36); Mean Corpuscular Hemoglobin 28.2 pg (26-34); Mean Corpuscular Volume 93.8 fl (80-100); Platelet Count Result 232 k/mm3 (150-375); Red Blood Count 2.41 M/mm3 (4.2-5.4); White Blood Count 8.8 K/mm3 (4.5-10.0)
[2025-10-06] MEDS: PIPERACILLIN/TAZOBACTAM SOD 3.375 GM in SODIUM CHLORIDE 0.9% IV 50 ML 100 ML IVPB ×3 (04:59→21:11)
[2025-10-06 05:02] LABS: Hemoglobin 6.8 g/dL (12.0-15.0)
[2025-10-06 05:18] LABS: Alanine Aminotransferase 8 U/L (6-35); Albumin Level 2.8 g/dL (3.5-5.1); Alkaline Phosphatase 68 U/L (38-126); Anion Gap 5 mmol/L (4-12); Aspartate Amino Transferase 19 U/L (14-36); Bilirubin,Total 0.6 mg/dL (0.2-1.3); Blood Urea Nitrogen 26 mg/dL (7-17); Calcium 8.7 mg/dL (8.4-10.2); Carbon Dioxide 23 mmol/L (22-30); Chloride 103 mmol/L (98-107); Estimated CRCL calculation 36 ml/min; Estimated Glomerular Filt Rate 33; Glucose 95 mg/dL (65-110); Potassium 4.3 mmol/L (3.4-5.0); Sodium 131 mmol/L (137-145); Total Protein 6.3 g/dL (6.3-8.2)
[2025-10-06] MEDS: LEVOTHYROXINE SODIUM 100 MCG TABLET 200 MCG PO (05:35)
--- NOTE | 2025-10-06 06:44 | P.CDI_ITS ---
CDI Query Clarification Request BMI: 41.2 Nutritional Diagnostic Statement: Please refer to the comprehensive nutrition assessment for further information. If you agree with diagnosis of MOderate protein calorie malnutrition related to chronic loss of appetite in the setting of pressure injuries and heel wounds, as evidenced by intakes <75% needs >1 month and weight loss 10%/4 months (-28 lb. Please specify severity if known: * Mild * Moderate * Severe * Other/Unknown <Pura Florez RN - Last Filed: 10/06/25 07:06> Clarified Diagnosis Clarified Diagnosis: Moderate protein calorie malnutrition <Emory Wolf MD - Last Filed: 10/06/25 16:03>
[2025-10-06] MEDS: SODIUM CHLORIDE 0.9% IV 250 ML 30 ML IV CONT (08:47)
[2025-10-06] MEDS: TUBING, BLOOD PLUM PUMP TUBING 1 EACH XX (08:47)
[2025-10-06] MEDS: AMIODARONE HCL 200 MG TABLET PO (08:48)
[2025-10-06] MEDS: PANTOPRAZOLE 40 MG TABLET PO (08:48)
[2025-10-06] MEDS: FUROSEMIDE 40 MG TABLET PO (08:48)
[2025-10-06] MEDS: POTASSIUM CHLORIDE 10 MEQ ER TABLET PO (08:48)
[2025-10-06] MEDS: EMPAGLIFLOZIN 25 MG TABLET PO (08:48)
[2025-10-06] MEDS: FERROUS SULFATE 325 MG TABLET PO (08:48)
[2025-10-06] MEDS: ATORVASTATIN 40 MG TABLET PO (08:48)
[2025-10-06] MEDS: GABAPENTIN 400 MG CAPSULE 800 MG PO ×3 (08:48→16:12)
[2025-10-06] MEDS: INSULIN GLARGINE (*BKC) 100 UNITS/ML 32 UNITS SUB-Q (08:51)
--- NOTE | 2025-10-06 09:08 | PM.IMPN2 ---
Assessment and Plan Assessment and Plan (1) Diabetic foot ulcer associated with type 2 diabetes mellitus: Onset Date: ~04/2025 Code(s): E11.621 - Type 2 diabetes mellitus with foot ulcer; L97.509 - Non-pressure chronic ulcer of other part of unspecified foot with unspecified severity Status: Acute Assessment and Plan: -Dr. Sotelo has been consulted for the diabetic right heel wound.(wound care was consulted for sacral ulcer.) -the patient has had this decubitus ulcer for several months. -please see nursing wound pictures. -patient has a large patch of eschar tissue to the entire right heel. She also has a sacral wound. -the patient stated that she has been using Santyl as prescribed for the diabetic foot ulcer. -she is on cefepime and vancomycin -her blood pressure is stable at 132/66 and her heart rate is less than 90. At this point she is afebrile. -check lactic (2) Bacteremia: Code(s): R78.81 - Bacteremia Status: Acute Assessment and Plan: Possible source UTI Blood culture from 10/05 shows Gram-negative bacilli Blood culture from 09/16/2025 E coli Less suspicion for endocarditis, will not pursue for TTE Monitor leukocytosis Continue vancomycin and Zosyn (3) Diastolic CHF with preserved left ventricular function, NYHA class 2: Code(s): I50.30 - Unspecified diastolic (congestive) heart failure Status: Acute Assessment and Plan: -no recent echo seen. -continue with Coreg -continue Jardiance and Lasix -hold losartan due to BAYLEE -continue with spironolactone. -monitor electrolytes due to her medications. -patient was only given 1 L bolus of IV fluids in the emergency room. At this time I have not restarted any IV fluids. (4) Paroxysmal atrial fibrillation: Code(s): I48.0 - Paroxysmal atrial fibrillation Status: Acute Assessment and Plan: -the patient is in sinus rhythm at this time. -she has had a history of a cardiac radiofrequency ablation in the past. -continue with Coreg -continue with apixaban -continue with amiodarone if blood pressure allows. (5) Essential (primary) hypertension: Code(s): I10 - Essential (primary) hypertension Status: Acute Assessment and Plan: --currently her blood pressure is 132/66. -continue with Coreg if blood pressure allows - Lasix if blood pressure allows (6) Mixed hyperlipidemia: Code(s): E78.2 - Mixed hyperlipidemia Status: Acute Assessment and Plan: -continue with atorvastatin (7) Controlled type 2 diabetes mellitus with hyperglycemia, with long-term current use of insulin: Code(s): E11.65 - Type 2 diabetes mellitus with hyperglycemia; Z79.4 - alf (current) use of insulin Status: Acute Assessment and Plan: -Accu-Cheks with a seen HS and sliding scale insulin with hypoglycemic protocol. -check A1c -pharmacy to decrease home long-acting insulin by 20%. -continue with Jardiance (8) Hypothyroidism, unspecified: Qualifiers: Hypothyroidism type: unspecified Qualified Code(s): E03.9 - Hypothyroidism, unspecified Code(s): E03.9 - Hypothyroidism, unspecified Status: Acute Assessment and Plan: -continue with Synthroid (9) Iron deficiency anemia, unspecified: Onset Date: ~03/09/24 Qualifiers: Iron deficiency anemia type: chronic blood loss Qualified Code(s): D50.0 - Iron deficiency anemia secondary to blood loss (chronic) Code(s): D50.9 - Iron deficiency anemia, unspecified Status: Acute Assessment and Plan: -her H&H is currently 8.6 and 27.9. Her past H&H was 9.0 in 28.5 on 09/25/2025. -monitor CBCs and H&H -anemia of chronic disease with a history of chronic renal failure -continue with ferrous sulfate (10) Chronic kidney disease (CKD) stage G3b/A1, moderately decreased glomerular filtration rate (GFR) between 30-44 mL/min/1.73 square meter and albuminuria creatinine ratio less than 30 mg/g: Code(s): N18.32 - Chronic kidney disease, stage 3b Status: Acute Assessment and Plan: -her creatinine is 1.5 with a baseline of 1.2 - 1.30. BUN is 21 with a baseline of 18 - 27. And GFR is 34 the baseline anywhere from 27-47. -nephrology has seen her here in the past. -Hold losartan and sprinolactone (11) Acute on chronic anemia: Code(s): D64.9 - Anemia, unspecified Status: Acute Assessment and Plan: Anemia due to CKD Patient on ferrous sulfate Currently receiving 1 unit PRBC Xarelto on hold Patient had Previous discussion about placement of Watchman device at [facility] but she denied Subjective Date/time seen: 10/06/25 09:08 Interval history: Patient hemoglobin 6.8. Receiving transfusion. Patient's Xarelto on hold. Patient reports undergoing EGD and colonoscopy approximately 5 years ago but no significant finding. Patient has a chronic anemia. Patient had Previous discussion about placement of Watchman device at [facility] but she denied. Discussed the risk of stroke upon holding Xarelto. Patient agrees with the plan. Called Dr. Sotelo but he is in the OR. Waiting for call back. Nursing team reports Dr. Espinoza wants to do Lovenox but due to current blood transfusion its ideal to start Heparin and can be discontinued on Thursday if plans to do surgery on Thursday. Currently I am not starting any anticoagulation due to ongoing transfusion. Patient also has evidence of bacteremia in Gram-negative bacilli. Review of Systems Constitutional: Constitutional: Reports as per HPI and Reports no additional constitutional complaints Eyes: Eyes: Reports as per HPI and Reports no additional eye complaints ENT: Reports system reviewed and no additional complaints, except as documented and Reports Normal hearing present Cardiovascular: Cardiovascular: Reports no additional cardiovascular complaints Respiratory: Respiratory: Reports as per HPI and Reports no additional respiratory complaints Gastrointestinal: Gastrointestinal: Reports as per HPI and Reports no additional gastrointestinal complaints Genitourinary: Genitourinary: Reports no additional female genitourinary complaints Musculoskeletal: Musculoskeletal: Reports no additional musculoskeletal complaints Integumentary/Breasts: Skin/Breast: Reports system reviewed and no additional complaints, except as docu Neurologic: Reports system reviewed and no additional complaints, except as documented and Reports Normal hearing present Psychiatric: Psychiatric: Reports no additional psychiatric complaints and Reports as per HPI Hematologic/Lymphatic: Hematologic/Lymphatic: Reports no additional hematologic/lymphatic complaints Allergic/Immunologic: Allergic/Immunologic: Reports no additional allergic/immunologic complaints Exam Const: General: cooperative, comfortable, no acute distress, well developed, awake, Physically active, average body habitus and well nourished Nutritional Appearance: average body habitus and well nourished Orientation/consciousness: oriented to person, oriented to place, oriented to time and patient oriented x3 Limitations: no limitations HENMT: Head: normal to inspection, No palpable skull fracture present, normocephalic, atraumatic and abrasion Ears: hearing grossly normal bilaterally and external ears normal Face/Nose/Sinus: Normal external nose present, Normal nares present and No nasal polyps present Eyes: General: appearance normal, both eyes and all related structures Alignment and Position: alignment normal Periorbital: periorbital findings normal Eyelids: eyelids normal Pupils: Equal, round and reactive pupils present Neck: Neck: normal visual inspection and full ROM Chest: Chest palpation & inspection: normal inspection of the chest Resp: Effort & Inspection: normal respiratory effort Auscultation: clear to auscultation bilaterally Cardio: Palpation: normal PMI Rate: regular rate Rhythm: regular rhythm Heart sounds: S1 normal heart sound present GI: Inspection: normal to inspection Auscultation: normal bowel sounds Rectal Exam: deferred : General: Yes no CVA tenderness Back/Spine/Pelvis: Back: no CVA tenderness Cervical Spine: cervical ROM normal Skin: General skin exam: normal color and lesion (Entire right heel covered with eschar tissue. Bloody drainage noted. ) Lesions: lesion noted (Entire right heel covered with eschar tissue. Bloody drainage noted. ) Rashes: no rashes Trauma: no lacerations or abrasions Hair: normal Nails: normal Other: Please see wound pictures from nursing staff. Eschar tissue covers the entire surface of the right heel. Bloody drainage noted from right heel. Unstageable sacral ulcer. Neuro: General: oriented to person, oriented to place, oriented to time and patient oriented x3 Cranial nerves: Yes Equal, round and reactive pupils present and Yes Normal hearing present Cognition (Neuro): normal cognition Speech: normal speech Extrem: General: normal to inspection Right upper extremity: normal to inspection and shoulder/upper arm Left upper extremity: normal to inspection and shoulder/upper arm Right lower extremity: normal to inspection Left lower extremity: normal to inspection Other: 2+ pitting edema right worse than the left to lower extremities. Psych: Appearance: grossly normal Mental Status: mental status grossly normal Speech and movement: Normal speech and movement present Affect: normal affect Attitude: cooperative Thought process: Normal thought process present Insight: Good insight present (Psych) Judgement: Good judgement present (Psych) Objective Data Vital Signs Vital Signs: Vital Signs - 24 hr 10/05/25 10:00 10/05/25 10:51 10/05/25 11:53 Temperature 98.5 F Pulse Rate 83 87 81 Respiratory Rate 16 Blood Pressure 117/45 L Pulse Oximetry 92 Oxygen Delivery Oxygen Flow Rate 10/05/25 12:00 10/05/25 14:00 10/05/25 15:55 Temperature 98.3 F Pulse Rate 71 73 Respiratory Rate 20 Blood Pressure 105/41 L Pulse Oximetry 84 L 96 Oxygen Delivery Nasal Cannula Oxygen Flow Rate 2 10/05/25 16:00 10/05/25 16:00 10/05/25 18:00 Temperature Pulse Rate 93 69 68 Respiratory Rate Blood Pressure Pulse Oximetry 84 L Oxygen Delivery Nasal Cannula Oxygen Flow Rate 2 10/05/25 20:00 10/05/25 20:00 10/05/25 20:00 Temperature 97.5 F L Pulse Rate 69 69 Respiratory Rate 20 Blood Pressure 88/58 L Pulse Oximetry 95 95 Oxygen Delivery Nasal Cannula Oxygen Flow Rate 1 10/05/25 21:00 10/05/25 21:02 10/05/25 22:00 Temperature Pulse Rate 68 68 62 Respiratory Rate Blood Pressure 120/52 L Pulse Oximetry Oxygen Delivery Oxygen Flow Rate 10/05/25 23:35 10/06/25 00:00 10/06/25 00:00 Temperature 97.1 F L Pulse Rate 62 60 Respiratory Rate 20 Blood Pressure 122/38 L Pulse Oximetry 99 97 Oxygen Delivery Nasal Cannula Oxygen Flow Rate 1 10/06/25 02:00 10/06/25 04:00 10/06/25 04:00 Temperature 99.1 F Pulse Rate 62 77 Respiratory Rate 20 Blood Pressure 128/56 L Pulse Oximetry 94 97 Oxygen Delivery Nasal Cannula Oxygen Flow Rate 1 10/06/25 04:00 10/06/25 06:00 10/06/25 07:42 Temperature 98.4 F Pulse Rate 69 69 75 Respiratory Rate 16 Blood Pressure 123/94 H Pulse Oximetry 93 Oxygen Delivery Oxygen Flow Rate 10/06/25 08:41 10/06/25 08:48 10/06/25 08:48 Temperature 98.4 F Pulse Rate 76 75 75 Respiratory Rate 12 Blood Pressure 119/45 L Pulse Oximetry 98 Oxygen Delivery Oxygen Flow Rate 10/06/25 09:01 Temperature 98.4 F Pulse Rate 76 Respiratory Rate 12 Blood Pressure 122/42 L Pulse Oximetry 95 Oxygen Delivery Oxygen Flow Rate Intake/Output Intake/Output: Intake & Output 12/16/25 12/17/25 12/18/25 12/19/25 23:59 23:59 23:59 23:59 Intake Total 1950 300 Output Total 500 700 Balance 1450 -400 Meds/Results Medications: Active Medications Generic Name Dose Route Start Last Admin Trade Name Freq PRN Reason Stop Dose Admin Acetaminophen 650 mg 10/05/25 02:15 Acetaminophen 325 Mg Tablet PO Q4H PRN Mild Pain (1-3) or Fever Hydrocodone Bitart/Acetaminophen 1 tab 10/05/25 06:21 Hydrocodone/Acetaminophen (*Crx) 10-325 Mg Tablet PO Q6H PRN Pain 7-10 Amiodarone HCl 200 mg 10/05/25 09:00 10/06/25 08:48 Amiodarone Hcl 200 Mg Tablet PO 200 mg DAILY KENYON Administration Apixaban 5 mg 10/05/25 09:00 10/05/25 21:02 Apixaban 5 Mg Tablet PO 5 mg On Hold: 10/06/25 07:17 Q12HR KENYON Administration Atorvastatin Calcium 40 mg 10/05/25 09:00 10/06/25 08:48 Atorvastatin 40 Mg Tablet PO 40 mg DAILY KENYON Administration Carvedilol 12.5 mg 10/05/25 09:00 10/06/25 08:48 Carvedilol 12.5 Mg Tablet PO 12.5 mg Q12HR KENYON Administration Dextrose 12.5 gm 10/05/25 06:10 Dextrose 50% 25 Gm/50 Ml Syringe IV PUSH PRN PRN Hypoglycemia Protocol Empagliflozin 25 mg 10/05/25 09:00 10/06/25 08:48 Empagliflozin 25 Mg Tablet PO 25 mg QAM KENYON Administration Ferrous Sulfate 325 mg 10/05/25 09:00 10/06/25 08:48 Ferrous Sulfate 325 Mg Tablet PO 325 mg DAILY KENYON Administration Furosemide 40 mg 10/05/25 09:00 10/06/25 08:48 Furosemide 40 Mg Tablet PO 40 mg QAM KENYON Administration Gabapentin 800 mg 10/05/25 09:00 10/06/25 08:48 Gabapentin 400 Mg Capsule PO 800 mg TID KENYON Administration Glucagon 1 mg 10/05/25 06:10 Glucagon For Inj 1 Mg Vial IM PRN PRN Hypoglycemia Protocol Glucose 15 gm 10/05/25 06:10 Glucose Oral Gel 15 Gm Of Glucse In 37.5 Gm Tube PO PRN PRN Hypoglycemia Protocol Hydralazine HCl 10 mg 10/05/25 17:42 Hydralazine Hcl 20 Mg/Ml Vial IV PUSH Q6H PRN Blood Pressure - High Vancomycin HCl 1,500 mg in 500 mls @ 250 mls/hr 10/06/25 14:00 Vancomycin 1,500 Mg/Ns 500 Ml IVPB Q36H KENYON Dextrose 1,000 mls @ 100 mls/hr 10/05/25 06:10 Dextrose 5% 1,000 Ml IVPB PRN PRN Hypoglycemia Protocol Piperacillin Sod/Tazobactam 50 mls @ 100 mls/hr 10/05/25 20:00 10/06/25 04:59 Sod 3.375 gm/ Sodium Chloride IVPB 100 mls/hr Q8H KENYON Administration Sodium Chloride 250 mls @ 30 mls/hr 10/06/25 05:16 10/06/25 08:47 Normal Saline Iv IV CONT 10/06/25 13:35 30 mls/hr .Q8H20M STA Administration Insulin Aspart 2 - 5 units 10/05/25 08:00 10/06/25 08:47 Insulin Aspart (*Bkc) 100 Units/Ml SUB-Q Not Given TIDWM [facility] Protocol Insulin Glargine 32 units 10/05/25 09:00 10/06/25 08:51 Insulin Glargine (*Bkc) 100 Units/Ml SUB-Q 32 units DAILY KENYON Administration Levothyroxine Sodium 200 mcg 10/05/25 06:30 10/06/25 05:35 Levothyroxine Sodium 100 Mcg Tablet PO 200 mcg DAILY@0630 KENYON Administration Losartan Potassium 25 mg 10/05/25 09:00 10/05/25 10:54 Losartan Potassium 25 Mg Tablet PO Not Given On Hold: 10/05/25 10:00 DAILY KENYON Morphine Sulfate 2 mg 10/05/25 02:15 Morphine Sulfate (*Crx) 4 Mg/Ml Inj IV PUSH Q2H PRN Pain Rated 7-10 Ondansetron HCl 4 mg 10/05/25 02:15 Ondansetron Inj 4 Mg/2 Ml Vial IV PUSH Q4H PRN Nausea Pantoprazole Sodium 40 mg 10/05/25 09:00 10/06/25 08:48 Pantoprazole 40 Mg Tablet PO 40 mg QAM KENYON Administration Potassium Chloride 10 meq 10/05/25 09:00 10/06/25 08:48 Potassium Chloride 10 Meq Er Tablet PO 10 meq DAILY KENYON Administration Spironolactone 25 mg 10/05/25 09:00 10/05/25 10:53 Spironolactone 25 Mg Tablet PO 25 mg On Hold: 10/05/25 17:42 DAILY KENYON Administration Radiology Results: ITS Impressions Head CT 10/05/25 06:07 IMPRESSION: 1. No acute intracranial findings. Chest X-Ray 10/05/25 06:09 IMPRESSION: 1. No acute cardiopulmonary findings given portable technique. Heel X-Ray 10/05/25 07:52 IMPRESSION: 1. Comminuted mid body fracture of the calcaneus with possible erosive changes soft tissue swelling and open wound defect. Pathologic fracture and possible osteomyelitis is not excluded. Venous Doppler Study 10/05/25 14:51 Impression: Negative for DVT. Labs Labs: Laboratory Results - last 24 hr 10/05/25 10/05/25 10/05/25 07:33 11:35 12:51 WBC RBC Hgb 7.8 L Hct 25.4 L MCV MCH MCHC RDW Plt Count MPV Sodium Potassium Chloride Carbon Dioxide Anion Gap BUN Creatinine Estim Creat Clear Calc Estimated GFR Glucose POC Capillary Glucose 123 H 92 Calcium Total Bilirubin AST ALT Alkaline Phosphatase Total Protein Albumin Blood Type Antibody Screen Crossmatch 10/05/25 10/05/25 10/05/25 15:44 19:55 20:05 WBC RBC Hgb 7.5 L Hct 24.6 L MCV MCH MCHC RDW Plt Count MPV Sodium Potassium Chloride Carbon Dioxide Anion Gap BUN Creatinine Estim Creat Clear Calc Estimated GFR Glucose POC Capillary Glucose 135 H 159 H Calcium Total Bilirubin AST ALT Alkaline Phosphatase Total Protein Albumin Blood Type Antibody Screen Crossmatch 10/06/25 10/06/25 10/06/25 00:30 04:11 05:33 WBC 8.8 RBC 2.41 L Hgb 7.6 L 6.8 L* Hct 24.6 L 22.6 L MCV 93.8 MCH 28.2 MCHC 30.1 L RDW 13.7 Plt Count 232 MPV 9.3 Sodium 131 L Potassium 4.3 Chloride 103 Carbon Dioxide 23 Anion Gap 5 BUN 26 H Creatinine 1.52 H Estim Creat Clear Calc 36 Estimated GFR 33 L Glucose 95 POC Capillary Glucose Calcium 8.7 Total Bilirubin 0.6 AST 19 ALT 8 Alkaline Phosphatase 68 Total Protein 6.3 Albumin 2.8 L Blood Type O Positive Antibody Screen Negative Crossmatch See Detail 10/06/25 07:03 WBC RBC Hgb Hct MCV MCH MCHC RDW Plt Count MPV Sodium Potassium Chloride Carbon Dioxide Anion Gap BUN Creatinine Estim Creat Clear Calc Estimated GFR Glucose POC Capillary Glucose 91 Calcium Total Bilirubin AST ALT Alkaline Phosphatase Total Protein Albumin Blood Type Antibody Screen Crossmatch Quality VTE Prophylaxis VTE prophylaxis: pharmacologic ordered Hospitalist MIPS Advance Care Plan I have confirmed that the patient's Advanced Care Plan is present, code status is documented, or surrogate decision maker is listed in patient medical record.: Yes Medication Reconciliation I have utilized all available resources to obtain, update and review the patients current medications (includes all prescriptions, OTC, herbals, cannabis, and nutritional supplements).: Yes
[2025-10-06] MEDS: LORazepam (*CRX) 0.5 MG TABLET PO (09:34)
--- NOTE | 2025-10-06 13:43 | PCOTNOTE ---
Per Dr. MCMILLAN, hold on pt until surgery sees pt to determine weightbearing status.
[2025-10-06] MEDS: VANCOMYCIN 1,500 MG/NS 500 ML 1,500 MG/500 ML BAG 250 MG IVPB (14:15)
--- NOTE | 2025-10-06 14:55 | WPDINFPN2 ---
Progress Note: A&P Assessment and Plan (1) Decubitus ulcer of right heel, unstageable: Code(s): L89.610 - Pressure ulcer of right heel, unstageable Status: Acute Plan ASSESSMENT: 1. right heel eschar/wound with osteomyelitis. --MRI with path fx (podiatry prelim read) 2. coccygeal wound 3. DM 4. CKD 5. heart failure, HL, PAD 6. Afib 7. hypothyroid RECOMMENDATIONS: Continue zosyn/vanc Podiatry planning for OR VAscular doppler Planning 4-6 weeks post op iv abx bsed on intraop findings and cx. d/w pt and . d/w pharmacy staff Pt was seen via video telehealth consultation with the assistance of staff. Chart, data and patient info reviewed. Patient was located at [facility] while I was in my [place] office. Pt gave consent. Subjective Date/time seen: 10/06/25 14:55 Interval history: d/w Podiatry after eval/exam. Planning parital calcenectomy based on findings. pt tolerating iv abx. no n/v. no fever. Exam Narrative: NAD, non-toxic right heel with eschar--boggy, RLE edema, some bloody drainage Objective Data Vital Signs Vital Signs: Vital Signs - 24 hr 10/05/25 15:55 10/05/25 16:00 10/05/25 16:00 Temperature 36.8 C Pulse Rate 73 93 69 Respiratory Rate 20 Blood Pressure 105/41 L Pulse Oximetry 96 84 L Oxygen Delivery Nasal Cannula Oxygen Flow Rate 2 10/05/25 18:00 10/05/25 20:00 10/05/25 20:00 Temperature 36.4 C L Pulse Rate 68 69 Respiratory Rate 20 Blood Pressure 88/58 L Pulse Oximetry 95 95 Oxygen Delivery Nasal Cannula Oxygen Flow Rate 1 10/05/25 20:00 10/05/25 21:00 10/05/25 21:02 Temperature Pulse Rate 69 68 68 Respiratory Rate Blood Pressure 120/52 L Pulse Oximetry Oxygen Delivery Oxygen Flow Rate 10/05/25 22:00 10/05/25 23:35 10/06/25 00:00 Temperature 36.2 C L Pulse Rate 62 62 Respiratory Rate 20 Blood Pressure 122/38 L Pulse Oximetry 99 97 Oxygen Delivery Nasal Cannula Oxygen Flow Rate 1 10/06/25 00:00 10/06/25 02:00 10/06/25 04:00 Temperature 37.3 C Pulse Rate 60 62 77 Respiratory Rate 20 Blood Pressure 128/56 L Pulse Oximetry 94 Oxygen Delivery Oxygen Flow Rate 10/06/25 04:00 10/06/25 04:00 10/06/25 06:00 Temperature Pulse Rate 69 69 Respiratory Rate Blood Pressure Pulse Oximetry 97 Oxygen Delivery Nasal Cannula Oxygen Flow Rate 1 10/06/25 07:42 10/06/25 08:00 10/06/25 08:00 Temperature 36.9 C Pulse Rate 75 79 Respiratory Rate 16 Blood Pressure 123/94 H Pulse Oximetry 93 93 Oxygen Delivery Nasal Cannula Oxygen Flow Rate 1 10/06/25 08:41 10/06/25 08:48 10/06/25 08:48 Temperature 36.9 C Pulse Rate 76 75 75 Respiratory Rate 12 Blood Pressure 119/45 L Pulse Oximetry 98 Oxygen Delivery Oxygen Flow Rate 10/06/25 09:01 10/06/25 10:01 10/06/25 11:29 Temperature 36.9 C 36.8 C 37.1 C Pulse Rate 76 68 59 L Respiratory Rate 12 14 12 Blood Pressure 122/42 L 146/60 H 129/65 Pulse Oximetry 95 96 93 Oxygen Delivery Oxygen Flow Rate 10/06/25 12:00 10/06/25 12:00 Temperature Pulse Rate 79 Respiratory Rate Blood Pressure Pulse Oximetry 93 Oxygen Delivery Nasal Cannula Oxygen Flow Rate 1 Intake/Output Intake/Output: Intake & Output 10/03/25 10/04/25 10/05/25 10/06/25 23:59 23:59 23:59 23:59 Intake Total 1950 572 Output Total 500 700 Balance 1450 -128 Meds/Results Medications: Active Medications Generic Name Dose Route Start Last Admin Trade Name Freq PRN Reason Stop Dose Admin Acetaminophen 650 mg 10/05/25 02:15 Acetaminophen 325 Mg Tablet PO Q4H PRN Mild Pain (1-3) or Fever Hydrocodone Bitart/Acetaminophen 1 tab 10/05/25 06:21 Hydrocodone/Acetaminophen (*Crx) 10-325 Mg Tablet PO Q6H PRN Pain 7-10 Amiodarone HCl 200 mg 10/05/25 09:00 10/06/25 08:48 Amiodarone Hcl 200 Mg Tablet PO 200 mg DAILY [facility]ON Administration Apixaban 5 mg 10/05/25 09:00 10/05/25 21:02 Apixaban 5 Mg Tablet PO 5 mg On Hold: 10/06/25 07:17 Q12HR [facility]ON Administration Atorvastatin Calcium 40 mg 10/05/25 09:00 10/06/25 08:48 Atorvastatin 40 Mg Tablet PO 40 mg DAILY [facility] Administration Carvedilol 12.5 mg 10/05/25 09:00 10/06/25 08:48 Carvedilol 12.5 Mg Tablet PO 12.5 mg Q12HR KENYON Administration Dextrose 12.5 gm 10/05/25 06:10 Dextrose 50% 25 Gm/50 Ml Syringe IV PUSH PRN PRN Hypoglycemia Protocol Empagliflozin 25 mg 10/05/25 09:00 10/06/25 08:48 Empagliflozin 25 Mg Tablet PO 25 mg QAM K[facility]YON Administration Ferrous Sulfate 325 mg 10/05/25 09:00 10/06/25 08:48 Ferrous Sulfate 325 Mg Tablet PO 325 mg DAILY [facility] Administration Furosemide 40 mg 10/05/25 09:00 10/06/25 08:48 Furosemide 40 Mg Tablet PO 40 mg QAM K[facility]ON Administration Gabapentin 800 mg 10/05/25 09:00 10/06/25 14:15 Gabapentin 400 Mg Capsule PO 800 mg TID K[facility]YON Administration Glucagon 1 mg 10/05/25 06:10 Glucagon For Inj 1 Mg Vial IM PRN PRN Hypoglycemia Protocol Glucose 15 gm 10/05/25 06:10 Glucose Oral Gel 15 Gm Of Glucse In 37.5 Gm Tube PO PRN PRN Hypoglycemia Protocol Hydralazine HCl 10 mg 10/05/25 17:42 Hydralazine Hcl 20 Mg/Ml Vial IV PUSH Q6H PRN Blood Pressure - High Vancomycin HCl 1,500 mg in 500 mls @ 250 mls/hr 10/06/25 14:00 10/06/25 14:15 Vancomycin 1,500 Mg/Ns 500 Ml IVPB 250 mls/hr Q36H [facility] Administration Dextrose 1,000 mls @ 100 mls/hr 10/05/25 06:10 Dextrose 5% 1,000 Ml IVPB PRN PRN Hypoglycemia Protocol Piperacillin Sod/Tazobactam 50 mls @ 100 mls/hr 10/05/25 20:00 10/06/25 14:15 Sod 3.375 gm/ Sodium Chloride IVPB 100 mls/hr Q8H [facility] Administration Insulin Aspart 2 - 5 units 10/05/25 08:00 10/06/25 11:30 Insulin Aspart (*Bkc) 100 Units/Ml SUB-Q Not Given TIDWM [facility] Protocol Insulin Glargine 32 units 10/05/25 09:00 10/06/25 08:51 Insulin Glargine (*Bkc) 100 Units/Ml SUB-Q 32 units DAILY [facility]YON Administration Levothyroxine Sodium 200 mcg 10/05/25 06:30 10/06/25 05:35 Levothyroxine Sodium 100 Mcg Tablet PO 200 mcg DAILY@0630 [facility] Administration Losartan Potassium 25 mg 10/05/25 09:00 10/05/25 10:54 Losartan Potassium 25 Mg Tablet PO Not Given On Hold: 10/05/25 10:00 DAILY [facility] Morphine Sulfate 2 mg 10/05/25 02:15 Morphine Sulfate (*Crx) 4 Mg/Ml Inj IV PUSH Q2H PRN Pain Rated 7-10 Ondansetron HCl 4 mg 10/05/25 02:15 Ondansetron Inj 4 Mg/2 Ml Vial IV PUSH Q4H PRN Nausea Pantoprazole Sodium 40 mg 10/05/25 09:00 10/06/25 08:48 Pantoprazole 40 Mg Tablet PO 40 mg QAM [facility] Administration Potassium Chloride 10 meq 10/05/25 09:00 10/06/25 08:48 Potassium Chloride 10 Meq Er Tablet PO 10 meq DAILY [facility] Administration Spironolactone 25 mg 10/05/25 09:00 10/05/25 10:53 Spironolactone 25 Mg Tablet PO 25 mg On Hold: 10/05/25 17:42 DAILY [facility] Administration Radiology Results: ITS Impressions Head CT 10/05/25 06:07 IMPRESSION: 1. No acute intracranial findings. Chest X-Ray 10/05/25 06:09 IMPRESSION: 1. No acute cardiopulmonary findings given portable technique. Heel X-Ray 10/05/25 07:52 IMPRESSION: 1. Comminuted mid body fracture of the calcaneus with possible erosive changes soft tissue swelling and open wound defect. Pathologic fracture and possible osteomyelitis is not excluded. Venous Doppler Study 10/05/25 14:51 Impression: Negative for DVT. Foot MRI 10/06/25 14:21 IMPRESSION: 1. Oblique longitudinally oriented fracture through the body of the calcaneus extending from the plantar surface into the subtalar joint with features suggesting possible subacute injury. Correlate with clinical presentation and history. 2. Extensive soft tissue changes along the posterior margin of the calcaneal body with erosive and bone marrow changes consistent with osteomyelitis. Bone marrow changes involve both the posterior and anterior calcaneal body fragments, although no clear cortical erosion in the anterior fragment is seen. Osteomyelitis is more convincingly present in the posterior calcaneal body and not as clearly present in the anterior fragment. However with bone marrow changes throughout the anterior calcaneus, osteomyelitis could be there is well. 3. Fluid within the fracture defect could be infected, though no discrete abscess is seen. Labs Labs: Laboratory Results - last 24 hr 10/05/25 10/05/25 10/05/25 15:44 19:55 20:05 WBC RBC Hgb 7.5 L Hct 24.6 L MCV MCH MCHC RDW Plt Count MPV Sodium Potassium Chloride Carbon Dioxide Anion Gap BUN Creatinine Estim Creat Clear Calc Estimated GFR Glucose POC Capillary Glucose 135 H 159 H Calcium Total Bilirubin AST ALT Alkaline Phosphatase Total Protein Albumin Blood Type Antibody Screen Crossmatch 10/06/25 10/06/25 10/06/25 00:30 04:11 05:33 WBC 8.8 RBC 2.41 L Hgb 7.6 L 6.8 L* Hct 24.6 L 22.6 L MCV 93.8 MCH 28.2 MCHC 30.1 L RDW 13.7 Plt Count 232 MPV 9.3 Sodium 131 L Potassium 4.3 Chloride 103 Carbon Dioxide 23 Anion Gap 5 BUN 26 H Creatinine 1.52 H Estim Creat Clear Calc 36 Estimated GFR 33 L Glucose 95 POC Capillary Glucose Calcium 8.7 Total Bilirubin 0.6 AST 19 ALT 8 Alkaline Phosphatase 68 Total Protein 6.3 Albumin 2.8 L Blood Type O Positive Antibody Screen Negative Crossmatch See Detail 10/06/25 10/06/25 07:03 11:20 WBC RBC Hgb Hct MCV MCH MCHC RDW Plt Count MPV Sodium Potassium Chloride Carbon Dioxide Anion Gap BUN Creatinine Estim Creat Clear Calc Estimated GFR Glucose POC Capillary Glucose 91 133 H Calcium Total Bilirubin AST ALT Alkaline Phosphatase Total Protein Albumin Blood Type Antibody Screen Crossmatch
--- NOTE | 2025-10-06 15:24 | WPDPN ---
Progress Note: A&P Assessment and Plan (1) Decubitus ulcer of right heel, unstageable: Code(s): L89.610 - Pressure ulcer of right heel, unstageable Status: Acute Assessment and Plan: Consent: Incision and debridement of all necrotic soft tissue and bone 1:30pm Thursday10/09/2025. Pre op and anesthesia consult will be placed NPO midnight the night before surgery. Hold Xarelto, Lovenox SC 30mg q24. Stop Lovenox 24 hours after surgery and resume blood thinners per medicine 24 hours post op I will order wound vac 24 after after surgery as long as bleeding is minimal. Discussed plans with ID that agrees with plan and will likely require 4-6 of IV abx Protein and albumin levels should be optimized prior to surgery 1 unit of blood given today will monitor H&H post op Dr. [facility] [phone] (2) Osteomyelitis: Code(s): M86.9 - Osteomyelitis, unspecified Status: Acute Assessment and Plan: same as above Subjective Date/time seen: 10/06/25 15:24 Interval history: Patient seen at bedside resting comfortably accomapanied by her . States she feels better today. No FCNC SOB nor calf pain. Exam Skin: Wounds: wounds noted (Large unstageable necrotic ulceration w boggy tissue, no ascending erythema) left posterior heel bed necrotic Objective Data Vital Signs Vital Signs: Vital Signs - 24 hr 10/05/25 15:55 10/05/25 16:00 10/05/25 16:00 Temperature 36.8 C Pulse Rate 73 93 69 Respiratory Rate 20 Blood Pressure 105/41 L Pulse Oximetry 96 84 L Oxygen Delivery Nasal Cannula Oxygen Flow Rate 2 10/05/25 18:00 10/05/25 20:00 10/05/25 20:00 Temperature 36.4 C L Pulse Rate 68 69 Respiratory Rate 20 Blood Pressure 88/58 L Pulse Oximetry 95 95 Oxygen Delivery Nasal Cannula Oxygen Flow Rate 1 10/05/25 20:00 10/05/25 21:00 10/05/25 21:02 Temperature Pulse Rate 69 68 68 Respiratory Rate Blood Pressure 120/52 L Pulse Oximetry Oxygen Delivery Oxygen Flow Rate 10/05/25 22:00 10/05/25 23:35 10/06/25 00:00 Temperature 36.2 C L Pulse Rate 62 62 Respiratory Rate 20 Blood Pressure 122/38 L Pulse Oximetry 99 97 Oxygen Delivery Nasal Cannula Oxygen Flow Rate 1 10/06/25 00:00 10/06/25 02:00 10/06/25 04:00 Temperature 37.3 C Pulse Rate 60 62 77 Respiratory Rate 20 Blood Pressure 128/56 L Pulse Oximetry 94 Oxygen Delivery Oxygen Flow Rate 10/06/25 04:00 10/06/25 04:00 10/06/25 06:00 Temperature Pulse Rate 69 69 Respiratory Rate Blood Pressure Pulse Oximetry 97 Oxygen Delivery Nasal Cannula Oxygen Flow Rate 1 10/06/25 07:42 10/06/25 08:00 10/06/25 08:00 Temperature 36.9 C Pulse Rate 75 79 Respiratory Rate 16 Blood Pressure 123/94 H Pulse Oximetry 93 93 Oxygen Delivery Nasal Cannula Oxygen Flow Rate 1 10/06/25 08:41 10/06/25 08:48 10/06/25 08:48 Temperature 36.9 C Pulse Rate 76 75 75 Respiratory Rate 12 Blood Pressure 119/45 L Pulse Oximetry 98 Oxygen Delivery Oxygen Flow Rate 10/06/25 09:01 10/06/25 10:01 10/06/25 11:01 Temperature 36.9 C 36.8 C 36.9 C Pulse Rate 76 68 66 Respiratory Rate 12 14 16 Blood Pressure 122/42 L 146/60 H 146/60 H Pulse Oximetry 95 96 94 Oxygen Delivery Oxygen Flow Rate 10/06/25 11:29 10/06/25 12:00 10/06/25 12:00 Temperature 37.1 C Pulse Rate 59 L 79 Respiratory Rate 12 Blood Pressure 129/65 Pulse Oximetry 93 93 Oxygen Delivery Nasal Cannula Oxygen Flow Rate 1 10/06/25 14:00 Temperature Pulse Rate 68 Respiratory Rate Blood Pressure Pulse Oximetry Oxygen Delivery Oxygen Flow Rate Intake/Output Intake/Output: Intake & Output 10/03/25 10/04/25 10/05/25 10/06/25 23:59 23:59 23:59 23:59 Intake Total 1950 972 Output Total 500 700 Balance 1450 272 Meds/Results Medications: Active Medications Generic Name Dose Route Start Last Admin Trade Name Freq PRN Reason Stop Dose Admin Acetaminophen 650 mg 10/05/25 02:15 Acetaminophen 325 Mg Tablet PO Q4H PRN Mild Pain (1-3) or Fever Hydrocodone Bitart/Acetaminophen 1 tab 10/05/25 06:21 Hydrocodone/Acetaminophen (*Crx) 10-325 Mg Tablet PO Q6H PRN Pain 7-10 Amiodarone HCl 200 mg 10/05/25 09:00 10/06/25 08:48 Amiodarone Hcl 200 Mg Tablet PO 200 mg DAILY [facility] Administration Apixaban 5 mg 10/05/25 09:00 10/05/25 21:02 Apixaban 5 Mg Tablet PO 5 mg On Hold: 10/06/25 07:17 Q12HR [facility] Administration Atorvastatin Calcium 40 mg 10/05/25 09:00 10/06/25 08:48 Atorvastatin 40 Mg Tablet PO 40 mg DAILY [facility] Administration Carvedilol 12.5 mg 10/05/25 09:00 10/06/25 08:48 Carvedilol 12.5 Mg Tablet PO 12.5 mg Q12HR [facility] Administration Dextrose 12.5 gm 10/05/25 06:10 Dextrose 50% 25 Gm/50 Ml Syringe IV PUSH PRN PRN Hypoglycemia Protocol Empagliflozin 25 mg 10/05/25 09:00 10/06/25 08:48 Empagliflozin 25 Mg Tablet PO 25 mg QAM [facility] Administration Ferrous Sulfate 325 mg 10/05/25 09:00 10/06/25 08:48 Ferrous Sulfate 325 Mg Tablet PO 325 mg DAILY [facility] Administration Furosemide 40 mg 10/05/25 09:00 10/06/25 08:48 Furosemide 40 Mg Tablet PO 40 mg QAM [facility] Administration Gabapentin 800 mg 10/05/25 09:00 10/06/25 14:15 Gabapentin 400 Mg Capsule PO 800 mg TID [facility] Administration Glucagon 1 mg 10/05/25 06:10 Glucagon For Inj 1 Mg Vial IM PRN PRN Hypoglycemia Protocol Glucose 15 gm 10/05/25 06:10 Glucose Oral Gel 15 Gm Of Glucse In 37.5 Gm Tube PO PRN PRN Hypoglycemia Protocol Hydralazine HCl 10 mg 10/05/25 17:42 Hydralazine Hcl 20 Mg/Ml Vial IV PUSH Q6H PRN Blood Pressure - High Vancomycin HCl 1,500 mg in 500 mls @ 250 mls/hr 10/06/25 14:00 10/06/25 14:15 Vancomycin 1,500 Mg/Ns 500 Ml IVPB 250 mls/hr Q36H [facility] Administration Dextrose 1,000 mls @ 100 mls/hr 10/05/25 06:10 Dextrose 5% 1,000 Ml IVPB PRN PRN Hypoglycemia Protocol Piperacillin Sod/Tazobactam 50 mls @ 100 mls/hr 10/05/25 20:00 10/06/25 14:45 Sod 3.375 gm/ Sodium Chloride IVPB Infused Q8H [facility] Infusion Insulin Aspart 2 - 5 units 10/05/25 08:00 10/06/25 11:30 Insulin Aspart (*Bkc) 100 Units/Ml SUB-Q Not Given TIDWM [facility] Protocol Insulin Glargine 32 units 10/05/25 09:00 10/06/25 08:51 Insulin Glargine (*Bkc) 100 Units/Ml SUB-Q 32 units DAILY [facility] Administration Levothyroxine Sodium 200 mcg 10/05/25 06:30 10/06/25 05:35 Levothyroxine Sodium 100 Mcg Tablet PO 200 mcg DAILY@0630 [facility] Administration Losartan Potassium 25 mg 10/05/25 09:00 10/05/25 10:54 Losartan Potassium 25 Mg Tablet PO Not Given On Hold: 10/05/25 10:00 DAILY [facility] Morphine Sulfate 2 mg 10/05/25 02:15 Morphine Sulfate (*Crx) 4 Mg/Ml Inj IV PUSH Q2H PRN Pain Rated 7-10 Ondansetron HCl 4 mg 10/05/25 02:15 Ondansetron Inj 4 Mg/2 Ml Vial IV PUSH Q4H PRN Nausea Pantoprazole Sodium 40 mg 10/05/25 09:00 10/06/25 08:48 Pantoprazole 40 Mg Tablet PO 40 mg QAM [facility] Administration Potassium Chloride 10 meq 10/05/25 09:00 10/06/25 08:48 Potassium Chloride 10 Meq Er Tablet PO 10 meq DAILY [facility] Administration Spironolactone 25 mg 10/05/25 09:00 10/05/25 10:53 Spironolactone 25 Mg Tablet PO 25 mg On Hold: 10/05/25 17:42 DAILY [facility] Administration Radiology Results: ITS Impressions Head CT 10/05/25 06:07 IMPRESSION: 1. No acute intracranial findings. Chest X-Ray 10/05/25 06:09 IMPRESSION: 1. No acute cardiopulmonary findings given portable technique. Heel X-Ray 10/05/25 07:52 IMPRESSION: 1. Comminuted mid body fracture of the calcaneus with possible erosive changes soft tissue swelling and open wound defect. Pathologic fracture and possible osteomyelitis is not excluded. Venous Doppler Study 10/05/25 14:51 Impression: Negative for DVT. Foot MRI 10/06/25 14:21 IMPRESSION: 1. Oblique longitudinally oriented fracture through the body of the calcaneus extending from the plantar surface into the subtalar joint with features suggesting possible subacute injury. Correlate with clinical presentation and history. 2. Extensive soft tissue changes along the posterior margin of the calcaneal body with erosive and bone marrow changes consistent with osteomyelitis. Bone marrow changes involve both the posterior and anterior calcaneal body fragments, although no clear cortical erosion in the anterior fragment is seen. Osteomyelitis is more convincingly present in the posterior calcaneal body and not as clearly present in the anterior fragment. However with bone marrow changes throughout the anterior calcaneus, osteomyelitis could be there is well. 3. Fluid within the fracture defect could be infected, though no discrete abscess is seen. Labs Labs: Laboratory Results - last 24 hr 10/05/25 10/05/25 10/05/25 15:44 19:55 20:05 WBC RBC Hgb 7.5 L Hct 24.6 L MCV MCH MCHC RDW Plt Count MPV Sodium Potassium Chloride Carbon Dioxide Anion Gap BUN Creatinine Estim Creat Clear Calc Estimated GFR Glucose POC Capillary Glucose 135 H 159 H Calcium Total Bilirubin AST ALT Alkaline Phosphatase Total Protein Albumin Blood Type Antibody Screen Crossmatch 10/06/25 10/06/25 10/06/25 00:30 04:11 05:33 WBC 8.8 RBC 2.41 L Hgb 7.6 L 6.8 L* Hct 24.6 L 22.6 L MCV 93.8 MCH 28.2 MCHC 30.1 L RDW 13.7 Plt Count 232 MPV 9.3 Sodium 131 L Potassium 4.3 Chloride 103 Carbon Dioxide 23 Anion Gap 5 BUN 26 H Creatinine 1.52 H Estim Creat Clear Calc 36 Estimated GFR 33 L Glucose 95 POC Capillary Glucose Calcium 8.7 Total Bilirubin 0.6 AST 19 ALT 8 Alkaline Phosphatase 68 Total Protein 6.3 Albumin 2.8 L Blood Type O Positive Antibody Screen Negative Crossmatch See Detail 10/06/25 10/06/25 07:03 11:20 WBC RBC Hgb Hct MCV MCH MCHC RDW Plt Count MPV Sodium Potassium Chloride Carbon Dioxide Anion Gap BUN Creatinine Estim Creat Clear Calc Estimated GFR Glucose POC Capillary Glucose 91 133 H Calcium Total Bilirubin AST ALT Alkaline Phosphatase Total Protein Albumin Blood Type Antibody Screen Crossmatch
[2025-10-06] MEDS: ACETAMINOPHEN 325 MG TABLET 650 MG PO (16:13)
[2025-10-06] MEDS: HYDROcodone/acetaminophen (*CRX) 10-325 MG TABLET 1 TAB PO (21:10)
[2025-10-07] VITALS (15 sets, daily range): BP systolic 98–135; BP diastolic 34–54; PULSE 52–74; RESP 14–90; TEMP 36.6–37.2; O2SAT 90–96
[2025-10-07] MEDS: HYDROcodone/acetaminophen (*CRX) 10-325 MG TABLET 1 TAB PO ×2 (03:57→20:26)
[2025-10-07] MEDS: PIPERACILLIN/TAZOBACTAM SOD 3.375 GM in SODIUM CHLORIDE 0.9% IV 50 ML 100 ML IVPB ×3 (03:58→20:25)
[2025-10-07 04:29] LABS: Hematocrit 27.8 % (37.0-47.0); Hemoglobin 8.6 g/dL (12.0-15.0); Mean Corpuscular HGB Conc 30.9 g/dl (32-36); Mean Corpuscular Hemoglobin 28.0 pg (26-34); Mean Corpuscular Volume 90.6 fl (80-100); Platelet Count Result 248 k/mm3 (150-375); Red Blood Count 3.07 M/mm3 (4.2-5.4); White Blood Count 7.0 K/mm3 (4.5-10.0)
[2025-10-07] MEDS: LEVOTHYROXINE SODIUM 100 MCG TABLET 200 MCG PO (04:36)
[2025-10-07 04:43] LABS: Alanine Aminotransferase 13 U/L (6-35); Albumin Level 2.9 g/dL (3.5-5.1); Alkaline Phosphatase 81 U/L (38-126); Anion Gap 4 mmol/L (4-12); Aspartate Amino Transferase 26 U/L (14-36); Bilirubin,Total 0.5 mg/dL (0.2-1.3); Blood Urea Nitrogen 23 mg/dL (7-17); Calcium 8.9 mg/dL (8.4-10.2); Carbon Dioxide 27 mmol/L (22-30); Chloride 102 mmol/L (98-107); Estimated CRCL calculation 38 ml/min; Estimated Glomerular Filt Rate 36; Glucose 99 mg/dL (65-110); Potassium 4.0 mmol/L (3.4-5.0); Sodium 133 mmol/L (137-145); Total Protein 6.4 g/dL (6.3-8.2)
[2025-10-07] MEDS: FERROUS SULFATE 325 MG TABLET PO (08:55)
[2025-10-07] MEDS: ACETAMINOPHEN 325 MG TABLET 650 MG PO ×2 (08:55→18:37)
[2025-10-07] MEDS: FUROSEMIDE 40 MG TABLET PO (08:55)
[2025-10-07] MEDS: GABAPENTIN 400 MG CAPSULE 800 MG PO ×3 (08:56→18:38)
[2025-10-07] MEDS: PANTOPRAZOLE 40 MG TABLET PO (08:56)
[2025-10-07] MEDS: AMIODARONE HCL 200 MG TABLET PO (08:56)
[2025-10-07] MEDS: ATORVASTATIN 40 MG TABLET PO (08:56)
[2025-10-07] MEDS: EMPAGLIFLOZIN 25 MG TABLET PO (08:56)
[2025-10-07] MEDS: POTASSIUM CHLORIDE 10 MEQ ER TABLET PO (08:56)
[2025-10-07] MEDS: INSULIN GLARGINE (*BKC) 100 UNITS/ML 32 UNITS SUB-Q (08:57)
--- NOTE | 2025-10-07 11:30 | PCOTNOTE ---
The patient initial evaluation was not able to be completed on 10/07 due to not having weight bearing clarification in as well as clarification on plan of care for fracture. Will plan to evaluate when necessary orders have been provided.
--- NOTE | 2025-10-07 15:52 | PM.IMPN2 ---
Assessment and Plan Assessment and Plan (1) Diabetic foot ulcer associated with type 2 diabetes mellitus: Onset Date: ~04/2025 Code(s): E11.621 - Type 2 diabetes mellitus with foot ulcer; L97.509 - Non-pressure chronic ulcer of other part of unspecified foot with unspecified severity Status: Acute Assessment and Plan: -Dr. Sotelo has been consulted for the diabetic right heel wound.(wound care was consulted for sacral ulcer.) -the patient has had this decubitus ulcer for several months. -please see nursing wound pictures. -patient has a large patch of eschar tissue to the entire right heel. She also has a sacral wound. -the patient stated that she has been using Santyl as prescribed for the diabetic foot ulcer. -she is on cefepime and vancomycin -plan for debridement (2) Bacteremia: Code(s): R78.81 - Bacteremia Status: Acute Assessment and Plan: Possible source UTI Blood culture from 10/05 shows Gram-negative bacilli identified as E coli sensitivity pending Blood culture from 09/16/2025 E coli which was pansensitive Less suspicion for endocarditis, will not pursue for TTE Monitor leukocytosis Continue vancomycin and Zosyn Wound culture with Gram-negative bacilli as well as Staph aureus Infectious Disease on board (3) Diastolic CHF with preserved left ventricular function, NYHA class 2: Code(s): I50.30 - Unspecified diastolic (congestive) heart failure Status: Acute Assessment and Plan: -no recent echo seen. -continue with Coreg -continue Jardiance and Lasix -hold losartan due to BAYLEE -continue with spironolactone. -monitor electrolytes due to her medications. -received 1 L bolus in the ER. (4) Paroxysmal atrial fibrillation: Code(s): I48.0 - Paroxysmal atrial fibrillation Status: Acute Assessment and Plan: -the patient is in sinus rhythm at this time. -she has had a history of a cardiac radiofrequency ablation in the past. -continue with Coreg -continue with apixaban -continue with amiodarone if blood pressure allows. (5) Essential (primary) hypertension: Code(s): I10 - Essential (primary) hypertension Status: Acute Assessment and Plan: -continue with Coreg if blood pressure allows - Lasix if blood pressure allows (6) Mixed hyperlipidemia: Code(s): E78.2 - Mixed hyperlipidemia Status: Acute Assessment and Plan: -continue with atorvastatin (7) Controlled type 2 diabetes mellitus with hyperglycemia, with long-term current use of insulin: Code(s): E11.65 - Type 2 diabetes mellitus with hyperglycemia; Z79.4 - prison (current) use of insulin Status: Acute Assessment and Plan: -Accu-Cheks with a seen HS and sliding scale insulin with hypoglycemic protocol. -check A1c -pharmacy to decrease home long-acting insulin by 20%. -continue with Jardiance (8) Hypothyroidism, unspecified: Qualifiers: Hypothyroidism type: unspecified Qualified Code(s): E03.9 - Hypothyroidism, unspecified Code(s): E03.9 - Hypothyroidism, unspecified Status: Acute Assessment and Plan: -continue with Synthroid (9) Iron deficiency anemia, unspecified: Onset Date: ~03/09/24 Qualifiers: Iron deficiency anemia type: chronic blood loss Qualified Code(s): D50.0 - Iron deficiency anemia secondary to blood loss (chronic) Code(s): D50.9 - Iron deficiency anemia, unspecified Status: Acute Assessment and Plan: -her H&H is currently 8.6 and 27.9. Her past H&H was 9.0 in 28.5 on 09/25/2025. -monitor CBCs and H&H -anemia of chronic disease with a history of chronic renal failure -continue with ferrous sulfate (10) Chronic kidney disease (CKD) stage G3b/A1, moderately decreased glomerular filtration rate (GFR) between 30-44 mL/min/1.73 square meter and albuminuria creatinine ratio less than 30 mg/g: Code(s): N18.32 - Chronic kidney disease, stage 3b Status: Acute Assessment and Plan: -her creatinine is 1.5 with a baseline of 1.2 - 1.30. BUN is 21 with a baseline of 18 - 27. And GFR is 34 the baseline anywhere from 27-47. -nephrology has seen her here in the past. -Hold losartan and sprinolactone (11) Acute on chronic anemia: Code(s): D64.9 - Anemia, unspecified Status: Acute Assessment and Plan: Anemia due to CKD Patient on ferrous sulfate Hemoglobin down trended to 6.8 on 10/06/2025 status post 1 unit packed red blood cell transfusion on 10/06/2025. Post transfusion hemoglobin up to 8.612/ Miguel on hold for planned surgery Patient had Previous discussion about placement of Watchman device at [facility] but she denied Subjective Date/time seen: 10/07/25 15:52 Interval history: No overnight events. No new complaints. Family at bedside. Discussed with them. Plan for surgery on Thursday. Review of Systems Review of Systems: All systems reviewed & are unremarkable except as noted in HPI and below Exam Const: General: cooperative, comfortable, no acute distress, well developed, awake, Physically active, average body habitus and well nourished Nutritional Appearance: average body habitus and well nourished Orientation/consciousness: oriented to person, oriented to place, oriented to time and patient oriented x3 Limitations: no limitations HENMT: Head: normal to inspection, No palpable skull fracture present, normocephalic, atraumatic and abrasion Ears: hearing grossly normal bilaterally and external ears normal Face/Nose/Sinus: Normal external nose present, Normal nares present and No nasal polyps present Eyes: General: appearance normal, both eyes and all related structures Alignment and Position: alignment normal Periorbital: periorbital findings normal Eyelids: eyelids normal Pupils: Equal, round and reactive pupils present Neck: Neck: normal visual inspection and full ROM Chest: Chest palpation & inspection: normal inspection of the chest Resp: Effort & Inspection: normal respiratory effort Auscultation: clear to auscultation bilaterally Cardio: Palpation: normal PMI Rate: regular rate Rhythm: regular rhythm Heart sounds: S1 normal heart sound present GI: Inspection: normal to inspection Auscultation: normal bowel sounds Rectal Exam: deferred : General: Yes no CVA tenderness Back/Spine/Pelvis: Back: no CVA tenderness Cervical Spine: cervical ROM normal Skin: General skin exam: normal color and lesion (Entire right heel covered with eschar tissue. Bloody drainage noted. ) Lesions: lesion noted (Entire right heel covered with eschar tissue. Bloody drainage noted. ) Rashes: no rashes Trauma: no lacerations or abrasions Hair: normal Nails: normal Other: Please see wound pictures from nursing staff. Eschar tissue covers the entire surface of the right heel. Bloody drainage noted from right heel. Unstageable sacral ulcer. Neuro: General: oriented to person, oriented to place, oriented to time and patient oriented x3 Cranial nerves: Yes Equal, round and reactive pupils present and Yes Normal hearing present Cognition (Neuro): normal cognition Speech: normal speech Extrem: General: normal to inspection Right upper extremity: normal to inspection and shoulder/upper arm Left upper extremity: normal to inspection and shoulder/upper arm Right lower extremity: normal to inspection Left lower extremity: normal to inspection Other: 2+ pitting edema right worse than the left to lower extremities. Psych: Appearance: grossly normal Mental Status: mental status grossly normal Speech and movement: Normal speech and movement present Affect: normal affect Attitude: cooperative Thought process: Normal thought process present Insight: Good insight present (Psych) Judgement: Good judgement present (Psych) Objective Data Vital Signs Vital Signs: Vital Signs - 24 hr 10/06/25 16:00 10/06/25 16:00 10/06/25 16:00 Temperature 98.4 F Pulse Rate 64 67 Respiratory Rate 16 Blood Pressure 125/46 L Pulse Oximetry 94 94 Oxygen Delivery Nasal Cannula Oxygen Flow Rate 1 10/06/25 18:00 10/06/25 20:00 10/06/25 20:00 Temperature 97.9 F Pulse Rate 66 63 64 Respiratory Rate 20 20 Blood Pressure 98/32 L Pulse Oximetry 100 100 Oxygen Delivery Room Air Oxygen Flow Rate 10/06/25 20:00 10/06/25 21:10 10/06/25 21:42 Temperature Pulse Rate 64 78 84 Respiratory Rate Blood Pressure Pulse Oximetry Oxygen Delivery Oxygen Flow Rate 10/06/25 23:51 10/06/25 23:51 10/06/25 23:53 Temperature 98.3 F Pulse Rate 82 82 69 Respiratory Rate 20 20 Blood Pressure 121/38 L Pulse Oximetry 100 95 Oxygen Delivery Room Air Oxygen Flow Rate 10/07/25 02:00 10/07/25 04:00 10/07/25 04:00 Temperature Pulse Rate 59 L 67 67 Respiratory Rate 20 Blood Pressure Pulse Oximetry 95 Oxygen Delivery Room Air Oxygen Flow Rate 10/07/25 04:00 10/07/25 06:00 10/07/25 08:00 Temperature 98.7 F 98.6 F Pulse Rate 64 68 74 Respiratory Rate 16 20 Blood Pressure 98/46 L 126/45 L Pulse Oximetry 96 91 Oxygen Delivery Oxygen Flow Rate 10/07/25 08:56 10/07/25 08:56 10/07/25 10:15 Temperature Pulse Rate 72 72 Respiratory Rate Blood Pressure Pulse Oximetry 92 Oxygen Delivery Nasal Cannula Oxygen Flow Rate 1 10/07/25 12:00 Temperature 98.4 F Pulse Rate 61 Respiratory Rate 16 Blood Pressure 135/54 L Pulse Oximetry 93 Oxygen Delivery Oxygen Flow Rate Intake/Output Intake/Output: Intake & Output 10/04/25 10/05/25 10/06/25 10/07/25 23:59 23:59 23:59 23:59 Intake Total 1950 1944 810 Output Total 500 1700 650 Balance 1450 244 160 Meds/Results Medications: Active Medications Generic Name Dose Route Start Last Admin Trade Name Freq PRN Reason Stop Dose Admin Acetaminophen 650 mg 10/05/25 02:15 10/07/25 08:55 Acetaminophen 325 Mg Tablet PO 650 mg Q4H PRN Administration Mild Pain (1-3) or Fever Hydrocodone Bitart/Acetaminophen 1 tab 10/05/25 06:21 10/07/25 03:57 Hydrocodone/Acetaminophen (*Crx) 10-325 Mg Tablet PO 1 tab Q6H PRN Administration Pain 7-10 Amiodarone HCl 200 mg 10/05/25 09:00 10/07/25 08:56 Amiodarone Hcl 200 Mg Tablet PO 200 mg DAILY KENYON Administration Apixaban 5 mg 10/05/25 09:00 10/05/25 21:02 Apixaban 5 Mg Tablet PO 5 mg On Hold: 10/06/25 07:17 Q12HR KENYON Administration Atorvastatin Calcium 40 mg 10/05/25 09:00 10/07/25 08:56 Atorvastatin 40 Mg Tablet PO 40 mg DAILY KENYON Administration Carvedilol 12.5 mg 10/05/25 09:00 10/07/25 08:56 Carvedilol 12.5 Mg Tablet PO 12.5 mg Q12HR KENYON Administration Dextrose 12.5 gm 10/05/25 06:10 Dextrose 50% 25 Gm/50 Ml Syringe IV PUSH PRN PRN Hypoglycemia Protocol Empagliflozin 25 mg 10/05/25 09:00 10/07/25 08:56 Empagliflozin 25 Mg Tablet PO 25 mg QAM KENYON Administration Ferrous Sulfate 325 mg 10/05/25 09:00 10/07/25 08:55 Ferrous Sulfate 325 Mg Tablet PO 325 mg DAILY KENYON Administration Furosemide 40 mg 10/05/25 09:00 10/07/25 08:55 Furosemide 40 Mg Tablet PO 40 mg QAM KENYON Administration Gabapentin 800 mg 10/05/25 09:00 10/07/25 14:20 Gabapentin 400 Mg Capsule PO 800 mg TID KENYON Administration Glucagon 1 mg 10/05/25 06:10 Glucagon For Inj 1 Mg Vial IM PRN PRN Hypoglycemia Protocol Glucose 15 gm 10/05/25 06:10 Glucose Oral Gel 15 Gm Of Glucse In 37.5 Gm Tube PO PRN PRN Hypoglycemia Protocol Hydralazine HCl 10 mg 10/05/25 17:42 Hydralazine Hcl 20 Mg/Ml Vial IV PUSH Q6H PRN Blood Pressure - High Vancomycin HCl 1,500 mg in 500 mls @ 250 mls/hr 10/06/25 14:00 10/06/25 16:15 Vancomycin 1,500 Mg/Ns 500 Ml IVPB Infused Q36H KENYON Infusion Dextrose 1,000 mls @ 100 mls/hr 10/05/25 06:10 Dextrose 5% 1,000 Ml IVPB PRN PRN Hypoglycemia Protocol Piperacillin Sod/Tazobactam 50 mls @ 100 mls/hr 10/05/25 20:00 10/07/25 14:20 Sod 3.375 gm/ Sodium Chloride IVPB 100 mls/hr Q8H KENYON Administration Insulin Aspart 2 - 5 units 10/05/25 08:00 10/07/25 12:01 Insulin Aspart (*Bkc) 100 Units/Ml SUB-Q Not Given [facility] Protocol Insulin Glargine 32 units 10/05/25 09:00 10/07/25 08:57 Insulin Glargine (*Bkc) 100 Units/Ml SUB-Q 32 units DAILY KENYON Administration Levothyroxine Sodium 200 mcg 10/05/25 06:30 10/07/25 04:36 Levothyroxine Sodium 100 Mcg Tablet PO 200 mcg DAILY@0630 KENYON Administration Losartan Potassium 25 mg 10/05/25 09:00 10/05/25 10:54 Losartan Potassium 25 Mg Tablet PO Not Given On Hold: 10/05/25 10:00 DAILY KENYON Morphine Sulfate 2 mg 10/05/25 02:15 Morphine Sulfate (*Crx) 4 Mg/Ml Inj IV PUSH Q2H PRN Pain Rated 7-10 Ondansetron HCl 4 mg 10/05/25 02:15 Ondansetron Inj 4 Mg/2 Ml Vial IV PUSH Q4H PRN Nausea Pantoprazole Sodium 40 mg 10/05/25 09:00 10/07/25 08:56 Pantoprazole 40 Mg Tablet PO 40 mg QAM KENYON Administration Potassium Chloride 10 meq 10/05/25 09:00 10/07/25 08:56 Potassium Chloride 10 Meq Er Tablet PO 10 meq DAILY KENYON Administration Spironolactone 25 mg 10/05/25 09:00 10/05/25 10:53 Spironolactone 25 Mg Tablet PO 25 mg On Hold: 10/05/25 17:42 DAILY KENYON Administration Radiology Results: ITS Impressions Head CT 10/05/25 06:07 IMPRESSION: 1. No acute intracranial findings. Chest X-Ray 10/05/25 06:09 IMPRESSION: 1. No acute cardiopulmonary findings given portable technique. Heel X-Ray 10/05/25 07:52 IMPRESSION: 1. Comminuted mid body fracture of the calcaneus with possible erosive changes soft tissue swelling and open wound defect. Pathologic fracture and possible osteomyelitis is not excluded. Venous Doppler Study 10/05/25 14:51 Impression: Negative for DVT. Foot MRI 10/06/25 14:21 IMPRESSION: 1. Oblique longitudinally oriented fracture through the body of the calcaneus extending from the plantar surface into the subtalar joint with features suggesting possible subacute injury. Correlate with clinical presentation and history. 2. Extensive soft tissue changes along the posterior margin of the calcaneal body with erosive and bone marrow changes consistent with osteomyelitis. Bone marrow changes involve both the posterior and anterior calcaneal body fragments, although no clear cortical erosion in the anterior fragment is seen. Osteomyelitis is more convincingly present in the posterior calcaneal body and not as clearly present in the anterior fragment. However with bone marrow changes throughout the anterior calcaneus, osteomyelitis could be there is well. 3. Fluid within the fracture defect could be infected, though no discrete abscess is seen. Labs Labs: Laboratory Results - last 24 hr 10/06/25 10/06/25 10/07/25 16:07 19:39 04:11 WBC 7.0 RBC 3.07 L Hgb 8.6 L Hct 27.8 L MCV 90.6 MCH 28.0 MCHC 30.9 L RDW 13.8 Plt Count 248 MPV 8.8 Sodium 133 L Potassium 4.0 Chloride 102 Carbon Dioxide 27 Anion Gap 4 BUN 23 H Creatinine 1.43 H Estim Creat Clear Calc 38 Estimated GFR 36 L Glucose 99 POC Capillary Glucose 120 H 171 H Calcium 8.9 Total Bilirubin 0.5 AST 26 ALT 13 Alkaline Phosphatase 81 Total Protein 6.4 Albumin 2.9 L 10/07/25 10/07/25 07:31 11:28 WBC RBC Hgb Hct MCV MCH MCHC RDW Plt Count MPV Sodium Potassium Chloride Carbon Dioxide Anion Gap BUN Creatinine Estim Creat Clear Calc Estimated GFR Glucose POC Capillary Glucose 90 101 Calcium Total Bilirubin AST ALT Alkaline Phosphatase Total Protein Albumin Quality VTE Prophylaxis VTE prophylaxis: pharmacologic ordered Hospitalist [facility] Advance Care Plan I have confirmed that the patient's Advanced Care Plan is present, code status is documented, or surrogate decision maker is listed in patient medical record.: Yes Medication Reconciliation I have utilized all available resources to obtain, update and review the patients current medications (includes all prescriptions, OTC, herbals, cannabis, and nutritional supplements).: Yes
[2025-10-08 01:06] LABS: Hematocrit 27.4 % (37.0-47.0); Hemoglobin 8.6 g/dL (12.0-15.0); Immature Granulocyte Percent A 0.8 % (0-0.5); Lymphocytes Absolute Auto 1.35 K/mm3 (0.9-3.2); Mean Corpuscular HGB Conc 31.4 g/dl (32-36); Mean Corpuscular Hemoglobin 28.3 pg (26-34); Mean Corpuscular Volume 90.1 fl (80-100); Nucleated Red Blood Cells Absolute Auto 0.000 K/mm3 (0.0-0.012); Nucleated Red Blood Cells Perc 0.0 % (0.0-0.2); Platelet Count Result 241 k/mm3 (150-375); Red Blood Count 3.04 M/mm3 (4.2-5.4); White Blood Count 6.2 K/mm3 (4.5-10.0)
[2025-10-08 01:18] LABS: Alanine Aminotransferase 18 U/L (6-35); Albumin Level 2.8 g/dL (3.5-5.1); Alkaline Phosphatase 90 U/L (38-126); Anion Gap 5 mmol/L (4-12); Aspartate Amino Transferase 35 U/L (14-36); Bilirubin,Total 0.4 mg/dL (0.2-1.3); Blood Urea Nitrogen 24 mg/dL (7-17); Calcium 8.8 mg/dL (8.4-10.2); Carbon Dioxide 26 mmol/L (22-30); Chloride 103 mmol/L (98-107); Estimated CRCL calculation 39 ml/min; Estimated Glomerular Filt Rate 36; Glucose 144 mg/dL (65-110); Magnesium 1.7 mg/dL (1.6-2.3); Potassium 4.0 mmol/L (3.4-5.0); Sodium 134 mmol/L (137-145); Total Protein 6.3 g/dL (6.3-8.2)
[2025-10-08] MEDS: VANCOMYCIN 1,750 MG/NS 500 ML 1,750 MG/500 ML BAG 250 MG IVPB (02:50)
[2025-10-08] MEDS: HYDROcodone/acetaminophen (*CRX) 10-325 MG TABLET 1 TAB PO (02:50)
[2025-10-08] MEDS: LEVOTHYROXINE SODIUM 100 MCG TABLET 200 MCG PO (05:48)
[2025-10-08] MEDS: PIPERACILLIN/TAZOBACTAM SOD 3.375 GM in SODIUM CHLORIDE 0.9% IV 50 ML 100 ML IVPB ×3 (05:49→20:08)
--- NOTE | 2025-10-08 07:30 | PCOTNOTE ---
The patient initial evaluation was not able to be completed on 10/08 due to patient being scheduled for surgery on 10/09. Will plan to evaluate when appropriate.
[2025-10-08 08:00] VITALS: BP 126/41; PULSE 68; RESP 14; TEMP 37.3; O2SAT 93
[2025-10-08] MEDS: FERROUS SULFATE 325 MG TABLET PO (09:19)
[2025-10-08] MEDS: FUROSEMIDE 40 MG TABLET PO (09:19)
[2025-10-08] MEDS: POTASSIUM CHLORIDE 10 MEQ ER TABLET PO (09:19)
[2025-10-08] MEDS: ATORVASTATIN 40 MG TABLET PO (09:19)
[2025-10-08 09:20] VITALS: PULSE 68
[2025-10-08] MEDS: PANTOPRAZOLE 40 MG TABLET PO (09:21)
[2025-10-08] MEDS: EMPAGLIFLOZIN 25 MG TABLET PO (09:21)
[2025-10-08] MEDS: GABAPENTIN 400 MG CAPSULE 800 MG PO ×3 (09:21→16:48)
[2025-10-08 09:22] VITALS: PULSE 68
[2025-10-08] MEDS: AMIODARONE HCL 200 MG TABLET PO (09:22)
[2025-10-08] MEDS: INSULIN GLARGINE (*BKC) 100 UNITS/ML 32 UNITS SUB-Q (09:27)
--- NOTE | 2025-10-08 09:32 | PM.IMPN2 ---
Assessment and Plan Assessment and Plan (1) Diabetic foot ulcer associated with type 2 diabetes mellitus: Onset Date: ~04/2025 Code(s): E11.621 - Type 2 diabetes mellitus with foot ulcer; L97.509 - Non-pressure chronic ulcer of other part of unspecified foot with unspecified severity Status: Acute Assessment and Plan: -Dr. Sotelo has been consulted for the diabetic right heel wound.(wound care was consulted for sacral ulcer.) -the patient has had this decubitus ulcer for several months. -please see nursing wound pictures. -patient has a large patch of eschar tissue to the entire right heel. She also has a sacral wound. -the patient stated that she has been using Santyl as prescribed for the diabetic foot ulcer. -she is on cefepime and vancomycin -plan for debridement on Thursday. (2) Bacteremia: Code(s): R78.81 - Bacteremia Status: Acute Assessment and Plan: Possible source UTI Blood culture from 10/05 shows Gram-negative bacilli identified as E coli sensitivity pending Blood culture from 09/16/2025 E coli which was pansensitive Less suspicion for endocarditis, will not pursue for TTE Monitor leukocytosis Continue vancomycin and Zosyn Wound culture with Gram-negative bacilli as well as Staph aureus Infectious Disease on board (3) Diastolic CHF with preserved left ventricular function, NYHA class 2: Code(s): I50.30 - Unspecified diastolic (congestive) heart failure Status: Acute Assessment and Plan: -no recent echo seen. -continue with Coreg -continue Jardiance and Lasix -hold losartan due to BAYLEE -continue with spironolactone. -monitor electrolytes due to her medications. -received 1 L bolus in the ER. (4) Paroxysmal atrial fibrillation: Code(s): I48.0 - Paroxysmal atrial fibrillation Status: Acute Assessment and Plan: -the patient is in sinus rhythm at this time. -she has had a history of a cardiac radiofrequency ablation in the past. -continue with Coreg -continue with apixaban -continue with amiodarone if blood pressure allows. (5) Essential (primary) hypertension: Code(s): I10 - Essential (primary) hypertension Status: Acute Assessment and Plan: -continue with Coreg if blood pressure allows - Lasix if blood pressure allows (6) Mixed hyperlipidemia: Code(s): E78.2 - Mixed hyperlipidemia Status: Acute Assessment and Plan: -continue with atorvastatin (7) Controlled type 2 diabetes mellitus with hyperglycemia, with long-term current use of insulin: Code(s): E11.65 - Type 2 diabetes mellitus with hyperglycemia; Z79.4 - nursing home (current) use of insulin Status: Acute Assessment and Plan: -Accu-Cheks with a seen HS and sliding scale insulin with hypoglycemic protocol. -check A1c -pharmacy to decrease home long-acting insulin by 20%. -continue with Jardiance (8) Hypothyroidism, unspecified: Qualifiers: Hypothyroidism type: unspecified Qualified Code(s): E03.9 - Hypothyroidism, unspecified Code(s): E03.9 - Hypothyroidism, unspecified Status: Acute Assessment and Plan: -continue with Synthroid (9) Iron deficiency anemia, unspecified: Onset Date: ~03/09/24 Qualifiers: Iron deficiency anemia type: chronic blood loss Qualified Code(s): D50.0 - Iron deficiency anemia secondary to blood loss (chronic) Code(s): D50.9 - Iron deficiency anemia, unspecified Status: Acute Assessment and Plan: -her H&H is currently 8.6 and 27.9. Her past H&H was 9.0 in 28.5 on 09/25/2025. -monitor CBCs and H&H -anemia of chronic disease with a history of chronic renal failure -continue with ferrous sulfate (10) Chronic kidney disease (CKD) stage G3b/A1, moderately decreased glomerular filtration rate (GFR) between 30-44 mL/min/1.73 square meter and albuminuria creatinine ratio less than 30 mg/g: Code(s): N18.32 - Chronic kidney disease, stage 3b Status: Acute Assessment and Plan: -her creatinine is 1.5 with a baseline of 1.2 - 1.30. BUN is 21 with a baseline of 18 - 27. And GFR is 34 the baseline anywhere from 27-47. -nephrology has seen her here in the past. -Hold losartan and sprinolactone (11) Acute on chronic anemia: Code(s): D64.9 - Anemia, unspecified Status: Acute Assessment and Plan: Anemia due to CKD Patient on ferrous sulfate Hemoglobin down trended to 6.8 on 10/06/2025 status post 1 unit packed red blood cell transfusion on 10/06/2025. Post transfusion hemoglobin up to 8.612/ Xarelto on hold for planned surgery Patient had Previous discussion about placement of Watchman device at [facility] but she denied Subjective Date/time seen: 10/08/25 09:32 Interval history: Patient was seen during the morning rounds today. No new complaints. No sob or chest pain. Plan for surgery on Thursday. Review of Systems Review of Systems: All systems reviewed & are unremarkable except as noted in HPI and below Constitutional: Constitutional: Reports as per HPI and Reports no additional constitutional complaints Eyes: Eyes: Reports as per HPI and Reports no additional eye complaints ENT: Reports system reviewed and no additional complaints, except as documented and Reports Normal hearing present Cardiovascular: Cardiovascular: Reports no additional cardiovascular complaints Respiratory: Respiratory: Reports as per HPI and Reports no additional respiratory complaints Gastrointestinal: Gastrointestinal: Reports as per HPI and Reports no additional gastrointestinal complaints Genitourinary: Genitourinary: Reports no additional female genitourinary complaints Musculoskeletal: Musculoskeletal: Reports no additional musculoskeletal complaints Integumentary/Breasts: Skin/Breast: Reports system reviewed and no additional complaints, except as docu Neurologic: Reports system reviewed and no additional complaints, except as documented and Reports Normal hearing present Psychiatric: Psychiatric: Reports no additional psychiatric complaints and Reports as per HPI Hematologic/Lymphatic: Hematologic/Lymphatic: Reports no additional hematologic/lymphatic complaints Allergic/Immunologic: Allergic/Immunologic: Reports no additional allergic/immunologic complaints Exam Const: General: cooperative, comfortable, no acute distress, well developed, awake, Physically active, average body habitus and well nourished Nutritional Appearance: average body habitus and well nourished Orientation/consciousness: oriented to person, oriented to place, oriented to time and patient oriented x3 Limitations: no limitations HENMT: Head: normal to inspection, No palpable skull fracture present, normocephalic, atraumatic and abrasion Ears: hearing grossly normal bilaterally and external ears normal Face/Nose/Sinus: Normal external nose present, Normal nares present and No nasal polyps present Eyes: General: appearance normal, both eyes and all related structures Alignment and Position: alignment normal Periorbital: periorbital findings normal Eyelids: eyelids normal Pupils: Equal, round and reactive pupils present Neck: Neck: normal visual inspection and full ROM Chest: Chest palpation & inspection: normal inspection of the chest Resp: Effort & Inspection: normal respiratory effort Auscultation: clear to auscultation bilaterally Cardio: Palpation: normal PMI Rate: regular rate Rhythm: regular rhythm Heart sounds: S1 normal heart sound present GI: Inspection: normal to inspection Auscultation: normal bowel sounds Rectal Exam: deferred : General: Yes no CVA tenderness Back/Spine/Pelvis: Back: no CVA tenderness Cervical Spine: cervical ROM normal Skin: General skin exam: normal color and lesion (Entire right heel covered with eschar tissue. Bloody drainage noted. ) Lesions: lesion noted (Entire right heel covered with eschar tissue. Bloody drainage noted. ) Rashes: no rashes Trauma: no lacerations or abrasions Hair: normal Nails: normal Other: Please see wound pictures from nursing staff. Eschar tissue covers the entire surface of the right heel. Bloody drainage noted from right heel. Unstageable sacral ulcer. Neuro: General: oriented to person, oriented to place, oriented to time and patient oriented x3 Cranial nerves: Yes Equal, round and reactive pupils present and Yes Normal hearing present Cognition (Neuro): normal cognition Speech: normal speech Extrem: General: normal to inspection Right upper extremity: normal to inspection and shoulder/upper arm Left upper extremity: normal to inspection and shoulder/upper arm Right lower extremity: normal to inspection Left lower extremity: normal to inspection Other: 2+ pitting edema right worse than the left to lower extremities. Psych: Appearance: grossly normal Mental Status: mental status grossly normal Speech and movement: Normal speech and movement present Affect: normal affect Attitude: cooperative Thought process: Normal thought process present Insight: Good insight present (Psych) Judgement: Good judgement present (Psych) Objective Data Vital Signs Vital Signs: Vital Signs - 24 hr 10/07/25 10:15 10/07/25 12:00 10/07/25 12:00 Temperature 36.9 C Pulse Rate 61 Respiratory Rate 16 Blood Pressure 135/54 L Pulse Oximetry 92 93 93 Oxygen Delivery Nasal Cannula Nasal Cannula Oxygen Flow Rate 1 1 10/07/25 16:00 10/07/25 16:00 10/07/25 20:00 Temperature 36.6 C 36.8 C Pulse Rate 63 57 L Respiratory Rate 14 18 Blood Pressure 108/40 L 119/42 L Pulse Oximetry 93 96 96 Oxygen Delivery Nasal Cannula Oxygen Flow Rate 1 10/07/25 20:00 10/07/25 20:00 10/07/25 20:26 Temperature Pulse Rate 56 L 56 L 64 Respiratory Rate 18 Blood Pressure Pulse Oximetry 96 Oxygen Delivery Room Air Oxygen Flow Rate 10/07/25 22:00 10/07/25 23:37 10/08/25 08:00 Temperature 37.2 C 37.3 C Pulse Rate 52 L 57 L 68 Respiratory Rate 90 H 14 Blood Pressure 107/34 L 126/41 L Pulse Oximetry 90 93 Oxygen Delivery Oxygen Flow Rate 10/08/25 09:20 10/08/25 09:22 Temperature Pulse Rate 68 68 Respiratory Rate Blood Pressure Pulse Oximetry Oxygen Delivery Oxygen Flow Rate Intake/Output Intake/Output: Intake & Output 10/05/25 10/06/25 10/07/25 10/08/25 23:59 23:59 23:59 23:59 Intake Total 1950 1944 1690 790 Output Total 500 1700 2500 650 Balance 1450 244 -810 140 Meds/Results Medications: Active Medications Generic Name Dose Route Start Last Admin Trade Name Freq PRN Reason Stop Dose Admin Acetaminophen 650 mg 10/05/25 02:15 10/07/25 18:37 Acetaminophen 325 Mg Tablet PO 650 mg Q4H PRN Administration Mild Pain (1-3) or Fever Hydrocodone Bitart/Acetaminophen 1 tab 10/05/25 06:21 10/08/25 02:50 Hydrocodone/Acetaminophen (*Crx) 10-325 Mg Tablet PO 1 tab Q6H PRN Administration Pain 7-10 Amiodarone HCl 200 mg 10/05/25 09:00 10/08/25 09:22 Amiodarone Hcl 200 Mg Tablet PO 200 mg DAILY KENYON Administration Apixaban 5 mg 10/05/25 09:00 10/05/25 21:02 Apixaban 5 Mg Tablet PO 5 mg On Hold: 10/06/25 07:17 Q12HR KENYON Administration Atorvastatin Calcium 40 mg 10/05/25 09:00 10/08/25 09:19 Atorvastatin 40 Mg Tablet PO 40 mg DAILY KENYON Administration Carvedilol 12.5 mg 10/05/25 09:00 10/08/25 09:20 Carvedilol 12.5 Mg Tablet PO 12.5 mg Q12HR EKNYON Administration Dextrose 12.5 gm 10/05/25 06:10 Dextrose 50% 25 Gm/50 Ml Syringe IV PUSH PRN PRN Hypoglycemia Protocol Empagliflozin 25 mg 10/05/25 09:00 10/08/25 09:21 Empagliflozin 25 Mg Tablet PO 25 mg QAM KENYON Administration Ferrous Sulfate 325 mg 10/05/25 09:00 10/08/25 09:19 Ferrous Sulfate 325 Mg Tablet PO 325 mg DAILY KENYON Administration Furosemide 40 mg 10/05/25 09:00 10/08/25 09:19 Furosemide 40 Mg Tablet PO 40 mg QAM KENYON Administration Gabapentin 800 mg 10/05/25 09:00 10/08/25 09:21 Gabapentin 400 Mg Capsule PO 800 mg TID KENYON Administration Glucagon 1 mg 10/05/25 06:10 Glucagon For Inj 1 Mg Vial IM PRN PRN Hypoglycemia Protocol Glucose 15 gm 10/05/25 06:10 Glucose Oral Gel 15 Gm Of Glucse In 37.5 Gm Tube PO PRN PRN Hypoglycemia Protocol Hydralazine HCl 10 mg 10/05/25 17:42 Hydralazine Hcl 20 Mg/Ml Vial IV PUSH Q6H PRN Blood Pressure - High Dextrose 1,000 mls @ 100 mls/hr 10/05/25 06:10 Dextrose 5% 1,000 Ml IVPB PRN PRN Hypoglycemia Protocol Piperacillin Sod/Tazobactam 50 mls @ 100 mls/hr 10/05/25 20:00 10/08/25 06:24 Sod 3.375 gm/ Sodium Chloride IVPB Infused Q8H KENYON Infusion Vancomycin HCl 1,750 mg in 500 mls @ 250 mls/hr 10/08/25 02:00 10/08/25 04:50 Vancomycin 1,750 Mg/Ns 500 Ml IVPB Infused Q36H KENYON Infusion Insulin Aspart 2 - 5 units 10/05/25 08:00 10/08/25 09:16 Insulin Aspart (*Bkc) 100 Units/Ml SUB-Q Not Given TIDWM [facility] Protocol Insulin Glargine 32 units 10/05/25 09:00 10/08/25 09:27 Insulin Glargine (*Bkc) 100 Units/Ml SUB-Q 32 units DAILY KENYON Administration Levothyroxine Sodium 200 mcg 10/05/25 06:30 10/08/25 05:48 Levothyroxine Sodium 100 Mcg Tablet PO 200 mcg DAILY@0630 KENYON Administration Losartan Potassium 25 mg 10/05/25 09:00 10/05/25 10:54 Losartan Potassium 25 Mg Tablet PO Not Given On Hold: 10/05/25 10:00 DAILY [facility] Morphine Sulfate 2 mg 10/05/25 02:15 Morphine Sulfate (*Crx) 4 Mg/Ml Inj IV PUSH Q2H PRN Pain Rated 7-10 Ondansetron HCl 4 mg 10/05/25 02:15 Ondansetron Inj 4 Mg/2 Ml Vial IV PUSH Q4H PRN Nausea Pantoprazole Sodium 40 mg 10/05/25 09:00 10/08/25 09:21 Pantoprazole 40 Mg Tablet PO 40 mg QAM KENYON Administration Potassium Chloride 10 meq 10/05/25 09:00 10/08/25 09:19 Potassium Chloride 10 Meq Er Tablet PO 10 meq DAILY KENYON Administration Spironolactone 25 mg 10/05/25 09:00 10/05/25 10:53 Spironolactone 25 Mg Tablet PO 25 mg On Hold: 10/05/25 17:42 DAILY KENYON Administration Radiology Results: ITS Impressions Head CT 10/05/25 06:07 IMPRESSION: 1. No acute intracranial findings. Chest X-Ray 10/05/25 06:09 IMPRESSION: 1. No acute cardiopulmonary findings given portable technique. Heel X-Ray 10/05/25 07:52 IMPRESSION: 1. Comminuted mid body fracture of the calcaneus with possible erosive changes soft tissue swelling and open wound defect. Pathologic fracture and possible osteomyelitis is not excluded. Venous Doppler Study 10/05/25 14:51 Impression: Negative for DVT. Foot MRI 10/06/25 14:21 IMPRESSION: 1. Oblique longitudinally oriented fracture through the body of the calcaneus extending from the plantar surface into the subtalar joint with features suggesting possible subacute injury. Correlate with clinical presentation and history. 2. Extensive soft tissue changes along the posterior margin of the calcaneal body with erosive and bone marrow changes consistent with osteomyelitis. Bone marrow changes involve both the posterior and anterior calcaneal body fragments, although no clear cortical erosion in the anterior fragment is seen. Osteomyelitis is more convincingly present in the posterior calcaneal body and not as clearly present in the anterior fragment. However with bone marrow changes throughout the anterior calcaneus, osteomyelitis could be there is well. 3. Fluid within the fracture defect could be infected, though no discrete abscess is seen. Labs Labs: Laboratory Results - last 24 hr 10/07/25 10/07/25 10/07/25 11:28 16:41 20:51 WBC RBC Hgb Hct MCV MCH MCHC RDW Plt Count MPV Immature Gran % (Auto) Neut % (Auto) Lymph % (Auto) [place] % (Auto) Eos % (Auto) Baso % (Auto) Lymph # (Auto) [place] # (Auto) Eos # (Auto) Baso # (Auto) Abs Immat Gran (auto) Absolute Neuts (auto) Absolute Nucleated RBC Nucleated RBC % Sodium Potassium Chloride Carbon Dioxide Anion Gap BUN Creatinine Estim Creat Clear Calc Estimated GFR Glucose POC Capillary Glucose 101 167 H 177 H Calcium Magnesium Total Bilirubin AST ALT Alkaline Phosphatase Total Protein Albumin Vancomycin Trough 10/08/25 10/08/25 01:00 07:34 WBC 6.2 RBC 3.04 L Hgb 8.6 L Hct 27.4 L MCV 90.1 MCH 28.3 MCHC 31.4 L RDW 13.6 Plt Count 241 MPV 8.8 Immature Gran % (Auto) 0.8 H Neut % (Auto) 60.8 Lymph % (Auto) 21.8 [place] % (Auto) 11.5 H Eos % (Auto) 4.5 H Baso % (Auto) 0.6 Lymph # (Auto) 1.35 [place] # (Auto) 0.7 H Eos # (Auto) 0.3 Baso # (Auto) 0.0 Abs Immat Gran (auto) 0.05 H Absolute Neuts (auto) 3.8 Absolute Nucleated RBC 0.000 Nucleated RBC % 0.0 Sodium 134 L Potassium 4.0 Chloride 103 Carbon Dioxide 26 Anion Gap 5 BUN 24 H Creatinine 1.42 H Estim Creat Clear Calc 39 Estimated GFR 36 L Glucose 144 H POC Capillary Glucose 108 H Calcium 8.8 Magnesium 1.7 Total Bilirubin 0.4 AST 35 ALT 18 Alkaline Phosphatase 90 Total Protein 6.3 Albumin 2.8 L Vancomycin Trough 14.3 Quality VTE Prophylaxis VTE prophylaxis: pharmacologic ordered
--- NOTE | 2025-10-08 11:44 | WPDPN ---
Progress Note: A&P Assessment and Plan (1) Decubitus ulcer of right heel, unstageable: Code(s): L89.610 - Pressure ulcer of right heel, unstageable Status: Acute Assessment and Plan: 1 days s/p I&D with bone resection awaiting cultures from surgery and Pathology Abx per ID ordered wound vac -Once placed stable for d/c per podiatry will f/u as outpatient on a weekly basis Subjective Date/time seen: 10/08/25 11:44 Interval history: Patient seen at bedside resting comfortably. No foot pain. No FCNV. Exam Extrem: Other: Wound to the right heel is full thickness to bone. Healthy minimal sanguineous drainage noted. No purulence or remaining necrotic tissue noted. Objective Data Vital Signs Vital Signs: Vital Signs - 24 hr 10/07/25 12:00 10/07/25 12:00 10/07/25 16:00 Temperature 36.9 C Pulse Rate 61 Respiratory Rate 16 Blood Pressure 135/54 L Pulse Oximetry 93 93 93 Oxygen Delivery Nasal Cannula Nasal Cannula Oxygen Flow Rate 1 1 10/07/25 16:00 10/07/25 20:00 10/07/25 20:00 Temperature 36.6 C 36.8 C Pulse Rate 63 57 L 56 L Respiratory Rate 14 18 18 Blood Pressure 108/40 L 119/42 L Pulse Oximetry 96 96 96 Oxygen Delivery Room Air Oxygen Flow Rate 10/07/25 20:00 10/07/25 20:26 10/07/25 22:00 Temperature Pulse Rate 56 L 64 52 L Respiratory Rate Blood Pressure Pulse Oximetry Oxygen Delivery Oxygen Flow Rate 10/07/25 23:37 10/08/25 08:00 10/08/25 09:20 Temperature 37.2 C 37.3 C Pulse Rate 57 L 68 68 Respiratory Rate 90 H 14 Blood Pressure 107/34 L 126/41 L Pulse Oximetry 90 93 Oxygen Delivery Oxygen Flow Rate 10/08/25 09:22 Temperature Pulse Rate 68 Respiratory Rate Blood Pressure Pulse Oximetry Oxygen Delivery Oxygen Flow Rate Intake/Output Intake/Output: Intake & Output 10/05/25 10/06/25 10/07/25 10/08/25 23:59 23:59 23:59 23:59 Intake Total 1950 1944 1690 790 Output Total 500 1700 2500 650 Balance 1450 244 -810 140 Meds/Results Medications: Active Medications Generic Name Dose Route Start Last Admin Trade Name Travisq PRN Reason Stop Dose Admin Acetaminophen 650 mg 10/05/25 02:15 10/07/25 18:37 Acetaminophen 325 Mg Tablet PO 650 mg Q4H PRN Administration Mild Pain (1-3) or Fever Hydrocodone Bitart/Acetaminophen 1 tab 10/05/25 06:21 10/08/25 02:50 Hydrocodone/Acetaminophen (*Crx) 10-325 Mg Tablet PO 1 tab Q6H PRN Administration Pain 7-10 Amiodarone HCl 200 mg 10/05/25 09:00 10/08/25 09:22 Amiodarone Hcl 200 Mg Tablet PO 200 mg DAILY KENYON Administration Apixaban 5 mg 10/05/25 09:00 10/05/25 21:02 Apixaban 5 Mg Tablet PO 5 mg On Hold: 10/06/25 07:17 Q12HR KENYON Administration Atorvastatin Calcium 40 mg 10/05/25 09:00 10/08/25 09:19 Atorvastatin 40 Mg Tablet PO 40 mg DAILY KENYON Administration Carvedilol 12.5 mg 10/05/25 09:00 10/08/25 09:20 Carvedilol 12.5 Mg Tablet PO 12.5 mg Q12HR KENYON Administration Dextrose 12.5 gm 10/05/25 06:10 Dextrose 50% 25 Gm/50 Ml Syringe IV PUSH PRN PRN Hypoglycemia Protocol Empagliflozin 25 mg 10/05/25 09:00 10/08/25 09:21 Empagliflozin 25 Mg Tablet PO 25 mg QAM KENYON Administration Ferrous Sulfate 325 mg 10/05/25 09:00 10/08/25 09:19 Ferrous Sulfate 325 Mg Tablet PO 325 mg DAILY KENYON Administration Furosemide 40 mg 10/05/25 09:00 10/08/25 09:19 Furosemide 40 Mg Tablet PO 40 mg QAM KENYON Administration Gabapentin 800 mg 10/05/25 09:00 10/08/25 09:21 Gabapentin 400 Mg Capsule PO 800 mg TID KENYON Administration Glucagon 1 mg 10/05/25 06:10 Glucagon For Inj 1 Mg Vial IM PRN PRN Hypoglycemia Protocol Glucose 15 gm 10/05/25 06:10 Glucose Oral Gel 15 Gm Of Glucse In 37.5 Gm Tube PO PRN PRN Hypoglycemia Protocol Hydralazine HCl 10 mg 10/05/25 17:42 Hydralazine Hcl 20 Mg/Ml Vial IV PUSH Q6H PRN Blood Pressure - High Dextrose 1,000 mls @ 100 mls/hr 10/05/25 06:10 Dextrose 5% 1,000 Ml IVPB PRN PRN Hypoglycemia Protocol Piperacillin Sod/Tazobactam 50 mls @ 100 mls/hr 10/05/25 20:00 10/08/25 06:24 Sod 3.375 gm/ Sodium Chloride IVPB Infused Q8H KENYON Infusion Vancomycin HCl 1,750 mg in 500 mls @ 250 mls/hr 10/08/25 02:00 10/08/25 04:50 Vancomycin 1,750 Mg/Ns 500 Ml IVPB Infused Q36H KENYON Infusion Insulin Aspart 2 - 5 units 10/05/25 08:00 10/08/25 09:16 Insulin Aspart (*Bkc) 100 Units/Ml SUB-Q Not Given [facility] Protocol Insulin Glargine 32 units 10/05/25 09:00 10/08/25 09:27 Insulin Glargine (*Bkc) 100 Units/Ml SUB-Q 32 units DAILY KENYON Administration Levothyroxine Sodium 200 mcg 10/05/25 06:30 10/08/25 05:48 Levothyroxine Sodium 100 Mcg Tablet PO 200 mcg DAILY@0630 KENYON Administration Losartan Potassium 25 mg 10/05/25 09:00 10/05/25 10:54 Losartan Potassium 25 Mg Tablet PO Not Given On Hold: 10/05/25 10:00 DAILY KENYON Morphine Sulfate 2 mg 10/05/25 02:15 Morphine Sulfate (*Crx) 4 Mg/Ml Inj IV PUSH Q2H PRN Pain Rated 7-10 Ondansetron HCl 4 mg 10/05/25 02:15 Ondansetron Inj 4 Mg/2 Ml Vial IV PUSH Q4H PRN Nausea Pantoprazole Sodium 40 mg 10/05/25 09:00 10/08/25 09:21 Pantoprazole 40 Mg Tablet PO 40 mg QAM KENYON Administration Potassium Chloride 10 meq 10/05/25 09:00 10/08/25 09:19 Potassium Chloride 10 Meq Er Tablet PO 10 meq DAILY KENYON Administration Spironolactone 25 mg 10/05/25 09:00 10/05/25 10:53 Spironolactone 25 Mg Tablet PO 25 mg On Hold: 10/05/25 17:42 DAILY KENYON Administration Radiology Results: ITS Impressions Head CT 10/05/25 06:07 IMPRESSION: 1. No acute intracranial findings. Chest X-Ray 10/05/25 06:09 IMPRESSION: 1. No acute cardiopulmonary findings given portable technique. Heel X-Ray 10/05/25 07:52 IMPRESSION: 1. Comminuted mid body fracture of the calcaneus with possible erosive changes soft tissue swelling and open wound defect. Pathologic fracture and possible osteomyelitis is not excluded. Venous Doppler Study 10/05/25 14:51 Impression: Negative for DVT. Foot MRI 10/06/25 14:21 IMPRESSION: 1. Oblique longitudinally oriented fracture through the body of the calcaneus extending from the plantar surface into the subtalar joint with features suggesting possible subacute injury. Correlate with clinical presentation and history. 2. Extensive soft tissue changes along the posterior margin of the calcaneal body with erosive and bone marrow changes consistent with osteomyelitis. Bone marrow changes involve both the posterior and anterior calcaneal body fragments, although no clear cortical erosion in the anterior fragment is seen. Osteomyelitis is more convincingly present in the posterior calcaneal body and not as clearly present in the anterior fragment. However with bone marrow changes throughout the anterior calcaneus, osteomyelitis could be there is well. 3. Fluid within the fracture defect could be infected, though no discrete abscess is seen. Labs Labs: Laboratory Results - last 24 hr 10/07/25 10/07/25 10/07/25 11:28 16:41 20:51 WBC RBC Hgb Hct MCV MCH MCHC RDW Plt Count MPV Immature Gran % (Auto) Neut % (Auto) Lymph % (Auto) [place] % (Auto) Eos % (Auto) Baso % (Auto) Lymph # (Auto) [place] # (Auto) Eos # (Auto) Baso # (Auto) Abs Immat Gran (auto) Absolute Neuts (auto) Absolute Nucleated RBC Nucleated RBC % Sodium Potassium Chloride Carbon Dioxide Anion Gap BUN Creatinine Estim Creat Clear Calc Estimated GFR Glucose POC Capillary Glucose 101 167 H 177 H Calcium Magnesium Total Bilirubin AST ALT Alkaline Phosphatase Total Protein Albumin Vancomycin Trough 10/08/25 10/08/25 01:00 07:34 WBC 6.2 RBC 3.04 L Hgb 8.6 L Hct 27.4 L MCV 90.1 MCH 28.3 MCHC 31.4 L RDW 13.6 Plt Count 241 MPV 8.8 Immature Gran % (Auto) 0.8 H Neut % (Auto) 60.8 Lymph % (Auto) 21.8 [place] % (Auto) 11.5 H Eos % (Auto) 4.5 H Baso % (Auto) 0.6 Lymph # (Auto) 1.35 [place] # (Auto) 0.7 H Eos # (Auto) 0.3 Baso # (Auto) 0.0 Abs Immat Gran (auto) 0.05 H Absolute Neuts (auto) 3.8 Absolute Nucleated RBC 0.000 Nucleated RBC % 0.0 Sodium 134 L Potassium 4.0 Chloride 103 Carbon Dioxide 26 Anion Gap 5 BUN 24 H Creatinine 1.42 H Estim Creat Clear Calc 39 Estimated GFR 36 L Glucose 144 H POC Capillary Glucose 108 H Calcium 8.8 Magnesium 1.7 Total Bilirubin 0.4 AST 35 ALT 18 Alkaline Phosphatase 90 Total Protein 6.3 Albumin 2.8 L Vancomycin Trough 14.3
[2025-10-08] MEDS: INSULIN ASPART (*BKC) 100 UNITS/ML SUB-Q (12:26)
[2025-10-08 20:06] VITALS: PULSE 62
[2025-10-08 20:08] VITALS: O2SAT 93
[2025-10-08 21:00] VITALS: BP 108/50; PULSE 64; RESP 16; TEMP 36.1; O2SAT 95
[2025-10-09] VITALS (15 sets, daily range): BP systolic 113–152; BP diastolic 38–70; PULSE 56–65; RESP 14–18; TEMP 35.8–36.4; O2SAT 96–100
[2025-10-09] MEDS: PIPERACILLIN/TAZOBACTAM SOD 3.375 GM in SODIUM CHLORIDE 0.9% IV 50 ML 100 ML IVPB ×2 (03:27→11:27)
--- NOTE | 2025-10-09 07:41 | PCOTNOTE ---
Debridement surgery scheduled for today. Plan to follow patient.
[2025-10-09 07:47] LABS: Alanine Aminotransferase 16 U/L (6-35); Albumin Level 2.8 g/dL (3.5-5.1); Alkaline Phosphatase 79 U/L (38-126); Anion Gap 3 mmol/L (4-12); Aspartate Amino Transferase 26 U/L (14-36); Bilirubin,Total 0.4 mg/dL (0.2-1.3); Blood Urea Nitrogen 21 mg/dL (7-17); Calcium 8.9 mg/dL (8.4-10.2); Carbon Dioxide 30 mmol/L (22-30); Chloride 102 mmol/L (98-107); Estimated CRCL calculation 42 ml/min; Estimated Glomerular Filt Rate 40; Glucose 96 mg/dL (65-110); Potassium 4.4 mmol/L (3.4-5.0); Sodium 135 mmol/L (137-145); Total Protein 6.3 g/dL (6.3-8.2)
[2025-10-09] MEDS: AMIODARONE HCL 200 MG TABLET PO (08:39)
[2025-10-09] MEDS: GABAPENTIN 400 MG CAPSULE 800 MG PO ×2 (08:40→16:07)
[2025-10-09] MEDS: POTASSIUM CHLORIDE 10 MEQ ER TABLET PO (08:40)
[2025-10-09] MEDS: LACTATED RINGERS 1,000 ML 30 ML IV CONT (11:32)
--- NOTE | 2025-10-09 11:40 | PCPTNOTE ---
Pt to have surgery today. Will wait to see post-op when WB is given. Will follow.
--- NOTE | 2025-10-09 12:11 | WPDANESEPPF ---
Anes - Initial Pre Proc Eval Procedure: Operation Date: 10/09/25 12:30 Proposed Procedures p Incision and Debridement Right Heel Soft Tissue Bone - Nathaniel Sotelo Jr., DPM Date/Time: 10/09/25 12:11 Surgeon: Emory Wolf MD Pre Op Diagnosis: Heel osteomyelitis with pathologic fracture, Recen Patient Data Age: 79 Gender: F Height: 1.68 m Weight: 116.1 kg Last Vital Signs Temp 36.1 C L 10/09/25 08:52 Pulse 58 L 10/09/25 08:52 Resp 17 10/09/25 08:52 BP 144/61 H 10/09/25 08:52 Pulse Ox 98 10/09/25 08:52 O2 Del Method Nasal Cannula 10/08/25 20:08 O2 Flow Rate 2 10/08/25 20:08 Allergies Allergy/AdvReac Type Severity Reaction Status Date / Time No Known Allergies Allergy Verified 10/05/25 03:37 Home Medications ?Medication ?Instructions ?Recorded ?Confirmed ?Type amiodarone 200 mg tablet 200 mg PO DAILY 07/20/24 10/05/25 History spironolactone 25 mg tablet 25 mg PO DAILY 07/20/24 10/05/25 History apixaban 5 mg tablet (Eliquis) 5 mg PO BID #60 tabs 10/21/24 10/05/25 Rx empagliflozin 25 mg tablet 25 mg PO QAM #90 tabs 11/30/24 10/05/25 Rx (Jardiance) atorvastatin 40 mg tablet 40 mg PO DAILY #90 tabs 12/12/24 10/05/25 Rx gabapentin 800 mg tablet 800 mg PO TID #90 tabs 12/23/24 10/05/25 Rx furosemide 40 mg tablet 40 mg PO QAM #30 tabs 02/09/25 10/05/25 Rx Synthroid 200 mcg tablet 200 mcg PO . q.a.m. #90 tabs 02/21/25 10/05/25 Rx (levothyroxine) ferrous sulfate 325 mg (65 mg 325 mg PO DAILY #90 tabs 02/21/25 10/05/25 Rx iron) tablet,delayed release ondansetron 4 mg disintegrating 4 mg PO Q8H PRN nausea and 03/14/25 10/05/25 Rx tablet vomiting #10 tabs esomeprazole magnesium 40 mg 40 mg PO DAILY #90 caps 04/04/25 10/05/25 Rx capsule,delayed release pen needle, diabetic 32 gauge x #100 ea 04/17/25 10/05/25 Rx potassium chloride 10 mEq 10 meq PO DAILY #90 caps 07/24/25 10/05/25 Rx capsule,extended release carvedilol 12.5 mg tablet 12.5 mg PO Q12H 09/16/25 10/05/25 History collagenase clostridium histo. 250 1 applic topical DAILY diabetic 09/16/25 10/05/25 History unit/gram topical ointment (Santyl) ulcer losartan 25 mg tablet 25 mg PO DAILY 09/16/25 10/05/25 History insulin glargine 100 unit/mL (3 40 unit subcut DAILY 10/05/25 10/05/25 History mL) subcutaneous pen (Lantus Solostar U-100 Insulin) hydrocodone 10 mg-acetaminophen 1 tablet PO Q6H PRN pain #120 tabs 10/09/25 Rx 325 mg tablet Laboratory Tests 10/08/25 10/08/25 10/09/25 16:47 20:17 06:03 Sodium 135 L mmol/L (137-145) Potassium 4.4 mmol/L (3.4-5.0) Chloride 102 mmol/L (98-107) Carbon Dioxide 30 mmol/L (22-30) Anion Gap 3 L mmol/L (4-12) BUN 21 H mg/dL (7-17) Creatinine 1.29 H mg/dL (0.7-1.0) Estim Creat Clear Calc 42 ml/min Estimated GFR 40 L (59 - ) Glucose 96 mg/dL (65-110) POC Capillary Glucose 122 H mg/dl 139 H mg/dl (65-105) (65-105) Calcium 8.9 mg/dL (8.4-10.2) Total Bilirubin 0.4 mg/dL (0.2-1.3) AST 26 U/L (14-36) ALT 16 U/L (6-35) Alkaline Phosphatase 79 U/L (38-126) Total Protein 6.3 g/dL (6.3-8.2) Albumin 2.8 L g/dL (3.5-5.1) 10/09/25 10/09/25 07:41 11:24 Sodium Potassium Chloride Carbon Dioxide Anion Gap BUN Creatinine Estim Creat Clear Calc Estimated GFR Glucose POC Capillary Glucose 94 mg/dl 109 H mg/dl (65-105) (65-105) Calcium Total Bilirubin AST ALT Alkaline Phosphatase Total Protein Albumin Patient hx anesthesia problems: none Family hx anesthesia problems: none Results Review: All pre-operative results and documents have been reviewed as part of the pre-operative evaluation. [facility] Past Medical History Medical History Peripheral arterial disease (~07/11/25) mildly decreased FIDEL right lower extremity 07/11/2025. FIDEL 0.87. Diabetic foot ulcer associated with type 2 diabetes mellitus (~04/2025) right heel medial aspect ulcer Cellulitis BARRIOS (nonalcoholic steatohepatitis) Diffuse fatty liver changes on CT abdomen 03/14/2025. Chronic acquired lymphedema treated with sequential pneumatic compression device 2 hours daily lower extremities Nausea and vomiting Renal insufficiency GFR 57 on 06/11/2021. GFR 56 on 08/22/2022. GFR 38 on 10/23/2022. BUN 18, creatinine 1.23 with GFR 46 on 03/02/2023. BUN 18 with creatinine 1.03 with GFR 57 on 09/22/2023. BUN 19, creatinine 1.43 with GFR 31 on 03/09/2024. BUN 15, creatinine 1.12 with GFR 51 on 07/18/2024. Screening for diabetic retinopathy (04/30/21) no diabetic retinopathy on 04/30/2021. mild diabetic retinopathy on the right 08/07/2023. Diabetic ulcer of toe of left foot associated with diabetes mellitus due to underlying condition left great toe, 3rd toe Acute CHF (09/29/22) 10/01/2022 chest x-ray with pulmonary vascular congestion and pleural effusion. CT angio of the chest with contrast was negative for pulmonary embolism with bilateral pleural effusions and nonspecific alveolar and interstitial lung changes suggesting pulmonary edema. Left heart is poorly enhanced in the ascending aorta possibly due to cardiac dysfunction. Calcification with in the LAD noted. Echo on 10/02/2022 with ejection fraction 55-60% with mild mitral regurgitation and trivial tricuspid regurgitation. stress Lexiscan study on 10/03/2022 revealed no apparent reversible ischemia with normal left ventricular systolic function. Chronic kidney disease (CKD) stage G3b/A1, moderately decreased glomerular filtration rate (GFR) between 30-44 mL/min/1.73 square meter and albuminuria creatinine ratio less than 30 mg/g GFR 57 on 06/11/2021. GFR 56 on 08/22/2022. GFR 38 on 10/23/2022. BUN 18, creatinine 1.23 with GFR 46 on 03/02/2023. BUN 18 with creatinine 1.03 with GFR 57 on 09/22/2023. BUN 19, creatinine 1.43 with GFR 31 on 03/09/2024. BUN 15, creatinine 1.12 with GFR 51 on 07/18/2024. BUN 20, creatinine 1.35 with GFR 40 on 02/17/2025. Polyp of colon (~03/11/24) 3 sessile polyps , tubular adenoma, less than 7 mm in the ascending colon on 03/11/2024. No follow-up needed. Gastric ulcer (~02/2024) EGD on 03/11/2024 with gastric ulcer nonbleeding. Iron deficiency anemia, unspecified (~03/09/24) hemoglobin 6.6, iron 43 with 10% saturation and ferritin 7 with vitamin B12 768, folic acid 8.0 on 03/09/2024. Hemoglobin 9.0 on 07/18/2024. hemoglobin 6.4 with iron 13 with 3% saturation and ferritin 4 on 02/17/2025. Hemoglobin 9.5, iron 112 with 30% saturation on 03/30/2025. Diabetic retinopathy of right eye (08/07/23) mild retinopathy right eye 08/07/2023. Diastolic CHF with preserved left ventricular function, NYHA class 2 Echo with ejection fraction 52% with moderate diastolic dysfunction and [id number] tricuspid regurgitation, atrial fibrillation. Paroxysmal atrial fibrillation UTI (urinary tract infection) Hoarseness of voice Diarrhea Acute bronchitis At high risk for falls Diabetic ulcer of toe associated with type 2 diabetes mellitus (~06/2022) superficial ulceration extensor surface right 2nd toe Grieving (~08/2021) 48-year-old son Morbid obesity with BMI of 40.0-44.9, adult Acute non-recurrent maxillary sinusitis Breast cancer screening Body mass index (BMI) of 40.1 to 44.9 in adult Chronic pain Bilateral impacted cerumen Osteoarthritis of right knee Chronic pain of right knee Body mass index (BMI) 45.0-49.9, adult (02/15/19) Diabetic ulcer of toe of left foot associated with type 2 diabetes mellitus Non-pressure chronic ulcer of other part of left foot limited to breakdown of skin Surgical History Surgical History History of tonsillectomy and adenoidectomy H/O tubal ligation Hx of total knee arthroplasty History of appendectomy Hx of cholecystectomy H/O cataract extraction H/O cardiac radiofrequency ablation Family History Family History Father Acute myocardial infarction, Onset Age: 50 Mother Family history of malignant neoplasm, Onset Age: 82 Social History Social History Social History: Caffeine-coffe/soda. The patient lives with her . She had 2 children but her son has . She does receive home health. Code status: Full code Smoking status: Never smoker Second hand tobacco smoke exposure: No Alcohol intake: never Substance use: never Substance use type: does not use Lack of Transportation: No Lack of Food: Never True Current Housing: I Have Housing Concerned About Future Housing: No Difficulty Paying Gas/Electric Bills: No Difficulty Paying for Meds: No Currently Unemployed: No Education: Bachelor's Degree Difficulty w/ Childcare or Family Care: No Living arrangements: with family Gender identity (if verbalized by the patient): Female Sexual Orientation (if Verbalized by the Patient): Straight or Heterosexual Spiritual care concerns: No Anes - Eval Final PreProcedure Day of Procedure 10/09/25 12:11 Patient weight: morbidly obese Heart: regular rate and rhythm Lungs: clear to auscultation Airway: Mallampati scale class II Neurological: alert and oriented Last oral intake: >/= 8 hours ASA classification: IV Emergent: no Anesthetic plan: proceed Anesthesia type and monitoring: general LMA and standard monitoring Results Review: All pre-operative results and documents have been reviewed as part of the pre-operative evaluation. Informed Consent: The patient's anesthetic plan and its attendant risks and benefits were discussed with the patient/family/POA. Questions were solicited and answers provided to the satisfaction of the patient/family/POA.
--- NOTE | 2025-10-09 12:20 | PM.IMPN2 ---
Assessment and Plan Assessment and Plan (1) Diabetic foot ulcer associated with type 2 diabetes mellitus: Onset Date: ~04/2025 Code(s): E11.621 - Type 2 diabetes mellitus with foot ulcer; L97.509 - Non-pressure chronic ulcer of other part of unspecified foot with unspecified severity Status: Acute Assessment and Plan: -Dr. Sotelo has been consulted for the diabetic right heel wound.(wound care was consulted for sacral ulcer.) -the patient has had this decubitus ulcer for several months. -please see nursing wound pictures. -patient has a large patch of eschar tissue to the entire right heel. She also has a sacral wound. -the patient stated that she has been using Santyl as prescribed for the diabetic foot ulcer. -she is on cefepime and vancomycin -plan for debridement. (2) Bacteremia: Code(s): R78.81 - Bacteremia Status: Acute Assessment and Plan: Possible source UTI Blood culture from 10/05 shows Gram-negative bacilli identified as E coli sensitivity pending Blood culture from 09/16/2025 E coli which was pansensitive Less suspicion for endocarditis, will not pursue for TTE Monitor leukocytosis Continue vancomycin and Zosyn Wound culture with Gram-negative bacilli as well as Staph aureus Infectious Disease on board (3) Diastolic CHF with preserved left ventricular function, NYHA class 2: Code(s): I50.30 - Unspecified diastolic (congestive) heart failure Status: Acute Assessment and Plan: -no recent echo seen. -continue with Coreg -continue Jardiance and Lasix -hold losartan due to BAYLEE -continue with spironolactone. -monitor electrolytes due to her medications. -received 1 L bolus in the ER. (4) Paroxysmal atrial fibrillation: Code(s): I48.0 - Paroxysmal atrial fibrillation Status: Acute Assessment and Plan: -the patient is in sinus rhythm at this time. -she has had a history of a cardiac radiofrequency ablation in the past. -continue with Coreg -continue with apixaban -continue with amiodarone if blood pressure allows. (5) Essential (primary) hypertension: Code(s): I10 - Essential (primary) hypertension Status: Acute Assessment and Plan: -continue with Coreg if blood pressure allows - Lasix if blood pressure allows (6) Mixed hyperlipidemia: Code(s): E78.2 - Mixed hyperlipidemia Status: Acute Assessment and Plan: -continue with atorvastatin (7) Controlled type 2 diabetes mellitus with hyperglycemia, with long-term current use of insulin: Code(s): E11.65 - Type 2 diabetes mellitus with hyperglycemia; Z79.4 - technician terminal and repeater (current) use of insulin Status: Acute Assessment and Plan: -Accu-Cheks with a seen HS and sliding scale insulin with hypoglycemic protocol. -check A1c -pharmacy to decrease home long-acting insulin by 20%. -continue with Jardiance (8) Hypothyroidism, unspecified: Qualifiers: Hypothyroidism type: unspecified Qualified Code(s): E03.9 - Hypothyroidism, unspecified Code(s): E03.9 - Hypothyroidism, unspecified Status: Acute Assessment and Plan: -continue with Synthroid (9) Iron deficiency anemia, unspecified: Onset Date: ~03/09/24 Qualifiers: Iron deficiency anemia type: chronic blood loss Qualified Code(s): D50.0 - Iron deficiency anemia secondary to blood loss (chronic) Code(s): D50.9 - Iron deficiency anemia, unspecified Status: Acute Assessment and Plan: -her H&H is currently 8.6 and 27.9. Her past H&H was 9.0 in 28.5 on 09/25/2025. -monitor CBCs and H&H -anemia of chronic disease with a history of chronic renal failure -continue with ferrous sulfate (10) Chronic kidney disease (CKD) stage G3b/A1, moderately decreased glomerular filtration rate (GFR) between 30-44 mL/min/1.73 square meter and albuminuria creatinine ratio less than 30 mg/g: Code(s): N18.32 - Chronic kidney disease, stage 3b Status: Acute Assessment and Plan: -her creatinine is 1.5 with a baseline of 1.2 - 1.30. BUN is 21 with a baseline of 18 - 27. And GFR is 34 the baseline anywhere from 27-47. -nephrology has seen her here in the past. -Hold losartan and sprinolactone (11) Acute on chronic anemia: Code(s): D64.9 - Anemia, unspecified Status: Acute Assessment and Plan: Anemia due to CKD Patient on ferrous sulfate Hemoglobin down trended to 6.8 on 10/06/2025 status post 1 unit packed red blood cell transfusion on 10/06/2025. Post transfusion hemoglobin up to 8.612/ Xarelto on hold for planned surgery Patient had Previous discussion about placement of Watchman device at [facility] but she denied Subjective Date/time seen: 10/09/25 12:20 Interval history: Patient was seen during the morning rounds today. No new complaints. No sob or chest pain. Plan for surgery. Review of Systems Review of Systems: All systems reviewed & are unremarkable except as noted in HPI and below Constitutional: Constitutional: Reports as per HPI and Reports no additional constitutional complaints Eyes: Eyes: Reports as per HPI and Reports no additional eye complaints ENT: Reports system reviewed and no additional complaints, except as documented and Reports Normal hearing present Cardiovascular: Cardiovascular: Reports no additional cardiovascular complaints Respiratory: Respiratory: Reports as per HPI and Reports no additional respiratory complaints Gastrointestinal: Gastrointestinal: Reports as per HPI and Reports no additional gastrointestinal complaints Genitourinary: Genitourinary: Reports no additional female genitourinary complaints Musculoskeletal: Musculoskeletal: Reports no additional musculoskeletal complaints Integumentary/Breasts: Skin/Breast: Reports system reviewed and no additional complaints, except as docu Neurologic: Reports system reviewed and no additional complaints, except as documented and Reports Normal hearing present Psychiatric: Psychiatric: Reports no additional psychiatric complaints and Reports as per HPI Hematologic/Lymphatic: Hematologic/Lymphatic: Reports no additional hematologic/lymphatic complaints Allergic/Immunologic: Allergic/Immunologic: Reports no additional allergic/immunologic complaints Exam Const: General: cooperative, comfortable, no acute distress, well developed, awake, Physically active, average body habitus and well nourished Nutritional Appearance: average body habitus and well nourished Orientation/consciousness: oriented to person, oriented to place, oriented to time and patient oriented x3 Limitations: no limitations HENMT: Head: normal to inspection, No palpable skull fracture present, normocephalic, atraumatic and abrasion Ears: hearing grossly normal bilaterally and external ears normal Face/Nose/Sinus: Normal external nose present, Normal nares present and No nasal polyps present Eyes: General: appearance normal, both eyes and all related structures Alignment and Position: alignment normal Periorbital: periorbital findings normal Eyelids: eyelids normal Pupils: Equal, round and reactive pupils present Neck: Neck: normal visual inspection and full ROM Chest: Chest palpation & inspection: normal inspection of the chest Resp: Effort & Inspection: normal respiratory effort Auscultation: clear to auscultation bilaterally Cardio: Palpation: normal PMI Rate: regular rate Rhythm: regular rhythm Heart sounds: S1 normal heart sound present GI: Inspection: normal to inspection Auscultation: normal bowel sounds Rectal Exam: deferred : General: Yes no CVA tenderness Back/Spine/Pelvis: Back: no CVA tenderness Cervical Spine: cervical ROM normal Skin: General skin exam: normal color and lesion (Entire right heel covered with eschar tissue. Bloody drainage noted. ) Lesions: lesion noted (Entire right heel covered with eschar tissue. Bloody drainage noted. ) Rashes: no rashes Trauma: no lacerations or abrasions Hair: normal Nails: normal Other: Please see wound pictures from nursing staff. Eschar tissue covers the entire surface of the right heel. Bloody drainage noted from right heel. Unstageable sacral ulcer. Neuro: General: oriented to person, oriented to place, oriented to time and patient oriented x3 Cranial nerves: Yes Equal, round and reactive pupils present and Yes Normal hearing present Cognition (Neuro): normal cognition Speech: normal speech Extrem: General: normal to inspection Right upper extremity: normal to inspection and shoulder/upper arm Left upper extremity: normal to inspection and shoulder/upper arm Right lower extremity: normal to inspection Left lower extremity: normal to inspection Other: 2+ pitting edema right worse than the left to lower extremities. Psych: Appearance: grossly normal Mental Status: mental status grossly normal Speech and movement: Normal speech and movement present Affect: normal affect Attitude: cooperative Thought process: Normal thought process present Insight: Good insight present (Psych) Judgement: Good judgement present (Psych) Objective Data Vital Signs Vital Signs: Vital Signs - 24 hr 10/08/25 20:06 10/08/25 20:08 10/08/25 21:00 Temperature 36.1 C L Pulse Rate 62 64 Respiratory Rate 16 Blood Pressure 108/50 L Pulse Oximetry 93 95 Oxygen Delivery Nasal Cannula Oxygen Flow Rate 2 10/09/25 05:02 10/09/25 08:39 10/09/25 08:39 Temperature 35.8 C L Pulse Rate 56 L 60 60 Respiratory Rate 17 Blood Pressure 127/52 L Pulse Oximetry 98 Oxygen Delivery Oxygen Flow Rate 10/09/25 08:52 Temperature 36.1 C L Pulse Rate 58 L Respiratory Rate 17 Blood Pressure 144/61 H Pulse Oximetry 98 Oxygen Delivery Oxygen Flow Rate Intake/Output Intake/Output: Intake & Output 10/06/25 10/07/25 10/08/25 10/09/25 23:59 23:59 23:59 23:59 Intake Total 1944 1690 1130 50 Output Total 1700 2500 650 1375 Balance 244 -810 480 -1325 Meds/Results Medications: Active Medications Generic Name Dose Route Start Last Admin Trade Name Freq PRN Reason Stop Dose Admin Acetaminophen 650 mg 10/05/25 02:15 10/07/25 18:37 Acetaminophen 325 Mg Tablet PO 650 mg Q4H PRN Administration Mild Pain (1-3) or Fever Hydrocodone Bitart/Acetaminophen 1 tab 10/05/25 06:21 10/08/25 02:50 Hydrocodone/Acetaminophen (*Crx) 10-325 Mg Tablet PO 1 tab Q6H PRN Administration Pain 7-10 Amiodarone HCl 200 mg 10/05/25 09:00 10/09/25 08:39 Amiodarone Hcl 200 Mg Tablet PO 200 mg DAILY KENYON Administration Apixaban 5 mg 10/05/25 09:00 10/05/25 21:02 Apixaban 5 Mg Tablet PO 5 mg On Hold: 10/06/25 07:17 Q12HR KENYON Administration Atorvastatin Calcium 40 mg 10/05/25 09:00 10/09/25 08:47 Atorvastatin 40 Mg Tablet PO Not Given DAILY KENYON Carvedilol 12.5 mg 10/05/25 09:00 10/09/25 08:39 Carvedilol 12.5 Mg Tablet PO 12.5 mg Q12HR KENYON Administration Dextrose 12.5 gm 10/05/25 06:10 Dextrose 50% 25 Gm/50 Ml Syringe IV PUSH PRN PRN Hypoglycemia Protocol Empagliflozin 25 mg 10/05/25 09:00 10/09/25 08:47 Empagliflozin 25 Mg Tablet PO Not Given QAM KENYON Fentanyl Citrate 25 mcg 10/09/25 12:12 Fentanyl Citrate Inj (*Crx) 100 Mcg/2 Ml Vial IV PUSH Q2M PRN Pain Ferrous Sulfate 325 mg 10/05/25 09:00 10/09/25 08:47 Ferrous Sulfate 325 Mg Tablet PO Not Given DAILY KENYON Furosemide 40 mg 10/05/25 09:00 10/09/25 08:47 Furosemide 40 Mg Tablet PO Not Given QAM KENYON Gabapentin 800 mg 10/05/25 09:00 10/09/25 08:40 Gabapentin 400 Mg Capsule PO 800 mg TID KENYON Administration Glucagon 1 mg 10/05/25 06:10 Glucagon For Inj 1 Mg Vial IM PRN PRN Hypoglycemia Protocol Glucose 15 gm 10/05/25 06:10 Glucose Oral Gel 15 Gm Of Glucse In 37.5 Gm Tube PO PRN PRN Hypoglycemia Protocol Hydralazine HCl 10 mg 10/05/25 17:42 Hydralazine Hcl 20 Mg/Ml Vial IV PUSH Q6H PRN Blood Pressure - High Dextrose 1,000 mls @ 100 mls/hr 10/05/25 06:10 Dextrose 5% 1,000 Ml IVPB PRN PRN Hypoglycemia Protocol Piperacillin Sod/Tazobactam 50 mls @ 100 mls/hr 10/05/25 20:00 10/09/25 11:27 Sod 3.375 gm/ Sodium Chloride IVPB 100 mls/hr Q8H KENYON Administration Vancomycin HCl 1,750 mg in 500 mls @ 250 mls/hr 10/08/25 02:00 10/08/25 04:50 Vancomycin 1,750 Mg/Ns 500 Ml IVPB Infused Q36H KENYON Infusion Lactated Ringer's 1,000 mls @ 30 mls/hr 10/09/25 08:55 10/09/25 11:32 Lr - Lactated Ringers Iv IV CONT 30 mls/hr .Q24H KENYON Administration Lactated Ringer's 1,000 mls @ 30 mls/hr 10/09/25 12:15 Lr - Lactated Ringers Iv IV CONT .Q24H KENYON Insulin Aspart 2 - 5 units 10/05/25 08:00 10/09/25 11:27 Insulin Aspart (*Bkc) 100 Units/Ml SUB-Q Not Given TIDWM [facility] Protocol Insulin Glargine 32 units 10/05/25 09:00 10/09/25 08:47 Insulin Glargine (*Bkc) 100 Units/Ml SUB-Q Not Given DAILY [facility] Levothyroxine Sodium 200 mcg 10/05/25 06:30 10/09/25 06:18 Levothyroxine Sodium 100 Mcg Tablet PO Not Given DAILY@0630 [facility] Losartan Potassium 25 mg 10/05/25 09:00 10/05/25 10:54 Losartan Potassium 25 Mg Tablet PO Not Given On Hold: 10/05/25 10:00 DAILY [facility] Morphine Sulfate 2 mg 10/05/25 02:15 Morphine Sulfate (*Crx) 4 Mg/Ml Inj IV PUSH Q2H PRN Pain Rated 7-10 Ondansetron HCl 4 mg 10/05/25 02:15 Ondansetron Inj 4 Mg/2 Ml Vial IV PUSH Q4H PRN Nausea Ondansetron HCl 4 mg 10/09/25 12:12 Ondansetron Inj 4 Mg/2 Ml Vial IV PUSH ONCE PRN Nausea Pantoprazole Sodium 40 mg 10/05/25 09:00 10/09/25 08:47 Pantoprazole 40 Mg Tablet PO Not Given QAM [facility] Potassium Chloride 10 meq 10/05/25 09:00 10/09/25 08:40 Potassium Chloride 10 Meq Er Tablet PO 10 meq DAILY KENYON Administration Spironolactone 25 mg 10/05/25 09:00 10/05/25 10:53 Spironolactone 25 Mg Tablet PO 25 mg On Hold: 10/05/25 17:42 DAILY KENYON Administration Radiology Results: ITS Impressions Head CT 10/05/25 06:07 IMPRESSION: 1. No acute intracranial findings. Chest X-Ray 10/05/25 06:09 IMPRESSION: 1. No acute cardiopulmonary findings given portable technique. Heel X-Ray 10/05/25 07:52 IMPRESSION: 1. Comminuted mid body fracture of the calcaneus with possible erosive changes soft tissue swelling and open wound defect. Pathologic fracture and possible osteomyelitis is not excluded. Venous Doppler Study 10/05/25 14:51 Impression: Negative for DVT. Foot MRI 10/06/25 14:21 IMPRESSION: 1. Oblique longitudinally oriented fracture through the body of the calcaneus extending from the plantar surface into the subtalar joint with features suggesting possible subacute injury. Correlate with clinical presentation and history. 2. Extensive soft tissue changes along the posterior margin of the calcaneal body with erosive and bone marrow changes consistent with osteomyelitis. Bone marrow changes involve both the posterior and anterior calcaneal body fragments, although no clear cortical erosion in the anterior fragment is seen. Osteomyelitis is more convincingly present in the posterior calcaneal body and not as clearly present in the anterior fragment. However with bone marrow changes throughout the anterior calcaneus, osteomyelitis could be there is well. 3. Fluid within the fracture defect could be infected, though no discrete abscess is seen. Labs Labs: Laboratory Results - last 24 hr 10/08/25 10/08/25 10/09/25 16:47 20:17 06:03 Sodium 135 L Potassium 4.4 Chloride 102 Carbon Dioxide 30 Anion Gap 3 L BUN 21 H Creatinine 1.29 H Estim Creat Clear Calc 42 Estimated GFR 40 L Glucose 96 POC Capillary Glucose 122 H 139 H Calcium 8.9 Total Bilirubin 0.4 AST 26 ALT 16 Alkaline Phosphatase 79 Total Protein 6.3 Albumin 2.8 L 10/09/25 10/09/25 07:41 11:24 Sodium Potassium Chloride Carbon Dioxide Anion Gap BUN Creatinine Estim Creat Clear Calc Estimated GFR Glucose POC Capillary Glucose 94 109 H Calcium Total Bilirubin AST ALT Alkaline Phosphatase Total Protein Albumin Quality VTE Prophylaxis VTE prophylaxis: pharmacologic ordered
--- NOTE | 2025-10-09 12:20 | WPDHPUPDATE1 ---
History and Physical Update Update Date/Time: 10/09/25 12:20 History and Physical has been reviewed, including an updated exam of the patient. There are NO changes in the patient's condition. Risks, benefits, and alternatives have been discussed and questions answered. Patient agrees to proceed with procedure. Consented for: Incision and debridement of all necrotic soft tissue and bone right foot
[2025-10-09] MEDS: LIDOCAINE 2% LOCAL INJ 20 ML VIAL 10 ML INFILTRATE (12:34)
--- NOTE | 2025-10-09 12:54 | S_PTH ---
PATIENT: Nona Estrella LOC: [id number] U#:[id number] AGE/SX: 79/F ROOM: 302 RE10/05/[address]: Bob Chu MD : 1945 BED: 01 DIS: 10/16/2025 SPEC #: [id number] RECD: 10/09/25 14:29 STATUS: TAL RENiharika #: [id number] DANIELLE: 10/09/25 12:[address]: Nathaniel Sotelo Jr. DEPT: [facility] Surgical RECD BY: Yolie Zapata ENTERED: 10/09/25 14:29 SP TYPE: Surgical OTHR DR: MD Jasiel Garcia MD Marcella McGuinn, MD Tissues: A - Bone Procedures: Hematoxylin and Eosin Stain Gross and Microscopic Level 6 Decalcification
--- NOTE | 2025-10-09 13:38 | PM.OP ---
Procedure Note - Brief Procedure Note - Brief Date of procedure: 10/09/25 Pressure ulcer right heel with osteomyelitis Procedure performed: Incision and debridement of all necrotic soft tissue and bone right foot Surgeon: Nathaniel Sotelo Jr., DPMartha Findings: Necrotic pressure unstageable extending to calcaneus with osteolysis present. Calcaneus sent for Pathology and microbiology Urine output (mL): 0
[2025-10-09] MEDS: AMPICILLIN SODIUM/SULBACTAM 3 GM in SODIUM CHLORIDE 0.9% IV 100 ML 200 ML IVPB ×2 (16:06→20:01)
[2025-10-09] MEDS: VANCOMYCIN 1,750 MG/NS 500 ML 1,750 MG/500 ML BAG 250 MG IVPB (16:47)
--- NOTE | 2025-10-09 17:07 | W.PM.PROC2 ---
Procedure Note - Detailed Date of Procedure 10/09/25 Pre-op Diagnosis Decubitus ulcer right heel with osteomyelitis Post-op Diagnosis Same Procedure Performed Incision and debridement of all necrotic soft tissue and bone right foot Surgeon Nathaniel Sotelo Jr., DPM Anesthesia General and Local Indications Chronic pressure ulcer right heel Findings Significant soft tissue necrosis with bone involvement to the inferior calcaneus Description of Procedure Under mild sedation, the patient was brought to the operating room, placed on the operating table in the supine position. A pneumatic ankle tourniquet was placed about the patient's right ankle. Following general anesthesia, I performed a proximal common peroneal nerve blockm with 20ccs of a 1:1 mix of 2% Lidocaine plane and 0.5% Marcaine plane, this was 1cm posterior and 3cm inferior to the neck of the fibula. The foot was then scrubbed, prepped, and draped in the usual aseptic manner with betadine. I elevated the patient's foot for 30 seconds and pneumatic ankle tourniquet was then inflated. Surgery began in the following manner. Attention was directed to the posterior aspect of the right calcaneus where there was malodorous necrotic tissue noted. This was resected with a 15 blade. There was some tunneling to the distally and inferiorly to the calcaneus that was noted to be soft. I debrided any soft necrotic soft tissue and bone with a rongeur. Next I took a segment of the nonviable bone and sent it for aerobic and anaerobic culture and sensitivity. Next, I used an osteotome and mallet to resect the soft non viable bone until hard healthy bleeding bone was noted. This bone was sent for pathology examination. I used a pulsevac system and 2L of sterile saline to thoughly flush the wound site. No remaining necrotic soft tissue and bone was visualized. I packed the void with Surgicel and 1 iodoform packing gauze. I dressed with 4x4 gauze, kerlix, ABD pads and Coban. At this point I released the tourniquet. No active bleeding strike though was noted on her dressing. The dressng will be changed in 24 hours. The patient did very well with the procedure and the anesthesia. The patient was transferred to the medicine/surgery floor vital signs stable and vascular status intact to all toes of the affected foot. The patient will continue IV antibiotcs per infectious disease. The patient will follow the following instructions: 1. Keep the dressing clean, dry, and intact. Use a cast protector bag with showers. 2. The patient should use a surgical shoe for ambulation postoperatively. 3. The patient should be on bedrest with bedside commode and elevate the affected foot when at rest. The patient will use waffle boots while laying down. 4. I, Dr. Sotelo, will change the dressing the day after surgery. Estimated Blood Loss 20 Urine Output 0 Pathology Yes (1. Resected bone sent for path and micro studies) Condition Stable Disposition Floor
[2025-10-09] MEDS: SENNA/DOCUSATE SODIUM TABLET 2 TAB PO (19:59)
[2025-10-10] VITALS (9 sets, daily range): BP systolic 115–129; BP diastolic 41–63; PULSE 54–70; RESP 16–18; TEMP 35.8–36.5; O2SAT 95–99
[2025-10-10] MEDS: AMPICILLIN SODIUM/SULBACTAM 3 GM in SODIUM CHLORIDE 0.9% IV 100 ML 200 ML IVPB ×4 (00:18→23:32)
[2025-10-10] MEDS: HYDROcodone/acetaminophen (*CRX) 10-325 MG TABLET 1 TAB PO ×2 (01:09→23:38)
--- NOTE | 2025-10-10 05:53 | PC.NURSE ---
At surgical site, blood seeped through dressing in addition to pillow under leg for elevation wound site. It appears Coban wrapping was kinky posterior of heel. Original bandages were not removed but reinforced with ADB pad, Kerlix wrap and medipore tape. No further leaking notified after bandage reinforced.
[2025-10-10] MEDS: LEVOTHYROXINE SODIUM 100 MCG TABLET 200 MCG PO (06:16)
[2025-10-10 06:17] LABS: Estimated CRCL calculation 49 ml/min; Estimated Glomerular Filt Rate 48
[2025-10-10] MEDS: AMPICILLIN SODIUM/SULBACTAM 3 GM in SODIUM CHLORIDE 0.9% IV 100 ML IVPB ×3 (08:34→16:05)
[2025-10-10] MEDS: LOSARTAN POTASSIUM 25 MG TABLET PO (08:38)
[2025-10-10] MEDS: POTASSIUM CHLORIDE 10 MEQ ER TABLET PO (08:38)
[2025-10-10] MEDS: SENNA/DOCUSATE SODIUM TABLET 2 TAB PO ×2 (08:38→20:14)
[2025-10-10] MEDS: GABAPENTIN 400 MG CAPSULE 800 MG PO ×3 (08:38→16:05)
[2025-10-10] MEDS: FERROUS SULFATE 325 MG TABLET PO (08:38)
[2025-10-10] MEDS: PANTOPRAZOLE 40 MG TABLET PO (08:38)
[2025-10-10] MEDS: SPIRONOLACTONE 25 MG TABLET PO (08:38)
[2025-10-10] MEDS: ATORVASTATIN 40 MG TABLET PO (08:38)
[2025-10-10] MEDS: EMPAGLIFLOZIN 25 MG TABLET PO (08:38)
[2025-10-10] MEDS: AMIODARONE HCL 200 MG TABLET PO (08:39)
[2025-10-10] MEDS: FUROSEMIDE 40 MG TABLET PO (08:39)
[2025-10-10] MEDS: INSULIN GLARGINE (*BKC) 100 UNITS/ML 32 UNITS SUB-Q (08:48)
--- NOTE | 2025-10-10 09:08 | PCNFU ---
Nutrition Follow-Up Complete: MOderate protein calorie malnutrition related to chronic loss of appetite in the setting of pressure injuries and heel wounds, as evidenced by intakes <75% needs >1 month and weight loss 10%/4 months (-28 lb) Goal:Intakes >50% Pt meeting goal. continue with same goal Pt current nutrition is Heart healthy, Ensure shakes TID, nutrition ice cream cups, RAUL BID. Nutrition recommendation: continue with current plan of care Last recorded weight is 118.2 kg. Bowel Motility: +BM 10/08 Labs Reviewed: GFR:48, Cr:1.1, Glu:165 Meds Noted: lasix, insulin Skin: Stage III to sacrum Additional Notes: Pt continues on a heart healthy diet, intake improved to 75-100% at this time. Supplements in place. Agree with orders, Encourage po intake of meals and supplements. Monitoring intakes, weights, labs, skin, supplement intake, plan of care Follow up in 5 days
--- NOTE | 2025-10-10 10:57 | PM.IMPN2 ---
Assessment and Plan Assessment and Plan (1) Diabetic foot ulcer associated with type 2 diabetes mellitus: Onset Date: ~04/2025 Code(s): E11.621 - Type 2 diabetes mellitus with foot ulcer; L97.509 - Non-pressure chronic ulcer of other part of unspecified foot with unspecified severity Status: Acute Assessment and Plan: -Dr. Sotelo has been consulted for the diabetic right heel wound.(wound care was consulted for sacral ulcer.) -the patient has had this decubitus ulcer for several months. -please see nursing wound pictures. -patient has a large patch of eschar tissue to the entire right heel. She also has a sacral wound. -the patient stated that she has been using Santyl as prescribed for the diabetic foot ulcer. -continue IV antibiotics . (2) Bacteremia: Code(s): R78.81 - Bacteremia Status: Acute Assessment and Plan: Possible source UTI Blood culture from 10/05 shows Gram-negative bacilli identified as E coli sensitivity pending Blood culture from 09/16/2025 E coli which was pansensitive Less suspicion for endocarditis, will not pursue for TTE Monitor leukocytosis Continue vancomycin Wound culture with Gram-negative bacilli as well as Staph aureus Infectious Disease on board (3) Diastolic CHF with preserved left ventricular function, NYHA class 2: Code(s): I50.30 - Unspecified diastolic (congestive) heart failure Status: Acute Assessment and Plan: -no recent echo seen. -continue with Coreg -continue Jardiance and Lasix -hold losartan due to BAYLEE -continue with spironolactone. -monitor electrolytes due to her medications. -received 1 L bolus in the ER. (4) Paroxysmal atrial fibrillation: Code(s): I48.0 - Paroxysmal atrial fibrillation Status: Acute Assessment and Plan: -the patient is in sinus rhythm at this time. -she has had a history of a cardiac radiofrequency ablation in the past. -continue with Coreg -continue with apixaban -continue with amiodarone if blood pressure allows. 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 -check A1c -pharmacy to decrease home long-acting insulin by 20%. -continue with Jardiance (8) Hypothyroidism, unspecified: Qualifiers: Hypothyroidism type: unspecified Qualified Code(s): E03.9 - Hypothyroidism, unspecified Code(s): E03.9 - Hypothyroidism, unspecified Status: Acute Assessment and Plan: -continue with Synthroid (9) Iron deficiency anemia, unspecified: Onset Date: ~03/09/24 Qualifiers: Iron deficiency anemia type: chronic blood loss Qualified Code(s): D50.0 - Iron deficiency anemia secondary to blood loss (chronic) Code(s): D50.9 - Iron deficiency anemia, unspecified Status: Acute Assessment and Plan: -her H&H is currently 8.6 and 27.9. Her past H&H was 9.0 in 28.5 on 09/25/2025. -monitor CBCs and H&H -anemia of chronic disease with a history of chronic renal failure -continue with ferrous sulfate (10) Chronic kidney disease (CKD) stage G3b/A1, moderately decreased glomerular filtration rate (GFR) between 30-44 mL/min/1.73 square meter and albuminuria creatinine ratio less than 30 mg/g: Code(s): N18.32 - Chronic kidney disease, stage 3b Status: Acute Assessment and Plan: -her creatinine is 1.5 with a baseline of 1.2 - 1.30. BUN is 21 with a baseline of 18 - 27. And GFR is 34 the baseline anywhere from 27-47. -nephrology has seen her here in the past. -Hold losartan and sprinolactone (11) Acute on chronic anemia: Code(s): D64.9 - Anemia, unspecified Status: Acute Assessment and Plan: Anemia due to CKD Patient on ferrous sulfate Hemoglobin down trended to 6.8 on 10/06/2025 status post 1 unit packed red blood cell transfusion on 10/06/2025. Post transfusion hemoglobin up to 8.612/ Xarelto on hold for planned surgery Patient had Previous discussion about placement of Watchman device at [facility] but she denied Subjective Date/time seen: 10/10/25 10:57 Interval history: Patient was seen during the morning rounds today. No new complaints. No sob or chest pain. Had surgery. Review of Systems Review of Systems: All systems reviewed & are unremarkable except as noted in HPI and below Constitutional: Constitutional: Reports as per HPI and Reports no additional constitutional complaints Eyes: Eyes: Reports as per HPI and Reports no additional eye complaints ENT: Reports system reviewed and no additional complaints, except as documented and Reports Normal hearing present Cardiovascular: Cardiovascular: Reports no additional cardiovascular complaints Respiratory: Respiratory: Reports as per HPI and Reports no additional respiratory complaints Gastrointestinal: Gastrointestinal: Reports as per HPI and Reports no additional gastrointestinal complaints Genitourinary: Genitourinary: Reports no additional female genitourinary complaints Musculoskeletal: Musculoskeletal: Reports no additional musculoskeletal complaints Integumentary/Breasts: Skin/Breast: Reports system reviewed and no additional complaints, except as docu Neurologic: Reports system reviewed and no additional complaints, except as documented and Reports Normal hearing present Psychiatric: Psychiatric: Reports no additional psychiatric complaints and Reports as per HPI Hematologic/Lymphatic: Hematologic/Lymphatic: Reports no additional hematologic/lymphatic complaints Allergic/Immunologic: Allergic/Immunologic: Reports no additional allergic/immunologic complaints Exam Const: General: cooperative, comfortable, no acute distress, well developed, awake, Physically active, average body habitus and well nourished Nutritional Appearance: average body habitus and well nourished Orientation/consciousness: oriented to person, oriented to place, oriented to time and patient oriented x3 Limitations: no limitations HENMT: Head: normal to inspection, No palpable skull fracture present, normocephalic, atraumatic and abrasion Ears: hearing grossly normal bilaterally and external ears normal Face/Nose/Sinus: Normal external nose present, Normal nares present and No nasal polyps present Eyes: General: appearance normal, both eyes and all related structures Alignment and Position: alignment normal Periorbital: periorbital findings normal Eyelids: eyelids normal Pupils: Equal, round and reactive pupils present Neck: Neck: normal visual inspection and full ROM Chest: Chest palpation & inspection: normal inspection of the chest Resp: Effort & Inspection: normal respiratory effort Auscultation: clear to auscultation bilaterally Cardio: Palpation: normal PMI Rate: regular rate Rhythm: regular rhythm Heart sounds: S1 normal heart sound present GI: Inspection: normal to inspection Auscultation: normal bowel sounds Rectal Exam: deferred : General: Yes no CVA tenderness Back/Spine/Pelvis: Back: no CVA tenderness Cervical Spine: cervical ROM normal Skin: General skin exam: normal color and lesion (Entire right heel covered with eschar tissue. Bloody drainage noted. ) Lesions: lesion noted (Entire right heel covered with eschar tissue. Bloody drainage noted. ) Rashes: no rashes Trauma: no lacerations or abrasions Hair: normal Nails: normal Other: Please see wound pictures from nursing staff. Eschar tissue covers the entire surface of the right heel. Bloody drainage noted from right heel. Unstageable sacral ulcer. Neuro: General: oriented to person, oriented to place, oriented to time and patient oriented x3 Cranial nerves: Yes Equal, round and reactive pupils present and Yes Normal hearing present Cognition (Neuro): normal cognition Speech: normal speech Extrem: General: normal to inspection Right upper extremity: normal to inspection and shoulder/upper arm Left upper extremity: normal to inspection and shoulder/upper arm Right lower extremity: normal to inspection Left lower extremity: normal to inspection Other: 2+ pitting edema right worse than the left to lower extremities. Psych: Appearance: grossly normal Mental Status: mental status grossly normal Speech and movement: Normal speech and movement present Affect: normal affect Attitude: cooperative Thought process: Normal thought process present Insight: Good insight present (Psych) Judgement: Good judgement present (Psych) Objective Data Vital Signs Vital Signs: Vital Signs - 24 hr 10/09/25 11:32 10/09/25 13:13 10/09/25 13:15 Temperature 36.3 C L 36.4 C L Pulse Rate 62 58 L 61 Respiratory Rate 18 15 14 Blood Pressure 148/57 H 119/46 L 138/59 L Pulse Oximetry 100 96 98 Oxygen Delivery Nasal Cannula Nasal Cannula Nasal Cannula Oxygen Flow Rate 2 4 4 10/09/25 13:30 10/09/25 13:45 10/09/25 14:00 Temperature Pulse Rate 62 65 62 Respiratory Rate 15 16 16 Blood Pressure 143/65 H 146/64 H 150/66 H Pulse Oximetry 100 100 100 Oxygen Delivery Nasal Cannula Nasal Cannula Nasal Cannula Oxygen Flow Rate 4 2 2 10/09/25 14:15 10/09/25 14:17 10/09/25 14:30 Temperature 36.1 C L Pulse Rate 61 61 61 Respiratory Rate 15 17 16 Blood Pressure 152/70 H 131/48 L 149/66 H Pulse Oximetry 100 98 99 Oxygen Delivery Nasal Cannula Nasal Cannula Oxygen Flow Rate 2 2 10/09/25 15:17 10/09/25 19:17 10/09/25 19:59 Temperature 36.1 C L 35.9 C L Pulse Rate 61 56 L 56 L Respiratory Rate 18 18 Blood Pressure 152/49 H 113/38 L Pulse Oximetry 98 100 Oxygen Delivery Oxygen Flow Rate 10/09/25 19:59 10/10/25 05:30 10/10/25 08:00 Temperature 36.3 C L 36.1 C L Pulse Rate 60 62 Respiratory Rate 18 16 Blood Pressure 125/41 L 115/45 L Pulse Oximetry 100 95 96 Oxygen Delivery Nasal Cannula Oxygen Flow Rate 2 10/10/25 08:39 10/10/25 08:39 Temperature Pulse Rate 70 70 Respiratory Rate Blood Pressure Pulse Oximetry Oxygen Delivery Oxygen Flow Rate Intake/Output Intake/Output: Intake & Output 10/07/25 10/08/25 10/09/25 10/10/25 23:59 23:59 23:59 23:59 Intake Total 1690 1130 844 740 Output Total 2500 650 1850 600 Balance -810 480 -1006 140 Meds/Results Medications: Active Medications Generic Name Dose Route Start Last Admin Trade Name Freq PRN Reason Stop Dose Admin Acetaminophen 650 mg 10/05/25 02:15 10/07/25 18:37 Acetaminophen 325 Mg Tablet PO 650 mg Q4H PRN Administration Mild Pain (1-3) or Fever Hydrocodone Bitart/Acetaminophen 1 tab 10/05/25 06:21 10/10/25 01:09 Hydrocodone/Acetaminophen (*Crx) 10-325 Mg Tablet PO 1 tab Q6H PRN Administration Pain 7-10 Amiodarone HCl 200 mg 10/05/25 09:00 10/10/25 08:39 Amiodarone Hcl 200 Mg Tablet PO 200 mg DAILY KENYON Administration Atorvastatin Calcium 40 mg 10/05/25 09:00 10/10/25 08:38 Atorvastatin 40 Mg Tablet PO 40 mg DAILY KENYON Administration Carvedilol 12.5 mg 10/05/25 09:00 10/10/25 08:39 Carvedilol 12.5 Mg Tablet PO 12.5 mg Q12HR KENYON Administration Dextrose 12.5 gm 10/05/25 06:10 Dextrose 50% 25 Gm/50 Ml Syringe IV PUSH PRN PRN Hypoglycemia Protocol Empagliflozin 25 mg 10/05/25 09:00 10/10/25 08:38 Empagliflozin 25 Mg Tablet PO 25 mg QAM KENYON Administration Ferrous Sulfate 325 mg 10/05/25 09:00 10/10/25 08:38 Ferrous Sulfate 325 Mg Tablet PO 325 mg DAILY KENYON Administration Furosemide 40 mg 10/05/25 09:00 10/10/25 08:39 Furosemide 40 Mg Tablet PO 40 mg QAM KENYON Administration Gabapentin 800 mg 10/05/25 09:00 10/10/25 08:38 Gabapentin 400 Mg Capsule PO 800 mg TID KENYON Administration Glucagon 1 mg 10/05/25 06:10 Glucagon For Inj 1 Mg Vial IM PRN PRN Hypoglycemia Protocol Glucose 15 gm 10/05/25 06:10 Glucose Oral Gel 15 Gm Of Glucse In 37.5 Gm Tube PO PRN PRN Hypoglycemia Protocol Hydralazine HCl 10 mg 10/05/25 17:42 Hydralazine Hcl 20 Mg/Ml Vial IV PUSH Q6H PRN Blood Pressure - High Dextrose 1,000 mls @ 100 mls/hr 10/05/25 06:10 Dextrose 5% 1,000 Ml IVPB PRN PRN Hypoglycemia Protocol Vancomycin HCl 1,750 mg in 500 mls @ 250 mls/hr 10/08/25 02:00 10/09/25 16:47 Vancomycin 1,750 Mg/Ns 500 Ml IVPB 250 mls/hr Q36H KENYON Administration Ampicillin Sodium/Sulbactam 100 mls @ 200 mls/hr 10/09/25 16:00 10/10/25 08:34 Sodium 3 gm/ Sodium Chloride IVPB 100 mls/hr Q4H KENYON Administration Insulin Aspart 2 - 5 units 10/05/25 08:00 10/10/25 08:32 Insulin Aspart (*Bkc) 100 Units/Ml SUB-Q Not Given TIDWM KENYON Protocol Insulin Glargine 32 units 10/05/25 09:00 10/10/25 08:48 Insulin Glargine (*Bkc) 100 Units/Ml SUB-Q 32 units DAILY KENYON Administration Levothyroxine Sodium 200 mcg 10/05/25 06:30 10/10/25 06:16 Levothyroxine Sodium 100 Mcg Tablet PO 200 mcg DAILY@0630 KENYON Administration Losartan Potassium 25 mg 10/05/25 09:00 10/10/25 08:38 Losartan Potassium 25 Mg Tablet PO 25 mg DAILY KENYON Administration Morphine Sulfate 2 mg 10/05/25 02:15 Morphine Sulfate (*Crx) 4 Mg/Ml Inj IV PUSH Q2H PRN Pain Rated 7-10 Ondansetron HCl 4 mg 10/05/25 02:15 Ondansetron Inj 4 Mg/2 Ml Vial IV PUSH Q4H PRN Nausea Pantoprazole Sodium 40 mg 10/05/25 09:00 10/10/25 08:38 Pantoprazole 40 Mg Tablet PO 40 mg QAM KENYON Administration Polyethylene Glycol 17 gm 10/10/25 09:00 10/10/25 08:34 Polyethylene Glycol 3350 17 Gm Powd.Pack PO 17 gm QAM KENYON Administration Potassium Chloride 10 meq 10/05/25 09:00 10/10/25 08:38 Potassium Chloride 10 Meq Er Tablet PO 10 meq DAILY KENYON Administration Senna/Docusate Sodium 2 tab 10/09/25 21:00 10/10/25 08:38 Senna/Docusate Sodium Tablet PO 2 tab Q12HR KENYON Administration Spironolactone 25 mg 10/05/25 09:00 10/10/25 08:38 Spironolactone 25 Mg Tablet PO 25 mg DAILY KENYON Administration Radiology Results: ITS Impressions Head CT 10/05/25 06:07 IMPRESSION: 1. No acute intracranial findings. Chest X-Ray 10/05/25 06:09 IMPRESSION: 1. No acute cardiopulmonary findings given portable technique. Heel X-Ray 10/05/25 07:52 IMPRESSION: 1. Comminuted mid body fracture of the calcaneus with possible erosive changes soft tissue swelling and open wound defect. Pathologic fracture and possible osteomyelitis is not excluded. Venous Doppler Study 10/05/25 14:51 Impression: Negative for DVT. Foot MRI 10/06/25 14:21 IMPRESSION: 1. Oblique longitudinally oriented fracture through the body of the calcaneus extending from the plantar surface into the subtalar joint with features suggesting possible subacute injury. Correlate with clinical presentation and history. 2. Extensive soft tissue changes along the posterior margin of the calcaneal body with erosive and bone marrow changes consistent with osteomyelitis. Bone marrow changes involve both the posterior and anterior calcaneal body fragments, although no clear cortical erosion in the anterior fragment is seen. Osteomyelitis is more convincingly present in the posterior calcaneal body and not as clearly present in the anterior fragment. However with bone marrow changes throughout the anterior calcaneus, osteomyelitis could be there is well. 3. Fluid within the fracture defect could be infected, though no discrete abscess is seen. Labs Labs: Laboratory Results - last 24 hr 10/09/25 10/09/25 10/09/25 11:24 13:32 16:30 Creatinine Estim Creat Clear Calc Estimated GFR POC Capillary Glucose 109 H 101 96 10/09/25 10/10/25 10/10/25 20:05 05:14 08:14 Creatinine 1.11 H Estim Creat Clear Calc 49 Estimated GFR 48 L POC Capillary Glucose 165 H 90 Quality VTE Prophylaxis VTE prophylaxis: pharmacologic ordered
--- NOTE | 2025-10-10 13:54 | WPDINFPN2 ---
Progress Note: A&P Assessment and Plan (1) Decubitus ulcer of right heel, unstageable: Code(s): L89.610 - Pressure ulcer of right heel, unstageable Status: Acute Plan ASSESSMENT: 1. right heel eschar/wound with osteomyelitis. --MRI with path fx --With E coli BSI --Wound with E coli and MRSA --s/p partial calc 10/09/25 2. coccygeal wound 3. DM 4. CKD 5. heart failure, HL, PAD 6. Afib 7. hypothyroid RECOMMENDATIONS: Continue unasyn and vanc follow repeat blood cx but ok for picc. When ready for discharge, change to ertapenem/dapto through 11/19/24 Weekly cbc, cmp, esr, cpk Wound care per podiatry Can follow with me via telemed in 2-3 weeks. d/w pt and . d/w pharmacy staff Pt was seen via video telehealth consultation with the assistance of staff. Chart, data and patient info reviewed. Patient was located at [facility] while I was in my [place] office. Pt gave consent. Subjective Date/time seen: 10/10/25 13:54 Interval history: s/p partial calectomy yesterday. no fever. current cx with E coli and MRSA from wound. Exam Narrative: alert and oriented. no distress. did not take down opertative dressing. Objective Data Vital Signs Vital Signs: Vital Signs - 24 hr 10/09/25 14:00 10/09/25 14:15 10/09/25 14:17 Temperature 36.1 C L Pulse Rate 62 61 61 Respiratory Rate 16 15 17 Blood Pressure 150/66 H 152/70 H 131/48 L Pulse Oximetry 100 100 98 Oxygen Delivery Nasal Cannula Nasal Cannula Oxygen Flow Rate 2 2 10/09/25 14:30 10/09/25 15:17 10/09/25 19:17 Temperature 36.1 C L 35.9 C L Pulse Rate 61 61 56 L Respiratory Rate 16 18 18 Blood Pressure 149/66 H 152/49 H 113/38 L Pulse Oximetry 99 98 100 Oxygen Delivery Nasal Cannula Oxygen Flow Rate 2 10/09/25 19:59 10/09/25 19:59 10/10/25 05:30 Temperature 36.3 C L Pulse Rate 56 L 60 Respiratory Rate 18 Blood Pressure 125/41 L Pulse Oximetry 100 95 Oxygen Delivery Nasal Cannula Oxygen Flow Rate 2 10/10/25 08:00 10/10/25 08:39 10/10/25 08:39 Temperature 36.1 C L Pulse Rate 62 70 70 Respiratory Rate 16 Blood Pressure 115/45 L Pulse Oximetry 96 Oxygen Delivery Oxygen Flow Rate 10/10/25 11:42 Temperature 36.4 C Pulse Rate 60 Respiratory Rate 18 Blood Pressure 129/51 L Pulse Oximetry 95 Oxygen Delivery Oxygen Flow Rate Intake/Output Intake/Output: Intake & Output 10/07/25 10/08/25 10/09/25 10/10/25 23:59 23:59 23:59 23:59 Intake Total 1690 1130 844 840 Output Total 2500 650 1850 600 Balance -810 480 -1006 240 Meds/Results Medications: Active Medications Generic Name Dose Route Start Last Admin Trade Name Freq PRN Reason Stop Dose Admin Acetaminophen 650 mg 10/05/25 02:15 10/07/25 18:37 Acetaminophen 325 Mg Tablet PO 650 mg Q4H PRN Administration Mild Pain (1-3) or Fever Hydrocodone Bitart/Acetaminophen 1 tab 10/05/25 06:21 10/10/25 01:09 Hydrocodone/Acetaminophen (*Crx) 10-325 Mg Tablet PO 1 tab Q6H PRN Administration Pain 7-10 Amiodarone HCl 200 mg 10/05/25 09:00 10/10/25 08:39 Amiodarone Hcl 200 Mg Tablet PO 200 mg DAILY KENYON Administration Atorvastatin Calcium 40 mg 10/05/25 09:00 10/10/25 08:38 Atorvastatin 40 Mg Tablet PO 40 mg DAILY KENYON Administration Carvedilol 12.5 mg 10/05/25 09:00 10/10/25 08:39 Carvedilol 12.5 Mg Tablet PO 12.5 mg Q12HR KENYON Administration Dextrose 12.5 gm 10/05/25 06:10 Dextrose 50% 25 Gm/50 Ml Syringe IV PUSH PRN PRN Hypoglycemia Protocol Empagliflozin 25 mg 10/05/25 09:00 10/10/25 08:38 Empagliflozin 25 Mg Tablet PO 25 mg QAM KENYON Administration Ferrous Sulfate 325 mg 10/05/25 09:00 10/10/25 08:38 Ferrous Sulfate 325 Mg Tablet PO 325 mg DAILY KENYON Administration Furosemide 40 mg 10/05/25 09:00 10/10/25 08:39 Furosemide 40 Mg Tablet PO 40 mg QAM KENYON Administration Gabapentin 800 mg 10/05/25 09:00 10/10/25 12:44 Gabapentin 400 Mg Capsule PO 800 mg TID KENYON Administration Glucagon 1 mg 10/05/25 06:10 Glucagon For Inj 1 Mg Vial IM PRN PRN Hypoglycemia Protocol Glucose 15 gm 10/05/25 06:10 Glucose Oral Gel 15 Gm Of Glucse In 37.5 Gm Tube PO PRN PRN Hypoglycemia Protocol Hydralazine HCl 10 mg 10/05/25 17:42 Hydralazine Hcl 20 Mg/Ml Vial IV PUSH Q6H PRN Blood Pressure - High Dextrose 1,000 mls @ 100 mls/hr 10/05/25 06:10 Dextrose 5% 1,000 Ml IVPB PRN PRN Hypoglycemia Protocol Vancomycin HCl 1,750 mg in 500 mls @ 250 mls/hr 10/08/25 02:00 10/09/25 16:47 Vancomycin 1,750 Mg/Ns 500 Ml IVPB 250 mls/hr Q36H KENYON Administration Ampicillin Sodium/Sulbactam 100 mls @ 200 mls/hr 10/09/25 16:00 10/10/25 12:45 Sodium 3 gm/ Sodium Chloride IVPB 100 mls/hr Q4H KENYON Administration Insulin Aspart 2 - 5 units 10/05/25 08:00 10/10/25 11:59 Insulin Aspart (*Bkc) 100 Units/Ml SUB-Q Not Given TIDWM [facility] Protocol Insulin Glargine 32 units 10/05/25 09:00 10/10/25 08:48 Insulin Glargine (*Bkc) 100 Units/Ml SUB-Q 32 units DAILY KENYON Administration Levothyroxine Sodium 200 mcg 10/05/25 06:30 10/10/25 06:16 Levothyroxine Sodium 100 Mcg Tablet PO 200 mcg DAILY@0630 KENYON Administration Losartan Potassium 25 mg 10/05/25 09:00 10/10/25 08:38 Losartan Potassium 25 Mg Tablet PO 25 mg DAILY KENYON Administration Morphine Sulfate 2 mg 10/05/25 02:15 Morphine Sulfate (*Crx) 4 Mg/Ml Inj IV PUSH Q2H PRN Pain Rated 7-10 Ondansetron HCl 4 mg 10/05/25 02:15 Ondansetron Inj 4 Mg/2 Ml Vial IV PUSH Q4H PRN Nausea Pantoprazole Sodium 40 mg 10/05/25 09:00 10/10/25 08:38 Pantoprazole 40 Mg Tablet PO 40 mg QAM KENYON Administration Polyethylene Glycol 17 gm 10/10/25 09:00 10/10/25 08:34 Polyethylene Glycol 3350 17 Gm Powd.Pack PO 17 gm QAM KENYON Administration Potassium Chloride 10 meq 10/05/25 09:00 10/10/25 08:38 Potassium Chloride 10 Meq Er Tablet PO 10 meq DAILY KENYON Administration Senna/Docusate Sodium 2 tab 10/09/25 21:00 10/10/25 08:38 Senna/Docusate Sodium Tablet PO 2 tab Q12HR KENYON Administration Spironolactone 25 mg 10/05/25 09:00 10/10/25 08:38 Spironolactone 25 Mg Tablet PO 25 mg DAILY KNEYON Administration Radiology Results: ITS Impressions Head CT 10/05/25 06:07 IMPRESSION: 1. No acute intracranial findings. Chest X-Ray 10/05/25 06:09 IMPRESSION: 1. No acute cardiopulmonary findings given portable technique. Heel X-Ray 10/05/25 07:52 IMPRESSION: 1. Comminuted mid body fracture of the calcaneus with possible erosive changes soft tissue swelling and open wound defect. Pathologic fracture and possible osteomyelitis is not excluded. Venous Doppler Study 10/05/25 14:51 Impression: Negative for DVT. Foot MRI 10/06/25 14:21 IMPRESSION: 1. Oblique longitudinally oriented fracture through the body of the calcaneus extending from the plantar surface into the subtalar joint with features suggesting possible subacute injury. Correlate with clinical presentation and history. 2. Extensive soft tissue changes along the posterior margin of the calcaneal body with erosive and bone marrow changes consistent with osteomyelitis. Bone marrow changes involve both the posterior and anterior calcaneal body fragments, although no clear cortical erosion in the anterior fragment is seen. Osteomyelitis is more convincingly present in the posterior calcaneal body and not as clearly present in the anterior fragment. However with bone marrow changes throughout the anterior calcaneus, osteomyelitis could be there is well. 3. Fluid within the fracture defect could be infected, though no discrete abscess is seen. Labs Labs: Laboratory Results - last 24 hr 10/09/25 10/09/25 10/10/25 16:30 20:05 05:14 Creatinine 1.11 H Estim Creat Clear Calc 49 Estimated GFR 48 L POC Capillary Glucose 96 165 H 10/10/25 10/10/25 08:14 11:41 Creatinine Estim Creat Clear Calc Estimated GFR POC Capillary Glucose 90 115 H
--- NOTE | 2025-10-10 14:05 | PCPTNOTE ---
Attempted PT evaluation. Spent 8-10 mins gathering PLOF and discussing R LE weight bearing when nursing notified therapy that pt was in need of a PICC line (needing to be in bed for this procedure). Will follow.
[2025-10-10] MEDS: LIDOCAINE 1% PF INJ 5 ML VIAL INFILTRATE (14:25)
--- NOTE | 2025-10-10 15:48 | PCOTNOTE ---
Attempted to see pt for OT evaluation however pt was getting ready to have a PICC line placed. Will continue to follow.
[2025-10-10] MEDS: CENTRAL LINE FLUSH 10 ML IV PUSH (22:21)
[2025-10-11] VITALS (7 sets, daily range): BP systolic 115–122; BP diastolic 52–60; PULSE 54–67; RESP 16; TEMP 36.7–36.8; O2SAT 90–99
[2025-10-11] MEDS: VANCOMYCIN 1,500 MG/NS 500 ML 1,500 MG/500 ML BAG 250 MG IVPB (02:49)
[2025-10-11] MEDS: AMPICILLIN SODIUM/SULBACTAM 3 GM in SODIUM CHLORIDE 0.9% IV 100 ML 200 ML IVPB ×6 (04:58→23:59)
[2025-10-11] MEDS: LEVOTHYROXINE SODIUM 100 MCG TABLET 200 MCG PO (05:40)
[2025-10-11] MEDS: CENTRAL LINE FLUSH 10 ML IV PUSH ×3 (05:41→22:36)
[2025-10-11 06:18] LABS: Hematocrit 25.5 % (37.0-47.0); Hemoglobin 7.8 g/dL (12.0-15.0); Mean Corpuscular HGB Conc 30.6 g/dl (32-36); Mean Corpuscular Hemoglobin 28.2 pg (26-34); Mean Corpuscular Volume 92.1 fl (80-100); Platelet Count Result 256 k/mm3 (150-375); Red Blood Count 2.77 M/mm3 (4.2-5.4); White Blood Count 5.6 K/mm3 (4.5-10.0)
[2025-10-11 06:42] LABS: Alanine Aminotransferase 13 U/L (6-35); Albumin Level 2.6 g/dL (3.5-5.1); Alkaline Phosphatase 79 U/L (38-126); Anion Gap 3 mmol/L (4-12); Aspartate Amino Transferase 19 U/L (14-36); Bilirubin,Total 0.4 mg/dL (0.2-1.3); Blood Urea Nitrogen 17 mg/dL (7-17); Calcium 8.8 mg/dL (8.4-10.2); Carbon Dioxide 29 mmol/L (22-30); Chloride 102 mmol/L (98-107); Estimated CRCL calculation 48 ml/min; Estimated Glomerular Filt Rate 45; Glucose 83 mg/dL (65-110); Potassium 3.7 mmol/L (3.4-5.0); Sodium 134 mmol/L (137-145); Total Protein 5.9 g/dL (6.3-8.2)
[2025-10-11] MEDS: AMIODARONE HCL 200 MG TABLET PO (08:45)
[2025-10-11] MEDS: ATORVASTATIN 40 MG TABLET PO (08:45)
[2025-10-11] MEDS: FUROSEMIDE 40 MG TABLET PO (08:45)
[2025-10-11] MEDS: PANTOPRAZOLE 40 MG TABLET PO (08:45)
[2025-10-11] MEDS: POTASSIUM CHLORIDE 10 MEQ ER TABLET PO (08:45)
[2025-10-11] MEDS: FERROUS SULFATE 325 MG TABLET PO (08:45)
[2025-10-11] MEDS: LOSARTAN POTASSIUM 25 MG TABLET PO (08:45)
[2025-10-11] MEDS: SPIRONOLACTONE 25 MG TABLET PO (08:45)
[2025-10-11] MEDS: EMPAGLIFLOZIN 25 MG TABLET PO (08:46)
[2025-10-11] MEDS: GABAPENTIN 400 MG CAPSULE 800 MG PO ×3 (08:46→16:42)
[2025-10-11] MEDS: INSULIN GLARGINE (*BKC) 100 UNITS/ML 32 UNITS SUB-Q (08:46)
[2025-10-11] MEDS: SENNA/DOCUSATE SODIUM TABLET 2 TAB PO ×2 (08:46→20:38)
--- NOTE | 2025-10-11 13:04 | P.PNIM_ITS ---
Assessment and Plan Assessment and Plan (1) Diabetic foot ulcer associated with type 2 diabetes mellitus: Onset Date: ~04/2025 Code(s): E11.621 - Type 2 diabetes mellitus with foot ulcer; L97.509 - Non-pressure chronic ulcer of other part of unspecified foot with unspecified severity Status: Acute Assessment and Plan: -Dr. Sotelo has been consulted for the diabetic right heel wound.(wound care was consulted for sacral ulcer.) -the patient has had this decubitus ulcer for several months. -please see nursing wound pictures. -patient has a large patch of eschar tissue to the entire right heel. She also has a sacral wound. -the patient stated that she has been using Santyl as prescribed for the diabetic foot ulcer. -continue IV antibiotics Waiting for rehab bed availability. . (2) Bacteremia: Code(s): R78.81 - Bacteremia Status: Acute Assessment and Plan: Possible source UTI Blood culture from 10/05 shows Gram-negative bacilli identified as E coli sensitivity pending Blood culture from 09/16/2025 E coli which was pansensitive Less suspicion for endocarditis, will not pursue for TTE Monitor leukocytosis Continue vancomycin Wound culture with Gram-negative bacilli as well as Staph aureus Infectious Disease on board (3) Diastolic CHF with preserved left ventricular function, NYHA class 2: Code(s): I50.30 - Unspecified diastolic (congestive) heart failure Status: Acute Assessment and Plan: -no recent echo seen. -continue with Coreg -continue Jardiance and Lasix -hold losartan due to BAYLEE -continue with spironolactone. -monitor electrolytes due to her medications. -received 1 L bolus in the ER. (4) Paroxysmal atrial fibrillation: Code(s): I48.0 - Paroxysmal atrial fibrillation Status: Acute Assessment and Plan: -the patient is in sinus rhythm at this time. -she has had a history of a cardiac radiofrequency ablation in the past. -continue with Coreg -continue with apixaban -continue with amiodarone if blood pressure allows. (5) Essential (primary) hypertension: Code(s): I10 - Essential (primary) hypertension Status: Acute Assessment and Plan: -continue with Coreg if blood pressure allows - Lasix if blood pressure allows (6) Mixed hyperlipidemia: Code(s): E78.2 - Mixed hyperlipidemia Status: Acute Assessment and Plan: -continue with atorvastatin (7) Controlled type 2 diabetes mellitus with hyperglycemia, with long-term current use of insulin: Code(s): E11.65 - Type 2 diabetes mellitus with hyperglycemia; Z79.4 - nursing home (current) use of insulin Status: Acute Assessment and Plan: -Accu-Cheks with a seen HS and sliding scale insulin with hypoglycemic protocol. -check A1c -pharmacy to decrease home long-acting insulin by 20%. -continue with Jardiance (8) Hypothyroidism, unspecified: Qualifiers: Hypothyroidism type: unspecified Qualified Code(s): E03.9 - Hypothyroidism, unspecified Code(s): E03.9 - Hypothyroidism, unspecified Status: Acute Assessment and Plan: -continue with Synthroid (9) Iron deficiency anemia, unspecified: Onset Date: ~03/09/24 Qualifiers: Iron deficiency anemia type: chronic blood loss Qualified Code(s): D50.0 - Iron deficiency anemia secondary to blood loss (chronic) Code(s): D50.9 - Iron deficiency anemia, unspecified Status: Acute Assessment and Plan: -her H&H is currently 8.6 and 27.9. Her past H&H was 9.0 in 28.5 on 09/25/2025. -monitor CBCs and H&H -anemia of chronic disease with a history of chronic renal failure -continue with ferrous sulfate (10) Chronic kidney disease (CKD) stage G3b/A1, moderately decreased glomerular filtration rate (GFR) between 30-44 mL/min/1.73 square meter and albuminuria creatinine ratio less than 30 mg/g: Code(s): N18.32 - Chronic kidney disease, stage 3b Status: Acute Assessment and Plan: -her creatinine is 1.5 with a baseline of 1.2 - 1.30. BUN is 21 with a baseline of 18 - 27. And GFR is 34 the baseline anywhere from 27-47. -nephrology has seen her here in the past. -Hold losartan and sprinolactone (11) Acute on chronic anemia: Code(s): D64.9 - Anemia, unspecified Status: Acute Assessment and Plan: Anemia due to CKD Patient on ferrous sulfate Hemoglobin down trended to 6.8 on 10/06/2025 status post 1 unit packed red blood cell transfusion on 10/06/2025. Post transfusion hemoglobin up to 8.612/ Xarelto on hold for planned surgery Patient had Previous discussion about placement of Watchman device at [facility] but she denied Subjective Date/time seen: 10/11/25 13:04 Interval history: Patient was seen during the morning rounds today. Note complaints. Seen at bedside resting comfortably. No foot pain. No FCNV. Review of Systems Review of Systems: All systems reviewed & are unremarkable except as noted in HPI and below Constitutional: Constitutional: Reports as per HPI and Reports no additional constitutional complaints Eyes: Eyes: Reports as per HPI and Reports no additional eye complaints ENT: Reports system reviewed and no additional complaints, except as documented and Reports Normal hearing present Cardiovascular: Cardiovascular: Reports no additional cardiovascular complaints Respiratory: Respiratory: Reports as per HPI and Reports no additional respiratory complaints Gastrointestinal: Gastrointestinal: Reports as per HPI and Reports no additional gastrointestinal complaints Genitourinary: Genitourinary: Reports no additional female genitourinary complaints Musculoskeletal: Musculoskeletal: Reports no additional musculoskeletal complaints Integumentary/Breasts: Skin/Breast: Reports system reviewed and no additional complaints, except as docu Neurologic: Reports system reviewed and no additional complaints, except as documented and Reports Normal hearing present Psychiatric: Psychiatric: Reports no additional psychiatric complaints and Reports as per HPI Hematologic/Lymphatic: Hematologic/Lymphatic: Reports no additional hematologic/lymphatic complaints Allergic/Immunologic: Allergic/Immunologic: Reports no additional allergic/immunologic complaints Exam Const: General: cooperative, comfortable, no acute distress, well developed, awake, Physically active, average body habitus and well nourished Nutritional Appearance: average body habitus and well nourished Orientation/consciousness: oriented to person, oriented to place, oriented to time and patient oriented x3 Limitations: no limitations HENMT: Head: normal to inspection, No palpable skull fracture present, normocephalic, atraumatic and abrasion Ears: hearing grossly normal bilaterally and external ears normal Face/Nose/Sinus: Normal external nose present, Normal nares present and No nasal polyps present Eyes: General: appearance normal, both eyes and all related structures Alignment and Position: alignment normal Periorbital: periorbital findings normal Eyelids: eyelids normal Pupils: Equal, round and reactive pupils present Neck: Neck: normal visual inspection and full ROM Chest: Chest palpation & inspection: normal inspection of the chest Resp: Effort & Inspection: normal respiratory effort Auscultation: clear to auscultation bilaterally Cardio: Palpation: normal PMI Rate: regular rate Rhythm: regular rhythm Heart sounds: S1 normal heart sound present GI: Inspection: normal to inspection Auscultation: normal bowel sounds Rectal Exam: deferred : General: Yes no CVA tenderness Back/Spine/Pelvis: Back: no CVA tenderness Cervical Spine: cervical ROM normal Skin: General skin exam: normal color and lesion (Entire right heel covered with eschar tissue. Bloody drainage noted. ) Lesions: lesion noted (Entire right heel covered with eschar tissue. Bloody drainage noted. ) Rashes: no rashes Trauma: no lacerations or abrasions Hair: normal Nails: normal Other: Please see wound pictures from nursing staff. Eschar tissue covers the entire surface of the right heel. Bloody drainage noted from right heel. Unstageable sacral ulcer. Neuro: General: oriented to person, oriented to place, oriented to time and patient oriented x3 Cranial nerves: Yes Equal, round and reactive pupils present and Yes Normal hearing present Cognition (Neuro): normal cognition Speech: normal speech Extrem: General: normal to inspection Right upper extremity: normal to inspection and shoulder/upper arm Left upper extremity: normal to inspection and shoulder/upper arm Right lower extremity: normal to inspection Left lower extremity: normal to inspection Other: 2+ pitting edema right worse than the le ft to lower extremities. Psych: Appearance: grossly normal Mental Status: mental status grossly n ormal Speech and movement: Normal speech and movement present Affect: normal affect Attitude: cooperative Thought process: Normal thought process present Insight: Good insight present (Psych) Judgement: Good judgement present (Psych) Objective Data Vital Signs Vital Signs: Vital Signs - 24 hr 10/10/25 15:48 10/10/25 19:58 10/10/25 20:14 Temperature 35.8 C L 36.5 C Pulse Rate 56 L 54 L 55 L Respiratory Rate 16 18 Blood Pressure 127/48 L 123/53 L Pulse Oximetry 96 97 Oxygen Delivery Oxygen Flow Rate 10/10/25 20:16 10/10/25 23:20 10/11/25 05:28 Temperature 36.2 C L 36.8 C Pulse Rate 55 L 54 L Respiratory Rate 16 16 Blood Pressure 119/63 115/52 L Pulse Oximetry 97 99 99 Oxygen Delivery Nasal Cannula Oxygen Flow Rate 2 10/11/25 08:00 10/11/25 08:31 10/11/25 08:45 Temperature Pulse Rate 54 L 54 L Respiratory Rate 16 Blood Pressure Pulse Oximetry 95 Oxygen Delivery Nasal Cannula Nasal Cannula Oxygen Flow Rate 2 2 10/11/25 08:47 10/11/25 10:26 10/11/25 11:07 Temperature Pulse Rate Respiratory Rate Blood Pressure Pulse Oximetry 95 90 Oxygen Delivery Nasal Cannula Nasal Cannula Room Air Oxygen Flow Rate 1.5 1 Intake/Output Intake/Output: Intake & Output 10/08/25 10/09/25 10/10/25 10/11/25 23:59 23:59 23:59 23:59 Intake Total 5986 962 0063 1140 Output Total 650 1850 1450 450 Balance 480 -1006 170 690 Meds/Results Medications: Active Medications Generic Name Dose Route Start Last Admin Trade Name Freq PRN Reason Stop Dose Admin Acetaminophen 650 mg 10/05/25 02:15 10/07/25 18:37 Acetaminophen 325 Mg Tablet PO 650 mg Q4H PRN Administration Mild Pain (1-3) or Fever Hydrocodone Bitart/Acetaminophen 1 tab 10/05/25 06:21 10/10/25 23:38 Hydrocodone/Acetaminophen (*Crx) 10-325 Mg Tablet PO 1 tab Q6H PRN Administration Pain 7-10 Amiodarone HCl 200 mg 10/05/25 09:00 10/11/25 08:45 Amiodarone Hcl 200 Mg Tablet PO 200 mg DAILY KENYON Administration Apixaban 5 mg 10/11/25 13:05 Apixaban 5 Mg Tablet PO Q12HR KENYON Atorvastatin Calcium 40 mg 10/05/25 09:00 10/11/25 08:45 Atorvastatin 40 Mg Tablet PO 40 mg DAILY KENYON Administration Carvedilol 12.5 mg 10/05/25 09:00 10/11/25 08:45 Carvedilol 12.5 Mg Tablet PO 12.5 mg Q12HR KENYON Administration Dextrose 12.5 gm 10/05/25 06:10 Dextrose 50% 25 Gm/50 Ml Syringe IV PUSH PRN PRN Hypoglycemia Protocol Empagliflozin 25 mg 10/05/25 09:00 10/11/25 08:46 Empagliflozin 25 Mg Tablet PO 25 mg QAM KENYON Administration Ferrous Sulfate 325 mg 10/05/25 09:00 10/11/25 08:45 Ferrous Sulfate 325 Mg Tablet PO 325 mg DAILY KENYON Administration Furosemide 40 mg 10/05/25 09:00 10/11/25 08:45 Furosemide 40 Mg Tablet PO 40 mg QAM KENYON Administration Gabapentin 800 mg 10/05/25 09:00 10/11/25 08:46 Gabapentin 400 Mg Capsule PO 800 mg TID KENYON Administration Glucagon 1 mg 10/05/25 06:10 Glucagon For Inj 1 Mg Vial IM PRN PRN Hypoglycemia Protocol Glucose 15 gm 10/05/25 06:10 Glucose Oral Gel 15 Gm Of Glucse In 37.5 Gm Tube PO PRN PRN Hypoglycemia Protocol Hydralazine HCl 10 mg 10/05/25 17:42 Hydralazine Hcl 20 Mg/Ml Vial IV PUSH Q6H PRN Blood Pressure - High Dextrose 1,000 mls @ 100 mls/hr 10/05/25 06:10 Dextrose 5% 1,000 Ml IVPB PRN PRN Hypoglycemia Protocol Ampicillin Sodium/Sulbactam 100 mls @ 200 mls/hr 10/09/25 16:00 10/11/25 12:06 Sodium 3 gm/ Sodium Chloride IVPB Infused Q4H KENYON Infusion Vancomycin HCl 1,500 mg in 500 mls @ 250 mls/hr 10/11/25 02:00 10/11/25 04:49 Vancomycin 1,500 Mg/Ns 500 Ml IVPB Infused Q24H KENYON Infusion Insulin Aspart 2 - 5 units 10/05/25 08:00 10/11/25 12:13 Insulin Aspart (*Bkc) 100 Units/Ml SUB-Q Not Given TIDWM [facility] Protocol Insulin Glargine 32 units 10/05/25 09:00 10/11/25 08:46 Insulin Glargine (*Bkc) 100 Units/Ml SUB-Q 32 units DAILY KENYON Administration Levothyroxine Sodium 200 mcg 10/05/25 06:30 10/11/25 05:40 Levothyroxine Sodium 100 Mcg Tablet PO 200 mcg DAILY@0630 KENYON Administration Losartan Potassium 25 mg 10/05/25 09:00 10/11/25 08:45 Losartan Potassium 25 Mg Tablet PO 25 mg DAILY KENYON Administration Morphine Sulfate 2 mg 10/05/25 02:15 Morphine Sulfate (*Crx) 4 Mg/Ml Inj IV PUSH Q2H PRN Pain Rated 7-10 Ondansetron HCl 4 mg 10/05/25 02:15 Ondansetron Inj 4 Mg/2 Ml Vial IV PUSH Q4H PRN Nausea Pantoprazole Sodium 40 mg 10/05/25 09:00 10/11/25 08:45 Pantoprazole 40 Mg Tablet PO 40 mg QAM KENYON Administration Polyethylene Glycol 17 gm 10/10/25 09:00 10/11/25 08:48 Polyethylene Glycol 3350 17 Gm Powd.Pack PO 17 gm QAM KENYON Administration Potassium Chloride 10 meq 10/05/25 09:00 10/11/25 08:45 Potassium Chloride 10 Meq Er Tablet PO 10 meq DAILY KENYON Administration Senna/Docusate Sodium 2 tab 10/09/25 21:00 10/11/25 08:46 Senna/Docusate Sodium Tablet PO 2 tab Q12HR KENYON Administration Sodium Chloride 10 ml 10/10/25 22:00 10/11/25 05:41 Central Line Flush IV PUSH 10 ml Q8HR KENYON Administration Sodium Chloride 10 ml 10/10/25 15:13 Central Line Flush IV PUSH PRN PRN with TPN bag changes Sodium Chloride 20 ml 10/10/25 15:13 Central Line Flush IV PUSH PRN PRN after blood draws Spironolactone 25 mg 10/05/25 09:00 10/11/25 08:45 Spironolactone 25 Mg Tablet PO 25 mg DAILY KENYON Administration Radiology Results: ITS Impressions Head CT 10/05/25 06:07 IMPRESSION: 1. No acute intracranial findings. Chest X-Ray 10/05/25 06:09 IMPRESSION: 1. No acute cardiopulmonary findings given portable technique. Heel X-Ray 10/05/25 07:52 IMPRESSION: 1. Comminuted mid body fracture of the calcaneus with possible erosive changes soft tissue swelling and open wound defect. Pathologic fracture and possible osteomyelitis is not excluded. Venous Doppler Study 10/05/25 14:51 Impression: Negative for DVT. Foot MRI 10/06/25 14:21 IMPRESSION: 1. Oblique longitudinally oriented fracture through the body of the calcaneus extending from the plantar surface into the subtalar joint with features suggesting possible subacute injury. Correlate with clinical presentation and history. 2. Extensive soft tissue changes along the posterior margin of the calcaneal body with erosive and bone marrow changes consistent with osteomyelitis. Bone marrow changes involve both the posterior and anterior calcaneal body fragments, although no clear cortical erosion in the anterior fragment is seen. Osteomyelitis is more convincingly present in the posterior calcaneal body and not as clearly present in the anterior fragment. However with bone marrow changes throughout the anterior calcaneus, osteomyelitis could be there is well. 3. Fluid within the fracture defect could be infected, though no discrete abscess is seen. Labs Labs: Laboratory Results - last 24 hr 10/10/25 10/10/25 10/11/25 16:27 19:30 01:26 WBC RBC Hgb Hct MCV MCH MCHC RDW Plt Count MPV Sodium Potassium Chloride Carbon Dioxide Anion Gap BUN Creatinine Estim Creat Clear Calc Estimated GFR Glucose POC Capillary Glucose 121 H 159 H Calcium Total Bilirubin AST ALT Alkaline Phosphatase Total Protein Albumin Vancomycin Trough 12.1 10/11/25 10/11/25 10/11/25 05:53 07:48 11:55 WBC 5.6 RBC 2.77 L Hgb 7.8 L Hct 25.5 L MCV 92.1 MCH 28.2 MCHC 30.6 L RDW 13.8 Plt Count 256 MPV 9.0 Sodium 134 L Potassium 3.7 Chloride 102 Carbon Dioxide 29 Anion Gap 3 L BUN 17 Creatinine 1.16 H Estim Creat Clear Calc 48 Estimated GFR 45 L Glucose 83 POC Capillary Glucose 84 134 H Calcium 8.8 Total Bilirubin 0.4 AST 19 ALT 13 Alkaline Phosphatase 79 Total Protein 5.9 L Albumin 2.6 L Vancomycin Trough Quality VTE Prophylaxis VTE prophylaxis: pharmacologic ordered
[2025-10-11] MEDS: APIXABAN 5 MG TABLET PO ×2 (13:08→20:38)
[2025-10-12] MEDS: VANCOMYCIN 1,500 MG/NS 500 ML 1,500 MG/500 ML BAG 250 MG IVPB (01:13)
[2025-10-12] MEDS: AMPICILLIN SODIUM/SULBACTAM 3 GM in SODIUM CHLORIDE 0.9% IV 100 ML 200 ML IVPB ×5 (03:25→20:03)
[2025-10-12] MEDS: LEVOTHYROXINE SODIUM 100 MCG TABLET 200 MCG PO (05:43)
[2025-10-12] MEDS: CENTRAL LINE FLUSH 10 ML IV PUSH ×3 (05:46→20:04)
[2025-10-12 06:46] VITALS: BP 129/47; PULSE 68; RESP 16; TEMP 36.3; O2SAT 94
[2025-10-12 06:58] LABS: Estimated CRCL calculation 46 ml/min; Estimated Glomerular Filt Rate 44
[2025-10-12] MEDS: SENNA/DOCUSATE SODIUM TABLET 2 TAB PO ×2 (08:10→20:04)
[2025-10-12 08:11] VITALS: PULSE 68
[2025-10-12] MEDS: SPIRONOLACTONE 25 MG TABLET PO (08:11)
[2025-10-12] MEDS: EMPAGLIFLOZIN 25 MG TABLET PO (08:11)
[2025-10-12] MEDS: GABAPENTIN 400 MG CAPSULE 800 MG PO ×3 (08:11→16:07)
[2025-10-12] MEDS: PANTOPRAZOLE 40 MG TABLET PO (08:11)
[2025-10-12] MEDS: FUROSEMIDE 40 MG TABLET PO (08:11)
[2025-10-12] MEDS: AMIODARONE HCL 200 MG TABLET PO (08:11)
[2025-10-12] MEDS: LOSARTAN POTASSIUM 25 MG TABLET PO (08:11)
[2025-10-12 08:12] VITALS: PULSE 68
[2025-10-12] MEDS: APIXABAN 5 MG TABLET PO ×2 (08:12→20:04)
[2025-10-12] MEDS: FERROUS SULFATE 325 MG TABLET PO (08:12)
[2025-10-12] MEDS: ATORVASTATIN 40 MG TABLET PO (08:12)
[2025-10-12] MEDS: POTASSIUM CHLORIDE 10 MEQ ER TABLET PO (08:12)
--- NOTE | 2025-10-12 09:23 | PM.IMPN2 ---
Assessment and Plan Assessment and Plan (1) Diabetic foot ulcer associated with type 2 diabetes mellitus: Onset Date: ~04/2025 Code(s): E11.621 - Type 2 diabetes mellitus with foot ulcer; L97.509 - Non-pressure chronic ulcer of other part of unspecified foot with unspecified severity Status: Acute Assessment and Plan: -Dr. Sotelo has been consulted for the diabetic right heel wound.(wound care was consulted for sacral ulcer.) -the patient has had this decubitus ulcer for several months. -please see nursing wound pictures. -patient has a large patch of eschar tissue to the entire right heel. She also has a sacral wound. -the patient stated that she has been using Santyl as prescribed for the diabetic foot ulcer. -continue IV antibiotics Waiting for rehab bed availability. . (2) Bacteremia: Code(s): R78.81 - Bacteremia Status: Acute Assessment and Plan: Possible source UTI Blood culture from 10/05 shows Gram-negative bacilli identified as E coli sensitivity pending Blood culture from 09/16/2025 E coli which was pansensitive Less suspicion for endocarditis, will not pursue for TTE Monitor leukocytosis Continue vancomycin Wound culture with Gram-negative bacilli as well as Staph aureus Infectious Disease on board (3) Diastolic CHF with preserved left ventricular function, NYHA class 2: Code(s): I50.30 - Unspecified diastolic (congestive) heart failure Status: Acute Assessment and Plan: -no recent echo seen. -continue with Coreg -continue Jardiance and Lasix -hold losartan due to BAYLEE -continue with spironolactone. -monitor electrolytes due to her medications. -received 1 L bolus in the ER. (4) Paroxysmal atrial fibrillation: Code(s): I48.0 - Paroxysmal atrial fibrillation Status: Acute Assessment and Plan: -the patient is in sinus rhythm at this time. -she has had a history of a cardiac radiofrequency ablation in the past. -continue with Coreg -continue with apixaban -continue with amiodarone if blood pressure allows. (5) Essential (primary) hypertension: Code(s): I10 - Essential (primary) hypertension Status: Acute Assessment and Plan: -continue with Coreg if blood pressure allows - Lasix if blood pressure allows (6) Mixed hyperlipidemia: Code(s): E78.2 - Mixed hyperlipidemia Status: Acute Assessment and Plan: -continue with atorvastatin (7) Controlled type 2 diabetes mellitus with hyperglycemia, with long-term current use of insulin: Code(s): E11.65 - Type 2 diabetes mellitus with hyperglycemia; Z79.4 - skilled nursing (current) use of insulin Status: Acute Assessment and Plan: -Accu-Cheks with a seen HS and sliding scale insulin with hypoglycemic protocol. -check A1c -pharmacy to decrease home long-acting insulin by 20%. -continue with Jardiance (8) Hypothyroidism, unspecified: Qualifiers: Hypothyroidism type: unspecified Qualified Code(s): E03.9 - Hypothyroidism, unspecified Code(s): E03.9 - Hypothyroidism, unspecified Status: Acute Assessment and Plan: -continue with Synthroid (9) Iron deficiency anemia, unspecified: Onset Date: ~03/09/24 Qualifiers: Iron deficiency anemia type: chronic blood loss Qualified Code(s): D50.0 - Iron deficiency anemia secondary to blood loss (chronic) Code(s): D50.9 - Iron deficiency anemia, unspecified Status: Acute Assessment and Plan: -her H&H is currently 8.6 and 27.9. Her past H&H was 9.0 in 28.5 on 09/25/2025. -monitor CBCs and H&H -anemia of chronic disease with a history of chronic renal failure -continue with ferrous sulfate (10) Chronic kidney disease (CKD) stage G3b/A1, moderately decreased glomerular filtration rate (GFR) between 30-44 mL/min/1.73 square meter and albuminuria creatinine ratio less than 30 mg/g: Code(s): N18.32 - Chronic kidney disease, stage 3b Status: Acute Assessment and Plan: -her creatinine is 1.5 with a baseline of 1.2 - 1.30. BUN is 21 with a baseline of 18 - 27. And GFR is 34 the baseline anywhere from 27-47. -nephrology has seen her here in the past. -Hold losartan and sprinolactone (11) Acute on chronic anemia: Code(s): D64.9 - Anemia, unspecified Status: Acute Assessment and Plan: Anemia due to CKD Patient on ferrous sulfate Hemoglobin down trended to 6.8 on 10/06/2025 status post 1 unit packed red blood cell transfusion on 10/06/2025. Post transfusion hemoglobin up to 8.612/ Xarelto on hold for planned surgery Patient had Previous discussion about placement of Watchman device at [facility] but she denied Plan 10/12/2025 Will continue current treatment Dc to rehab when bed available DVT prophylaxis Eliquis Code status Full Subjective Date/time seen: 10/12/25 09:23 Interval history: Patient was seen during the morning rounds today. No new overnight complaints. No sob or chest pain Seen at bedside resting comfortably. No foot pain. Review of Systems Review of Systems: All systems reviewed & are unremarkable except as noted in HPI and below Constitutional: Constitutional: Reports as per HPI and Reports no additional constitutional complaints Eyes: Eyes: Reports as per HPI and Reports no additional eye complaints ENT: Reports system reviewed and no additional complaints, except as documented and Reports Normal hearing present Cardiovascular: Cardiovascular: Reports no additional cardiovascular complaints Respiratory: Respiratory: Reports as per HPI and Reports no additional respiratory complaints Gastrointestinal: Gastrointestinal: Reports as per HPI and Reports no additional gastrointestinal complaints Genitourinary: Genitourinary: Reports no additional female genitourinary complaints Musculoskeletal: Musculoskeletal: Reports no additional musculoskeletal complaints Integumentary/Breasts: Skin/Breast: Reports system reviewed and no additional complaints, except as docu Neurologic: Reports system reviewed and no additional complaints, except as documented and Reports Normal hearing present Psychiatric: Psychiatric: Reports no additional psychiatric complaints and Reports as per HPI Hematologic/Lymphatic: Hematologic/Lymphatic: Reports no additional hematologic/lymphatic complaints Allergic/Immunologic: Allergic/Immunologic: Reports no additional allergic/immunologic complaints Exam Const: General: cooperative, comfortable, no acute distress, well developed, awake, Physically active, average body habitus and well nourished Nutritional Appearance: average body habitus and well nourished Orientation/consciousness: oriented to person, oriented to place, oriented to time and patient oriented x3 Limitations: no limitations HENMT: Head: normal to inspection, No palpable skull fracture present, normocephalic, atraumatic and abrasion Ears: hearing grossly normal bilaterally and external ears normal Face/Nose/Sinus: Normal external nose present, Normal nares present and No nasal polyps present Eyes: General: appearance normal, both eyes and all related structures Alignment and Position: alignment normal Periorbital: periorbital findings normal Eyelids: eyelids normal Pupils: Equal, round and reactive pupils present Neck: Neck: normal visual inspection and full ROM Chest: Chest palpation & inspection: normal inspection of the chest Resp: Effort & Inspection: normal respiratory effort Auscultation: clear to auscultation bilaterally Cardio: Palpation: normal PMI Rate: regular rate Rhythm: regular rhythm Heart sounds: S1 normal heart sound present GI: Inspection: normal to inspection Auscultation: normal bowel sounds Rectal Exam: deferred : General: Yes no CVA tenderness Back/Spine/Pelvis: Back: no CVA tenderness Cervical Spine: cervical ROM normal Skin: General skin exam: normal color and lesion (Entire right heel covered with eschar tissue. Bloody drainage noted. ) Lesions: lesion noted (Entire right heel covered with eschar tissue. Bloody drainage noted. ) Rashes: no rashes Trauma: no lacerations or abrasions Hair: normal Nails: normal Other: Please see wound pictures from nursing staff. Eschar tissue covers the entire surface of the right heel. Bloody drainage noted from right heel. Unstageable sacral ulcer. Neuro: General: oriented to person, oriented to place, oriented to time and patient oriented x3 Cranial nerves: Yes Equal, round and reactive pupils present and Yes Normal hearing present Cognition (Neuro): normal cognition Speech: normal speech Extrem: General: normal to inspection Right upper extremity: normal to inspection and shoulder/upper arm Left upper extremity: normal to inspection and shoulder/upper arm Right lower extremity: normal to inspection Left lower extremity: normal to inspection Other: 2+ pitting edema right worse than the left to lower extremities. Psych: Appearance: grossly normal Mental Status: mental status grossly normal Speech and movement: Normal speech and movement present Affect: normal affect Attitude: cooperative Thought process: Normal thought process present Insight: Good insight present (Psych) Judgement: Good judgement present (Psych) Objective Data Vital Signs Vital Signs: Vital Signs - 24 hr 10/11/25 10:26 10/11/25 11:07 10/11/25 20:41 Temperature Pulse Rate 65 Respiratory Rate Blood Pressure Pulse Oximetry 95 90 Oxygen Delivery Nasal Cannula Room Air Oxygen Flow Rate 1 10/11/25 20:53 10/11/25 21:23 10/12/25 06:46 Temperature 36.7 C 36.3 C L Pulse Rate 67 68 Respiratory Rate 16 16 Blood Pressure 122/60 129/47 L Pulse Oximetry 99 94 Oxygen Delivery Room Air Oxygen Flow Rate 10/12/25 08:11 10/12/25 08:12 Temperature Pulse Rate 68 68 Respiratory Rate Blood Pressure Pulse Oximetry Oxygen Delivery Oxygen Flow Rate Intake/Output Intake/Output: Intake & Output 10/09/25 10/10/25 10/11/25 10/12/25 23:59 23:59 23:59 23:59 Intake Total 844 1620 1820 1490 Output Total 1850 1450 1400 150 Balance -1006 549 409 5130 Meds/Results Medications: Active Medications Generic Name Dose Route Start Last Admin Trade Name Freq PRN Reason Stop Dose Admin Acetaminophen 650 mg 10/05/25 02:15 10/07/25 18:37 Acetaminophen 325 Mg Tablet PO 650 mg Q4H PRN Administration Mild Pain (1-3) or Fever Hydrocodone Bitart/Acetaminophen 1 tab 10/05/25 06:21 10/10/25 23:38 Hydrocodone/Acetaminophen (*Crx) 10-325 Mg Tablet PO 1 tab Q6H PRN Administration Pain 7-10 Amiodarone HCl 200 mg 10/05/25 09:00 10/12/25 08:11 Amiodarone Hcl 200 Mg Tablet PO 200 mg DAILY KENYON Administration Apixaban 5 mg 10/11/25 13:05 10/12/25 08:12 Apixaban 5 Mg Tablet PO 5 mg Q12HR KENYON Administration Atorvastatin Calcium 40 mg 10/05/25 09:00 10/12/25 08:12 Atorvastatin 40 Mg Tablet PO 40 mg DAILY KENYON Administration Carvedilol 12.5 mg 10/05/25 09:00 10/12/25 08:12 Carvedilol 12.5 Mg Tablet PO 12.5 mg Q12HR KENYON Administration Dextrose 12.5 gm 10/05/25 06:10 Dextrose 50% 25 Gm/50 Ml Syringe IV PUSH PRN PRN Hypoglycemia Protocol Empagliflozin 25 mg 10/05/25 09:00 10/12/25 08:11 Empagliflozin 25 Mg Tablet PO 25 mg QAM KENYON Administration Ferrous Sulfate 325 mg 10/05/25 09:00 10/12/25 08:12 Ferrous Sulfate 325 Mg Tablet PO 325 mg DAILY KENYON Administration Furosemide 40 mg 10/05/25 09:00 10/12/25 08:11 Furosemide 40 Mg Tablet PO 40 mg QAM KENYON Administration Gabapentin 800 mg 10/05/25 09:00 10/12/25 08:11 Gabapentin 400 Mg Capsule PO 800 mg TID KENYON Administration Glucagon 1 mg 10/05/25 06:10 Glucagon For Inj 1 Mg Vial IM PRN PRN Hypoglycemia Protocol Glucose 15 gm 10/05/25 06:10 Glucose Oral Gel 15 Gm Of Glucse In 37.5 Gm Tube PO PRN PRN Hypoglycemia Protocol Hydralazine HCl 10 mg 10/05/25 17:42 Hydralazine Hcl 20 Mg/Ml Vial IV PUSH Q6H PRN Blood Pressure - High Dextrose 1,000 mls @ 100 mls/hr 10/05/25 06:10 Dextrose 5% 1,000 Ml IVPB PRN PRN Hypoglycemia Protocol Ampicillin Sodium/Sulbactam 100 mls @ 200 mls/hr 10/09/25 16:00 10/12/25 03:55 Sodium 3 gm/ Sodium Chloride IVPB Infused Q4H KENYON Infusion Vancomycin HCl 1,500 mg in 500 mls @ 250 mls/hr 10/11/25 02:00 10/12/25 03:13 Vancomycin 1,500 Mg/Ns 500 Ml IVPB Infused Q24H KENYON Infusion Insulin Aspart 2 - 5 units 10/05/25 08:00 10/12/25 08:12 Insulin Aspart (*Bkc) 100 Units/Ml SUB-Q Not Given TIDWM [facility] Protocol Insulin Glargine 32 units 10/05/25 09:00 10/11/25 08:46 Insulin Glargine (*Bkc) 100 Units/Ml SUB-Q 32 units DAILY KENYON Administration Levothyroxine Sodium 200 mcg 10/05/25 06:30 10/12/25 05:43 Levothyroxine Sodium 100 Mcg Tablet PO 200 mcg DAILY@0630 KENYON Administration Losartan Potassium 25 mg 10/05/25 09:00 10/12/25 08:11 Losartan Potassium 25 Mg Tablet PO 25 mg DAILY KENYON Administration Morphine Sulfate 2 mg 10/05/25 02:15 Morphine Sulfate (*Crx) 4 Mg/Ml Inj IV PUSH Q2H PRN Pain Rated 7-10 Ondansetron HCl 4 mg 10/05/25 02:15 Ondansetron Inj 4 Mg/2 Ml Vial IV PUSH Q4H PRN Nausea Pantoprazole Sodium 40 mg 10/05/25 09:00 10/12/25 08:11 Pantoprazole 40 Mg Tablet PO 40 mg QAM KENYON Administration Polyethylene Glycol 17 gm 10/10/25 09:00 10/12/25 08:12 Polyethylene Glycol 3350 17 Gm Powd.Pack PO 17 gm QAM KENYON Administration Potassium Chloride 10 meq 10/05/25 09:00 10/12/25 08:12 Potassium Chloride 10 Meq Er Tablet PO 10 meq DAILY KENYON Administration Senna/Docusate Sodium 2 tab 10/09/25 21:00 10/12/25 08:10 Senna/Docusate Sodium Tablet PO 2 tab Q12HR KENYON Administration Sodium Chloride 10 ml 10/10/25 22:00 10/12/25 05:46 Central Line Flush IV PUSH 10 ml Q8HR KENYON Administration Sodium Chloride 10 ml 10/10/25 15:13 Central Line Flush IV PUSH PRN PRN with TPN bag changes Sodium Chloride 20 ml 10/10/25 15:13 Central Line Flush IV PUSH PRN PRN after blood draws Spironolactone 25 mg 10/05/25 09:00 10/12/25 08:11 Spironolactone 25 Mg Tablet PO 25 mg DAILY KENYON Administration Radiology Results: ITS Impressions Head CT 10/05/25 06:07 IMPRESSION: 1. No acute intracranial findings. Chest X-Ray 10/05/25 06:09 IMPRESSION: 1. No acute cardiopulmonary findings given portable technique. Heel X-Ray 10/05/25 07:52 IMPRESSION: 1. Comminuted mid body fracture of the calcaneus with possible erosive changes soft tissue swelling and open wound defect. Pathologic fracture and possible osteomyelitis is not excluded. Venous Doppler Study 10/05/25 14:51 Impression: Negative for DVT. Foot MRI 10/06/25 14:21 IMPRESSION: 1. Oblique longitudinally oriented fracture through the body of the calcaneus extending from the plantar surface into the subtalar joint with features suggesting possible subacute injury. Correlate with clinical presentation and history. 2. Extensive soft tissue changes along the posterior margin of the calcaneal body with erosive and bone marrow changes consistent with osteomyelitis. Bone marrow changes involve both the posterior and anterior calcaneal body fragments, although no clear cortical erosion in the anterior fragment is seen. Osteomyelitis is more convincingly present in the posterior calcaneal body and not as clearly present in the anterior fragment. However with bone marrow changes throughout the anterior calcaneus, osteomyelitis could be there is well. 3. Fluid within the fracture defect could be infected, though no discrete abscess is seen. Labs Labs: Laboratory Results - last 24 hr 10/11/25 10/11/25 10/11/25 11:55 16:48 20:09 Creatinine Estim Creat Clear Calc Estimated GFR POC Capillary Glucose 134 H 135 H 159 H 10/12/25 10/12/25 06:00 07:37 Creatinine 1.20 H Estim Creat Clear Calc 46 Estimated GFR 44 L POC Capillary Glucose 88 Quality VTE Prophylaxis VTE prophylaxis: pharmacologic ordered
[2025-10-12] MEDS: INSULIN GLARGINE (*BKC) 100 UNITS/ML 32 UNITS SUB-Q (12:00)
[2025-10-12] MEDS: HYDROcodone/acetaminophen (*CRX) 10-325 MG TABLET 1 TAB PO (20:04)
[2025-10-12 20:42] VITALS: BP 102/50; PULSE 54; RESP 18; TEMP 37.3; O2SAT 92
[2025-10-13] MEDS: AMPICILLIN SODIUM/SULBACTAM 3 GM in SODIUM CHLORIDE 0.9% IV 100 ML 200 ML IVPB ×6 (00:19→20:14)
[2025-10-13 02:00] VITALS: PULSE 60; O2SAT 95
[2025-10-13] MEDS: VANCOMYCIN 1,500 MG/NS 500 ML 1,500 MG/500 ML BAG 250 MG IVPB (02:46)
[2025-10-13 05:02] LABS: Hematocrit 25.5 % (37.0-47.0); Hemoglobin 7.7 g/dL (12.0-15.0); Immature Granulocyte Percent A 3.2 % (0-0.5); Lymphocytes Absolute Auto 1.43 K/mm3 (0.9-3.2); Mean Corpuscular HGB Conc 30.2 g/dl (32-36); Mean Corpuscular Hemoglobin 27.6 pg (26-34); Mean Corpuscular Volume 91.4 fl (80-100); Nucleated Red Blood Cells Absolute Auto 0.000 K/mm3 (0.0-0.012); Nucleated Red Blood Cells Perc 0.0 % (0.0-0.2); Platelet Count Result 231 k/mm3 (150-375); Red Blood Count 2.79 M/mm3 (4.2-5.4); White Blood Count 7.8 K/mm3 (4.5-10.0)
[2025-10-13 05:21] LABS: Alanine Aminotransferase 11 U/L (6-35); Albumin Level 2.6 g/dL (3.5-5.1); Alkaline Phosphatase 89 U/L (38-126); Anion Gap 5 mmol/L (4-12); Aspartate Amino Transferase 21 U/L (14-36); Bilirubin,Total 0.4 mg/dL (0.2-1.3); Blood Urea Nitrogen 16 mg/dL (7-17); Calcium 8.8 mg/dL (8.4-10.2); Carbon Dioxide 25 mmol/L (22-30); Chloride 102 mmol/L (98-107); Estimated CRCL calculation 44 ml/min; Estimated Glomerular Filt Rate 41; Glucose 103 mg/dL (65-110); Potassium 3.7 mmol/L (3.4-5.0); Sodium 132 mmol/L (137-145); Total Protein 6.0 g/dL (6.3-8.2)
[2025-10-13 05:51] VITALS: BP 112/45; PULSE 60; RESP 16; TEMP 37.7; O2SAT 94
[2025-10-13] MEDS: LEVOTHYROXINE SODIUM 100 MCG TABLET 200 MCG PO (06:03)
[2025-10-13] MEDS: CENTRAL LINE FLUSH 10 ML IV PUSH ×3 (06:03→22:09)
--- NOTE | 2025-10-13 08:51 | PCPTNOTE ---
Attempted to see patient for PT, however patient on bed rodrigues and refused PT. Offered to assist patient to commode/toilet and patient continued to refuse.
[2025-10-13] MEDS: SENNA/DOCUSATE SODIUM TABLET 2 TAB PO ×2 (09:14→20:14)
[2025-10-13] MEDS: GABAPENTIN 400 MG CAPSULE 800 MG PO ×3 (09:14→16:25)
[2025-10-13] MEDS: EMPAGLIFLOZIN 25 MG TABLET PO (09:14)
[2025-10-13] MEDS: POTASSIUM CHLORIDE 10 MEQ ER TABLET PO (09:15)
[2025-10-13] MEDS: LOSARTAN POTASSIUM 25 MG TABLET PO (09:15)
[2025-10-13] MEDS: FUROSEMIDE 40 MG TABLET PO (09:15)
[2025-10-13] MEDS: INSULIN GLARGINE (*BKC) 100 UNITS/ML 32 UNITS SUB-Q (09:15)
[2025-10-13] MEDS: FERROUS SULFATE 325 MG TABLET PO (09:15)
[2025-10-13] MEDS: SPIRONOLACTONE 25 MG TABLET PO (09:15)
[2025-10-13] MEDS: AMIODARONE HCL 200 MG TABLET PO (09:15)
[2025-10-13] MEDS: APIXABAN 5 MG TABLET PO ×2 (09:15→20:14)
[2025-10-13] MEDS: ATORVASTATIN 40 MG TABLET PO (09:15)
[2025-10-13] MEDS: PANTOPRAZOLE 40 MG TABLET PO (09:16)
--- NOTE | 2025-10-13 12:34 | PM.IMPN2 ---
Assessment and Plan Assessment and Plan (1) Diabetic foot ulcer associated with type 2 diabetes mellitus: Onset Date: ~04/2025 Code(s): E11.621 - Type 2 diabetes mellitus with foot ulcer; L97.509 - Non-pressure chronic ulcer of other part of unspecified foot with unspecified severity Status: Acute Assessment and Plan: -Dr. Sotelo has been consulted for the diabetic right heel wound.(wound care was consulted for sacral ulcer.) -the patient has had this decubitus ulcer for several months. -please see nursing wound pictures. -patient has a large patch of eschar tissue to the entire right heel. She also has a sacral wound. -the patient stated that she has been using Santyl as prescribed for the diabetic foot ulcer. -continue IV antibiotics Waiting for rehab bed availability. . (2) Bacteremia: Code(s): R78.81 - Bacteremia Status: Acute Assessment and Plan: Possible source UTI Blood culture from 10/05 shows E coli pansensitive Blood culture from 09/16/2025 E coli which was pansensitive Less suspicion for endocarditis, will not pursue for TTE Monitor leukocytosis Continue vancomycin Wound culture with E coli as well as Staph aureus. Operative culture with E coli final pending Infectious Disease on board Currently on Unasyn. When ready for discharge change to ertapenem/DAPT 2 through 11/19/[address] weekly CBC CMP ESR CPK (3) Diastolic CHF with preserved left ventricular function, NYHA class 2: Code(s): I50.30 - Unspecified diastolic (congestive) heart failure Status: Acute Assessment and Plan: -no recent echo seen. -continue with Coreg -continue Jardiance and Lasix -hold losartan due to BAYLEE -continue with spironolactone. -monitor electrolytes due to her medications. -received 1 L bolus in the ER. (4) Paroxysmal atrial fibrillation: Code(s): I48.0 - Paroxysmal atrial fibrillation Status: Acute Assessment and Plan: -the patient is in sinus rhythm at this time. -she has had a history of a cardiac radiofrequency ablation in the past. -continue with Coreg -continue with apixaban -continue with amiodarone if blood pressure allows. (5) Essential (primary) hypertension: Code(s): I10 - Essential (primary) hypertension Status: Acute Assessment and Plan: -continue with Coreg if blood pressure allows - Lasix if blood pressure allows (6) Mixed hyperlipidemia: Code(s): E78.2 - Mixed hyperlipidemia Status: Acute Assessment and Plan: -continue with atorvastatin (7) Controlled type 2 diabetes mellitus with hyperglycemia, with long-term current use of insulin: Code(s): E11.65 - Type 2 diabetes mellitus with hyperglycemia; Z79.4 - predatory animal exterminator (current) use of insulin Status: Acute Assessment and Plan: -Accu-Cheks with a seen HS and sliding scale insulin with hypoglycemic protocol. - A1c 7 -pharmacy to decrease home long-acting insulin by 20%. -continue with Jardiance (8) Hypothyroidism, unspecified: Qualifiers: Hypothyroidism type: unspecified Qualified Code(s): E03.9 - Hypothyroidism, unspecified Code(s): E03.9 - Hypothyroidism, unspecified Status: Acute Assessment and Plan: -continue with Synthroid (9) Iron deficiency anemia, unspecified: Onset Date: ~03/09/24 Qualifiers: Iron deficiency anemia type: chronic blood loss Qualified Code(s): D50.0 - Iron deficiency anemia secondary to blood loss (chronic) Code(s): D50.9 - Iron deficiency anemia, unspecified Status: Acute Assessment and Plan: -her H&H is currently 8.6 and 27.9. Her past H&H was 9.0 in 28.5 on 09/25/2025. -monitor CBCs and H&H -anemia of chronic disease with a history of chronic renal failure -continue with ferrous sulfate (10) Chronic kidney disease (CKD) stage G3b/A1, moderately decreased glomerular filtration rate (GFR) between 30-44 mL/min/1.73 square meter and albuminuria creatinine ratio less than 30 mg/g: Code(s): N18.32 - Chronic kidney disease, stage 3b Status: Acute Assessment and Plan: -her creatinine is 1.5 with a baseline of 1.2 - 1.30. BUN is 21 with a baseline of 18 - 27. And GFR is 34 the baseline anywhere from 27-47. -nephrology has seen her here in the past. -Hold losartan and sprinolactone (11) Acute on chronic anemia: Code(s): D64.9 - Anemia, unspecified Status: Acute Assessment and Plan: Anemia due to CKD Patient on ferrous sulfate Hemoglobin down trended to 6.8 on 10/06/2025 status post 1 unit packed red blood cell transfusion on 10/06/2025. Post transfusion hemoglobin up to 8.612/ Xarelto on hold for planned surgery Patient had Previous discussion about placement of Watchman device at [facility] but she denied Plan DVT prophylaxis Eliquis Code status Full Subjective Date/time seen: 10/13/25 12:34 Interval history: No overnight events. No new complaints. Wound VAC in place. No chest pain or shortness of breath. Review of Systems Review of Systems: All systems reviewed & are unremarkable except as noted in HPI and below Constitutional: Constitutional: Reports as per HPI and Reports no additional constitutional complaints Eyes: Eyes: Reports as per HPI and Reports no additional eye complaints ENT: Reports system reviewed and no additional complaints, except as documented and Reports Normal hearing present Cardiovascular: Cardiovascular: Reports no additional cardiovascular complaints Respiratory: Respiratory: Reports as per HPI and Reports no additional respiratory complaints Gastrointestinal: Gastrointestinal: Reports as per HPI and Reports no additional gastrointestinal complaints Genitourinary: Genitourinary: Reports no additional female genitourinary complaints Musculoskeletal: Musculoskeletal: Reports no additional musculoskeletal complaints Integumentary/Breasts: Skin/Breast: Reports system reviewed and no additional complaints, except as docu Neurologic: Reports system reviewed and no additional complaints, except as documented and Reports Normal hearing present Psychiatric: Psychiatric: Reports no additional psychiatric complaints and Reports as per HPI Hematologic/Lymphatic: Hematologic/Lymphatic: Reports no additional hematologic/lymphatic complaints Allergic/Immunologic: Allergic/Immunologic: Reports no additional allergic/immunologic complaints Exam Const: General: cooperative, comfortable, no acute distress, well developed, awake, Physically active, average body habitus and well nourished Nutritional Appearance: average body habitus and well nourished Orientation/consciousness: oriented to person, oriented to place, oriented to time and patient oriented x3 Limitations: no limitations HENMT: Head: normal to inspection, No palpable skull fracture present, normocephalic, atraumatic and abrasion Ears: hearing grossly normal bilaterally and external ears normal Face/Nose/Sinus: Normal external nose present, Normal nares present and No nasal polyps present Eyes: General: appearance normal, both eyes and all related structures Alignment and Position: alignment normal Periorbital: periorbital findings normal Eyelids: eyelids normal Pupils: Equal, round and reactive pupils present Neck: Neck: normal visual inspection and full ROM Chest: Chest palpation & inspection: normal inspection of the chest Resp: Effort & Inspection: normal respiratory effort Auscultation: clear to auscultation bilaterally Cardio: Palpation: normal PMI Rate: regular rate Rhythm: regular rhythm Heart sounds: S1 normal heart sound present GI: Inspection: normal to inspection Auscultation: normal bowel sounds Rectal Exam: deferred : General: Yes no CVA tenderness Back/Spine/Pelvis: Back: no CVA tenderness Cervical Spine: cervical ROM normal Skin: Nails: normal Other: Wound VAC in place on right foot Neuro: General: oriented to person, oriented to place, oriented to time and patient oriented x3 Cranial nerves: Yes Equal, round and reactive pupils present and Yes Normal hearing present Cognition (Neuro): normal cognition Speech: normal speech Extrem: General: normal to inspection Right upper extremity: normal to inspection and shoulder/upper arm Left upper extremity: normal to inspection and shoulder/upper arm Right lower extremity: normal to inspection Left lower extremity: normal to inspection Other: 2+ pitting edema right worse than the left to lower extremities. Psych: Appearance: grossly normal Mental Status: mental status grossly normal Speech and movement: Normal speech and movement present Affect: normal affect Attitude: cooperative Thought process: Normal thought process present Insight: Good insight present (Psych) Judgement: Good judgement present (Psych) Objective Data Vital Signs Vital Signs: Vital Signs - 24 hr 10/12/25 20:00 10/12/25 20:42 10/13/25 02:00 Temperature 99.1 F Pulse Rate 54 L 60 Respiratory Rate 18 Blood Pressure 102/50 L Pulse Oximetry 92 95 Oxygen Delivery Room Air Room Air Fraction of Inspired Oxygen 21 10/13/25 05:51 Temperature 99.8 F H Pulse Rate 60 Respiratory Rate 16 Blood Pressure 112/45 L Pulse Oximetry 94 Oxygen Delivery Fraction of Inspired Oxygen Intake/Output Intake/Output: Intake & Output 10/10/25 10/11/25 10/12/25 10/13/25 23:59 23:59 23:59 23:59 Intake Total 1620 1820 2352 718 Output Total 1450 1400 1050 650 Balance 862 852 2957 68 Meds/Results Medications: Active Medications Generic Name Dose Route Start Last Admin Trade Name Freq PRN Reason Stop Dose Admin Acetaminophen 650 mg 10/05/25 02:15 10/07/25 18:37 Acetaminophen 325 Mg Tablet PO 650 mg Q4H PRN Administration Mild Pain (1-3) or Fever Hydrocodone Bitart/Acetaminophen 1 tab 10/05/25 06:21 10/12/25 20:04 Hydrocodone/Acetaminophen (*Crx) 10-325 Mg Tablet PO 1 tab Q6H PRN Administration Pain 7-10 Amiodarone HCl 200 mg 10/05/25 09:00 10/13/25 09:15 Amiodarone Hcl 200 Mg Tablet PO 200 mg DAILY KENYON Administration Apixaban 5 mg 10/11/25 13:05 10/13/25 09:15 Apixaban 5 Mg Tablet PO 5 mg Q12HR KENYON Administration Atorvastatin Calcium 40 mg 10/05/25 09:00 10/13/25 09:15 Atorvastatin 40 Mg Tablet PO 40 mg DAILY KENYON Administration Carvedilol 12.5 mg 10/05/25 09:00 10/13/25 09:14 Carvedilol 12.5 Mg Tablet PO 12.5 mg Q12HR KENYON Administration Dextrose 12.5 gm 10/05/25 06:10 Dextrose 50% 25 Gm/50 Ml Syringe IV PUSH PRN PRN Hypoglycemia Protocol Empagliflozin 25 mg 10/05/25 09:00 10/13/25 09:14 Empagliflozin 25 Mg Tablet PO 25 mg QAM KENYON Administration Ferrous Sulfate 325 mg 10/05/25 09:00 10/13/25 09:15 Ferrous Sulfate 325 Mg Tablet PO 325 mg DAILY KENYON Administration Furosemide 40 mg 10/05/25 09:00 10/13/25 09:15 Furosemide 40 Mg Tablet PO 40 mg QAM KENYON Administration Gabapentin 800 mg 10/05/25 09:00 10/13/25 09:14 Gabapentin 400 Mg Capsule PO 800 mg TID KENYON Administration Glucagon 1 mg 10/05/25 06:10 Glucagon For Inj 1 Mg Vial IM PRN PRN Hypoglycemia Protocol Glucose 15 gm 10/05/25 06:10 Glucose Oral Gel 15 Gm Of Glucse In 37.5 Gm Tube PO PRN PRN Hypoglycemia Protocol Hydralazine HCl 10 mg 10/05/25 17:42 Hydralazine Hcl 20 Mg/Ml Vial IV PUSH Q6H PRN Blood Pressure - High Dextrose 1,000 mls @ 100 mls/hr 10/05/25 06:10 Dextrose 5% 1,000 Ml IVPB PRN PRN Hypoglycemia Protocol Ampicillin Sodium/Sulbactam 100 mls @ 200 mls/hr 10/09/25 16:00 10/13/25 12:24 Sodium 3 gm/ Sodium Chloride IVPB 200 mls/hr Q4H KENYON Administration Vancomycin HCl 1,500 mg in 500 mls @ 250 mls/hr 10/11/25 02:00 10/13/25 02:46 Vancomycin 1,500 Mg/Ns 500 Ml IVPB 250 mls/hr Q24H KENYON Administration Insulin Aspart 2 - 5 units 10/05/25 08:00 10/13/25 12:24 Insulin Aspart (*Bkc) 100 Units/Ml SUB-Q Not Given TIDWM KENYON Protocol Insulin Glargine 32 units 10/05/25 09:00 10/13/25 09:15 Insulin Glargine (*Bkc) 100 Units/Ml SUB-Q 32 units DAILY KENYON Administration Levothyroxine Sodium 200 mcg 10/05/25 06:30 10/13/25 06:03 Levothyroxine Sodium 100 Mcg Tablet PO 200 mcg DAILY@0630 KENYON Administration Losartan Potassium 25 mg 10/05/25 09:00 10/13/25 09:15 Losartan Potassium 25 Mg Tablet PO 25 mg DAILY KENYON Administration Morphine Sulfate 2 mg 10/05/25 02:15 Morphine Sulfate (*Crx) 4 Mg/Ml Inj IV PUSH Q2H PRN Pain Rated 7-10 Ondansetron HCl 4 mg 10/05/25 02:15 Ondansetron Inj 4 Mg/2 Ml Vial IV PUSH Q4H PRN Nausea Pantoprazole Sodium 40 mg 10/05/25 09:00 10/13/25 09:16 Pantoprazole 40 Mg Tablet PO 40 mg QAM KENYON Administration Polyethylene Glycol 17 gm 10/10/25 09:00 10/13/25 09:14 Polyethylene Glycol 3350 17 Gm Powd.Pack PO 17 gm QAM KENYON Administration Potassium Chloride 10 meq 10/05/25 09:00 10/13/25 09:15 Potassium Chloride 10 Meq Er Tablet PO 10 meq DAILY KENYON Administration Senna/Docusate Sodium 2 tab 10/09/25 21:00 10/13/25 09:14 Senna/Docusate Sodium Tablet PO 2 tab Q12HR KENYON Administration Sodium Chloride 10 ml 10/10/25 22:00 10/13/25 06:03 Central Line Flush IV PUSH 10 ml Q8HR KENYON Administration Sodium Chloride 10 ml 10/10/25 15:13 Central Line Flush IV PUSH PRN PRN with TPN bag changes Sodium Chloride 20 ml 10/10/25 15:13 Central Line Flush IV PUSH PRN PRN after blood draws Spironolactone 25 mg 10/05/25 09:00 10/13/25 09:15 Spironolactone 25 Mg Tablet PO 25 mg DAILY KENYON Administration Radiology Results: ITS Impressions Head CT 10/05/25 06:07 IMPRESSION: 1. No acute intracranial findings. Chest X-Ray 10/05/25 06:09 IMPRESSION: 1. No acute cardiopulmonary findings given portable technique. Heel X-Ray 10/05/25 07:52 IMPRESSION: 1. Comminuted mid body fracture of the calcaneus with possible erosive changes soft tissue swelling and open wound defect. Pathologic fracture and possible osteomyelitis is not excluded. Venous Doppler Study 10/05/25 14:51 Impression: Negative for DVT. Foot MRI 10/06/25 14:21 IMPRESSION: 1. Oblique longitudinally oriented fracture through the body of the calcaneus extending from the plantar surface into the subtalar joint with features suggesting possible subacute injury. Correlate with clinical presentation and history. 2. Extensive soft tissue changes along the posterior margin of the calcaneal body with erosive and bone marrow changes consistent with osteomyelitis. Bone marrow changes involve both the posterior and anterior calcaneal body fragments, although no clear cortical erosion in the anterior fragment is seen. Osteomyelitis is more convincingly present in the posterior calcaneal body and not as clearly present in the anterior fragment. However with bone marrow changes throughout the anterior calcaneus, osteomyelitis could be there is well. 3. Fluid within the fracture defect could be infected, though no discrete abscess is seen. Labs Labs: Laboratory Results - last 24 hr 10/12/25 10/12/25 10/13/25 16:45 19:19 00:54 WBC RBC Hgb Hct MCV MCH MCHC RDW Plt Count MPV Immature Gran % (Auto) Neut % (Auto) Lymph % (Auto) Fisher % (Auto) Eos % (Auto) Baso % (Auto) Lymph # (Auto) Fisher # (Auto) Eos # (Auto) Baso # (Auto) Abs Immat Gran (auto) Absolute Neuts (auto) Absolute Nucleated RBC Nucleated RBC % Sodium Potassium Chloride Carbon Dioxide Anion Gap BUN Creatinine Estim Creat Clear Calc Estimated GFR Glucose POC Capillary Glucose 118 H 151 H Calcium Total Bilirubin AST ALT Alkaline Phosphatase Total Protein Albumin Vancomycin Trough 18.0 10/13/25 10/13/25 10/13/25 04:39 07:37 11:38 WBC 7.8 RBC 2.79 L Hgb 7.7 L Hct 25.5 L MCV 91.4 MCH 27.6 MCHC 30.2 L RDW 13.8 Plt Count 231 MPV 9.0 Immature Gran % (Auto) 3.2 H Neut % (Auto) 61.4 Lymph % (Auto) 18.3 Fisher % (Auto) 10.8 H Eos % (Auto) 5.9 H Baso % (Auto) 0.4 Lymph # (Auto) 1.43 Fisher # (Auto) 0.8 H Eos # (Auto) 0.5 H Baso # (Auto) 0.0 Abs Immat Gran (auto) 0.25 H Absolute Neuts (auto) 4.8 Absolute Nucleated RBC 0.000 Nucleated RBC % 0.0 Sodium 132 L Potassium 3.7 Chloride 102 Carbon Dioxide 25 Anion Gap 5 BUN 16 Creatinine 1.27 H Estim Creat Clear Calc 44 Estimated GFR 41 L Glucose 103 POC Capillary Glucose 87 122 H Calcium 8.8 Total Bilirubin 0.4 AST 21 ALT 11 Alkaline Phosphatase 89 Total Protein 6.0 L Albumin 2.6 L Vancomycin Trough Quality VTE Prophylaxis VTE prophylaxis: pharmacologic ordered
[2025-10-13 14:00] VITALS: BP 127/48; PULSE 59; RESP 17; TEMP 36.2; O2SAT 96
--- NOTE | 2025-10-13 18:12 | WPDINFPN2 ---
Progress Note: A&P Assessment and Plan (1) Decubitus ulcer of right heel, unstageable: Code(s): L89.610 - Pressure ulcer of right heel, unstageable Status: Acute Plan ASSESSMENT: 1. right heel eschar/wound with osteomyelitis. --MRI with path fx --With E coli BSI --Wound with E coli and MRSA --s/p partial calc 10/09/25 2. coccygeal wound 3. DM 4. CKD 5. heart failure, HL, PAD 6. Afib 7. hypothyroid RECOMMENDATIONS: Continue unasyn and vanc While hospitalized. PICC placed 10/10 When ready for discharge, change to ertapenem/dapto through 11/19/24 Weekly cbc, cmp, esr, cpk Wound care per podiatry Can follow with me via telemed in 2-3 weeks. Pt was seen via video telehealth consultation with the assistance of staff. Chart, data and patient info reviewed. Patient was located at [facility] while I was in my [place] office. Pt gave consent. Subjective Date/time seen: 10/13/25 18:12 Interval history: s/p partial calectomy 10/09. afebrile. Review of Systems Review of Systems: All systems reviewed & are unremarkable except as noted in HPI and below Exam Narrative: alert and oriented. no distress. Heel dressing kept intact. Objective Data Vital Signs Vital Signs: Vital Signs - 24 hr 10/12/25 20:00 10/12/25 20:42 10/13/25 02:00 Temperature 99.1 F Pulse Rate 54 L 60 Respiratory Rate 18 Blood Pressure 102/50 L Pulse Oximetry 92 95 Oxygen Delivery Room Air Room Air Fraction of Inspired Oxygen 21 10/13/25 05:51 10/13/25 14:00 Temperature 99.8 F H 97.2 F L Pulse Rate 60 59 L Respiratory Rate 16 17 Blood Pressure 112/45 L 127/48 L Pulse Oximetry 94 96 Oxygen Delivery Fraction of Inspired Oxygen Intake/Output Intake/Output: Intake & Output 10/10/25 10/11/25 10/12/25 10/13/25 23:59 23:59 23:59 23:59 Intake Total 1620 1820 2352 1240 Output Total 1450 1400 1050 650 Balance 938 594 1004 590 Meds/Results Medications: Active Medications Generic Name Dose Route Start Last Admin Trade Name Freq PRN Reason Stop Dose Admin Acetaminophen 650 mg 10/05/25 02:15 10/07/25 18:37 Acetaminophen 325 Mg Tablet PO 650 mg Q4H PRN Administration Mild Pain (1-3) or Fever Hydrocodone Bitart/Acetaminophen 1 tab 10/05/25 06:21 10/12/25 20:04 Hydrocodone/Acetaminophen (*Crx) 10-325 Mg Tablet PO 1 tab Q6H PRN Administration Pain 7-10 Amiodarone HCl 200 mg 10/05/25 09:00 10/13/25 09:15 Amiodarone Hcl 200 Mg Tablet PO 200 mg DAILY KENYON Administration Apixaban 5 mg 10/11/25 13:05 10/13/25 09:15 Apixaban 5 Mg Tablet PO 5 mg Q12HR KENYON Administration Atorvastatin Calcium 40 mg 10/05/25 09:00 10/13/25 09:15 Atorvastatin 40 Mg Tablet PO 40 mg DAILY KENYON Administration Carvedilol 12.5 mg 10/05/25 09:00 10/13/25 09:14 Carvedilol 12.5 Mg Tablet PO 12.5 mg Q12HR KENYON Administration Dextrose 12.5 gm 10/05/25 06:10 Dextrose 50% 25 Gm/50 Ml Syringe IV PUSH PRN PRN Hypoglycemia Protocol Empagliflozin 25 mg 10/05/25 09:00 10/13/25 09:14 Empagliflozin 25 Mg Tablet PO 25 mg QAM KENYON Administration Ferrous Sulfate 325 mg 10/05/25 09:00 10/13/25 09:15 Ferrous Sulfate 325 Mg Tablet PO 325 mg DAILY KENYON Administration Furosemide 40 mg 10/05/25 09:00 10/13/25 09:15 Furosemide 40 Mg Tablet PO 40 mg QAM KENYON Administration Gabapentin 800 mg 10/05/25 09:00 10/13/25 16:25 Gabapentin 400 Mg Capsule PO 800 mg TID KENYON Administration Glucagon 1 mg 10/05/25 06:10 Glucagon For Inj 1 Mg Vial IM PRN PRN Hypoglycemia Protocol Glucose 15 gm 10/05/25 06:10 Glucose Oral Gel 15 Gm Of Glucse In 37.5 Gm Tube PO PRN PRN Hypoglycemia Protocol Hydralazine HCl 10 mg 10/05/25 17:42 Hydralazine Hcl 20 Mg/Ml Vial IV PUSH Q6H PRN Blood Pressure - High Dextrose 1,000 mls @ 100 mls/hr 10/05/25 06:10 Dextrose 5% 1,000 Ml IVPB PRN PRN Hypoglycemia Protocol Ampicillin Sodium/Sulbactam 100 mls @ 200 mls/hr 10/09/25 16:00 10/13/25 16:25 Sodium 3 gm/ Sodium Chloride IVPB 200 mls/hr Q4H KENYON Administration Vancomycin HCl 1,500 mg in 500 mls @ 250 mls/hr 10/11/25 02:00 10/13/25 02:46 Vancomycin 1,500 Mg/Ns 500 Ml IVPB 250 mls/hr Q24H KENYON Administration Insulin Aspart 2 - 5 units 10/05/25 08:00 10/13/25 16:51 Insulin Aspart (*Bkc) 100 Units/Ml SUB-Q Not Given TIDWM KENYON Protocol Insulin Glargine 32 units 10/05/25 09:00 10/13/25 09:15 Insulin Glargine (*Bkc) 100 Units/Ml SUB-Q 32 units DAILY KENYON Administration Levothyroxine Sodium 200 mcg 10/05/25 06:30 10/13/25 06:03 Levothyroxine Sodium 100 Mcg Tablet PO 200 mcg DAILY@0630 KENYON Administration Losartan Potassium 25 mg 10/05/25 09:00 10/13/25 09:15 Losartan Potassium 25 Mg Tablet PO 25 mg DAILY KENYON Administration Morphine Sulfate 2 mg 10/05/25 02:15 Morphine Sulfate (*Crx) 4 Mg/Ml Inj IV PUSH Q2H PRN Pain Rated 7-10 Ondansetron HCl 4 mg 10/05/25 02:15 Ondansetron Inj 4 Mg/2 Ml Vial IV PUSH Q4H PRN Nausea Pantoprazole Sodium 40 mg 10/05/25 09:00 10/13/25 09:16 Pantoprazole 40 Mg Tablet PO 40 mg QAM KENYON Administration Polyethylene Glycol 17 gm 10/10/25 09:00 10/13/25 09:14 Polyethylene Glycol 3350 17 Gm Powd.Pack PO 17 gm QAM KENYON Administration Potassium Chloride 10 meq 10/05/25 09:00 10/13/25 09:15 Potassium Chloride 10 Meq Er Tablet PO 10 meq DAILY KENYON Administration Senna/Docusate Sodium 2 tab 10/09/25 21:00 10/13/25 09:14 Senna/Docusate Sodium Tablet PO 2 tab Q12HR KENYON Administration Sodium Chloride 10 ml 10/10/25 22:00 10/13/25 13:03 Central Line Flush IV PUSH 10 ml Q8HR KENYON Administration Sodium Chloride 10 ml 10/10/25 15:13 Central Line Flush IV PUSH PRN PRN with TPN bag changes Sodium Chloride 20 ml 10/10/25 15:13 Central Line Flush IV PUSH PRN PRN after blood draws Spironolactone 25 mg 10/05/25 09:00 10/13/25 09:15 Spironolactone 25 Mg Tablet PO 25 mg DAILY KENYON Administration Radiology Results: ITS Impressions Head CT 10/05/25 06:07 IMPRESSION: 1. No acute intracranial findings. Chest X-Ray 10/05/25 06:09 IMPRESSION: 1. No acute cardiopulmonary findings given portable technique. Heel X-Ray 10/05/25 07:52 IMPRESSION: 1. Comminuted mid body fracture of the calcaneus with possible erosive changes soft tissue swelling and open wound defect. Pathologic fracture and possible osteomyelitis is not excluded. Venous Doppler Study 10/05/25 14:51 Impression: Negative for DVT. Foot MRI 10/06/25 14:21 IMPRESSION: 1. Oblique longitudinally oriented fracture through the body of the calcaneus extending from the plantar surface into the subtalar joint with features suggesting possible subacute injury. Correlate with clinical presentation and history. 2. Extensive soft tissue changes along the posterior margin of the calcaneal body with erosive and bone marrow changes consistent with osteomyelitis. Bone marrow changes involve both the posterior and anterior calcaneal body fragments, although no clear cortical erosion in the anterior fragment is seen. Osteomyelitis is more convincingly present in the posterior calcaneal body and not as clearly present in the anterior fragment. However with bone marrow changes throughout the anterior calcaneus, osteomyelitis could be there is well. 3. Fluid within the fracture defect could be infected, though no discrete abscess is seen. Labs Labs: Laboratory Results - last 24 hr 10/12/25 10/13/25 10/13/25 19:19 00:54 04:39 WBC 7.8 RBC 2.79 L Hgb 7.7 L Hct 25.5 L MCV 91.4 MCH 27.6 MCHC 30.2 L RDW 13.8 Plt Count 231 MPV 9.0 Immature Gran % (Auto) 3.2 H Neut % (Auto) 61.4 Lymph % (Auto) 18.3 [place] % (Auto) 10.8 H Eos % (Auto) 5.9 H Baso % (Auto) 0.4 Lymph # (Auto) 1.43 [place] # (Auto) 0.8 H Eos # (Auto) 0.5 H Baso # (Auto) 0.0 Abs Immat Gran (auto) 0.25 H Absolute Neuts (auto) 4.8 Absolute Nucleated RBC 0.000 Nucleated RBC % 0.0 Sodium 132 L Potassium 3.7 Chloride 102 Carbon Dioxide 25 Anion Gap 5 BUN 16 Creatinine 1.27 H Estim Creat Clear Calc 44 Estimated GFR 41 L Glucose 103 POC Capillary Glucose 151 H Calcium 8.8 Total Bilirubin 0.4 AST 21 ALT 11 Alkaline Phosphatase 89 Total Protein 6.0 L Albumin 2.6 L Vancomycin Trough 18.0 10/13/25 10/13/25 10/13/25 07:37 11:38 16:45 WBC RBC Hgb Hct MCV MCH MCHC RDW Plt Count MPV Immature Gran % (Auto) Neut % (Auto) Lymph % (Auto) [place] % (Auto) Eos % (Auto) Baso % (Auto) Lymph # (Auto) [place] # (Auto) Eos # (Auto) Baso # (Auto) Abs Immat Gran (auto) Absolute Neuts (auto) Absolute Nucleated RBC Nucleated RBC % Sodium Potassium Chloride Carbon Dioxide Anion Gap BUN Creatinine Estim Creat Clear Calc Estimated GFR Glucose POC Capillary Glucose 87 122 H 135 H Calcium Total Bilirubin AST ALT Alkaline Phosphatase Total Protein Albumin Vancomycin Trough
[2025-10-13] MEDS: HYDROcodone/acetaminophen (*CRX) 10-325 MG TABLET 1 TAB PO (20:14)
[2025-10-13 21:00] VITALS: BP 112/40; PULSE 54; RESP 18; TEMP 36.7; O2SAT 96
[2025-10-13 21:15] VITALS: BP 122/58
[2025-10-14] MEDS: AMPICILLIN SODIUM/SULBACTAM 3 GM in SODIUM CHLORIDE 0.9% IV 100 ML 200 ML IVPB ×6 (00:07→21:23)
[2025-10-14] MEDS: VANCOMYCIN 1,500 MG/NS 500 ML 1,500 MG/500 ML BAG 250 MG IVPB (02:20)
[2025-10-14 04:49] LABS: Hematocrit 25.8 % (37.0-47.0); Hemoglobin 7.7 g/dL (12.0-15.0); Immature Granulocyte Percent A 3.7 % (0-0.5); Lymphocytes Absolute Auto 1.48 K/mm3 (0.9-3.2); Mean Corpuscular HGB Conc 29.8 g/dl (32-36); Mean Corpuscular Hemoglobin 27.6 pg (26-34); Mean Corpuscular Volume 92.5 fl (80-100); Nucleated Red Blood Cells Absolute Auto 0.020 K/mm3 (0.0-0.012); Nucleated Red Blood Cells Perc 0.3 % (0.0-0.2); Platelet Count Result 249 k/mm3 (150-375); Red Blood Count 2.79 M/mm3 (4.2-5.4); White Blood Count 7.3 K/mm3 (4.5-10.0)
[2025-10-14 05:09] LABS: Alanine Aminotransferase 11 U/L (6-35); Albumin Level 2.6 g/dL (3.5-5.1); Alkaline Phosphatase 88 U/L (38-126); Anion Gap 3 mmol/L (4-12); Anisocytosis 1+; Aspartate Amino Transferase 15 U/L (14-36); Bilirubin,Total 0.3 mg/dL (0.2-1.3); Blood Urea Nitrogen 16 mg/dL (7-17); Calcium 8.8 mg/dL (8.4-10.2); Carbon Dioxide 28 mmol/L (22-30); Chloride 103 mmol/L (98-107); Estimated CRCL calculation 46 ml/min; Estimated Glomerular Filt Rate 43; Glucose 88 mg/dL (65-110); Hypochromasia 1+; Macrocytosis 1+ (NORMAL); Magnesium 1.9 mg/dL (1.6-2.3); Potassium 3.5 mmol/L (3.4-5.0); Schistocytes None Seen; Sodium 134 mmol/L (137-145); Total Protein 5.9 g/dL (6.3-8.2)
[2025-10-14] MEDS: LEVOTHYROXINE SODIUM 100 MCG TABLET 200 MCG PO (05:41)
[2025-10-14] MEDS: CENTRAL LINE FLUSH 10 ML IV PUSH ×3 (05:41→21:25)
[2025-10-14 05:45] VITALS: BP 111/45; PULSE 54; RESP 16; TEMP 36.9; O2SAT 95
[2025-10-14] MEDS: SENNA/DOCUSATE SODIUM TABLET 2 TAB PO (09:16)
[2025-10-14] MEDS: POTASSIUM CHLORIDE 10 MEQ ER TABLET PO (09:16)
[2025-10-14] MEDS: EMPAGLIFLOZIN 25 MG TABLET PO (09:16)
[2025-10-14] MEDS: AMIODARONE HCL 200 MG TABLET PO (09:16)
[2025-10-14] MEDS: FERROUS SULFATE 325 MG TABLET PO (09:16)
[2025-10-14] MEDS: SPIRONOLACTONE 25 MG TABLET PO (09:16)
[2025-10-14] MEDS: LOSARTAN POTASSIUM 25 MG TABLET PO (09:16)
[2025-10-14] MEDS: ATORVASTATIN 40 MG TABLET PO (09:16)
[2025-10-14] MEDS: APIXABAN 5 MG TABLET PO ×2 (09:16→21:23)
[2025-10-14] MEDS: GABAPENTIN 400 MG CAPSULE 800 MG PO ×3 (09:16→17:00)
[2025-10-14] MEDS: FUROSEMIDE 40 MG TABLET PO (09:16)
[2025-10-14] MEDS: PANTOPRAZOLE 40 MG TABLET PO (09:16)
[2025-10-14] MEDS: INSULIN GLARGINE (*BKC) 100 UNITS/ML 32 UNITS SUB-Q (09:17)
[2025-10-14 14:00] VITALS: BP 115/45; PULSE 57; RESP 16; TEMP 36.2; O2SAT 98
--- NOTE | 2025-10-14 15:24 | PM.IMPN2 ---
Assessment and Plan Assessment and Plan (1) Diabetic foot ulcer associated with type 2 diabetes mellitus: Onset Date: ~04/2025 Code(s): E11.621 - Type 2 diabetes mellitus with foot ulcer; L97.509 - Non-pressure chronic ulcer of other part of unspecified foot with unspecified severity Status: Acute Assessment and Plan: -Dr. Sotelo has been consulted for the diabetic right heel wound.(wound care was consulted for sacral ulcer.) -the patient has had this decubitus ulcer for several months. -please see nursing wound pictures. -patient has a large patch of eschar tissue to the entire right heel. She also has a sacral wound. -the patient stated that she has been using Santyl as prescribed for the diabetic foot ulcer. -continue IV antibiotics Waiting for rehab bed availability. . (2) Bacteremia: Code(s): R78.81 - Bacteremia Status: Acute Assessment and Plan: Possible source UTI Blood culture from 10/05 shows E coli pansensitive Blood culture from 09/16/2025 E coli which was pansensitive Less suspicion for endocarditis, will not pursue for TTE Monitor leukocytosis Continue vancomycin Wound culture with E coli as well as Staph aureus. Operative culture with E coli final pending Infectious Disease on board Currently on Unasyn. When ready for discharge change to ertapenem/DAPT 2 through 11/19/[address] weekly CBC CMP ESR CPK (3) Diastolic CHF with preserved left ventricular function, NYHA class 2: Code(s): I50.30 - Unspecified diastolic (congestive) heart failure Status: Acute Assessment and Plan: -no recent echo seen. -continue with Coreg -continue Jardiance and Lasix -hold losartan due to BAYLEE -continue with spironolactone. -monitor electrolytes due to her medications. -received 1 L bolus in the ER. (4) Paroxysmal atrial fibrillation: Code(s): I48.0 - Paroxysmal atrial fibrillation Status: Acute Assessment and Plan: -the patient is in sinus rhythm at this time. -she has had a history of a cardiac radiofrequency ablation in the past. -continue with Coreg -continue with apixaban -continue with amiodarone if blood pressure allows. (5) Essential (primary) hypertension: Code(s): I10 - Essential (primary) hypertension Status: Acute Assessment and Plan: -continue with Coreg if blood pressure allows - Lasix if blood pressure allows (6) Mixed hyperlipidemia: Code(s): E78.2 - Mixed hyperlipidemia Status: Acute Assessment and Plan: -continue with atorvastatin (7) Controlled type 2 diabetes mellitus with hyperglycemia, with long-term current use of insulin: Code(s): E11.65 - Type 2 diabetes mellitus with hyperglycemia; Z79.4 - financial institution manager (current) use of insulin Status: Acute Assessment and Plan: -Accu-Cheks with a seen HS and sliding scale insulin with hypoglycemic protocol. - A1c 7 -pharmacy to decrease home long-acting insulin by 20%. -continue with Jardiance (8) Hypothyroidism, unspecified: Qualifiers: Hypothyroidism type: unspecified Qualified Code(s): E03.9 - Hypothyroidism, unspecified Code(s): E03.9 - Hypothyroidism, unspecified Status: Acute Assessment and Plan: -continue with Synthroid (9) Iron deficiency anemia, unspecified: Onset Date: ~03/09/24 Qualifiers: Iron deficiency anemia type: chronic blood loss Qualified Code(s): D50.0 - Iron deficiency anemia secondary to blood loss (chronic) Code(s): D50.9 - Iron deficiency anemia, unspecified Status: Acute Assessment and Plan: -her H&H is currently 8.6 and 27.9. Her past H&H was 9.0 in 28.5 on 09/25/2025. -monitor CBCs and H&H -anemia of chronic disease with a history of chronic renal failure -continue with ferrous sulfate (10) Chronic kidney disease (CKD) stage G3b/A1, moderately decreased glomerular filtration rate (GFR) between 30-44 mL/min/1.73 square meter and albuminuria creatinine ratio less than 30 mg/g: Code(s): N18.32 - Chronic kidney disease, stage 3b Status: Acute Assessment and Plan: -her creatinine is 1.5 with a baseline of 1.2 - 1.30. BUN is 21 with a baseline of 18 - 27. And GFR is 34 the baseline anywhere from 27-47. -nephrology has seen her here in the past. -Hold losartan and sprinolactone (11) Acute on chronic anemia: Code(s): D64.9 - Anemia, unspecified Status: Acute Assessment and Plan: Anemia due to CKD Patient on ferrous sulfate Hemoglobin down trended to 6.8 on 10/06/2025 status post 1 unit packed red blood cell transfusion on 10/06/2025. Post transfusion hemoglobin up to 8.612/ Xarelto on hold for planned surgery Patient had Previous discussion about placement of Watchman device at [facility] but she denied Plan DVT prophylaxis Eliquis Code status Full Subjective Date/time seen: 10/14/25 15:24 Interval history: No overnight events. No new complaints. Wound VAC in place. No chest pain or shortness of breath. Awaiting placement. Tolerating IV antibiotics Review of Systems Review of Systems: All systems reviewed & are unremarkable except as noted in HPI and below Constitutional: Constitutional: Reports as per HPI and Reports no additional constitutional complaints Eyes: Eyes: Reports as per HPI and Reports no additional eye complaints ENT: Reports system reviewed and no additional complaints, except as documented and Reports Normal hearing present Cardiovascular: Cardiovascular: Reports no additional cardiovascular complaints Respiratory: Respiratory: Reports as per HPI and Reports no additional respiratory complaints Gastrointestinal: Gastrointestinal: Reports as per HPI and Reports no additional gastrointestinal complaints Genitourinary: Genitourinary: Reports no additional female genitourinary complaints Musculoskeletal: Musculoskeletal: Reports no additional musculoskeletal complaints Integumentary/Breasts: Skin/Breast: Reports system reviewed and no additional complaints, except as docu Neurologic: Reports system reviewed and no additional complaints, except as documented and Reports Normal hearing present Psychiatric: Psychiatric: Reports no additional psychiatric complaints and Reports as per HPI Hematologic/Lymphatic: Hematologic/Lymphatic: Reports no additional hematologic/lymphatic complaints Allergic/Immunologic: Allergic/Immunologic: Reports no additional allergic/immunologic complaints Exam Const: General: cooperative, comfortable, no acute distress, well developed, awake, Physically active, average body habitus and well nourished Nutritional Appearance: average body habitus and well nourished Orientation/consciousness: oriented to person, oriented to place, oriented to time and patient oriented x3 Limitations: no limitations HENMT: Head: normal to inspection, No palpable skull fracture present, normocephalic, atraumatic and abrasion Ears: hearing grossly normal bilaterally and external ears normal Face/Nose/Sinus: Normal external nose present, Normal nares present and No nasal polyps present Eyes: General: appearance normal, both eyes and all related structures Alignment and Position: alignment normal Periorbital: periorbital findings normal Eyelids: eyelids normal Pupils: Equal, round and reactive pupils present Neck: Neck: normal visual inspection and full ROM Chest: Chest palpation & inspection: normal inspection of the chest Resp: Effort & Inspection: normal respiratory effort Auscultation: clear to auscultation bilaterally Cardio: Palpation: normal PMI Rate: regular rate Rhythm: regular rhythm Heart sounds: S1 normal heart sound present GI: Inspection: normal to inspection Auscultation: normal bowel sounds Rectal Exam: deferred : General: Yes no CVA tenderness Back/Spine/Pelvis: Back: no CVA tenderness Cervical Spine: cervical ROM normal Skin: Nails: normal Other: Wound VAC in place on right foot Neuro: General: oriented to person, oriented to place, oriented to time and patient oriented x3 Cranial nerves: Yes Equal, round and reactive pupils present and Yes Normal hearing present Cognition (Neuro): normal cognition Speech: normal speech Extrem: General: normal to inspection Right upper extremity: normal to inspection and shoulder/upper arm Left upper extremity: normal to inspection and shoulder/upper arm Right lower extremity: normal to inspection Left lower extremity: normal to inspection Other: 2+ pitting edema right worse than the left to lower extremities. Psych: Appearance: grossly normal Mental Status: mental status grossly normal Speech and movement: Normal speech and movement present Affect: normal affect Attitude: cooperative Thought process: Normal thought process present Insight: Good insight present (Psych) Judgement: Good judgement present (Psych) Objective Data Vital Signs Vital Signs: Vital Signs - 24 hr 10/13/25 20:00 10/13/25 21:00 10/13/25 21:15 Temperature 98.0 F Pulse Rate 54 L Respiratory Rate 18 Blood Pressure 112/40 L 122/58 L Pulse Oximetry 96 Oxygen Delivery Room Air 10/14/25 05:45 10/14/25 14:00 Temperature 98.4 F 97.2 F L Pulse Rate 54 L 57 L Respiratory Rate 16 16 Blood Pressure 111/45 L 115/45 L Pulse Oximetry 95 98 Oxygen Delivery Intake/Output Intake/Output: Intake & Output 10/11/25 10/12/25 10/13/25 10/14/25 23:59 23:59 23:59 23:59 Intake Total 1820 2352 2440 810 Output Total 1400 1050 1850 450 Balance 420 1302 590 360 Meds/Results Medications: Active Medications Generic Name Dose Route Start Last Admin Trade Name Freq PRN Reason Stop Dose Admin Acetaminophen 650 mg 10/05/25 02:15 10/07/25 18:37 Acetaminophen 325 Mg Tablet PO 650 mg Q4H PRN Administration Mild Pain (1-3) or Fever Hydrocodone Bitart/Acetaminophen 1 tab 10/05/25 06:21 10/13/25 20:14 Hydrocodone/Acetaminophen (*Crx) 10-325 Mg Tablet PO 1 tab Q6H PRN Administration Pain 7-10 Amiodarone HCl 200 mg 10/05/25 09:00 10/14/25 09:16 Amiodarone Hcl 200 Mg Tablet PO 200 mg DAILY KENYON Administration Apixaban 5 mg 10/11/25 13:05 10/14/25 09:16 Apixaban 5 Mg Tablet PO 5 mg Q12HR KENYON Administration Atorvastatin Calcium 40 mg 10/05/25 09:00 10/14/25 09:16 Atorvastatin 40 Mg Tablet PO 40 mg DAILY KENYON Administration Carvedilol 12.5 mg 10/05/25 09:00 10/14/25 09:16 Carvedilol 12.5 Mg Tablet PO 12.5 mg Q12HR KENYON Administration Dextrose 12.5 gm 10/05/25 06:10 Dextrose 50% 25 Gm/50 Ml Syringe IV PUSH PRN PRN Hypoglycemia Protocol Empagliflozin 25 mg 10/05/25 09:00 10/14/25 09:16 Empagliflozin 25 Mg Tablet PO 25 mg QAM KENYON Administration Ferrous Sulfate 325 mg 10/05/25 09:00 10/14/25 09:16 Ferrous Sulfate 325 Mg Tablet PO 325 mg DAILY KENYON Administration Furosemide 40 mg 10/05/25 09:00 10/14/25 09:16 Furosemide 40 Mg Tablet PO 40 mg QAM KENYON Administration Gabapentin 800 mg 10/05/25 09:00 10/14/25 12:26 Gabapentin 400 Mg Capsule PO 800 mg TID KENYON Administration Glucagon 1 mg 10/05/25 06:10 Glucagon For Inj 1 Mg Vial IM PRN PRN Hypoglycemia Protocol Glucose 15 gm 10/05/25 06:10 Glucose Oral Gel 15 Gm Of Glucse In 37.5 Gm Tube PO PRN PRN Hypoglycemia Protocol Hydralazine HCl 10 mg 10/05/25 17:42 Hydralazine Hcl 20 Mg/Ml Vial IV PUSH Q6H PRN Blood Pressure - High Dextrose 1,000 mls @ 100 mls/hr 10/05/25 06:10 Dextrose 5% 1,000 Ml IVPB PRN PRN Hypoglycemia Protocol Ampicillin Sodium/Sulbactam 100 mls @ 200 mls/hr 10/09/25 16:00 10/14/25 12:26 Sodium 3 gm/ Sodium Chloride IVPB 200 mls/hr Q4H KENYON Administration Vancomycin HCl 1,500 mg in 500 mls @ 250 mls/hr 10/11/25 02:00 10/14/25 02:20 Vancomycin 1,500 Mg/Ns 500 Ml IVPB 250 mls/hr Q24H KENYON Administration Insulin Aspart 2 - 5 units 10/05/25 08:00 10/14/25 12:26 Insulin Aspart (*Bkc) 100 Units/Ml SUB-Q Not Given TIDWM KENYON Protocol Insulin Glargine 32 units 10/05/25 09:00 10/14/25 09:17 Insulin Glargine (*Bkc) 100 Units/Ml SUB-Q 32 units DAILY KENYON Administration Levothyroxine Sodium 200 mcg 10/05/25 06:30 10/14/25 05:41 Levothyroxine Sodium 100 Mcg Tablet PO 200 mcg DAILY@0630 KENYON Administration Losartan Potassium 25 mg 10/05/25 09:00 10/14/25 09:16 Losartan Potassium 25 Mg Tablet PO 25 mg DAILY KENYON Administration Morphine Sulfate 2 mg 10/05/25 02:15 Morphine Sulfate (*Crx) 4 Mg/Ml Inj IV PUSH Q2H PRN Pain Rated 7-10 Ondansetron HCl 4 mg 10/05/25 02:15 Ondansetron Inj 4 Mg/2 Ml Vial IV PUSH Q4H PRN Nausea Pantoprazole Sodium 40 mg 10/05/25 09:00 10/14/25 09:16 Pantoprazole 40 Mg Tablet PO 40 mg QAM KENYON Administration Polyethylene Glycol 17 gm 10/10/25 09:00 10/14/25 09:17 Polyethylene Glycol 3350 17 Gm Powd.Pack PO 17 gm QAM KENYON Administration Potassium Chloride 10 meq 10/05/25 09:00 10/14/25 09:16 Potassium Chloride 10 Meq Er Tablet PO 10 meq DAILY KENYON Administration Senna/Docusate Sodium 2 tab 10/09/25 21:00 10/14/25 09:16 Senna/Docusate Sodium Tablet PO 2 tab Q12HR KENYON Administration Sodium Chloride 10 ml 10/10/25 22:00 10/14/25 12:27 Central Line Flush IV PUSH 10 ml Q8HR KENYON Administration Sodium Chloride 10 ml 10/10/25 15:13 Central Line Flush IV PUSH PRN PRN with TPN bag changes Sodium Chloride 20 ml 10/10/25 15:13 Central Line Flush IV PUSH PRN PRN after blood draws Spironolactone 25 mg 10/05/25 09:00 10/14/25 09:16 Spironolactone 25 Mg Tablet PO 25 mg DAILY KENYON Administration Radiology Results: ITS Impressions Head CT 10/05/25 06:07 IMPRESSION: 1. No acute intracranial findings. Chest X-Ray 10/05/25 06:09 IMPRESSION: 1. No acute cardiopulmonary findings given portable technique. Heel X-Ray 10/05/25 07:52 IMPRESSION: 1. Comminuted mid body fracture of the calcaneus with possible erosive changes soft tissue swelling and open wound defect. Pathologic fracture and possible osteomyelitis is not excluded. Venous Doppler Study 10/05/25 14:51 Impression: Negative for DVT. Foot MRI 10/06/25 14:21 IMPRESSION: 1. Oblique longitudinally oriented fracture through the body of the calcaneus extending from the plantar surface into the subtalar joint with features suggesting possible subacute injury. Correlate with clinical presentation and history. 2. Extensive soft tissue changes along the posterior margin of the calcaneal body with erosive and bone marrow changes consistent with osteomyelitis. Bone marrow changes involve both the posterior and anterior calcaneal body fragments, although no clear cortical erosion in the anterior fragment is seen. Osteomyelitis is more convincingly present in the posterior calcaneal body and not as clearly present in the anterior fragment. However with bone marrow changes throughout the anterior calcaneus, osteomyelitis could be there is well. 3. Fluid within the fracture defect could be infected, though no discrete abscess is seen. Labs Labs: Laboratory Results - last 24 hr 10/13/25 10/13/25 10/14/25 16:45 19:51 04:42 WBC 7.3 RBC 2.79 L Hgb 7.7 L Hct 25.8 L MCV 92.5 MCH 27.6 MCHC 29.8 L RDW 14.1 Plt Count 249 MPV 8.7 Immature Gran % (Auto) 3.7 H Neut % (Auto) 60.1 Lymph % (Auto) 20.4 [place] % (Auto) 9.8 H Eos % (Auto) 5.4 H Baso % (Auto) 0.6 Lymph # (Auto) 1.48 [place] # (Auto) 0.7 H Eos # (Auto) 0.4 H Baso # (Auto) 0.0 Abs Immat Gran (auto) 0.27 H Absolute Neuts (auto) 4.4 Absolute Nucleated RBC 0.020 H Band Neutrophils % Not Reportable Nucleated RBC % 0.3 H Platelet Estimate Adequate Hypochromasia 1+ Anisocytosis 1+ Macrocytosis 1+ Schistocytes None seen Sodium 134 L Potassium 3.5 Chloride 103 Carbon Dioxide 28 Anion Gap 3 L BUN 16 Creatinine 1.22 H Estim Creat Clear Calc 46 Estimated GFR 43 L Glucose 88 POC Capillary Glucose 135 H 158 H Calcium 8.8 Magnesium 1.9 Total Bilirubin 0.3 AST 15 ALT 11 Alkaline Phosphatase 88 Total Protein 5.9 L Albumin 2.6 L 10/14/25 10/14/25 07:34 11:51 WBC RBC Hgb Hct MCV MCH MCHC RDW Plt Count MPV Immature Gran % (Auto) Neut % (Auto) Lymph % (Auto) [place] % (Auto) Eos % (Auto) Baso % (Auto) Lymph # (Auto) [place] # (Auto) Eos # (Auto) Baso # (Auto) Abs Immat Gran (auto) Absolute Neuts (auto) Absolute Nucleated RBC Band Neutrophils % Nucleated RBC % Platelet Estimate Hypochromasia Anisocytosis Macrocytosis Schistocytes Sodium Potassium Chloride Carbon Dioxide Anion Gap BUN Creatinine Estim Creat Clear Calc Estimated GFR Glucose POC Capillary Glucose 76 118 H Calcium Magnesium Total Bilirubin AST ALT Alkaline Phosphatase Total Protein Albumin Quality VTE Prophylaxis VTE prophylaxis: pharmacologic ordered
[2025-10-14 21:00] VITALS: BP 141/69; PULSE 60; RESP 18; TEMP 36.2; O2SAT 96
[2025-10-14] MEDS: HYDROcodone/acetaminophen (*CRX) 10-325 MG TABLET 1 TAB PO (21:22)
[2025-10-15] MEDS: AMPICILLIN SODIUM/SULBACTAM 3 GM in SODIUM CHLORIDE 0.9% IV 100 ML 200 ML IVPB ×6 (00:34→20:55)
[2025-10-15] MEDS: VANCOMYCIN 1,500 MG/NS 500 ML 1,500 MG/500 ML BAG 250 MG IVPB (02:21)
[2025-10-15] MEDS: CENTRAL LINE FLUSH 10 ML IV PUSH ×3 (04:48→21:01)
[2025-10-15] MEDS: LEVOTHYROXINE SODIUM 100 MCG TABLET 200 MCG PO (05:42)
[2025-10-15 05:56] VITALS: BP 125/50; PULSE 57; RESP 18; TEMP 36.6; O2SAT 94
[2025-10-15] MEDS: EMPAGLIFLOZIN 25 MG TABLET PO (08:24)
[2025-10-15] MEDS: APIXABAN 5 MG TABLET PO ×2 (08:24→21:00)
[2025-10-15] MEDS: GABAPENTIN 400 MG CAPSULE 800 MG PO ×3 (08:24→16:30)
[2025-10-15] MEDS: PANTOPRAZOLE 40 MG TABLET PO (08:25)
[2025-10-15] MEDS: FUROSEMIDE 40 MG TABLET PO (08:25)
[2025-10-15] MEDS: POTASSIUM CHLORIDE 10 MEQ ER TABLET PO (08:25)
[2025-10-15] MEDS: SPIRONOLACTONE 25 MG TABLET PO (08:25)
[2025-10-15] MEDS: FERROUS SULFATE 325 MG TABLET PO (08:25)
[2025-10-15 08:26] VITALS: PULSE 64
[2025-10-15] MEDS: LOSARTAN POTASSIUM 25 MG TABLET PO (08:26)
[2025-10-15] MEDS: INSULIN GLARGINE (*BKC) 100 UNITS/ML 32 UNITS SUB-Q (08:27)
[2025-10-15 08:28] VITALS: PULSE 64
[2025-10-15] MEDS: AMIODARONE HCL 200 MG TABLET PO (08:28)
[2025-10-15 09:40] LABS: Hematocrit 26.8 % (37.0-47.0); Hemoglobin 8.2 g/dL (12.0-15.0); Immature Granulocyte Percent A 2.2 % (0-0.5); Lymphocytes Absolute Auto 0.95 K/mm3 (0.9-3.2); Mean Corpuscular HGB Conc 30.6 g/dl (32-36); Mean Corpuscular Hemoglobin 27.9 pg (26-34); Mean Corpuscular Volume 91.2 fl (80-100); Nucleated Red Blood Cells Absolute Auto 0.000 K/mm3 (0.0-0.012); Nucleated Red Blood Cells Perc 0.0 % (0.0-0.2); Platelet Count Result 242 k/mm3 (150-375); Red Blood Count 2.94 M/mm3 (4.2-5.4); White Blood Count 7.6 K/mm3 (4.5-10.0)
[2025-10-15 10:02] LABS: Alanine Aminotransferase 11 U/L (6-35); Albumin Level 2.6 g/dL (3.5-5.1); Alkaline Phosphatase 98 U/L (38-126); Anion Gap 2 mmol/L (4-12); Aspartate Amino Transferase 18 U/L (14-36); Bilirubin,Total 0.3 mg/dL (0.2-1.3); Blood Urea Nitrogen 14 mg/dL (7-17); Calcium 8.9 mg/dL (8.4-10.2); Carbon Dioxide 28 mmol/L (22-30); Chloride 105 mmol/L (98-107); Estimated CRCL calculation 47 ml/min; Estimated Glomerular Filt Rate 43; Glucose 122 mg/dL (65-110); Potassium 3.7 mmol/L (3.4-5.0); Sodium 135 mmol/L (137-145); Total Protein 5.9 g/dL (6.3-8.2)
[2025-10-15] MEDS: ATORVASTATIN 40 MG TABLET PO (10:15)
--- NOTE | 2025-10-15 12:34 | P.PNIM_ITS ---
Assessment and Plan Assessment and Plan (1) Diabetic foot ulcer associated with type 2 diabetes mellitus: Onset Date: ~04/2025 Code(s): E11.621 - Type 2 diabetes mellitus with foot ulcer; L97.509 - Non-pressure chronic ulcer of other part of unspecified foot with unspecified severity Status: Acute Assessment and Plan: -Dr. Sotelo has been consulted for the diabetic right heel wound.(wound care was consulted for sacral ulcer.) -the patient has had this decubitus ulcer for several months. -please see nursing wound pictures. -patient has a large patch of eschar tissue to the entire right heel. She also has a sacral wound. -the patient stated that she has been using Santyl as prescribed for the diabetic foot ulcer. -continue IV antibiotics Waiting for rehab bed availability. . (2) Bacteremia: Code(s): R78.81 - Bacteremia Status: Acute Assessment and Plan: Possible source UTI Blood culture from 10/05 shows E coli pansensitive Blood culture from 09/16/2025 E coli which was pansensitive Less suspicion for endocarditis, will not pursue for TTE Monitor leukocytosis Continue vancomycin Wound culture with E coli as well as Staph aureus. Operative culture with E coli final pending Infectious Disease on board Currently on Unasyn. When ready for discharge change to ertapenem/DAPT 2 through 11/19/[address] weekly CBC CMP ESR CPK (3) Diastolic CHF with preserved left ventricular function, NYHA class 2: Code(s): I50.30 - Unspecified diastolic (congestive) heart failure Status: Acute Assessment and Plan: -no recent echo seen. -continue with Coreg -continue Jardiance and Lasix -hold losartan due to BAYLEE -continue with spironolactone. -monitor electrolytes due to her medications. -received 1 L bolus in the ER. (4) Paroxysmal atrial fibrillation: Code(s): I48.0 - Paroxysmal atrial fibrillation Status: Acute Assessment and Plan: -the patient is in sinus rhythm at this time. -she has had a history of a cardiac radiofrequency ablation in the past. -continue with Coreg -continue with apixaban -continue with amiodarone if blood pressure allows. 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 - A1c 7 -pharmacy to decrease home long-acting insulin by 20%. -continue with Jardiance (8) Hypothyroidism, unspecified: Qualifiers: Hypothyroidism type: unspecified Qualified Code(s): E03.9 - Hypothyroidism, unspecified Code(s): E03.9 - Hypothyroidism, unspecified Status: Acute Assessment and Plan: -continue with Synthroid (9) Iron deficiency anemia, unspecified: Onset Date: ~03/09/24 Qualifiers: Iron deficiency anemia type: chronic blood loss Qualified Code(s): D50.0 - Iron deficiency anemia secondary to blood loss (chronic) Code(s): D50.9 - Iron deficiency anemia, unspecified Status: Acute Assessment and Plan: -her H&H is currently 8.6 and 27.9. Her past H&H was 9.0 in 28.5 on 09/25/2025. -monitor CBCs and H&H -anemia of chronic disease with a history of chronic renal failure -continue with ferrous sulfate (10) Chronic kidney disease (CKD) stage G3b/A1, moderately decreased glomerular filtration rate (GFR) between 30-44 mL/min/1.73 square meter and albuminuria creatinine ratio less than 30 mg/g: Code(s): N18.32 - Chronic kidney disease, stage 3b Status: Acute Assessment and Plan: -her creatinine is 1.5 with a baseline of 1.2 - 1.30. BUN is 21 with a baseline of 18 - 27. And GFR is 34 the baseline anywhere from 27-47. -nephrology has seen her here in the past. -Hold losartan and sprinolactone (11) Acute on chronic anemia: Code(s): D64.9 - Anemia, unspecified Status: Acute Assessment and Plan: Anemia due to CKD Patient on ferrous sulfate Hemoglobin down trended to 6.8 on 10/06/2025 status post 1 unit packed red blood cell transfusion on 10/06/2025. Post transfusion hemoglobin up to 8.612/ Xarelto on hold for planned surgery Patient had Previous discussion about placement of Watchman device at [facility] but she denied Plan Diarrhea likely due to stool softener. Check C diff if persistent after holding DVT prophylaxis Eliquis Code status Full Subjective Date/time seen: 10/15/25 12:34 Interval history: Patient reports some loose stools. She has been getting stool softeners regularly which is on hold today. No fever chills no shortness of breath or chest pain. Review of Systems Review of Systems: All systems reviewed & are unremarkable except as noted in HPI and below Constitutional: Constitutional: Reports as per HPI and Reports no additional constitutional complaints Cardiovascular: Cardiovascular: Reports no additional cardiovascular complaints Exam Const: General: cooperative, comfortable, no acute distress, well developed, awake, Physically active, average body habitus and well nourished Nutritional Appearance: average body habitus and well nourished Orientation/consciousness: oriented to person, oriented to place, oriented to time and patient oriented x3 Limitations: no limitations HENMT: Head: normal to inspection, No palpable skull fracture present, normocephalic, atraumatic and abrasion Ears: hearing grossly normal bilaterally and external ears normal Face/Nose/Sinus: Normal external nose present, Normal nares present and No nasal polyps present Eyes: General: appearance normal, both eyes and all related structures Alignment and Position: alignment normal Periorbital: periorbital findings normal Eyelids: eyelids normal Pupils: Equal, round and reactive pupils present Neck: Neck: normal visual inspection and full ROM Chest: Chest palpation & inspection: normal inspection of the chest Resp: Effort & Inspection: normal respiratory effort Auscultation: clear to auscultation bilaterally Cardio: Palpation: normal PMI Rate: regular rate Rhythm: regular rhythm Heart sounds: S1 normal heart sound present GI: Inspection: normal to inspection Auscultation: normal bowel sounds Rectal Exam: deferred : General: Yes no CVA tenderness Back/Spine/Pelvis: Back: no CVA tenderness Cervical Spine: cervical ROM normal Skin: Nails: normal Other: Wound VAC in place on right foot Neuro: General: oriented to person, oriented to place, oriented to time and patient oriented x3 Cranial nerves: Yes Equal, round and reactive pupils present and Yes Normal hearing present Cognition (Neuro): normal cognition Speech: normal speech Extrem: General: normal to inspection Right upper extremity: normal to inspection and shoulder/upper arm Left upper extremity: normal to inspection and shoulder/upper arm Right lower extremity: normal to inspection Left lower extremity: normal to inspection Other: 2+ pitting edema right worse than the le ft to lower extremities. Psych: Appearance: grossly normal Mental Status: mental status grossly normal Speech and movement: Normal speech and movement present Affect: normal affect Attitude: cooperative Thought process: Normal thought proce ss present Insight: Good insight present (Psych) Judgement: Good judgement present (Psych) Objective Data Vital Signs Vital Signs: Vital Signs - 24 hr 10/14/25 14:00 10/14/25 20:00 10/14/25 21:00 Temperature 97.2 F L 97.2 F L Pulse Rate 57 L 60 Respiratory Rate 16 18 Blood Pressure 115/45 L 141/69 H Pulse Oximetry 98 96 Oxygen Delivery Room Air 10/15/25 05:56 10/15/25 08:26 10/15/25 08:28 Temperature 97.9 F Pulse Rate 57 L 64 64 Respiratory Rate 18 Blood Pressure 125/50 L Pulse Oximetry 94 Oxygen Delivery Intake/Output Intake/Output: Intake & Output 10/12/25 10/13/25 10/14/25 10/15/25 23:59 23:59 23:59 23:59 Intake Total 2352 2440 1850 920 Output Total 1050 1850 450 450 Balance 7230 312 6833 470 Meds/Results Medications: Active Medications Generic Name Dose Route Start Last Admin Trade Name Travisq PRN Reason Stop Dose Admin Acetaminophen 650 mg 10/05/25 02:15 10/07/25 18:37 Acetaminophen 325 Mg Tablet PO 650 mg Q4H PRN Administration Mild Pain (1-3) or Fever Amiodarone HCl 200 mg 10/05/25 09:00 10/15/25 08:28 Amiodarone Hcl 200 Mg Tablet PO 200 mg DAILY KENYON Administration Apixaban 5 mg 10/11/25 13:05 10/15/25 08:24 Apixaban 5 Mg Tablet PO 5 mg Q12HR KENYON Administration Atorvastatin Calcium 40 mg 10/05/25 09:00 10/15/25 10:15 Atorvastatin 40 Mg Tablet PO 40 mg DAILY KENYON Administration Carvedilol 12.5 mg 10/05/25 09:00 10/15/25 08:26 Carvedilol 12.5 Mg Tablet PO 12.5 mg Q12HR KENYON Administration Dextrose 12.5 gm 10/05/25 06:10 Dextrose 50% 25 Gm/50 Ml Syringe IV PUSH PRN PRN Hypoglycemia Protocol Empagliflozin 25 mg 10/05/25 09:00 10/15/25 08:24 Empagliflozin 25 Mg Tablet PO 25 mg QAM KENYON Administration Ferrous Sulfate 325 mg 10/05/25 09:00 10/15/25 08:25 Ferrous Sulfate 325 Mg Tablet PO 325 mg DAILY KENYON Administration Furosemide 40 mg 10/05/25 09:00 10/15/25 08:25 Furosemide 40 Mg Tablet PO 40 mg QAM KENYON Administration Gabapentin 800 mg 10/05/25 09:00 10/15/25 12:31 Gabapentin 400 Mg Capsule PO 800 mg TID KENYON Administration Glucagon 1 mg 10/05/25 06:10 Glucagon For Inj 1 Mg Vial IM PRN PRN Hypoglycemia Protocol Glucose 15 gm 10/05/25 06:10 Glucose Oral Gel 15 Gm Of Glucse In 37.5 Gm Tube PO PRN PRN Hypoglycemia Protocol Hydralazine HCl 10 mg 10/05/25 17:42 Hydralazine Hcl 20 Mg/Ml Vial IV PUSH Q6H PRN Blood Pressure - High Dextrose 1,000 mls @ 100 mls/hr 10/05/25 06:10 Dextrose 5% 1,000 Ml IVPB PRN PRN Hypoglycemia Protocol Ampicillin Sodium/Sulbactam 100 mls @ 200 mls/hr 10/09/25 16:00 10/15/25 12:25 Sodium 3 gm/ Sodium Chloride IVPB 200 mls/hr Q4H KENYON Administration Vancomycin HCl 1,500 mg in 500 mls @ 250 mls/hr 10/11/25 02:00 10/15/25 02:21 Vancomycin 1,500 Mg/Ns 500 Ml IVPB 250 mls/hr Q24H KENYON Administration Insulin Aspart 2 - 5 units 10/05/25 08:00 10/15/25 12:25 Insulin Aspart (*Bkc) 100 Units/Ml SUB-Q Not Given TIDWM KENYON Protocol Insulin Glargine 32 units 10/05/25 09:00 10/15/25 08:27 Insulin Glargine (*Bkc) 100 Units/Ml SUB-Q 32 units DAILY KENYON Administration Levothyroxine Sodium 200 mcg 10/05/25 06:30 10/15/25 05:42 Levothyroxine Sodium 100 Mcg Tablet PO 200 mcg DAILY@0630 KENYON Administration Losartan Potassium 25 mg 10/05/25 09:00 10/15/25 08:26 Losartan Potassium 25 Mg Tablet PO 25 mg DAILY KENYON Administration Ondansetron HCl 4 mg 10/05/25 02:15 Ondansetron Inj 4 Mg/2 Ml Vial IV PUSH Q4H PRN Nausea Pantoprazole Sodium 40 mg 10/05/25 09:00 10/15/25 08:25 Pantoprazole 40 Mg Tablet PO 40 mg QAM KENYON Administration Polyethylene Glycol 17 gm 10/10/25 09:00 10/15/25 08:27 Polyethylene Glycol 3350 17 Gm Powd.Pack PO Not Given QAM KENYON Potassium Chloride 10 meq 10/05/25 09:00 10/15/25 08:25 Potassium Chloride 10 Meq Er Tablet PO 10 meq DAILY KENYON Administration Senna/Docusate Sodium 2 tab 10/09/25 21:00 10/15/25 08:27 Senna/Docusate Sodium Tablet PO Not Given Q12HR KENYON Sodium Chloride 10 ml 10/10/25 22:00 10/15/25 04:48 Central Line Flush IV PUSH 10 ml Q8HR KENYON Administration Sodium Chloride 10 ml 10/10/25 15:13 Central Line Flush IV PUSH PRN PRN with TPN bag changes Sodium Chloride 20 ml 10/10/25 15:13 Central Line Flush IV PUSH PRN PRN after blood draws Spironolactone 25 mg 10/05/25 09:00 10/15/25 08:25 Spironolactone 25 Mg Tablet PO 25 mg DAILY KENYON Administration Radiology Results: ITS Impressions Head CT 10/05/25 06:07 IMPRESSION: 1. No acute intracranial findings. Chest X-Ray 10/05/25 06:09 IMPRESSION: 1. No acute cardiopulmonary findings given portable technique. Heel X-Ray 10/05/25 07:52 IMPRESSION: 1. Comminuted mid body fracture of the calcaneus with possible erosive changes soft tissue swelling and open wound defect. Pathologic fracture and possible osteomyelitis is not excluded. Venous Doppler Study 10/05/25 14:51 Impression: Negative for DVT. Foot MRI 10/06/25 14:21 IMPRESSION: 1. Oblique longitudinally oriented fracture through the body of the calcaneus extending from the plantar surface into the subtalar joint with features suggesting possible subacute injury. Correlate with clinical presentation and history. 2. Extensive soft tissue changes along the posterior margin of the calcaneal body with erosive and bone marrow changes consistent with osteomyelitis. Bone marrow changes involve both the posterior and anterior calcaneal body fragments, although no clear cortical erosion in the anterior fragment is seen. Osteomyelitis is more convincingly present in the posterior calcaneal body and not as clearly present in the anterior fragment. However with bone marrow changes throughout the anterior calcaneus, osteomyelitis could be there is well. 3. Fluid within the fracture defect could be infected, though no discrete abscess is seen. Labs Labs: Laboratory Results - last 24 hr 10/14/25 10/14/25 10/15/25 16:46 20:47 07:31 WBC RBC Hgb Hct MCV MCH MCHC RDW Plt Count MPV Immature Gran % (Auto) Neut % (Auto) Lymph % (Auto) Dickinson % (Auto) Eos % (Auto) Baso % (Auto) Lymph # (Auto) Dickinson # (Auto) Eos # (Auto) Baso # (Auto) Abs Immat Gran (auto) Absolute Neuts (auto) Absolute Nucleated RBC Nucleated RBC % Sodium Potassium Chloride Carbon Dioxide Anion Gap BUN Creatinine Estim Creat Clear Calc Estimated GFR Glucose POC Capillary Glucose 104 123 H 81 Calcium Total Bilirubin AST ALT Alkaline Phosphatase Total Protein Albumin 10/15/25 10/15/25 09:33 11:58 WBC 7.6 RBC 2.94 L Hgb 8.2 L Hct 26.8 L MCV 91.2 MCH 27.9 MCHC 30.6 L RDW 14.2 Plt Count 242 MPV 8.8 Immature Gran % (Auto) 2.2 H Neut % (Auto) 73.6 H Lymph % (Auto) 12.5 L Dickinson % (Auto) 6.7 Eos % (Auto) 4.5 H Baso % (Auto) 0.5 Lymph # (Auto) 0.95 Dickinson # (Auto) 0.5 Eos # (Auto) 0.3 Baso # (Auto) 0.0 Abs Immat Gran (auto) 0.17 H Absolute Neuts (auto) 5.6 Absolute Nucleated RBC 0.000 Nucleated RBC % 0.0 Sodium 135 L Potassium 3.7 Chloride 105 Carbon Dioxide 28 Anion Gap 2 L BUN 14 Creatinine 1.21 H Estim Creat Clear Calc 47 Estimated GFR 43 L Glucose 122 H POC Capillary Glucose 119 H Calcium 8.9 Total Bilirubin 0.3 AST 18 ALT 11 Alkaline Phosphatase 98 Total Protein 5.9 L Albumin 2.6 L Quality VTE Prophylaxis VTE prophylaxis: pharmacologic ordered
[2025-10-15 14:00] VITALS: BP 110/58; PULSE 56; RESP 18; TEMP 36.4; O2SAT 97
[2025-10-15] MEDS: ALTEPLASE 2 MG VIAL (CATHFLO) IV PUSH (14:18)
[2025-10-15 20:59] VITALS: PULSE 60
[2025-10-15 21:00] VITALS: BP 107/49; PULSE 60; RESP 18; TEMP 36.6; O2SAT 90
[2025-10-16] VITALS (7 sets, daily range): BP systolic 108–133; BP diastolic 53–62; PULSE 58–101; RESP 16–20; TEMP 36.3–36.4; O2SAT 95–100
[2025-10-16] MEDS: AMPICILLIN SODIUM/SULBACTAM 3 GM in SODIUM CHLORIDE 0.9% IV 100 ML 200 ML IVPB ×6 (00:37→20:42)
[2025-10-16 03:26] LABS: Estimated CRCL calculation 65 ml/min; Estimated Glomerular Filt Rate > 60
[2025-10-16] MEDS: VANCOMYCIN 1,750 MG/NS 500 ML 1,750 MG/500 ML BAG 250 MG IVPB (05:01)
[2025-10-16] MEDS: CENTRAL LINE FLUSH 10 ML IV PUSH ×3 (05:43→21:12)
[2025-10-16] MEDS: LEVOTHYROXINE SODIUM 100 MCG TABLET 200 MCG PO (05:43)
[2025-10-16] MEDS: PANTOPRAZOLE 40 MG TABLET PO (08:43)
[2025-10-16] MEDS: SPIRONOLACTONE 25 MG TABLET PO (08:43)
[2025-10-16] MEDS: FERROUS SULFATE 325 MG TABLET PO (08:43)
[2025-10-16] MEDS: GABAPENTIN 400 MG CAPSULE 800 MG PO ×3 (08:44→16:44)
[2025-10-16] MEDS: POTASSIUM CHLORIDE 10 MEQ ER TABLET PO (08:44)
[2025-10-16] MEDS: EMPAGLIFLOZIN 25 MG TABLET PO (08:44)
[2025-10-16] MEDS: APIXABAN 5 MG TABLET PO ×2 (08:44→20:35)
[2025-10-16] MEDS: ATORVASTATIN 40 MG TABLET PO (08:44)
[2025-10-16] MEDS: AMIODARONE HCL 200 MG TABLET PO (08:49)
[2025-10-16] MEDS: LOSARTAN POTASSIUM 25 MG TABLET PO (08:50)
[2025-10-16] MEDS: FUROSEMIDE 40 MG TABLET PO (08:50)
--- NOTE | 2025-10-16 10:13 | PCNFU ---
Nutrition Follow-Up Complete: Moderate protein calorie malnutrition related to chronic loss of appetite in the setting of pressure injuries and heel wounds, as evidenced by intakes <75% needs >1 month and weight loss 10%/4 months (-28 lb) Goal:Intakes >50% Pt meeting goal. Continue with same goal Pt current nutrition is Heart healthy, Ensure BID. Nutrition recommendation: Change supplement to nutrition ice cream cups BID, RAUL BID per pt preference Last recorded weight is 126.3 kg. Bowel Motility: +Bm 10/15 Labs Reviewed: Hgb:8.2, HCT:26.8, Alb:2.6, Na:135, Cr:1.22, Glu:122 Meds Noted: miralax, eliquis, protonix, jardiance, lantus/novolog Skin: Stage III to sacrum Additional Notes: Pt continues on a heart healthy diet, intake intake good at 50-100%. Nutrition ice cream cups were in place, Ensure is now ordered. Noted pt does not like Ensure and will not consume. Will change supplement back to nutrition ice cream cups BID, RAUL BID for wound healing. . Monitoring intakes, weights, labs, skin, supplement intake, plan of care Follow up in 7 days
--- NOTE | 2025-10-16 10:39 | PM.IMPN2 ---
Assessment and Plan Assessment and Plan (1) Diabetic foot ulcer associated with type 2 diabetes mellitus: Onset Date: ~04/2025 Code(s): E11.621 - Type 2 diabetes mellitus with foot ulcer; L97.509 - Non-pressure chronic ulcer of other part of unspecified foot with unspecified severity Status: Acute Assessment and Plan: -Dr. Sotelo has been consulted for the diabetic right heel wound.(wound care was consulted for sacral ulcer.) -the patient has had this decubitus ulcer for several months. -please see nursing wound pictures. -patient has a large patch of eschar tissue to the entire right heel. She also has a sacral wound. -the patient stated that she has been using Santyl as prescribed for the diabetic foot ulcer. -continue IV antibiotics Waiting for rehab bed availability. Start SNF authorization (2) Bacteremia: Code(s): R78.81 - Bacteremia Status: Acute Assessment and Plan: Possible source UTI Blood culture from 10/05 shows E coli pansensitive Blood culture from 09/16/2025 E coli which was pansensitive Less suspicion for endocarditis, will not pursue for TTE Monitor leukocytosis Continue vancomycin Wound culture with E coli as well as Staph aureus. Operative culture with E coli final pending Infectious Disease on board Currently on Unasyn. When ready for discharge change to ertapenem/DAPTO through 11/19/[address] weekly CBC CMP ESR CPK (3) Diastolic CHF with preserved left ventricular function, NYHA class 2: Code(s): I50.30 - Unspecified diastolic (congestive) heart failure Status: Acute Assessment and Plan: -no recent echo seen. -continue with Coreg -continue Jardiance and Lasix -hold losartan due to BAYLEE -continue with spironolactone. -monitor electrolytes due to her medications. -received 1 L bolus in the ER. Give a dose of IV Lasix today (4) Paroxysmal atrial fibrillation: Code(s): I48.0 - Paroxysmal atrial fibrillation Status: Acute Assessment and Plan: -the patient is in sinus rhythm at this time. -she has had a history of a cardiac radiofrequency ablation in the past. -continue with Coreg -continue with apixaban -continue with amiodarone if blood pressure allows. (5) Essential (primary) hypertension: Code(s): I10 - Essential (primary) hypertension Status: Acute Assessment and Plan: -continue with Coreg if blood pressure allows - Lasix if blood pressure allows (6) Mixed hyperlipidemia: Code(s): E78.2 - Mixed hyperlipidemia Status: Acute Assessment and Plan: -continue with atorvastatin (7) Controlled type 2 diabetes mellitus with hyperglycemia, with long-term current use of insulin: Code(s): E11.65 - Type 2 diabetes mellitus with hyperglycemia; Z79.4 - longterm (current) use of insulin Status: Acute Assessment and Plan: -Accu-Cheks with a seen HS and sliding scale insulin with hypoglycemic protocol. - A1c 7 -pharmacy to decrease home long-acting insulin by 20%. -continue with Jardiance Adjust insulin dose (8) Hypothyroidism, unspecified: Qualifiers: Hypothyroidism type: unspecified Qualified Code(s): E03.9 - Hypothyroidism, unspecified Code(s): E03.9 - Hypothyroidism, unspecified Status: Acute Assessment and Plan: -continue with Synthroid (9) Iron deficiency anemia, unspecified: Onset Date: ~03/09/24 Qualifiers: Iron deficiency anemia type: chronic blood loss Qualified Code(s): D50.0 - Iron deficiency anemia secondary to blood loss (chronic) Code(s): D50.9 - Iron deficiency anemia, unspecified Status: Acute Assessment and Plan: -her H&H is currently 8.6 and 27.9. Her past H&H was 9.0 in 28.5 on 09/25/2025. -monitor CBCs and H&H -anemia of chronic disease with a history of chronic renal failure -continue with ferrous sulfate (10) Chronic kidney disease (CKD) stage G3b/A1, moderately decreased glomerular filtration rate (GFR) between 30-44 mL/min/1.73 square meter and albuminuria creatinine ratio less than 30 mg/g: Code(s): N18.32 - Chronic kidney disease, stage 3b Status: Acute Assessment and Plan: -her creatinine is 1.5 with a baseline of 1.2 - 1.30. BUN is 21 with a baseline of 18 - 27. And GFR is 34 the baseline anywhere from 27-47. -nephrology has seen her here in the past. -Hold losartan and sprinolactone (11) Acute on chronic anemia: Code(s): D64.9 - Anemia, unspecified Status: Acute Assessment and Plan: Anemia due to CKD Patient on ferrous sulfate Hemoglobin down trended to 6.8 on 10/06/2025 status post 1 unit packed red blood cell transfusion on 10/06/2025. Post transfusion hemoglobin up to 8.612/ Xarelto on hold for planned surgery Patient had Previous discussion about placement of Watchman device at [facility] but she denied Plan Diarrhea likely due to stool softener. Imodium p.r.n. DVT prophylaxis Eliquis Code status Full Subjective Date/time seen: 10/16/25 10:39 Interval history: Patient reports some loose stools. Not watery per nursing staff. Abdomen is sore due to multiple bowel movement. No nausea vomiting. Legs are a bit puffy. Blood sugar trend reviewed. Review of Systems Review of Systems: All systems reviewed & are unremarkable except as noted in HPI and below Constitutional: Constitutional: Reports as per HPI and Reports no additional constitutional complaints Cardiovascular: Cardiovascular: Reports no additional cardiovascular complaints Exam Const: General: cooperative, comfortable, no acute distress, well developed, awake, Physically active, average body habitus and well nourished Nutritional Appearance: average body habitus and well nourished Orientation/consciousness: oriented to person, oriented to place, oriented to time and patient oriented x3 Limitations: no limitations HENMT: Head: normal to inspection, No palpable skull fracture present, normocephalic, atraumatic and abrasion Ears: hearing grossly normal bilaterally and external ears normal Face/Nose/Sinus: Normal external nose present, Normal nares present and No nasal polyps present Eyes: General: appearance normal, both eyes and all related structures Alignment and Position: alignment normal Periorbital: periorbital findings normal Eyelids: eyelids normal Pupils: Equal, round and reactive pupils present Neck: Neck: normal visual inspection and full ROM Chest: Chest palpation & inspection: normal inspection of the chest Resp: Effort & Inspection: normal respiratory effort Auscultation: clear to auscultation bilaterally Cardio: Palpation: normal PMI Rate: regular rate Rhythm: regular rhythm Heart sounds: S1 normal heart sound present GI: Inspection: normal to inspection Auscultation: normal bowel sounds Rectal Exam: deferred : General: Yes no CVA tenderness Back/Spine/Pelvis: Back: no CVA tenderness Cervical Spine: cervical ROM normal Skin: Nails: normal Other: Wound VAC in place on right foot Neuro: General: oriented to person, oriented to place, oriented to time and patient oriented x3 Cranial nerves: Yes Equal, round and reactive pupils present and Yes Normal hearing present Cognition (Neuro): normal cognition Speech: normal speech Extrem: General: normal to inspection Right upper extremity: normal to inspection and shoulder/upper arm Left upper extremity: normal to inspection and shoulder/upper arm Right lower extremity: normal to inspection Left lower extremity: normal to inspection Other: 2+ pitting edema right worse than the left to lower extremities. Psych: Appearance: grossly normal Mental Status: mental status grossly normal Speech and movement: Normal speech and movement present Affect: normal affect Attitude: cooperative Thought process: Normal thought process present Insight: Good insight present (Psych) Judgement: Good judgement present (Psych) Objective Data Vital Signs Vital Signs: Vital Signs - 24 hr 10/15/25 14:00 10/15/25 20:59 10/15/25 21:00 Temperature 97.6 F 97.8 F Pulse Rate 56 L 60 60 Respiratory Rate 18 18 Blood Pressure 110/58 L 107/49 L Pulse Oximetry 97 90 10/16/25 06:00 10/16/25 08:49 10/16/25 08:50 Temperature 97.6 F Pulse Rate 63 62 62 Respiratory Rate 16 Blood Pressure 113/54 L Pulse Oximetry 95 Intake/Output Intake/Output: Intake & Output 10/13/25 10/14/25 10/15/25 10/16/25 23:59 23:59 23:59 23:59 Intake Total 2440 1850 1580 690 Output Total 1838 006 1295 750 Balance 590 1400 -270 -60 Meds/Results Medications: Active Medications Generic Name Dose Route Start Last Admin Trade Name Freq PRN Reason Stop Dose Admin Acetaminophen 650 mg 10/05/25 02:15 10/07/25 18:37 Acetaminophen 325 Mg Tablet PO 650 mg Q4H PRN Administration Mild Pain (1-3) or Fever Alteplase, Recombinant 2 mg 10/15/25 14:07 10/15/25 14:18 Alteplase 2 Mg Vial (Cathflo) IV PUSH 2 mg ONCE PRN Administration Line Occlusion Amiodarone HCl 200 mg 10/05/25 09:00 10/16/25 08:49 Amiodarone Hcl 200 Mg Tablet PO 200 mg DAILY KENYON Administration Apixaban 5 mg 10/11/25 13:05 10/16/25 08:44 Apixaban 5 Mg Tablet PO 5 mg Q12HR KENYON Administration Atorvastatin Calcium 40 mg 10/05/25 09:00 10/16/25 08:44 Atorvastatin 40 Mg Tablet PO 40 mg DAILY KENYON Administration Carvedilol 12.5 mg 10/05/25 09:00 10/16/25 08:50 Carvedilol 12.5 Mg Tablet PO 12.5 mg Q12HR KENYON Administration Dextrose 12.5 gm 10/05/25 06:10 Dextrose 50% 25 Gm/50 Ml Syringe IV PUSH PRN PRN Hypoglycemia Protocol Empagliflozin 25 mg 10/05/25 09:00 10/16/25 08:44 Empagliflozin 25 Mg Tablet PO 25 mg QAM KENYON Administration Ferrous Sulfate 325 mg 10/05/25 09:00 10/16/25 08:43 Ferrous Sulfate 325 Mg Tablet PO 325 mg DAILY KENYON Administration Furosemide 40 mg 10/05/25 09:00 10/16/25 08:50 Furosemide 40 Mg Tablet PO 40 mg QAM KENYON Administration Gabapentin 800 mg 10/05/25 09:00 10/16/25 08:44 Gabapentin 400 Mg Capsule PO 800 mg TID KENYON Administration Glucagon 1 mg 10/05/25 06:10 Glucagon For Inj 1 Mg Vial IM PRN PRN Hypoglycemia Protocol Glucose 15 gm 10/05/25 06:10 Glucose Oral Gel 15 Gm Of Glucse In 37.5 Gm Tube PO PRN PRN Hypoglycemia Protocol Hydralazine HCl 10 mg 10/05/25 17:42 Hydralazine Hcl 20 Mg/Ml Vial IV PUSH Q6H PRN Blood Pressure - High Dextrose 1,000 mls @ 100 mls/hr 10/05/25 06:10 Dextrose 5% 1,000 Ml IVPB PRN PRN Hypoglycemia Protocol Ampicillin Sodium/Sulbactam 100 mls @ 200 mls/hr 10/09/25 16:00 10/16/25 08:35 Sodium 3 gm/ Sodium Chloride IVPB 200 mls/hr Q4H KENYON Administration Vancomycin HCl 1,750 mg in 500 mls @ 250 mls/hr 10/16/25 05:00 10/16/25 05:01 Vancomycin 1,750 Mg/Ns 500 Ml IVPB 250 mls/hr Q24H KENYON Administration Insulin Aspart 2 - 5 units 10/05/25 08:00 10/16/25 08:35 Insulin Aspart (*Bkc) 100 Units/Ml SUB-Q Not Given TIDWM [facility] Protocol Insulin Glargine 26 units 10/16/25 10:40 Insulin Glargine (*Bkc) 100 Units/Ml SUB-Q DAILY [facility] Levothyroxine Sodium 200 mcg 10/05/25 06:30 10/16/25 05:43 Levothyroxine Sodium 100 Mcg Tablet PO 200 mcg DAILY@0630 [facility] Administration Losartan Potassium 25 mg 10/05/25 09:00 10/16/25 08:50 Losartan Potassium 25 Mg Tablet PO 25 mg DAILY K[facility]ON Administration Ondansetron HCl 4 mg 10/05/25 02:15 Ondansetron Inj 4 Mg/2 Ml Vial IV PUSH Q4H PRN Nausea Pantoprazole Sodium 40 mg 10/05/25 09:00 10/16/25 08:43 Pantoprazole 40 Mg Tablet PO 40 mg QAM KENYON Administration Polyethylene Glycol 17 gm 10/10/25 09:00 10/16/25 08:50 Polyethylene Glycol 3350 17 Gm Powd.Pack PO Not Given QAM KENYON Potassium Chloride 10 meq 10/05/25 09:00 10/16/25 08:44 Potassium Chloride 10 Meq Er Tablet PO 10 meq DAILY KENYON Administration Senna/Docusate Sodium 2 tab 10/09/25 21:00 10/16/25 08:50 Senna/Docusate Sodium Tablet PO Not Given Q12HR KEN[facility]ON Sodium Chloride 10 ml 10/10/25 22:00 10/16/25 05:43 Central Line Flush IV PUSH 10 ml Q8HR KENYON Administration Sodium Chloride 10 ml 10/10/25 15:13 Central Line Flush IV PUSH PRN PRN with TPN bag changes Sodium Chloride 20 ml 10/10/25 15:13 Central Line Flush IV PUSH PRN PRN after blood draws Spironolactone 25 mg 10/05/25 09:00 10/16/25 08:43 Spironolactone 25 Mg Tablet PO 25 mg DAILY KENYON Administration Radiology Results: ITS Impressions Head CT 10/05/25 06:07 IMPRESSION: 1. No acute intracranial findings. Chest X-Ray 10/05/25 06:09 IMPRESSION: 1. No acute cardiopulmonary findings given portable technique. Heel X-Ray 10/05/25 07:52 IMPRESSION: 1. Comminuted mid body fracture of the calcaneus with possible erosive changes soft tissue swelling and open wound defect. Pathologic fracture and possible osteomyelitis is not excluded. Venous Doppler Study 10/05/25 14:51 Impression: Negative for DVT. Foot MRI 10/06/25 14:21 IMPRESSION: 1. Oblique longitudinally oriented fracture through the body of the calcaneus extending from the plantar surface into the subtalar joint with features suggesting possible subacute injury. Correlate with clinical presentation and history. 2. Extensive soft tissue changes along the posterior margin of the calcaneal body with erosive and bone marrow changes consistent with osteomyelitis. Bone marrow changes involve both the posterior and anterior calcaneal body fragments, although no clear cortical erosion in the anterior fragment is seen. Osteomyelitis is more convincingly present in the posterior calcaneal body and not as clearly present in the anterior fragment. However with bone marrow changes throughout the anterior calcaneus, osteomyelitis could be there is well. 3. Fluid within the fracture defect could be infected, though no discrete abscess is seen. Labs Labs: Laboratory Results - last 24 hr 10/15/25 10/15/25 10/15/25 11:58 16:49 20:27 Creatinine Estim Creat Clear Calc Estimated GFR POC Capillary Glucose 119 H 95 82 Vancomycin Trough 10/16/25 10/16/25 10/16/25 02:46 02:59 07:37 Creatinine 0.86 Estim Creat Clear Calc 65 Estimated GFR > 60 POC Capillary Glucose 63 L Vancomycin Trough 12.8 10/16/25 08:29 Creatinine Estim Creat Clear Calc Estimated GFR POC Capillary Glucose 74 Vancomycin Trough Quality VTE Prophylaxis VTE prophylaxis: pharmacologic ordered
[2025-10-16] MEDS: INSULIN GLARGINE (*BKC) 100 UNITS/ML 26 UNITS SUB-Q (11:17)
[2025-10-16] MEDS: FUROSEMIDE INJ 40 MG/4 ML VIAL 20 MG IV PUSH (11:17)
[2025-10-16] MEDS: LOPERAMIDE HCL 2 MG CAPSULE PO (11:23)
--- NOTE | 2025-10-16 16:09 | P.DS_ITS ---
DS: Admitting Diagnosis Discharge Date 10/16/2025 Admitting Diagnosis Foot wound DS: Discharge Diagnosis Discharge Diagnosis (1) Diabetic foot ulcer associated with type 2 diabetes mellitus: Onset Date: ~04/2025 Code(s): E11.621 - Type 2 diabetes mellitus with foot ulcer; L97.509 - Non-pressure chronic ulcer of other part of unspecified foot with unspecified severity Status: Acute (2) Bacteremia: Code(s): R78.81 - Bacteremia Status: Acute (3) Diastolic CHF with preserved left ventricular function, NYHA class 2: Code(s): I50.30 - Unspecified diastolic (congestive) heart failure Status: Acute (4) Paroxysmal atrial fibrillation: Code(s): I48.0 - Paroxysmal atrial fibrillation Status: Acute (5) Essential (primary) hypertension: Code(s): I10 - Essential (primary) hypertension Status: Acute (6) Mixed hyperlipidemia: Code(s): E78.2 - Mixed hyperlipidemia Status: Acute (7) Controlled type 2 diabetes mellitus with hyperglycemia, with long-term current use of insulin: Code(s): E11.65 - Type 2 diabetes mellitus with hyperglycemia; Z79.4 - long-term (current) use of insulin Status: Acute (8) Hypothyroidism, unspecified: Qualifiers: Hypothyroidism type: unspecified Qualified Code(s): E03.9 - Hypothyroidism, unspecified Code(s): E03.9 - Hypothyroidism, unspecified Status: Acute (9) Iron deficiency anemia, unspecified: Onset Date: ~03/09/24 Qualifiers: Iron deficiency anemia type: chronic blood loss Qualified Code(s): D50.0 - Iron deficiency anemia secondary to blood loss (chronic) Code(s): D50.9 - Iron deficiency anemia, unspecified Status: Acute (10) Chronic kidney disease (CKD) stage G3b/A1, moderately decreased glomerular filtration rate (GFR) between 30-44 mL/min/1.73 square meter and albuminuria creatinine ratio less than 30 mg/g: Code(s): N18.32 - Chronic kidney disease, stage 3b Status: Acute (11) Acute on chronic anemia: Code(s): D64.9 - Anemia, unspecified Status: Acute DS: Summary Hospital Course Hospital Course: # Diabetic foot ulcer associated with type 2 diabetes mellitus: -Dr. Sotelo has been consulted for the diabetic right heel wound.(wound care was consulted for sacral ulcer.) -the patient has had this decubitus ulcer for several months. -please see nursing wound pictures. -patient has a large patch of eschar tissue to the entire right heel. She also has a sacral wound. -the patient stated that she has been using Santyl as prescribed for the diabetic foot ulcer. -continue IV antibiotics Patient will be transitioned to SNF for antibiotic treatment and wound care. # Bacteremia: Possible source UTI/foot osteomyelitis Blood culture from 10/05 shows E coli pansensitive Blood culture from 09/16/2025 E coli which was pansensitive Less suspicion for endocarditis, will not pursue for TTE Monitor leukocytosis Continue vancomycin Wound culture with E coli as well as Staph aureus. Operative culture with E coli final pending Infectious Disease on board Currently on Unasyn. When ready for discharge change to ertapenem/DAPTO through 11/19/[address] weekly CBC CMP ESR CPK # Diastolic CHF with preserved left ventricular function, NYHA class 2: -no recent echo seen. -continue with Coreg -continue Jardiance and Lasix -hold losartan due to BAYLEE -continue with spironolactone. -monitor electrolytes due to her medications. -received 1 L bolus in the ER. # Paroxysmal atrial fibrillation: -the patient is in sinus rhythm at this time. -she has had a history of a cardiac radiofrequency ablation in the past. -continue with Coreg -continue with apixaban -continue with amiodarone if blood pressure allows. # Essential (primary) hypertension: -continue with Coreg if blood pressure allows - Lasix if blood pressure allows # Mixed hyperlipidemia: -continue with atorvastatin # Controlled type 2 diabetes mellitus with hyperglycemia, with long-term current use of insulin: -Accu-Cheks with a seen HS and sliding scale insulin with hypoglycemic protocol. - A1c 7 -pharmacy to decrease home long-acting insulin by 20%. -continue with Jardiance Adjust insulin dose # Hypothyroidism, unspecified: -continue with Synthroid # Iron deficiency anemia, unspecified: -her H&H is currently 8.6 and 27.9. Her past H&H was 9.0 in 28.5 on 09/25/2025. -monitor CBCs and H&H -anemia of chronic disease with a history of chronic renal failure -continue with ferrous sulfate # Chronic kidney disease (CKD) stage G3b/A1, moderately decreased glomerular filtration rate (GFR) between 30-44 mL/min/1.73 square meter and albuminuria creatinine ratio less than 30 mg/g: -her creatinine is 1.5 with a baseline of 1.2 - 1.30. BUN is 21 with a baseline of 18 - 27. And GFR is 34 the baseline anywhere from 27-47. -nephrology has seen her here in the past. -Hold losartan and sprinolactone # Acute on chronic anemia: Anemia due to CKD Patient on ferrous sulfate Hemoglobin down trended to 6.8 on 10/06/2025 status post 1 unit packed red blood cell transfusion on 10/06/2025. Post transfusion hemoglobin up to 8.612/ Xarelto on hold for planned surgery Patient had Previous discussion about placement of Watchman device at [facility] but she denied # Diarrhea likely due to stool softener. Imodium p.r.n. 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 Mucous membranes moist. NECK: Supple. CHEST: Diminished breath sounds bilaterally No wheezing, no respiratory distress HEART: Regular rate and rhythm. No murmur heard. Warm extremities ABDOMEN: Soft, nondistended, nontender, no rigidity or guarding EXTREMITIES: Normal range of motion. 1+ edema bilateral lower extremities. Right foot with wound VAC in place NEURO: No deficits. Alert and oriented [x3.] PSYCH: Normal DS: Data Data Completed and Pending Completed studies during hospitalization: Pending at discharge 10/09/25 12:54 Surgical [PTH] Routine Labs on day of discharge: Labs from last 24 hours 10/16/25 10/16/25 10/16/25 11:28 08:29 07:37 Creatinine Estim Creat Clear Calc Estimated GFR POC Capillary Glucose 84 74 63 L Vancomycin Trough 10/16/25 10/16/25 10/15/25 02:59 02:46 20:27 Creatinine 0.86 Estim Creat Clear Calc 65 Estimated GFR > 60 POC Capillary Glucose 82 Vancomycin Trough 12.8 10/15/25 16:49 Creatinine Estim Creat Clear Calc Estimated GFR POC Capillary Glucose 95 Vancomycin Trough Procedures/Treatments: Procedure Note - Detailed Date of Procedure 10/09/25 Pre-op Diagnosis Decubitus ulcer right heel with osteomyelitis Post-op Diagnosis Same Procedure Performed Incision and debridement of all necrotic soft tissue and bone right foot Surgeon Nathaniel Sotelo Jr., DPM Anesthesia General and Local Indications Chronic pressure ulcer right heel Findings Significant soft tissue necrosis with bone involvement to the inferior calcaneus Description of Procedure Under mild sedation, the patient was brought to the operating room, placed on the operating table in the supine position. A pneumatic ankle tourniquet was placed about the patient's right ankle. Following general anesthesia, I performed a proximal common peroneal nerve blockm with 20ccs of a 1:1 mix of 2% Lidocaine plane and 0.5% Marcaine plane, this was 1cm posterior and 3cm inferior to the neck of the fibula. The foot was then scrubbed, prepped, and draped in the usual aseptic manner with betadine. I elevated the patient's foot for 30 seconds and pneumatic ankle tourniquet was then inflated. Surgery began in the following manner. Attention was directed to the posterior aspect of the right calcaneus where there was malodorous necrotic tissue noted. This was resected with a 15 blade. There was some tunneling to the distally and inferiorly to the calcaneus that was noted to be soft. I debrided any soft necrotic soft tissue and bone with a rongeur. Next I took a segment of the nonviable bone and sent it for aerobic and anaerobic culture and sensitivity. Next, I used an osteotome and mallet to resect the soft non viable bone until hard healthy bleeding bone was noted. This bone was sent for pathology examination. I used a pulsevac system and 2L of sterile saline to thoughly flush the wound site. No remaining necrotic soft tissue and bone was visualized. I packed the void with Surgicel and 1 iodoform packing gauze. I dressed with 4x4 gauze, kerlix, ABD pads and Coban. At this point I released the tourniquet. No active bleeding strike though was noted on her dressing. The dressng will be changed in 24 hours. The patient did very well with the procedure and the anesthesia. The patient was transferred to the medicine/surgery floor vital signs stable and vascular status intact to all toes of the affected foot. The patient will continue IV antibiotcs per infectious disease. The patient will follow the following instructions: 1. Keep the dressing clean, dry, and intact. Use a cast protector bag with showers. 2. The patient should use a surgical shoe for ambulation postoperatively. 3. The patient should be on bedrest with bedside commode and elevate the affected foot when at rest. The patient will use waffle boots while laying down. 4. I, Dr. Sotelo, will change the dressing the day after surgery. Estimated Blood Loss 20 Urine Output 0 Pathology Yes (1. Resected bone sent for path and micro studies) Condition Stable Disposition Floor Imaging Radiologist's impression: ITS Impressions Head CT 10/05/25 06:07 IMPRESSION: 1. No acute intracranial findings. Chest X-Ray 10/05/25 06:09 IMPRESSION: 1. No acute cardiopulmonary findings given portable technique. Heel X-Ray 10/05/25 07:52 IMPRESSION: 1. Comminuted mid body fracture of the calcaneus with possible erosive changes soft tissue swelling and open wound defect. Pathologic fracture and possible osteomyelitis is not excluded. Venous Doppler Study 10/05/25 14:51 Impression: Negative for DVT. Foot MRI 10/06/25 14:21 IMPRESSION: 1. Oblique longitudinally oriented fracture through the body of the calcaneus extending from the plantar surface into the subtalar joint with features suggesting possible subacute injury. Correlate with clinical presentation and history. 2. Extensive soft tissue changes along the posterior margin of the calcaneal body with erosive and bone marrow changes consistent with osteomyelitis. Bone marrow changes involve both the posterior and anterior calcaneal body fragments, although no clear cortical erosion in the anterior fragment is seen. Osteomyelitis is more convincingly present in the posterior calcaneal body and not as clearly present in the anterior fragment. However with bone marrow changes throughout the anterior calcaneus, osteomyelitis could be there is well. 3. Fluid within the fracture defect could be infected, though no discrete abscess is seen. Discharge Plan Discharge Attending physician on discharge: Bob Chu Consulting providers: Nathaniel Sotelo Jr.; Annalisa Cavazos; Evgeny Altamirano Discharging Clinician: Bob Chu Anticipated Discharge Date/Time: 12/29/25 16:15 Patient Disposition: SNF Activity: as tolerated Diet: heart healthy and diabetic Discharge Instructions: Infectious Disease lab orders: CBC, CMP, CPK, CRP (all weekly), and fax to Dr. Crabtree [phone]. Accu-Chek AC and HS Wound VAC to continue. Wound care to continue to follow Patient Instructions: Antibiotic Form, Apixaban (By mouth), Blood Thinners (GEN) Patient Language: Romanian Stand Alone Forms: General Discharge Information, Alf Discharge Follow-up/Referrals: Nathaniel Sotelo Jr. DPM [Physician, Podiatry] - 2 Weeks Evgeny Altamirano MD [Physician, Infectious Disease] - 2 Weeks Jasiel Person MD [Primary Care Provider, [facility]] - 1 Week Discharge Medications: New ertapenem 1 gram recon soln 1 g IV Q24H 40 Days Rx Instructions: weekly cbc, cmp, cpk, esr to [phone]. Dr Altamirano. insulin glargine [Lantus U-100 Insulin] 100 unit/mL Solution 26 unit subcut DAILY Qty: 10 0RF loperamide 2 mg Capsule 2 mg PO PRN PRN (Reason: Diarrhea) Qty: 30 0RF insulin aspart U-100 [Novolog U-100 Insulin aspart] 100 unit/mL Solution 2 - 5 unit subcut TIDWM Qty: 10 0RF Protocol: Insulin Corrective Low-Dose Condition: glucose < 70 mg/dl Dose/Route: Follow Hypoglycemia Order Condition: glucose 70-200 mg/dl Dose/Route: No additional insulin Condition: glucose 201-250 mg/dl Dose/Route: 2 units sub-Q Condition: glucose 251-300 mg/dl Dose/Route: 3 units sub-Q Condition: glucose 301-350 mg/dl Dose/Route: 4 units sub-Q Condition: glucose 351-400 mg/dl Dose/Route: 5 units sub-Q Condition: glucose > 400 mg/dl Dose/Route: Call MD Protocol Text: *No Correction Dose at Bedtime* Rx Instructions: glucose < 70 mg/dl Follow Hypoglycemia Order glucose 70-200 mg/dl No additional insulin glucose 201-250 mg/dl 2 units sub-Q glucose 251-300 mg/dl 3 units sub-Q glucose 301-350 mg/dl 4 units sub-Q glucose 351-400 mg/dl 5 units sub-Q glucose > 400 mg/dl Call polyethylene glycol 3350 [Miralax] 17 gram Powder In Packet 17 g PO QAM PRN (Reason: constipation) Qty: 30 0RF daptomycin 500 mg recon soln 500 mg IV Q24H 40 Days Rx Instructions: administer over 30 mins weekly cbc, cmp, cpk, esr to [phone]. Dr Altamirano. Continued spironolactone 25 mg tablet 25 mg PO DAILY amiodarone 200 mg tablet 200 mg PO DAILY levothyroxine [Synthroid] 200 mcg tablet 200 mcg PO . q.a.m. Qty: 90 3RF ferrous sulfate 325 mg (65 mg iron) tablet,delayed release (DR/EC) 325 mg PO DAILY Qty: 90 3RF Rx Instructions: take with supper ondansetron 4 mg tablet,disintegrating 4 mg PO Q8H PRN (Reason: nausea and vomiting) Qty: 10 0RF carvedilol 12.5 mg tablet 12.5 mg PO Q12H Santyl 250 unit/gram ointment 1 applic TOPICAL DAILY Patient Comments: apply to heel of right foot losartan 25 mg tablet 25 mg PO DAILY hydrocodone-acetaminophen 10-325 mg tablet 1 tablet PO Q6H PRN (Reason: pain) Qty: 30 0RF Eliquis 5 mg tablet 5 mg PO BID Qty: 60 11RF Jardiance 25 mg tablet 25 mg PO QAM Qty: 90 3RF atorvastatin 40 mg tablet 40 mg PO DAILY Qty: 90 3RF gabapentin 800 mg tablet 800 mg PO TID Qty: 90 11RF furosemide 40 mg tablet 40 mg PO QAM Qty: 30 11RF Rx Instructions: started in hospital esomeprazole magnesium 40 mg capsule,delayed release(DR/EC) 40 mg PO DAILY Qty: 90 3RF (DME) pen needle, diabetic 32 gauge x needle See Rx Instructions .ROUTE .MEDSUPPLY Qty: 100 6RF Rx Instructions: As directed to test blood sugar BID potassium chloride 10 mEq capsule, extended release 10 meq PO DAILY Qty: 90 3RF Discontinued insulin glargine [Lantus Solostar U-100 Insulin] 100 unit/mL (3 mL) insulin pen 40 unit subcut DAILY Patient Comments: in AM Date of admission: 10/05/25 09:04 Primary Care Provider: Jasiel Person Admitting Provider: Emory Wolf Attending physician on admission: Emory Wolf Condition: Stable
--- NOTE | 2025-10-16 21:47 | PC.NURSE ---
PT d/c to [facility]. Facility called by this nurse to give report, unable to reach receiving nurse. Another nurse confirmed they were expecting Pt arrival. Wound vac removed and replaced with wet to dry drsg, small amount of serosanguineous drainage noted, tolerated well.All scheduled HS meds given to pt.. 2099-[facility] present to transfer, verbal report given. Pt moved from chair to stretcher using Messagem[employer] Move with 4 assist. 2124- Pt left unit. VS stable and documented.
== END 2025-10-16 21:20 | DRG 628 ==
LOC: ANHED 02:20 → ANHIMU 02:37 → ANH3MEDSUR 10-16 15:26 → ANHIMU 10-17 09:38
PROVIDERS: Internal Medicine; Nurse Practitioner; Podiatrist Foot & Ankle Surgery; Admitting Provider General Practice; Emergency Provider Student in an Organized Health Care Education/Training Program; PCP Family Medicine; Visit Provider Internal Medicine
PROC: 0QBL0ZZ Excision of Right Tarsal, Open Approach (ICD-10-PCS; principal; 2025-10-09 12:30)
DX: E11.621 Type 2 diabetes mellitus with foot ulcer (principal); L89.153 Pressure ulcer of sacral region, stage 3; I13.0 Hypertensive heart and chronic kidney disease with heart failure and stage 1 through stage 4 chronic kidney disease, or unspecified chronic kidney disease; L97.419 Non-pressure chronic ulcer of right heel and midfoot with unspecified severity; Z68.41 Body mass index [BMI] 40.0-44.9, adult; R78.81 Bacteremia; M86.171 Other acute osteomyelitis, right ankle and foot; I50.32 Chronic diastolic (congestive) heart failure; E44.0 Moderate protein-calorie malnutrition; B96.20 Unspecified Escherichia coli [E. coli] as the cause of diseases classified elsewhere; B95.62 Methicillin resistant Staphylococcus aureus infection as the cause of diseases classified elsewhere; E11.69 Type 2 diabetes mellitus with other specified complication; L89.610 Pressure ulcer of right heel, unstageable; N18.32 Chronic kidney disease, stage 3b; I48.0 Paroxysmal atrial fibrillation; E78.2 Mixed hyperlipidemia; E11.65 Type 2 diabetes mellitus with hyperglycemia; E03.9 Hypothyroidism, unspecified; D50.9 Iron deficiency anemia, unspecified; D63.1 Anemia in chronic kidney disease; I73.9 Peripheral vascular disease, unspecified; E11.42 Type 2 diabetes mellitus with diabetic polyneuropathy; E11.319 Type 2 diabetes mellitus with unspecified diabetic retinopathy without macular edema; E66.01 Morbid (severe) obesity due to excess calories; Z96.659 Presence of unspecified artificial knee joint; Z79.4 Long term (current) use of insulin; Z90.49 Acquired absence of other specified parts of digestive tract
CPT/HCPCS: 36415; 36430; 36569; 70450; 71045; 73650; 73720; 80053; 80202; 81001; 82565; 82948; 83036; 83605; 83735; 85014; 85018; 85025; 85027; 85610; 85730; 86140; 86850; 86900; 86901; 86923; 87040; 87070; 87075; 87186; 87205; 87637; 88309; 88311; 93005; 93970; 96365; 96376; 97110; 97162; 97166; 97530; 97535; 99212; 99285; A9270; A9577; C1751; G0378; G0463; J0295; J0692; J1815; J1938; J2003; J2543; J2704; J2997; J3373; J7050; J7120; P9016